=== PATIENT | male | born 1985 | race Caucasian/White ===

== ENCOUNTER 2021-06-21 09:54 | Outpatient (REF) | payer OTHER, SELFPAY ==
[2021-06-21 13:57] LABS: MANUAL DIFF FLAG NO
[2021-06-21 14:01] LABS: Basophils Percent Auto 0.5 % (0-2); Eosinophils Absolute Auto 0.3 X10*3/uL (0.0-0.4); Eosinophils Percent Auto 4.2 % (0-4); Hemoglobin 15.4 g/dl (14.0-18.0); Imm Gran Abs Auto 0.03 X10*3/uL (0.00-0.03); Imm Gran Pct Auto 0.4 % (0.0-0.4); Lymphocytes Absolute Auto 2.4 X10*3/uL (1.2-4.9); Lymphocytes Percent Auto 31.9 % (20-40); Mean Corpuscular HGB Conc 33.5 g/dl (31.0-36.0); Mean Corpuscular Volume 86.6 fL (80.0-98.0); Mean Platelet Volume 10.2 fL (9.4-12.4); Monocytes Absolute Auto 0.4 X10*3/uL (0.1-1.2); Monocytes Percent Auto 5.4 % (2-11); Neutrophils Absolute Auto 4.3 x10*3/uL (2.0-8.3); Neutrophils Percent Auto 57.6 % (45-73); Platelet Count 244 X10*3/uL (160-400); Red Blood Count 5.31 X10*6/uL (4.60-5.80); Red Cell Distribution Width 12.7 % (11.0-16.0); White Blood Count 7.4 X10*3/uL (4.8-10.8)
[2021-06-21 14:30] LABS: Alanine Aminotransferase 75 U/L (0-40); Albumin Level 4.4 g/dL (3.5-5.0); Alkaline Phosphatase 78 U/L (39-117); Anion Gap 14 (12-20); Aspartate Amino Transferase 41 U/L (5-37); Bilirubin Total 0.4 mg/dL (0.0-1.0); Blood Urea Nitrogen 13 mg/dL (9-16); Calcium 9.6 mg/dL (8.4-10.2); Carbon Dioxide 27 mmol/L (22-29); Chloride 103 mmol/L (96-108); Cholesterol 157 mg/dL; Estimated Glomerular Filt Rate > 60; Glucose Fasting 103 mg/dL (60-99); HDL Cholesterol 39 mg/dL; LDL Cholesterol Calculated 82 mg/dl; Potassium 4.2 mmol/L (3.3-5.1); Sodium 140 mmol/L (135-145); Total Protein 7.4 g/dL (6.5-8.0); Triglycerides 181 mg/dL
[2021-06-21 14:41] LABS: Prostate Specific Antigen 0.06 ng/mL (<0.05-4.0)
[2021-06-26 16:06] LABS: Testosterone, Total 23 ng/dL (250-1100)
== END 2021-06-21 09:55 | disposition home or self-care (01) ==
LOC: HO.10HDL 09:54
PROVIDERS: Visit Provider Internal Medicine Medical Oncology
DX: Z12.5 Encounter for screening for malignant neoplasm of prostate (principal); I10 Essential (primary) hypertension; N52.9 Male erectile dysfunction, unspecified; E66.01 Morbid (severe) obesity due to excess calories; R68.82 Decreased libido
CPT/HCPCS: 36415; 80053; 80061; 84153; 84403; 85025

== ENCOUNTER 2021-06-28 08:32 | Outpatient (REF) | payer OTHER, SELFPAY | END 2021-06-28 08:33 | disposition home or self-care (01) | LOC: HO.HOSX 08:32 | PROVIDERS: Visit Provider Orthopaedic Surgery | DX: Z13.89 Encounter for screening for other disorder (principal) ==

== ENCOUNTER 2021-07-19 09:08 | Outpatient (REF) | payer OTHER, SELFPAY | END 2021-07-19 09:09 | disposition home or self-care (01) | LOC: HO.HOSX 09:08 | PROVIDERS: Visit Provider Orthopaedic Surgery | DX: Z13.89 Encounter for screening for other disorder (principal) ==

== ENCOUNTER 2021-08-09 12:22 | Outpatient (REF) | payer OTHER, SELFPAY ==
--- NOTE | ~2021-08-09 | XR_ITS ---
EXAMINATION: XR knee standing BI, XR knee RT 2V, XR knee LT 2V CLINICAL INFORMATION: Reason for Exam M25.569 - Pain in unspecified knee COMPARISON: None available at the time of this dictation. TECHNIQUE: frontal, lateral, tunnel and patella sunrise views FINDINGS: BONES: No fracture or dislocation is present. JOINTS: Narrowing of joint spaces and developed osteophytes from the edges of articular surfaces suggest degenerative osteoarthritis this has involved primarily the lateral compartment left knee and mildly involving medial compartments on both sides.. SOFT TISSUE: Normal XR/XR knee standing BI IMPRESSION: Mild to moderate degenerative osteoarthritis involving primarily lateral compartment left knee.
--- NOTE | ~2021-08-09 | XR_ITS ---
EXAMINATION: XR knee standing BI, XR knee RT 2V, XR knee LT 2V CLINICAL INFORMATION: Reason for Exam M25.569 - Pain in unspecified knee COMPARISON: None available at the time of this dictation. TECHNIQUE: frontal, lateral, tunnel and patella sunrise views FINDINGS: BONES: No fracture or dislocation is present. JOINTS: Narrowing of joint spaces and developed osteophytes from the edges of articular surfaces suggest degenerative osteoarthritis this has involved primarily the lateral compartment left knee and mildly involving medial compartments on both sides.. SOFT TISSUE: Normal XR/XR knee RT 2V IMPRESSION: Mild to moderate degenerative osteoarthritis involving primarily lateral compartment left knee.
--- NOTE | ~2021-08-09 | XR_ITS ---
EXAMINATION: XR knee standing BI, XR knee RT 2V, XR knee LT 2V CLINICAL INFORMATION: Reason for Exam M25.569 - Pain in unspecified knee COMPARISON: None available at the time of this dictation. TECHNIQUE: frontal, lateral, tunnel and patella sunrise views FINDINGS: BONES: No fracture or dislocation is present. JOINTS: Narrowing of joint spaces and developed osteophytes from the edges of articular surfaces suggest degenerative osteoarthritis this has involved primarily the lateral compartment left knee and mildly involving medial compartments on both sides.. SOFT TISSUE: Normal XR/XR knee LT 2V IMPRESSION: Mild to moderate degenerative osteoarthritis involving primarily lateral compartment left knee.
== END 2021-08-09 12:23 | disposition home or self-care (01) ==
LOC: HO.HOSX 12:22
PROVIDERS: Visit Provider Orthopaedic Surgery
DX: M25.362 Other instability, left knee (principal); M17.12 Unilateral primary osteoarthritis, left knee
CPT/HCPCS: 73560; 73565

== ENCOUNTER → 2021-09-14 13:47 | Outpatient (BNVA) | payer OTHER, SELFPAY | PROVIDERS: PCP Internal Medicine Medical Oncology; Visit Provider Internal Medicine Endocrinology, Diabetes & Metabolism | DX: E29.1 Testicular hypofunction (principal) | CPT/HCPCS: 99202 ==

== ENCOUNTER 2021-12-11 08:00 | Outpatient (REF) | payer OTHER, SELFPAY ==
[2021-12-12 08:52] LABS: Follicle Stimulating Hormone <0.7 mIU/mL (1.6-8.0); Lutenizing Hormone <0.2 mIU/mL (1.5-9.3)
[2021-12-15 21:36] LABS: Testosterone, Total 19 ng/dL (250-1100)
== END 2021-12-11 08:01 | disposition home or self-care (01) ==
LOC: HO.LAB 08:00
PROVIDERS: PCP Internal Medicine Medical Oncology; Visit Provider Internal Medicine Endocrinology, Diabetes & Metabolism
DX: E29.1 Testicular hypofunction (principal)
CPT/HCPCS: 36415; 83001; 83002; 84403

== ENCOUNTER 2021-12-21 08:12 | Outpatient (REF) | payer OTHER, SELFPAY ==
[2021-12-21 10:10] LABS: Ferritin 296 ng/mL (20-250)
[2021-12-23 00:36] LABS: Prolactin 6.3 ng/mL (2.0-18.0)
== END 2021-12-21 08:13 | disposition home or self-care (01) ==
LOC: HO.LAB 08:12
PROVIDERS: PCP Internal Medicine Medical Oncology; Visit Provider Internal Medicine Endocrinology, Diabetes & Metabolism
DX: E29.1 Testicular hypofunction (principal)
CPT/HCPCS: 36415; 82728; 84146

== ENCOUNTER → 2022-01-07 09:07 | Outpatient (BNVA) | payer OTHER, SELFPAY | PROVIDERS: PCP Internal Medicine Medical Oncology; Visit Provider Internal Medicine Endocrinology, Diabetes & Metabolism | DX: E29.1 Testicular hypofunction (principal) | CPT/HCPCS: 99212 ==

== ENCOUNTER 2022-01-13 08:09 | Outpatient (REF) | payer OTHER, SELFPAY ==
[2022-01-13 10:41] LABS: Anion Gap 11 (12-20); Blood Urea Nitrogen 18 mg/dL (9-16); Calcium 9.7 mg/dL (8.4-10.2); Carbon Dioxide 29 mmol/L (22-29); Chloride 103 mmol/L (96-108); Estimated Glomerular Filt Rate > 60; Glucose Random 90 mg/dL (60-115); Potassium 4.2 mmol/L (3.3-5.1); Sodium 139 mmol/L (135-145)
[2022-01-13 11:04] LABS: Ferritin 296 ng/mL (20-250); Free T4 (Free Thyroxine) 0.97 ng/dL (0.71-1.85); Thyroid Stimulating Hormone 1.55 uIU/mL (0.32-4.0)
[2022-01-13 11:43] LABS: Cortisol Random 17.7 ug/dL
[2022-01-18 17:01] LABS: IGF-1 (Somatomedin C) 107 ng/mL (53-331); IGF-1 Z Score (Male) -0.6 SD (-2.0 - +2.0)
== END 2022-01-13 08:10 | disposition home or self-care (01) ==
LOC: HO.10HDL 08:09
PROVIDERS: Visit Provider Internal Medicine Endocrinology, Diabetes & Metabolism
DX: E29.1 Testicular hypofunction (principal)
CPT/HCPCS: 36415; 80048; 82533; 82728; 84305; 84439; 84443

== ENCOUNTER → 2022-02-23 10:44 | Outpatient (BNVA) | payer OTHER, SELFPAY | PROVIDERS: PCP Internal Medicine Medical Oncology; Visit Provider Internal Medicine Endocrinology, Diabetes & Metabolism | DX: E29.1 Testicular hypofunction (principal) | CPT/HCPCS: 99212 ==

== ENCOUNTER → 2022-05-10 14:36 | Outpatient (BNVA) | payer OTHER, SELFPAY | PROVIDERS: PCP Internal Medicine Medical Oncology; Visit Provider Internal Medicine Endocrinology, Diabetes & Metabolism | DX: E29.1 Testicular hypofunction (principal) | CPT/HCPCS: 99212 ==

== ENCOUNTER 2022-10-31 12:11 | Outpatient (REF) | payer OTHER, SELFPAY ==
[2022-10-31 12:46] LABS: Hemoglobin 16.3 g/dl (14.0-18.0)
[2022-11-05 17:54] LABS: Testosterone, Total 39 ng/dL (250-1100)
== END 2022-10-31 12:12 | disposition home or self-care (01) ==
LOC: HO.LAB 12:11
PROVIDERS: PCP Internal Medicine Medical Oncology; Visit Provider Internal Medicine Endocrinology, Diabetes & Metabolism
DX: E29.1 Testicular hypofunction (principal)
CPT/HCPCS: 36415; 84402; 84403; 85014; 85018

== ENCOUNTER → 2022-11-03 15:53 | Outpatient (BNVA) | payer OTHER, SELFPAY | PROVIDERS: PCP Internal Medicine Medical Oncology; Visit Provider Internal Medicine Endocrinology, Diabetes & Metabolism | DX: E29.1 Testicular hypofunction (principal) | CPT/HCPCS: 99212 ==

== ENCOUNTER 2022-12-27 11:50 | Emergency (ER) | payer OTHER, SELFPAY ==
--- NOTE | ~2022-12-27 | XR_ITS ---
EXAMINATION: XR CHEST CLINICAL INFORMATION: Pain Patient states cold symptoms and rash on chest COMPARISON: None available. TECHNIQUE: 2 views of the chest were obtained. FINDINGS: There is central and scattered peripheral peribronchial thickening. There is no focal consolidation. No pleural effusion. No significant abnormality is noted involving the heart, mediastinum, bony thorax or soft tissues. XR/XR chest 2V IMPRESSION: 1. No pneumonia. 2. Central and scattered peripheral peribronchial thickening which can be seen with bronchitis.
[2022-12-27 11:59] VITALS: BP 216/144; PULSE 88; RESP 20; TEMP 36.3; O2SAT 93; BMI 38.9
--- NOTE | 2022-12-27 12:01 | ED_ITS ---
HPI - General Adult General Chief complaint: Upper Respiratory Symptoms Stated complaint: sent from urgent care Time Seen by Provider: 12/27/22 14:57 Source: patient Mode of arrival: ambulatory Limitations: no limitations History of Present Illness HPI narrative: 37-year-old male who presents emergency department for evaluation sore throat, headache, fever, chills and rash. Patient states that he has been sick since 12/23/2022 (4 days prior to evaluation). He states that he woke up with a severe sore throat, headache and nasal congestion. States that initially had a cough which then resolved. He states that initially felt short of breath and dyspnea on exertion but this also resolved. He states that he has a consistent sore throat, he feels tired and fatigued. He has myalgias and arthralgias. He had 1 episode of nausea and vomiting. He had no diarrhea. Patient went to an urgent care clinic and was referred to the emergency department for evaluation of his symptoms. Patient states he goes in the [place] every day he has had at least a tick bites over the past 2 weeks. He states that he has been bit by female deer ticks any does not identify them. Related Data Home Medications Medication Instructions Recorded Confirmed sumatriptan succinate 100 mg tablet 100 mg PO DAILY PRN 09/14/21 09/14/21 adalimumab 80 mg/0.8 mL mg subcut 01/07/22 subcutaneous pen kit (Humira(CF) Pen Crohn's-[facility] Colitis-Hid Sup Strt) Previous Rx's Medication Instructions Recorded ofloxacin 0.3 % eye drops 2 drp ophthalmic (eye) QID 5 days 08/31/22 #5 mL syringe with needle, safety 3 mL #20 ea 11/08/22 22 gauge x 1 1/2 (BD Eclipse Luer-Hyacinth) testosterone cypionate 200 mg/mL 100 mg (0.5 mL) IM QWEEK 4 weeks 11/22/22 intramuscular oil #2 mL Allergies Allergy/AdvReac Type Severity Reaction Status Date / Time bee pollen [BEE STINGS] Allergy Severe THROAT Verified 12/27/22 12:02 SWELLING codeine [CODEINE] Allergy Mild STOMACH Verified 12/27/22 12:02 UPSET, nausea and vomiting Review of Systems Review of Systems: Yes all other systems are reviewed and are negative [facility] Past Medical History [facility] Narrative: Past medical history: Hypertension and multiple episodes of acute kidney injury. 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 He does smoke 1 pack of cigarettes per day. He denies alcohol use. He does smoke marijuana and occasionally uses cocaine. Medical History (Updated 12/27/22 @ 15:51 by Benitez Roe MD) Hypogonadism, testicular Surgical History H/O discectomy H/O myringotomy History of meniscectomy of left knee History of surgery S/P tendon repair Family History Family History Father No problems noted. Mother Hypertension Maternal Grandfather Coronary artery disease Maternal Grandmother Hypertension Diabetes Social History Social History Alcohol intake: current Alcohol intake frequency: does not drink Patient Tobacco Use Status: Current everyday Tobacco user Tobacco use type: Cigarette Cigarette Packs Per Day: 1.5 Physical Exam ED Vital Signs: Vital Signs - 24 hr 12/27/22 11:59 12/27/22 14:53 Temperature 97.4 F Pulse Rate 88 91 Respiratory Rate 20 18 Blood Pressure 216/144 H 232/135 H Pulse Oximetry 93 95 Oxygen Delivery Method Room Air Room Air BMI result Body Mass Index 38.9 Course Course Course Narrative: RME- 37-year-old male presents for evaluation of congestion, rash to his chest. Symptoms started Monday. The patient went to Urgent Care was found to be significantly hypertensive as high as 186/120. He was sent here for further evaluation. The patient remains hypertension to 216/144. The patient does have erythematous maculopapular rash to his chest. He reports being outside frequently. I added labs, tick-borne illness studies. The patient reports that he has been on exogenous testosterone for the last 6 weeks Medical Decision Making Medical Decision Making MDM Narrative: 37-year-old male who presents emergency department for evaluation of URI type symptoms with fever, chills, sore throat, nasal congestion cough which resolved and rash on his chest. Patient's blood pressure was elevated to this is an accurate blood pressure 216/144 however patient has a very large arm is unclear. Presses vital signs were normal. The rest of his vital signs were normal. Patient has erythema to his chest but also has a vesicular rash in multiple stages consistent with varicella zoster virus. Patient was evaluated by provider triage and laboratory evaluation and chest x-ray was ordered. 0336: Patient's laboratory evaluation revealed no significant acute abnormalities Chest x-ray was unremarkable Patient's rash suggests that he has a viral syndrome most likely acute varicella zoster virus. Tick-borne illness is also possibility. I did discuss the pending test with the patient and the need to follow-up with his PCP to make sure that he does not need to be treated for tick-borne illness. He was given printed and verbal instructions and discharged home. Differential Diagnosis Differential Diagnoses: The differential diagnosis associated with the presentation includes Differential diagnosis includes was not limited to pneumonia, allergic reaction, tick-borne illness, viral illness, URI, bronchitis, varicella virus Lab Data MDM Lab Attestation statement: I reviewed the patient's lab results. My independent interpretation patient's laboratory evaluation is as follows: WBC normal. H&H elevated 17.8 and 53.7-could be secondary hemoconcentration caused by volume depletion. ALT elevated 41. Rapid strep test negative. 12/27/22 12:18 12/27/22 12:18 Labs: Lab Results 12/27/22 12/27/22 12/27/22 Range/Units 12:17 12:18 12:18 WBC 10.6 (4.8-10.8) X10*3/uL RBC 6.22 H (4.60-5.80) X10*6/uL Hgb 17.8 (14.0-18.0) g/dl Hct 53.7 H (42.0-52.0) % MCV 86.3 (80.0-98.0) fL MCH 28.6 (27.0-33.0) pg MCHC 33.1 (31.0-36.0) g/dl RDW 14.0 (11.0-16.0) % Plt Count 198 (160-400) X10*3/uL MPV 9.4 (9.4-12.4) fL Immature Gran % (Auto) 0.6 H (0.0-0.4) % Neut % (Auto) 66.8 (45-73) % Lymph % (Auto) 23.4 (20-40) % [place] % (Auto) 4.6 (2-11) % Eos % (Auto) 4.0 (0-4) % Baso % (Auto) 0.6 (0-2) % Lymph # (Auto) 2.5 (1.2-4.9) X10*3/uL [place] # (Auto) 0.5 (0.1-1.2) X10*3/uL Eos # (Auto) 0.4 (0.0-0.4) X10*3/uL Baso # (Auto) 0.1 (0.0-0.2) X10*3/uL Abs Immat Gran (auto) 0.06 H (0.00-0.03) X10*3/uL Absolute Neuts (auto) 7.1 (2.0-8.3) x10*3/uL Absolute Nucleated RBC 0.000 (0.0-0.012) X10*3/uL Nucleated RBC % (auto) 0.0 (0.0-0.2) /100WBC Sodium 137 (135-145) mmol/L Potassium 3.7 (3.3-5.1) mmol/L Chloride 103 (96-108) mmol/L Carbon Dioxide 25 (22-29) mmol/L Anion Gap 13 (12-20) BUN 12 (9-16) mg/dL Creatinine 0.87 (0.5-1.4) mg/dL Estim Creat Clear Calc 177.5 Estimated GFR > 60 Random Glucose 131 H (60-115) mg/dL Calcium 9.3 (8.4-10.2) mg/dL Total Bilirubin 0.7 (0.0-1.0) mg/dL AST 30 (5-37) U/L ALT 41 H (0-40) U/L Alkaline Phosphatase 69 (39-117) U/L Total Protein 7.4 (6.5-8.0) g/dL Albumin 4.1 (3.5-5.0) g/dL Lipase 10 (8-78) U/L Monoscreen (Negative) S. pyogenes GrpA STACEY Negative (Negative) 12/27/22 Range/Units 12:18 WBC (4.8-10.8) X10*3/uL RBC (4.60-5.80) X10*6/uL Hgb (14.0-18.0) g/dl Hct (42.0-52.0) % MCV (80.0-98.0) fL MCH (27.0-33.0) pg MCHC (31.0-36.0) g/dl RDW (11.0-16.0) % Plt Count (160-400) X10*3/uL MPV (9.4-12.4) fL Immature Gran % (Auto) (0.0-0.4) % Neut % (Auto) (45-73) % Lymph % (Auto) (20-40) % Newton % (Auto) (2-11) % Eos % (Auto) (0-4) % Baso % (Auto) (0-2) % Lymph # (Auto) (1.2-4.9) X10*3/uL [place] # (Auto) (0.1-1.2) X10*3/uL Eos # (Auto) (0.0-0.4) X10*3/uL Baso # (Auto) (0.0-0.2) X10*3/uL Abs Immat Gran (auto) (0.00-0.03) X10*3/uL Absolute Neuts (auto) (2.0-8.3) x10*3/uL Absolute Nucleated RBC (0.0-0.012) X10*3/uL Nucleated RBC % (auto) (0.0-0.2) /100WBC Sodium (135-145) mmol/L Potassium (3.3-5.1) mmol/L Chloride (96-108) mmol/L Carbon Dioxide (22-29) mmol/L Anion Gap (12-20) BUN (9-16) mg/dL Creatinine (0.5-1.4) mg/dL Estim Creat Clear Calc Estimated GFR Random Glucose (60-115) mg/dL Calcium (8.4-10.2) mg/dL Total Bilirubin (0.0-1.0) mg/dL AST (5-37) U/L ALT (0-40) U/L Alkaline Phosphatase (39-117) U/L Total Protein (6.5-8.0) g/dL Albumin (3.5-5.0) g/dL Lipase (8-78) U/L Monoscreen Negative (Negative) S. pyogenes GrpA STACEY (Negative) Independent Interpretation I performed an independent interpretation of an: Plain X-Ray Interpretation: My independent interpretation of the patient?s chest X-ray is no acute disease Radiology Impression Discussion of test interpretation with radiology: I have reviewed the radiologist's reading. Radiologist Impression: XR chest 2V IMPRESSION: 1. No pneumonia. 2. Central and scattered peripheral peribronchial thickening which can be seen with bronchitis. Dictated By:Caitlin Trivedi MD Discharge Plan Discharge Clinical Impression: Chickenpox, Viral syndrome, Tick bite Patient Disposition: Home, Self-Care Instructions: Chickenpox (ED) Additional Instructions: Your symptoms are consistent with a viral infection Your rash is caused by a virus and base on the parents I believe that you have varicella zoster virus (chickenpox) This rash will eventually go away, the pimples will hot by themselves, crust over and then get better. Given the fact that she had multiple tick bites, we did do a tick-borne illness panel which tests for multiple different infections that you can get from tick bites. These tests will take a week or more to come back so you should follow-up with your doctor to review these results. You also had a respiratory viral panel and I will contact you if these results come back today before 22:00 otherwise you should discuss these tests with your doctor. Your chest x-ray was unremarkable. Your blood counts, blood chemistries, kidney tests and liver tests were all normal. Your rapid strep test was negative. Increase your fluid intake to prevent dehydration Take Tylenol (acetaminophen) 500 mg pills, 2 pills every 6 hours as needed for pain. Follow-up with your doctor in 2 days. Please return to the emergency department if your symptoms get worse or if you develop any symptoms that are concerning to you. Your blood pressures were high here in the emergency department however this could be due to the fact that are blood pressure cuff may be small for your arm. Make sure you take your blood pressure medications as prescribed by your doctor in follow-up for further management of your high blood pressure. Prescriptions: No Action (DME) BD Eclipse Luer-Hyacinth 3 mL 22 gauge x 1 1/2 syringe See Rx Instructions .Route Qty: 20 4RF Rx Instructions: As directed injects once a week testosterone cypionate 200 mg/mL oil 100 mg IM QWEEK 28 Days Qty: 2 5RF ofloxacin 0.3 % drops 2 drp ophthalmic (eye) QID 5 Days Qty: 5 0RF sumatriptan succinate 100 mg tablet 100 mg PO DAILY PRN Humira(CF) Pen [id number] 80 mg/0.8 mL pen injector kit subcut
[2022-12-27 12:23] LABS: MANUAL DIFF FLAG NO
[2022-12-27 12:26] LABS: Basophils Absolute Auto 0.1 X10*3/uL (0.0-0.2); Basophils Percent Auto 0.6 % (0-2); Eosinophils Absolute Auto 0.4 X10*3/uL (0.0-0.4); Hematocrit 53.7 % (42.0-52.0); Hemoglobin 17.8 g/dl (14.0-18.0); Imm Gran Abs Auto 0.06 X10*3/uL (0.00-0.03); Imm Gran Pct Auto 0.6 % (0.0-0.4); Lymphocytes Absolute Auto 2.5 X10*3/uL (1.2-4.9); Lymphocytes Percent Auto 23.4 % (20-40); Mean Corpuscular HGB Conc 33.1 g/dl (31.0-36.0); Mean Corpuscular Hemoglobin 28.6 pg (27.0-33.0); Mean Corpuscular Volume 86.3 fL (80.0-98.0); Mean Platelet Volume 9.4 fL (9.4-12.4); Monocytes Absolute Auto 0.5 X10*3/uL (0.1-1.2); Monocytes Percent Auto 4.6 % (2-11); Neutrophils Absolute Auto 7.1 x10*3/uL (2.0-8.3); Neutrophils Percent Auto 66.8 % (45-73); Platelet Count 198 X10*3/uL (160-400); Red Blood Count 6.22 X10*6/uL (4.60-5.80); White Blood Count 10.6 X10*3/uL (4.8-10.8)
[2022-12-27 12:43] LABS: IDNOW Serial# 08D9AD1C; Strep A Nucleic Acid Negative (Negative)
[2022-12-27 12:49] LABS: Alanine Aminotransferase 41 U/L (0-40); Albumin Level 4.1 g/dL (3.5-5.0); Alkaline Phosphatase 69 U/L (39-117); Anion Gap 13 (12-20); Aspartate Amino Transferase 30 U/L (5-37); Bilirubin Total 0.7 mg/dL (0.0-1.0); Blood Urea Nitrogen 12 mg/dL (9-16); Calcium 9.3 mg/dL (8.4-10.2); Carbon Dioxide 25 mmol/L (22-29); Chloride 103 mmol/L (96-108); Creatinine Clr Calc Pharmacy 177.5; Estimated Glomerular Filt Rate > 60; Glucose Random 131 mg/dL (60-115); Lipase 10 U/L (8-78); Potassium 3.7 mmol/L (3.3-5.1); Sodium 137 mmol/L (135-145); Total Protein 7.4 g/dL (6.5-8.0)
[2022-12-27 12:51] LABS: Monotest Negative (Negative)
[2022-12-27 14:53] VITALS: BP 232/135; PULSE 91; RESP 18; O2SAT 95
[2022-12-27 15:32] VITALS: BP 203/124
[2022-12-29 21:13] LABS: Lyme Abs Screen <0.90 index
[2023-01-02 18:23] LABS: Rocky Mtn. Spot. Fever IgG Ab Not Detected (Not Detected); Rocky Mtn.Spot. Fever IgM Ab Not Detected (Not Detected)
[2023-01-04 11:35] LABS: Babesia IgG <1:64 titer (<1:64); Babesia IgM <1:20 titer (<1:20)
[2023-01-04 12:48] LABS: A. Phagocytophilum Ab IgG <1:64 (<1:64); A. Phagocytophilum Ab IgM <1:20 (<1:20); E. Chaffeensis Ab IgG <1:64 (<1:64); E. Chaffeensis Ab IgM <1:20 (<1:20)
== END 2022-12-27 16:26 | disposition home or self-care (01) ==
LOC: HO.ED 16:17
PROVIDERS: Physician Assistant; Emergency Provider Emergency Medicine Emergency Medical Services
DX: B01.9 Varicella without complication (principal); B34.9 Viral infection, unspecified; R07.89 Other chest pain; Z79.899 Other long term (current) drug therapy
CPT/HCPCS: 36415; 71046; 80053; 83690; 85025; 86308; 86617; 86618; 86666; 86753; 86757; 87651; 99283; 99284

== ENCOUNTER 2023-01-04 15:21 | Outpatient (REF) | payer OTHER, SELFPAY | END 2023-01-04 15:22 | disposition home or self-care (01) | LOC: HO.LNP 15:21 | PROVIDERS: Visit Provider Internal Medicine Medical Oncology | DX: J02.9 Acute pharyngitis, unspecified (principal) | CPT/HCPCS: 87070 ==

== ENCOUNTER 2023-01-21 23:57 | Emergency (ER) | payer OTHER, SELFPAY ==
[2023-01-22 00:01] VITALS: BP 183/107; PULSE 99; RESP 18; TEMP 36.6; O2SAT 96; BMI 45.9
[2023-01-22 00:43] LABS: Appearance Urine Cloudy; Color Urine Dark Yellow; Glucose Urine UA Negative (Negative); Leukocyte Esterase Urine Negative (Negative); Nitrite Urine Negative (Negative); PH 5.5 (5.0-9.0); Specific Gravity - Urine >= 1.030 (1.005-1.025); UMIC TRIGGER UA YES; Urine Blood Small (1+) (Negative); Urine Ketones Trace mg/dL (Negative); Urine Protein 300 (3+) mg/dL (Neg-Trace)
[2023-01-22] MEDS: amLODIPine Besylate 10 MG TABLET 5 MG PO (00:46)
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
[2023-01-22 00:50] LABS: Bacteria Urine None Seen (None Seen); Hyaline Casts Urine >20 /LPF (0-2); WBC Urine 0-5 /HPF (0-5)
[2023-01-22 00:58] LABS: Amphetamine Screen Urine Not Detected (Not Detect); Barbiturates, Urine Not Detected (Not Detect); Benzodiazepines Screen Urine POSITIVE (Not Detect); Cannabinoid Screen Urine POSITIVE (Not Detect); Cocaine Screen Urine POSITIVE (Not Detect); Fentanyl, urine POSITIVE (Not Detect); Opiate Screen Urine POSITIVE (Not Detect); Phencyclidine Screen Urine Not Detected (Not Detect)
== END 2023-01-22 01:09 | disposition home or self-care (01) ==
PROVIDERS: Emergency Provider Emergency Medicine
DX: R45.851 Suicidal ideations (principal); I10 Essential (primary) hypertension; F17.210 Nicotine dependence, cigarettes, uncomplicated; Z71.6 Tobacco abuse counseling; Z79.899 Other long term (current) drug therapy
CPT/HCPCS: 80307; 81001; 99283

== ENCOUNTER 2023-02-18 12:20 | Emergency (ER) | payer OTHER, SELFPAY ==
[2023-02-18 12:28] VITALS: BP 174/106; PULSE 90; RESP 15; TEMP 37.3; O2SAT 97; BMI 41.4
[2023-02-18] MEDS: predniSONE 20 MG TABLET 60 MG PO (12:37)
[2023-02-18 12:49] VITALS: BP 172/138; PULSE 90; O2SAT 98
--- NOTE | 2023-02-18 12:53 | ED_ITS ---
HPI - Allergic Reaction General Chief complaint: Allergic Reaction Stated complaint: BEE STING, 0.3 EPI GIVEN PER EMS Time Seen by Provider: 02/18/23 12:25 Source: patient and EMS Mode of arrival: EMS Limitations: no limitations History of Present Illness HPI narrative: 37 yo male history of anaphylaxis to bee stings presents to the ER for evaluation after he sat on a being got stung About 30 minutes ago. He states he sustained a sting to his left gluteal area. He developed chest tightness, sensation of throat closing and hives on his trunk. He took 50 mg of Benadryl and abdominal was called. He was given 0.3 IM epinephrine in his right deltoid. His symptoms started to subside and he was brought to the ER for further evaluation. Patient states he does not know where his EpiPen and are in there probably . He is feeling better. He is no longer having any throat sensation issues, hives are improved, no chest tightness. No lip swelling. MD complaint: allergic reaction and hives Onset (ago): minute(s) Exposure: insect bite Symptoms: rash, itching and difficulty swallowing Severity: moderate Treatment prior to arrival: benadryl and epinephrine Previous Allergic Reaction History: prior ED visit(s) and anaphylaxis Related Data Home Medications Medication Instructions Recorded Confirmed sumatriptan succinate 100 mg tablet 100 mg PO DAILY PRN 09/14/21 09/14/21 adalimumab 80 mg/0.8 mL mg subcut 01/07/22 subcutaneous pen kit (Humira(CF) Pen Crohn's-Ulc Colitis-Hid Sup Strt) Previous Rx's Medication Instructions Recorded ofloxacin 0.3 % eye drops 2 drp ophthalmic (eye) QID 5 days 08/31/22 #5 mL syringe with needle, safety 3 mL #20 ea 11/08/22 22 gauge x 1 1/2 (BD Eclipse Luer-Hyacinth) amlodipine 5 mg tablet 5 mg PO DAILY #30 tabs 01/22/23 testosterone cypionate 200 mg/mL 100 mg (0.5 mL) IM QWEEK 4 weeks 02/01/23 intramuscular oil #2 mL epinephrine 0.3 mg/0.3 mL 0.3 mg (0.3 mL) IM Q4H PRN 02/18/23 injection, auto-injector (EpiPen anaphylaxis #2 ea 2-Matthew) Allergies Allergy/AdvReac Type Severity Reaction Status Date / Time bee pollen [BEE STINGS] Allergy Severe THROAT Verified 12/27/22 12:02 SWELLING codeine [CODEINE] Allergy Mild STOMACH Verified 12/27/22 12:02 UPSET, nausea and vomiting Review of Systems Review of Systems: Yes all other systems are reviewed and are negative [facility] Past Medical History Medical History Hypogonadism, testicular Surgical History H/O discectomy H/O myringotomy History of meniscectomy of left knee History of surgery S/P tendon repair Family History Family History Father No problems noted. Mother Hypertension Maternal Grandfather Coronary artery disease Maternal Grandmother Hypertension Diabetes Social History Social History Alcohol intake: current Alcohol intake frequency: does not drink Patient Tobacco Use Status: Current everyday Tobacco user Tobacco use type: Cigarette Cigarette Packs Per Day: 1.5 Smoked in Last 30 Days: Yes Substance Use Type: Marijuana Substance Use Frequency: Daily Advance Directives: No Advance Directives Information Provided: Yes Physical Exam ED Vital Signs: Vital Signs - 24 hr 02/18/23 12:28 02/18/23 13:48 Temperature 99.1 F 97.6 F Pulse Rate 90 72 Respiratory Rate 15 13 Blood Pressure 174/106 H 164/106 H Pulse Oximetry 97 98 Oxygen Delivery Method Room Air Room Air BMI result Body Mass Index 41.4 Appearance: Alert. Oriented X3. No acute distress. Head: normocephalic, atraumatic. Eyes: Pupils equal, round and reactive to light. ENT: Pharynx normal. No tonsillar swelling or exudate. No perioral swelling. Normal voice. Handling secretions normally. Neck: Normal inspection. Neck supple. CVS: Normal heart rate and rhythm. Pulses normal. Respiratory: No respiratory distress. Breath sounds normal. Abdomen: Soft and nontender. +BS x4 Skin: Skin warm and dry. Normal skin color. Normal skin turgor. Urticarial rash on the upper back only Extremities: No lower extremity edema. No joint swelling. Neuro/psych: Oriented X 3. No motor deficit. No sensory deficit. CN II-XII intact. Normal speech and cognition. Medications Administered Discontinued Medications Generic Name Dose Route Start Last Admin Trade Name Gee PRN Reason Stop Dose Admin Prednisone 60 mg 02/18/23 12:26 02/18/23 12:37 Prednisone 20 Mg Tablet PO 02/18/23 12:27 60 mg ONCE ONE Administration Medical Decision Making Medical Decision Making MDM Narrative: [age]-year-old male with history of anaphylaxis to bee sting presents to the ER for evaluation after he got stung. He received intramuscular epinephrine and 50 mg of oral Benadryl prior to arrival with improvement in his symptoms. Additionally prednisone was given here. His vital signs are stable and he is feeling symptomatically much better. Patient was observed in the ER for an hour and a half with resolution of his symptoms. Blood pressure improved, patient never tachycardic. He feels well and would like to be discharged. He will be discharged with new prescription for epinephrine. He was counseled. He is stable for discharge home. Differential Diagnosis Differential Diagnoses: The differential diagnosis associated with the presentation includes anaphylaxis, allergic reaction, hives, anxiety Admission/Observation Consideration of admission/observation: Escalation of care including admission/observation considered Concern for anaphylaxis, admission observation were considered. Independent Historian Clinical information obtained from an independent historian. History obtained from or confirmed by: EMS External Record Review External record reviewed: Prior outpatient labs Prescription Management I considered prescription management with: Other ( Epinephrine and prednisone) Critical Care Time Critical Care Time Critical Care Time: No Discharge Plan Discharge Clinical Impression: Allergic reaction Patient Disposition: Home, Self-Care Instructions: General Allergic Reaction (ED) Additional Instructions: continue benadryl 50 mg every 6-8 hours if you have ongoing symptoms. If you develop new or worsening symptoms call 911 or come back to the ER for further evaluation. Prescriptions: New epinephrine [EpiPen 2-Matthew] 0.3 mg/0.3 mL auto-injector 0.3 mg IM Q4H PRN (Reason: anaphylaxis) Qty: 2 0RF No Action (DME) BD Eclipse Luer-Hyacinth 3 mL 22 gauge x 1 1/2 syringe See Rx Instructions .Route Qty: 20 4RF Rx Instructions: As directed injects once a week testosterone cypionate 200 mg/mL oil 100 mg IM QWEEK 28 Days Qty: 2 5RF amlodipine 5 mg tablet 5 mg PO DAILY Qty: 30 2RF ofloxacin 0.3 % drops 2 drp ophthalmic (eye) QID 5 Days Qty: 5 0RF sumatriptan succinate 100 mg tablet 100 mg PO DAILY PRN Humira(CF) Pen Bkyexx-AF-NN 80 mg/0.8 mL pen injector kit subcut Interventions: ED Discharge Assessment Last Done: 02/18/23 13:54 Discharge Date/Time: 02/18/23 13:55
[2023-02-18 13:48] VITALS: BP 164/106; PULSE 72; RESP 13; TEMP 36.4; O2SAT 98
--- NOTE | 2023-02-18 13:55 | PC.NURSE ---
airway intact. talking w/o issue. +o2 sat on RA. rash has improved per pt. denies diff breathing.
== END 2023-02-18 13:55 | disposition home or self-care (01) ==
PROVIDERS: Emergency Provider Emergency Medicine Emergency Medical Services
DX: T63.441A Toxic effect of venom of bees, accidental (unintentional), initial encounter (principal)
CPT/HCPCS: 99283; 99284

== ENCOUNTER 2023-03-21 09:27 | Outpatient (REF) | payer OTHER, SELFPAY ==
[2023-03-27 15:29] LABS: Testosterone, Free 89.3 pg/mL (35.0-155.0); Testosterone, Total 496 ng/dL (250-1100)
== END 2023-03-21 09:28 | disposition home or self-care (01) ==
LOC: HO.LAB 09:27
PROVIDERS: PCP Internal Medicine Medical Oncology; Visit Provider Internal Medicine Endocrinology, Diabetes & Metabolism
DX: E29.1 Testicular hypofunction (principal)
CPT/HCPCS: 36415; 84402; 84403

== ENCOUNTER 2023-04-06 16:05 | Outpatient (AMB) | payer OTHER, SELFPAY ==
[2023-04-06 16:06] VITALS: BP 166/86; PULSE 90; BMI 43.3
--- NOTE | 2023-04-06 16:06 | A.OFFVIS_ITS ---
Intake Vital Signs 04/06/23 16:06 Height 6 ft 4 in Weight 355 lb 9.69 oz BMI 43.3 BP 166/86 H Blood Pressure Location Lt brachial Position Sitting Pulse 90 Pulse Source Pulse Oximeter Intake Visit Reasons: F/Up hypogonadism, voicemail Intake Note: Patient present today for Hypogonadism follow up visit. 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 MRI and prolactin level were normal. He denies any anabolic steroid use. He describes in the past episodes of acute renal failure that resulted in dialysis. Continues to complain of loss of libido lack of energy, errectiel dysfunction. He comes in with his partner today. They stated they are no longer seeking fertility at present. He is currently on AndroGel 4 depressions per day. Better libido but still no increase in energy. Ran out of testosterone and was off 2 wks prior to testosterone testing On testosterone intramuscular 100 mg q.week [facility] Medical History Hypogonadism, testicular Surgical History H/O discectomy H/O myringotomy History of meniscectomy of left knee History of surgery S/P tendon repair Family History Father No problems noted. 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 MRI and prolactin were normal. He is not seeking fertility. He is currently on intramuscular testosterone 100 mg q.week. Peak level is adequate The plan is to continue current therapy. Wii check trough testosterone Orders: Orders Testosterone, Free/Total 03/21/23 E29.1 - Testicular hypofunction Coding Level of Care Code Est Pt Level 3 (82303) Diagnoses Hypogonadism, testicular E29.1
== END 2023-04-06 16:40 ==
PROVIDERS: PCP Internal Medicine Medical Oncology; Visit Provider Internal Medicine Endocrinology, Diabetes & Metabolism
DX: E29.1 Testicular hypofunction (principal)
CPT/HCPCS: 99213

== ENCOUNTER → 2023-04-06 16:05 | Outpatient (BNVA) | payer OTHER, SELFPAY | PROVIDERS: Visit Provider Internal Medicine Endocrinology, Diabetes & Metabolism | DX: E29.1 Testicular hypofunction (principal) | CPT/HCPCS: 99212 ==

== ENCOUNTER 2023-10-02 15:48 | Outpatient (AMB) | payer OTHER, SELFPAY ==
[2023-10-02 15:50] VITALS: BP 210/114; PULSE 122; BMI 43.1
--- NOTE | 2023-10-02 15:50 | A.OFFVIS_ITS ---
Intake Vital Signs 10/02/23 15:50 Height 6 ft 4 in Weight 354 lb 0.998 oz BMI 43.1 BP 210/114 H Blood Pressure Location Lt brachial Position Sitting Pulse 122 H Pulse Source Pulse Oximeter Intake Visit Reasons: f/u hypogonadism-lvm Intake Note: Patient presents today for Hypogonadism follow up. Camp Dishwasher Required: No Accompanied by: Self / Same As Patient Allergies bee pollen [BEE STINGS] Allergy (Severe, Verified 10/02/23 16:00) THROAT SWELLING codeine [CODEINE] Allergy (Mild, Verified 10/02/23 16:00) STOMACH UPSET, nausea and vomiting Medication List - Last Reconciled 10/02/23 by Pranav Hwang MD epinephrine (EpiPen 2-Matthew) 0.3 mg (0.3 mL) IM Q4H PRN syringe with needle, safety (BD Eclipse Luer-Hyacinth) As directed injects once a week testosterone cypionate 100 mg (0.5 mL) IM QWEEK 4 weeks HPI HPI Comments History of Present Illness Details This is a 38-year-old white male 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 MRI and prolactin level were normal. He denies any anabolic steroid use. He describes in the past episodes of acute renal failure that resulted in dialysis. They stated they are no longer seeking fertility at present. He is currently on AndroGel 4 depressions per day. Better libido but still no increase in energy. Ran out of testosterone and was off 2 wks prior to testosterone testing On testosterone intramuscular 100 mg q.week. Blood pressure was found to be markedly elevated today. Denies any headache or change in vision. He does complain of acne on his chest [facility] Medical History Hypogonadism, testicular Surgical History H/O discectomy S/P tendon repair History of meniscectomy of left knee H/O myringotomy History of surgery Family History Father No problems noted. Mother Hypertension Maternal Grandfather Coronary artery disease Maternal Grandmother Hypertension Diabetes Social History Alcohol intake: current Alcohol intake frequency: does not drink Patient Tobacco Use Status: Current everyday Tobacco user Tobacco use type: Cigarette Cigarette Packs Per Day: 1.5 Substance Use Type: Marijuana Physical Exam Vital Signs: Last Vital Signs Pulse 122 H 10/02/23 15:50 BP 210/114 H 10/02/23 15:50 BMI result Body Mass Index 43.1 Const Other: Presence of cystic pustules of acne on chest Assessment & Plan Assessment & Plan (1) Hypogonadism, testicular: Code(s): E29.1 - Testicular hypofunction Plan: This is a 37-year-old white male 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 MRI and prolactin were normal. He is not seeking fertility. He is currently on intramuscular testosterone 100 mg q.week. Peak level is adequate The plan is to continue current therapy. Wii check peak and trough testosterone as well as CBC. I messaged his primary care provider regarding dermatology appointment and follow up of his blood pressure Orders: Orders Testosterone, Free/Total 1 Week E29.1 - Testicular hypofunction Coding Level of Care Code Est Pt Level 3 (79272) Diagnoses Hypogonadism, testicular E29.1
== END 2023-10-02 16:15 | disposition home or self-care (01) ==
PROVIDERS: PCP Internal Medicine Medical Oncology; Visit Provider Internal Medicine Endocrinology, Diabetes & Metabolism
DX: E29.1 Testicular hypofunction (principal)
CPT/HCPCS: 99213

== ENCOUNTER → 2023-10-02 15:48 | Outpatient (BNVA) | payer OTHER, SELFPAY | PROVIDERS: PCP Internal Medicine Medical Oncology; Visit Provider Internal Medicine Endocrinology, Diabetes & Metabolism | DX: E29.1 Testicular hypofunction (principal) | CPT/HCPCS: 99212 ==

== ENCOUNTER 2023-10-10 08:05 | Outpatient (REF) | payer OTHER, SELFPAY ==
[2023-10-10 08:35] LABS: Hematocrit 50.6 % (42.0-52.0); Hemoglobin 17.6 g/dl (14.0-18.0)
[2023-10-14 21:33] LABS: Testosterone, Free 45.7 pg/mL (35.0-155.0); Testosterone, Total 311 ng/dL (250-1100)
== END 2023-10-10 08:06 | disposition home or self-care (01) ==
LOC: HO.LAB 08:05
PROVIDERS: Visit Provider Internal Medicine Endocrinology, Diabetes & Metabolism
DX: E29.1 Testicular hypofunction (principal)
CPT/HCPCS: 36415; 84402; 84403; 85014; 85018

== ENCOUNTER 2024-01-15 09:19 | Outpatient (REF) | payer OTHER, SELFPAY ==
[2024-01-24 15:54] LABS: Testosterone, Total 1128 ng/dL (250-1100)
== END 2024-01-15 09:20 | disposition home or self-care (01) ==
LOC: HO.LAB 09:19
PROVIDERS: PCP Internal Medicine Medical Oncology; Visit Provider Internal Medicine Endocrinology, Diabetes & Metabolism
DX: E29.1 Testicular hypofunction (principal)
CPT/HCPCS: 36415; 84402; 84403

== ENCOUNTER 2024-01-17 15:23 | Outpatient (REF) | payer OTHER, SELFPAY ==
[2024-01-17 15:50] LABS: MANUAL DIFF FLAG NO
[2024-01-17 17:40] LABS: Basophils Absolute Auto 0.1 X10*3/uL (0.0-0.2); Basophils Percent Auto 0.5 % (0-2); Eosinophils Absolute Auto 0.3 X10*3/uL (0.0-0.4); Hematocrit 48.9 % (42.0-52.0); Hemoglobin 17.1 g/dl (14.0-18.0); Imm Gran Abs Auto 0.07 X10*3/uL (0.00-0.03); Imm Gran Pct Auto 0.6 % (0.0-0.4); Lymphocytes Absolute Auto 2.7 X10*3/uL (1.2-4.9); Lymphocytes Percent Auto 21.9 % (20-40); Mean Corpuscular Hemoglobin 29.5 pg (27.0-33.0); Mean Corpuscular Volume 84.5 fL (80.0-98.0); Mean Platelet Volume 9.4 fL (9.4-12.4); Monocytes Absolute Auto 1.1 X10*3/uL (0.1-1.2); Monocytes Percent Auto 8.8 % (2-11); Neutrophils Absolute Auto 8.2 x10*3/uL (2.0-8.3); Neutrophils Percent Auto 66.2 % (45-73); Platelet Count 285 X10*3/uL (160-400); Red Blood Count 5.79 X10*6/uL (4.60-5.80); Red Cell Distribution Width 14.2 % (11.0-16.0); White Blood Count 12.3 X10*3/uL (4.8-10.8)
[2024-01-17 17:49] LABS: Alanine Aminotransferase 39 U/L (0-40); Albumin Level 4.8 g/dL (3.5-5.0); Alkaline Phosphatase 61 U/L (39-117); Anion Gap 16 (12-20); Aspartate Amino Transferase 30 U/L (5-37); Blood Urea Nitrogen 17 mg/dL (9-16); Calcium 9.6 mg/dL (8.4-10.2); Carbon Dioxide 24 mmol/L (22-29); Chloride 104 mmol/L (96-108); Estimated Glomerular Filt Rate 55; Glucose Random 92 mg/dL (60-115); Potassium 3.5 mmol/L (3.3-5.1); Sodium 140 mmol/L (135-145); Total Protein 7.7 g/dL (6.5-8.0)
[2024-01-17 18:04] LABS: Erythrocyte Sedimentation Rate 2 MM/HR (0-15)
== END 2024-01-17 15:24 | disposition home or self-care (01) ==
LOC: HO.LAB 15:23
PROVIDERS: Visit Provider Internal Medicine Medical Oncology
DX: R74.8 Abnormal levels of other serum enzymes (principal); I10 Essential (primary) hypertension; E66.01 Morbid (severe) obesity due to excess calories
CPT/HCPCS: 36415; 80053; 82550; 85025; 85652

== ENCOUNTER 2024-01-25 14:00 | Outpatient (REF) | payer OTHER, SELFPAY ==
[2024-01-25 14:52] LABS: Hematocrit 49.1 % (42.0-52.0)
[2024-01-29 22:24] LABS: Testosterone, Free 278.5 pg/mL (35.0-155.0); Testosterone, Total 1175 ng/dL (250-1100)
== END 2024-01-25 14:01 | disposition home or self-care (01) ==
LOC: HO.LAB 14:00
PROVIDERS: PCP Internal Medicine Medical Oncology; Visit Provider Internal Medicine Endocrinology, Diabetes & Metabolism
DX: E29.1 Testicular hypofunction (principal)
CPT/HCPCS: 36415; 84402; 84403; 85014; 85018

== ENCOUNTER 2024-02-06 09:57 | Outpatient (REF) | payer OTHER, SELFPAY ==
[2024-02-06 10:50] LABS: CDiff Gene PCR NEGATIVE (Negative)
[2024-02-06 13:22] LABS: Adenovirus F 40/41 Not Detected (Not Detect.); Astrovirus Not Detected (Not Detect.); Campylobacter Not Detected (Not Detect.); Cryptosporidium Not Detected (Not Detect.); Cyclospora cayetanensis Not Detected (Not Detect.); E. coli EAEC Not Detected (Not Detect.); E. coli EPEC Not Detected (Not Detect.); E. coli ETEC Not Detected (Not Detect.); E. coli STEC Not Detected (Not Detect.); Entamoeba histolytica Not Detected (Not Detect.); Giardia lamblia Not Detected (Not Detect.); Norovirus GI/GII Not Detected (Not Detect.); Plesiomonas shigelloides Not Detected (Not Detect.); Rotavirus A Not Detected (Not Detect.); Salmonella Not Detected (Not Detect.); Sapovirus Not Detected (Not Detect.); Shigella sp./EIEC Not Detected (Not Detect.); Vibrio Not Detected (Not Detect.); Vibrio Cholerae Not Detected (Not Detect.); Yersinia enterocolitica Not Detected (Not Detect.)
== END 2024-02-06 09:58 | disposition home or self-care (01) ==
LOC: HO.LNP 09:57
PROVIDERS: Visit Provider Internal Medicine Medical Oncology
DX: R19.7 Diarrhea, unspecified (principal)
CPT/HCPCS: 87493; 87507

== ENCOUNTER 2024-03-27 15:12 | Outpatient (AMB) | payer OTHER, SELFPAY ==
--- NOTE | 2024-03-27 15:32 | MHC.OFFVIS ---
Vital Signs 03/27/24 15:34 Height 6 ft 4 in Weight 317 lb 3.923 oz BMI 38.6 BP 172/92 H Blood Pressure Location Rt brachial Position Sitting Pulse 103 H Pulse Source Pulse Oximeter Intake Visit Reasons: f/u hypogonadism-lvm Intake Note: Patient presents today for Hypogonadism follow up. 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 MRI and prolactin level were normal. He denies any anabolic steroid use. He describes in the past episodes of acute renal failure that resulted in dialysis. They stated they are no longer seeking fertility at present. He is currently on AndroGel 4 depressions per day. Better libido but still no increase in energy. Ran out of testosterone and was off 2 wks prior to testosterone testing On testosterone intramuscular 75 mg q.week. . Denies any headache or change in vision. He does complain of acne on his chest. Both peak and trough testosterone were high [facility] Medical History Hypogonadism, testicular Surgical History H/O discectomy S/P tendon repair History of meniscectomy of left knee H/O myringotomy History of surgery Family History Father No problems noted. 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 MRI and prolactin were normal. He is not seeking fertility. He is currently on intramuscular testosterone 75 mg q.week. both peak and trough levels are high suggesting supraphysiologic replacement The plan is to talk to the patient about potentially holding the testosterone to see if his gonadal axis recovered and recheck testosterone in 6 weeks' time. If his testosterone levels are low at that point, we will reinitiate 75 mg Q weekly and recheckpeak and trough level. I did tell patient that if he experiences symptoms of hypogonadism prior to 6 weeks, he can go for the testosterone level earlier Orders: Orders Testosterone, Free/Total 5 Weeks E29.1 - Testicular hypofunction Coding Level of Care Code Est Pt Level 3 (15936) Diagnoses Hypogonadism, testicular E29.1
[2024-03-27 15:34] VITALS: BP 172/92; PULSE 103; BMI 38.6
== END 2024-03-27 15:49 | disposition home or self-care (01) ==
PROVIDERS: PCP Internal Medicine Medical Oncology; Visit Provider Internal Medicine Endocrinology, Diabetes & Metabolism
DX: E29.1 Testicular hypofunction (principal)
CPT/HCPCS: 99213

== ENCOUNTER → 2024-03-27 15:12 | Outpatient (BNVA) | payer OTHER, SELFPAY | PROVIDERS: PCP Internal Medicine Medical Oncology; Visit Provider Internal Medicine Endocrinology, Diabetes & Metabolism | DX: E29.1 Testicular hypofunction (principal) | CPT/HCPCS: 99212 ==

== ENCOUNTER 2024-04-05 12:09 | Outpatient (REF) | payer OTHER, SELFPAY ==
[2024-04-10 21:38] LABS: Testosterone, Free 73.9 pg/mL (35.0-155.0); Testosterone, Total 445 ng/dL (250-1100)
== END 2024-04-05 12:10 | disposition home or self-care (01) ==
LOC: HO.LAB 12:09
PROVIDERS: PCP Internal Medicine Medical Oncology; Visit Provider Internal Medicine Endocrinology, Diabetes & Metabolism
DX: E29.1 Testicular hypofunction (principal)
CPT/HCPCS: 36415; 84402; 84403

== ENCOUNTER 2024-06-19 14:13 | Outpatient (REF) | payer OTHER, SELFPAY ==
[2024-06-19 14:36] LABS: MANUAL DIFF FLAG NO
[2024-06-19 15:08] LABS: Basophils Absolute Auto 0.1 X10*3/uL (0.0-0.2); Basophils Percent Auto 0.6 % (0-2); Eosinophils Absolute Auto 0.3 X10*3/uL (0.0-0.4); Eosinophils Percent Auto 2.8 % (0-4); Hematocrit 47.7 % (42.0-52.0); Hemoglobin 16.7 g/dl (14.0-18.0); Imm Gran Abs Auto 0.03 X10*3/uL (0.00-0.03); Imm Gran Pct Auto 0.3 % (0.0-0.4); Lymphocytes Absolute Auto 1.8 X10*3/uL (1.2-4.9); Lymphocytes Percent Auto 18.9 % (20-40); Mean Corpuscular Hemoglobin 30.4 pg (27.0-33.0); Mean Corpuscular Volume 86.9 fL (80.0-98.0); Mean Platelet Volume 9.5 fL (9.4-12.4); Monocytes Absolute Auto 0.8 X10*3/uL (0.1-1.2); Monocytes Percent Auto 8.4 % (2-11); Neutrophils Absolute Auto 6.4 x10*3/uL (2.0-8.3); Platelet Count 262 X10*3/uL (160-400); Red Blood Count 5.49 X10*6/uL (4.60-5.80); Red Cell Distribution Width 12.5 % (11.0-16.0); White Blood Count 9.3 X10*3/uL (4.8-10.8)
[2024-06-19 15:26] LABS: Albumin Level 4.5 g/dL (3.5-5.0); Anion Gap 12 (12-20); Aspartate Amino Transferase 26 U/L (5-37); Bilirubin Direct 0.1 mg/dL (0.0-0.5); Bilirubin Total 0.5 mg/dL (0.0-1.0); Blood Urea Nitrogen 18 mg/dL (9-16); C Reactive Protein 0.53 mg/dL (< or = 0.50); Calcium 9.6 mg/dL (8.4-10.2); Carbon Dioxide 23 mmol/L (22-29); Chloride 108 mmol/L (96-108); Estimated Glomerular Filt Rate > 60; Glucose Random 83 mg/dL (60-115); Potassium 3.6 mmol/L (3.3-5.1); Sodium 139 mmol/L (135-145); Total Protein 7.6 g/dL (6.5-8.0)
[2024-06-19 15:42] LABS: Alanine Aminotransferase 26 U/L (0-40); Alkaline Phosphatase 63 U/L (39-117)
[2024-06-19 16:15] LABS: Erythrocyte Sedimentation Rate 3 MM/HR (0-15)
--- OUTSIDE RECORDS SUMMARY | 2024-06-20 02:44 | XMS_ITS ---
Author Organization [facility] Address [address] [place] [address] Care Team Providers Care Souvenir Assembler Name Role Phone Pranav Bailey MD Primary Care Provider Unavailab Pranav Galindo Unavailable [phone] ALLERGIES Allergen (clinical drug ingredient) Drug/Non Drug Allergy documented on EMR Reaction Allergy Type Onset Date Status codeine Codeine upsets stomach Drug Allergy Ac tive bee pollen Bee Pollen Unknown Drug Allergy Activ e 12 Hour Nasal [place] Unknown Drug Allergy Active REASON FOR VISIT Patient presents today for diarrhea SOCIAL HISTORY Tobacco Use: Social History Observation Description Date Details (start date - stop date) Current Smoker NA - NA Sex Assigned At : Social History Observation Description Sex Assigned At Unknown Tobacco Use/Smoking Question Answer Notes Patient is a current smoker How often do you smoke cigarettes? every day How many cigarettes a day do you smoke? 21-30 Alcohol Screen Question Answer Notes Did you have a drink contain ing alcohol in the past year? Yes How often did you have a dri nk containing alcohol in the past year? Never (0 point) How many drinks did you have on a typical day when you were drinking in the past year? 1 or 2 drinks (0 point) Points 0 Interpretation Negative PROBLEMS Problem Type ICD Code Onset Dates Problem Status W/U Status Risk SNOMED Code Notes Problem Chronic diarrhea (K52.9) Active confirmed Chronic diarrhea (184590019) Problem Abnormal weight loss (R63.4) Active confirmed Abnormal weight loss (263186723) VITAL SIGNS BMI 36.88 kg/m2 06/19/2024 Blood pressure systolic 00 mm Hg 06/19/20 24 Blood pressure diastolic 00 mm Hg 024 Height 6 ft 4 in in 06/19/2024 Weight 303 lbs 06/19/2024 Encounters Encounter Location Date Provider Diagnosis [facility] [address] [place] [address] 06/19/2024 Pranav Galo Chronic diarrhea K52.9 and Abnormal weight loss R63.4 ASSESSMENTS Encounter Date Diagnosis Assessment Notes Treatment Notes Treatment Clinical Notes 06/19/2024 Chronic diarrhea (ICD-10 - K52.9) 06/19/2024 Abnormal weight loss (ICD-10 - R63.4) PLAN OF TREATMENT Pending Test Test Name Order Date CHEM 7 PROFILE 06/19/2024 LIVER PROFILE 06/19/2024 CRP 06/19/2024 CBC w DIFF 06/19/2024 SED RATE (ESR) 06/19/2024 CELIAC PANEL #10 06/19/2024 C DIFFICILE RFLX PCR 06/19/2024 Giardia Ag Stool EIA 06/19/2024 Calprotectin, Fecal 06/19/2024 GI PANEL 06/19/2024 Future Test Test Name Order Date Colonoscopy 06/19/2024 COLONOSCOPY 06/19/2024 Next Appt Details Provider Name:Pranav Galo , 06/27/2024 07:30:00 AM, [address] [place] [address] , [place], [place], [phone],
--- OUTSIDE RECORDS SUMMARY | 2024-06-20 02:44 | XMS_ITS | Patient Health Record ---
Author Organization [facility] Address [address] [place] [address] Care Team Providers Care Outreach Team Member Name Role Phone Leo PANCHAL, Pranav Primary Care Provider Unavailab Pranav Galindo Unavailable [phone] Brian Dodd Jr Unavailable [phone] ALLERGIES Allergen (clinical drug ingredient) Drug/Non Drug Allergy documented on EMR Reaction Allergy Type Onset Date Status codeine Codeine upsets stomach Drug Allergy Ac tive bee pollen Bee Pollen Unknown Drug Allergy Activ e 12 Hour Nasal [place] Unknown Drug Allergy Active RESULTS Component Value Reference Range Notes Complete Blood Count Auto Di ff Reviewed date:06/19/2024 06:50:13 PM Interpretation: Performing Lab:[facility], [address] [place] [phone] Notes/Report: White Blood Count 9.3 4.8-10.8 X10*3/uL Red Blood Count 5.49 4.60-5.80 X10*6/uL Hemoglobin 16.7 14.0-18.0 g/dl Hematocrit 47.7 42.0-52.0 % Mean Corpuscular Volume 86.9 80.0-98.0 fL Mean Corpuscular Hemoglobin 30.4 27.0-33.0 pg Mean Corpuscular HGB Conc 35.0 31.0-36.0 g/dl Red Cell Distribution Width 12.5 11.0-16.0 % Platelet Count 262 160-400 X10*3/uL Mean Platelet Volume 9.5 9.4-12.4 fL Neutrophils Percent Auto 69.0 45-73 % Imm Gran Pct Auto 0.3 0.0-0.4 % Lymphocytes Percent Auto 18.9 20-40 % Monocytes Percent Auto 8.4 2-11 % Eosinophils Percent Auto 2.8 0-4 % Basophils Percent Auto 0.6 0-2 % NRBC Pct Auto 0.0 0.0-0.2 /100WBC Neutrophils Absolute Auto 6.4 2.0-8.3 x10*3/u L Imm Gran Abs Auto 0.03 0.00-0.03 X10*3/uL Lymphocytes Absolute Auto 1.8 1.2-4.9 X10*3/u L Monocytes Absolute Auto 0.8 0.1-1.2 X10*3/uL Eosinophils Absolute Auto 0.3 0.0-0.4 X10*3/u L Basophils Absolute Auto 0.1 0.0-0.2 X10*3/uL NRBC Abs Auto 0.000 0.0-0.012 X10*3/uL Erythrocyte Sedimentation Ra te Reviewed date:06/19/2024 06:51:12 PM Interpretation: Performing Lab:[address] [address] Notes/Report: Erythrocyte Sedimentation Rate 3 0-15 MM/HR Patients with polycythemia and many hemoglobin abnormalities may have depressed sed rates whereas patients with anemia may have elevated sed rates. Liver Panel Reviewed date:06/19/2024 06:50:28 PM Interpretation: Performing Lab:[address] [address] Notes/Report: Bilirubin Total 0.5 0.0-1.0 mg/dL Bilirubin Direct 0.1 0.0-0.5 mg/dL Aspartate Amino Transferase 26 5-37 U/L Alanine Aminotransferase 26 0-40 U/L Total Protein 7.6 6.5-8.0 g/dL Albumin Level 4.5 3.5-5.0 g/dL Alkaline Phosphatase 63 39-117 U/L Basic Metabolic Panel Reviewed date:06/19/2024 06:51:00 PM Interpretation: Performing Lab:[address] [phone] Notes/Report: Sodium 139 135-145 mmol/L Potassium 3.6 3.3-5.1 mmol/L Chloride 108 96-108 mmol/L Carbon Dioxide 23 22-29 mmol/L Anion Gap 12 12-20 Blood Urea Nitrogen 18 9-16 mg/dL Creatinine 0.96 0.5-1.4 mg/dL Estimated Glomerular Filt Rate > 60 Chronic Kidney Disease: Estimated GFR < 60 mL/min/1.73m2 Severe Kidney Disease: Estimated GFR < 15 mL/min/1.73m2 Glucose Random 83 60-115 mg/dL Calcium 9.6 8.4-10.2 mg/dL C Reactive Protein Reviewed date:06/19/2024 06:51:06 PM Interpretation: Performing Lab:[facility], [address] [place] [phone] Notes/Report: C Reactive Protein 0.53 < or = 0.50 mg/dL REASON FOR REFERRAL No Information SOCIAL HISTORY Tobacco Use: Social History Observation Description Date Details (start date - stop date) Current Smoker NA - NA Sex Assigned At : Social History Observation Description Sex Assigned At Unknown Tobacco Use/Smoking Question Answer Notes Patient is a current smoker How often do you smoke cigarettes? every day How many cigarettes a day do you smoke? Alcohol Screen Question Answer Notes Did you [...] Chronic diarrhea (K52.9) Active confirmed Chronic diarrhea (013796037) Problem Abnormal weight loss (R63.4) Active confirmed Abnormal weight loss (953524779) VITAL SIGNS Blood pressure diastolic 00 mm Hg 06/19/2024 Height 6 ft 4 in in 06/19/2024 Blood pressure systolic 00 mm Hg 06/19/2024 Weight 303 lbs 06/19/2024 BMI 36.88 kg/m2 06/19/2024 Encounters Encounter Location Date Provider Diagnosis [facility] [address] [place] [address] 06/19/2024 Pranav Galo Chronic diarrhea K52.9 and Abnormal weight loss R63.4 [facility] [address] [place] [address] 06/05/2024 Brian Dodd Jr [facility] [address] [place] [address] 06/05/2024 Brian Dodd Jr ASSESSMENTS Encounter Date Diagnosis Assessment Notes Treatment Notes Treatment Clinical Notes 06/19/2024 Abnormal weight loss (ICD-10 - R63.4) 06/19/2024 Chronic diarrhea (ICD-10 - K52.9) PLAN OF TREATMENT Pending Test Test Name [...] Provider Name:Pranav Galo , 06/27/2024 07:30:00 AM, [address] , [place], [place], [phone], Insurance Providers Payer Name Payer Address Payer Phone Subscriber Number Group Number Insured Name Patient Relationship to Insured Coverage Start Date Coverage End Date [facility] [address] [address] [place], [place] [id number] GEORGETTE MOORE Self - patient is the insured MEDICAL (GENERAL) HISTORY Medical History History ICD Code HTN, but currently not on any medication Renal insufficiency Denies SC,DM,CVA,Lung disease Surgical History Surgery Date(Month/Year) right side of face-trauma left hand right elbow pins bilateral knees broken back /back surgeries x3 left ankle
--- OUTSIDE RECORDS SUMMARY | 2024-06-20 02:44 | XMS_ITS ---
Author Organization [facility] Address [address] [place] [address] Care Team Providers Care Storage Worker Name Role Phone Pranav Baiely MD Primary Care Provider Unavailab Pranav Galindo Unavailable [phone] Brian Dodd Jr Unavailable [phone] REASON FOR VISIT diarrhea Encounters Encounter Location Date Provider Diagnosis [facility] [address] [place] [address] 06/05/2024 Brian Dodd Jr PLAN OF TREATMENT Next Appt Details Provider Name:Pranav Galo , 06/27/2024 07:30:00 AM, [address] [place] [address] , [place], [place], [phone],
--- OUTSIDE RECORDS SUMMARY | 2024-06-20 02:44 | XMS_ITS ---
Author Organization [facility] Address [address] [place] [address] Care Team Providers Care Warp Yarn Sorter Name Role Phone Pranav Bailey MD Primary Care Provider Unavailab Pranav Galindo Unavailable [phone] Brian Dodd Jr Unavailable REASON FOR VISIT New pt no showed Encounters Encounter Location Date Provider Diagnosis [facility] [address] [place] [address] 06/05/2024 Brian Dodd Jr PLAN OF TREATMENT Next Appt Details Provider Name:Pranav Galo , 06/27/2024 07:30:00 AM, [address] [place] [address] , [place], [place], [phone],
--- OUTSIDE RECORDS SUMMARY | 2024-06-20 02:45 | XMS_ITS ---
Author Organization Pranav Bailey III, MD Address [address] [place] [address] [place] [address] Care Team Providers Care Digital Field Service Technician Name Role Phone Pranav Bailey Primary Care Provider Allergies Allergen (clinical drug [...] Date Provider Diagnosis Pranav Bailey III, MD [address] [place] [address] [place] [address] 06/10/2024 Pranav Bailey Essential hypertensi on I10 [...] MG Oral Next Appt Details Provider Name:Pranav Bailey, 10/21/2024 03:30:00 PM, [address] [place] [address] AHSAN MYRICK, [place], [address], Progress Notes * TANNERGEORGETTE JIMENEZ RDOB:1985 (38 yo M)Acc No.[id number]:06/10/2024 Progress Notes Patient:?GEORGETTE MOORE R Provider:?Pranav Bailey MD :1985???Age:38 Y???Sex:Male Ivan e:06/10/2024 Address:[address] [place], [place] [id number] Subjective: * Chief Complaints: * ???1. Follow up. * HPI: ???COVID-19 Screening:?Questions?Have you had any new onset fever, chills, cough, congestion, sore throat, shortness of breath, muscle aches??No ?Have you been exposed to the virus within the last 10 days??No ?Have you travelled internationally in the last 10 days??No ?Have you been exposed to COVID-19 in the past??No * ROS:?General/Constitutional:?pain?only normal aches and pains.?Chills?denies.?Fatigue?admits.?Fever?denies.?ENT:?Decreased hearing?denies.?Respiratory:?Cough?denies.?Cardiovascular:?Chest pain with exertion?denies.?Dyspnea on exertion?denies.?Shortness of breath?denies.?Gastrointestinal:?Constipation?denies.?Decreased appetite?denies.?Diarrhea?denies.?Heartburn?denies.?Nausea?denies.?Rectal bleeding?denies.?Vomiting?denies.?Hematology:?bruising?denies.?petechiae?denies.?Swollen glands?none have been noted.?Genitourinary:?Frequent urination?denies.?Musculoskeletal:?Muscle aches?denies.?Painful joints?denies.?Sciatica?denies.?Weakness?denies.?Skin:?Itching?denies.?Rash?denies.?Skin lesion(s)?denies.?Neurologic:?Difficulty speaking?denies.?Dizziness?denies.?Headache?denies.?Low back pain?denies.?Psychiatric:?Depressed mood?denies.? 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 Dehydration with mild rhabdomyolysis, [facility], Arredondo's cyst left knee with torn meniscus, bee sting anaphylaxis [facility] emergency room 2014, 12/2014, left third finger tendon laceration, 2008, negative polysomnogram, [facility], chronic elevation of CPK and aldolase with possible myopathy, Chronic back pain treated with narcotic medication, Subcutaneous mass left elbow, Left knee pain, Chronic fatigue. * Surgical History:?repair of floor of right orbit. After traumatic injury 2008, pilonidal cystectomy 2007, bilateral myringotomy 1984, left knee chondroplasty, partial meniscectomy, Dr. Boyd, [facility] 2012, left third finger tendon laceration repair, Dr. Boyd, [facility] 12/2014, Disectomy 01/2019. * Hospitalization/Major Diagno stic Procedure:?back pain 11/2018. * Family History:?Father: dece ased, Unknown.?Mother: alive 53 yrs, Hypertension, chronic pain.?1 brother(s) - healthy. .? He has a brother who is alive and well. A maternal grandfather had coronary artery disease and a maternal grandmother had hypertension and adult-onset diabetes mellitus. * Medications:?Taking Doxycycl ine Hyclate 100 MG Tablet 1 tablet Orally Once a day , Taking Testosterone Cypionate 200 MG/ML Solution Intramuscular , Taking Cephalexin 500 MG Capsule Oral , Taking Metoprolol Succinate ER 50 MG Tablet Extended Release 24 Hour 1 tablet Orally Once a day , Medication List reviewed and reconciled with the patient * Allergies:?Codeine Sulfate, Bee Sting. Objective: * Vitals:? * Examination: ???General Examination: ?GENERAL APPEARANCE:?pleasant, well nourished, well developed, in no acute distress, calm and relaxed.?HEAD:?atraumatic, normocephalic.?EYES:?eomi, perrla, anicteric, conjugate.?EARS:?normal.?NOSE:?septum intact.?ORAL CAVITY:?normal, unremarkable.?NECK/THYROID:?no jugular venous distention, no carotid bruit, thyroid normal.?LYMPH NODES:?no enlarged lymph nodes,spleen normal.?SKIN:?no suspicious lesions, anicteric.?HEART:?no clicks, gallops, murmurs, or rubs, regular rhythm, S1, S2 normal, no s3, or vascular bruits.?LUNGS:?clear to auscultation .?BREASTS:??no masses palpable bilaterally.?ABDOMEN:?bowel sounds normal, no ascites, no organomegaly, no mass.?RECTAL EXAM:?not examined.?MUSCULOSKELETAL:?extremities unremarkable, no clubbing, cyanosis or edema.?PERIPHERAL PULSES:?normal.?NEUROLOGIC:?alert and oriented, cranial nerves 2-12 grossly intact, deep tendon reflexes 2+ symmetrical, motor strength normal upper and lower extremities, sensory exam intact.?PSYCH:?alert, oriented.? Assessment: * Assessment: 1.?Essential hypertension - I10???Notes :His blood pressure has been normal. I recommended aggressive weight loss and sodium restriction. He was given an appointment to come to the office.??? Plan: * Treatment: 2.?Others? Continue Doxycycline Hyclate Tablet, 100 MG, 1 tablet, Orally, Once a day.?? * Images: * The named appointment provid er may or may not be the originator of this progress note, and it is not deemed complete until electronically signed by the appointment provider. Sign off status: Pending * Provider:?Pranav Bailey MD Date:?08/2023 Generated for Hima collazo/Praneeth/Albinoitting on:?06/20/2024 02:44 AM EST History and Physical Notes * HPI [...]
--- OUTSIDE RECORDS SUMMARY | 2024-06-20 02:45 | XMS_ITS ---
Author Organization Pranav Bailey III, MD Address [address] [place] [address] [place] [address] Care Team Providers Care Commercial Property Administrator Name Role Phone Pranav Bailey Primary Care Provider REASON FOR VISIT Follow up Social History Sex Assigned At : Social History Observation Description Sex Assigned At Male Encounters Encounter Location Date Provider Diagnosis Pranav Bailey III, MD [address] [place] [address] [place] [address] 04/02/2024 Pranav Bailey Plan Of Treatment Next Appt Details Provider Name:Pranav Bailey, 10/21/2024 03:30:00 PM, [address] [place] [address] [facility], [address], Progress Notes * GEORGETTE MOORE RDOB:1985 (38 yo M)Acc No.[id number]:04/02/2024 Progress Notes Patient:?GEORGETTE MOORE Provider:?Pranav Bailey MD :1985???Age:38 Y???Sex:Male Ivan e:04/02/2024 Address:[address] [place], [place] [id number] Subjective: * Chief Complaints: * ???1. Follow up. * Medical History:? Objective: * Vitals:? Assessment: Plan: * Treatment: * Images: * The named appointment provid er may or may not be the originator of this progress note, and it is not deemed complete until electronically signed by the appointment provider. Sign off status: Pending * Provider:?Pranav Bailey MD Date:?03/11 Generated for Hima collazo/Praneeth/Rudolph on:?06/20/2024 02:44 AM EST
--- OUTSIDE RECORDS SUMMARY | 2024-06-20 02:45 | XMS_ITS | Data Portability ---
Author Organization [place] - [facility], [address] Address [address] [place] [address] Assessment No assessment recorded. Plan of Treatment Reminders Order Date Submit Date Provider Last Modified By Organization Details Last Modified Time Details Appointments None recorded. Lab rapid strep group A, throat 2022 023 [email or web address], [address] [place] [address], [id number], 10:56:50 Referral None recorded. Procedures None recorded. Surgeries None recorded. Imaging XR, ribs, unilateral, w/ PA chest 2022 023 [facility], [address] [place] [address], [address], 14:40:47 Medication Orders cyclobenzap rine 10 mg tablet 2022 023 [email or web address] [facility], [address] [place], [address], 3 10:19:01 cephalexin 500 mg capsule 2022 023 [place] [address] [facility], [address] [place], [address], 3 12:56:17 Patient TargetsNo targets recorded. Patient Instructions Encounter Date Encounter Id Patient Instructions Last Modified By Organization Details Last Modified Time 10/02/2022 [id number] bruised rib: car e instructions [email or web address] Not available 10/02/2022 14:03:19 12/27/2022 [id number] folliculitis: care instructions Not available 12/27/2022 10:59:07 sore throat: car e instructions Not available 12/27/2022 10:56:50 Reason for Referral None Reported. Results Created Date Observation Date Name Description Value Unit Range Abnormal Flag Note LastModifiedBy Organization Detail LastModifiedTime 12/28/1912/27/2022 rapid strep group A, throa t Unknown Analyte Normal = Negati ve Not Available [facility] [address] [place] [address], [phone], 12/27/2022 10:19:45 12/28/19 23 12/27/2022 rapid strep group A, throa t Unknown Analyte negati ve Not Available [address], [address], 12/27/2022 10:19:45 10/03/19 23 10/02/2022 XR, ribs, unila teral , w/ PA chest No observ ation record ed. [email or web address] [facility] [address] [place] [address], [address], 10/02/2022 14:54:26 Result Notes None recorded. Problems Name Problem SNOMED Code Status Onset Date Resolution Date Notes Provider Name and Address Organization Details Recorded Time Migraine 86961412 Active 2022 MANSOOR JUNG null, [place] - [facility] 3 13:08:28 Hidradenitis suppurativa 84375374 Active 2022 MANSOOR JUNG null, [place] - [facility] 3 13:08:47 Kidney disease 82006600 Active 2022 has had kidney failure a few times in past few years MANSOOR JUNG null, [place] - [facility] 3 13:09:43 Problem Notes None recorded. Procedures Surgical History None recorded. Imaging Results Imaging Date Name Status LastModified by Organiz ation Details LastModified Time 10/02/2022 XR, ribs, unilateral, w/ PA chest completed [email or web address] [facility] [address] [place], [address], 10/02/2022 14:54:26 Procedure Notes None recorded. Medical Equipment None Reported. Allergies Allergen ID Allergen Name Allergen Category Reaction Reaction Severity Criticality Documentation Date Start Date Code Code System Note Provider Name and Address Organization Details Recorded Time 261300 codeine medicatio n nausea Not available Not available 10/02/2022 2670 Rx[facility] NALDO [place] - [facility] 3 13:07:42 Medications Name Sig Start Date Stop Date Status Note LastModified by Organization Details LastModified Time cyclobenzap rine 10 mg tablet 1 po qhs prn pain this medicatio n makes you sleepy 12/27 completed Not Available Not Available Not Available ofloxacin 0.3 % eye drops 10/02 completed Not Available Not Available Not Available sumatriptan 100 mg tablet active Not Available Not Available Not Available prednisone 20 mg tablet 12/27 completed Not Available Not Available Not Available cephalexin 500 mg capsule Take 1 capsule 3 times a day by oral route for 10 days. 2022 active Not Available Not Available Not Avai lable testosteron e cypionate 200 mg/mL intramuscul ar oil active Not Available Not Available Not Available BD Luer-Hyacinth Syringe 3 mL 22 x 1 1/2 12/27 completed Not Available Not Available Not Available testosteron e 20.25 mg/1.25 gram per pump act.(1.62 %) transdermal gel active Not Available Not Available Not Available Humira(CF) Pen 40 mg/0.4 mL subcutaneou s kit 12/27 completed Not Available Not Available Not Available Humira(CF) Pen Crohn's-Ulc Colitis-Hid Sup Strt 80 mg/0.8 mL subcut kt 12/27 completed Not Available Not Available Not Available Vitals Date Recorded Body height Body mass index (BMI) Body weight Body temperature Oxygen saturation Oxygen saturation in Arterial blood by Pulse oximetry Heart rate Respiratory rate Systolic blood pressure Diastolic blood pressure Provider Name and Address Organization Details Last Updated DateTime 3 193.04 cm 42.6 kg/m2 938475. 33 g 98.1 [degF] 96 % 96 % 79 /min 18 /min 147 mm[Hg] 101 mm[Hg] MANSOOR JUNG [place] - [facility] 3 13:13:17 Date Recorded Body height Body mass index (BMI) Body weight Respiratory rate Oxygen saturation Oxygen saturation in Arterial blood by Pulse oximetry Heart rate Body temperature Systolic blood pressure Diastolic blood pressure Systolic blood pressure Diastolic blood pressure Provider Name and Address Organization Details Last Updated DateTime 3 193.04 cm 42.6 kg/m2 927840. 33 g 20 /min 98 % 98 % 78 /min 98.1 [degF] 187 mm[Hg] 122 mm[Hg] 174 mm[Hg] 116 mm[Hg] Madeleine Sanchez [place] - [facility] 3 10:30:03 Date Recorded Systolic blood pressure Diastolic blood pressure Provider Name and Address Organization Details Last Updated DateTime 12/27/2022 180 mm[Hg] 115 mm[Hg] Pradip Michelle MD [address] [place] [address] Claudio GuytowPatrizia [place], [address], [place] - [facility] 12/27/2022 10:55:46 Social History Question Answer Notes LastModified by Organizat ion Details LastModified Time Tobacco Smoking Status Current Every Day Smoker MANSOOR FABIANA kirk, [place] - [facility] 10/02/2022 13:11:14 What Is Your Level Of Alcohol Consumption? None [email or web address] Information not available 10/02/2022 Which Illicit Or Recreational Drugs Have You Used? Marijuana Information not available 10/02/2022 Have You Had Direct Contact, Or Contact During Intimacy, With Monkeypox Rash, Scabs, Or Body Fluids From A Person With Monkeypox? No [email or web address] Information not available 12/27/2022 How Much Tobacco Do You Smoke? 1 PPD Information not available 10/02/2022 Do You Use Any Illicit Or Recreational Drugs? Yes [email or web address] Information not available 10/02/2022 Have You Recently Traveled Abroad? No [email or web address] Information not available 10/02/2022 Do You Or Have You Ever Used Any Other Forms Of Tobacco Or Nicotine? No [email or web address] Information not available 10/02/2022 Sex: Unknown Functional Status None recorded. Mental Status None recorded. Family History Relationship Description Onset Age of this Age Resolved Age Notes LastModified by Organization Details LastModified Time Father No current problems or disability [email or web address] Not available 10/02 13:10:42 Mother No current problems or disability [email or web address] Not available 10/02 13:10:42 Medical History No medical history recorded. Immunizations Vaccine Type Date Status Note Provider Nam e and Address Organization Details Recorded Time Td (adult), 5 Lf tetanus toxoid, preservative free, adsorbed 5 completed Madeleine Daniel null, [place] - [facility] 12/27/2022 10:18:41 Td (adult), 5 Lf tetanus toxoid, preservative free, adsorbed 9 completed Madeleine [place] null, [place] - [facility] 12/27/2022 10:18:41 Past Encounters Encounter ID Performer Location Encounter Start Date Encounter Closed Date Diagnosis/Indication Diagnosis SNOMED-CT Code Diagnosis ICD10 Code [id number] [address] [place] [address] 10/17/2020 11:28:09 10/17/2020 13:38:29 [id number] [address] [place] [address] 11/30/2020 09:25:29 11/30/2020 10:47:09 [id number] [address] [place] [address] 10/06/2018 14:41:16 10/06/2018 15:20:38 [id number] [address] [place] [address] 03/24/2018 19:42:48 03/24/2018 20:23:07 [id number] [address] [place] [address] 03/26/2019 14:36:28 03/26/2019 15:15:50 [id number] Trevor Oakes DO [address] [place] [address] 10/02/2022 12:37:55 10/02/2022 14:11:36 Rib pain 024970227 R07.81 [id number] Pradip Michelle MD [address] [place] [address] 12/27/2022 10:04:26 12/27/2022 11:02:01 Acute pharyngitis 613497553 J02.9 Staphyloco ccal infection of skin 650314676 B95.8 Hypertensive urgency 443 057050 I16.0 Health Concerns Section Related Observation LastModified by Organization Detai ls LastModified Time None Recorded Concern Status LastModified by Organization Details LastModified Time None Recorded Advance Directives Directive None Recorded Payers Encounter Date Sequence Insurance Name Policy Number Policy Ortiz Covered Member ID Ortiz Member ID Guarantor Name 10/17/2020 1 [facility] PL[facility] (MEDICAID HMO) [id number] Raúl Mayen [id number] Raúl Mayen 11/30/[address] [facility] PLAN (MEDICAID HMO) [id number] Raúl Mayen [id number] Raúl Mayen 10/02/[address] [facility] PLAN (MEDICAID HMO) [id number] Raúl Mayen [id number] Raúl Mayen 12/27/[address] [facility] PLAN (MEDICAID HMO) [id number] Raúl Mayen [id number] aRúl Mayen Notes Date Note Type Note Provider Name and Address Organization Details Recorded Time 3 text/html 37 yo male c/o right sided rib and anterior chest wall pains/p fall 3 d agoTripped over his dogs ball at the bottom of the stairs and landed against the side of his bath tub+ pain and swelling and bruisinghe did not take any OTC meds sharp pain when he takes a deep breath Trevor Oakes, DO [address] [place], [address], [place] - [facility] 10/02/2022 14:10:28 3 text/html Sore throatReported bypatient.Source of patient informationInformation obtained from patient Location:throat Severity:mild Quality:hurts to swallow Onset/Timin weeks Associated Symptoms:no cough; no sputum production; no shortness of breath; no wheezing; no sinus pain; no vomiting; no nausea; No hoarseness;nasal congestion Has been told it was allergies and tried Flonase and antihistamine Pradip Michelle MD [address] [place] [address] [place], [address], [place] - [facility] 12/27/2022 12:58:47
--- OUTSIDE RECORDS SUMMARY | 2024-06-20 02:45 | XMS_ITS ---
Author Name [facility] Organization Unknown History of Medication Use Medication Directions Dispensed Refills Start Date End Date Stat EpiPen 2-PakTake 1 Application (injection) 1 time per day PRN for 1 days Use as needed for severe allergic reaction. Dispense 1 two [id number] time per rxrwccvzcwmr3ysodzqbqdf9.3mg/ 0.3 mL 02/09/2024 active predniSONETake 2 tab let (oral) 1 time per day for 5 [id number] time per ykkwkbb6eunkgudjkf00hb 02/09/2024 activ e diphenhydramine HClN o directions recordedNo date recordedtabletNo frequency recordedNo route recordedNo set duration recordedNo set duration amount irthrzabkvxthi09li 02/09/2024 active Problems Problem Status Onset Date Problem Type Date of Resoluti on Source Anaphylactic shock, unspecified, initial encounter active 2024-02-[address] [facility]
--- OUTSIDE RECORDS SUMMARY | 2024-06-20 02:45 | XMS_ITS ---
Author Organization Pranav Bailey III, MD Address [address] [facility] [address] [place] [address] Care Team Providers Care Rinkman Name Role Phone Pranav Bailey Primary Care Provider REASON FOR VISIT No Show Social History Sex Assigned At : Social History Observation Description Sex Assigned At Male Encounters Encounter Location Date Provider Diagnosis Pranav Bailey III, MD [address] [place] [address] [place] [address] 06/10/2024 Pranav Bailey Plan Of Treatment Next Appt Details Provider Name:Pranav Bailey, 10/21/2024 03:30:00 PM, [address] [place] [address] [place], [address], Progress Notes * GEORGETTE MOORE RDOB:1985 (38 yo M)Acc No.[id number]:06/10/2024 Patient:?GEORGETTE MOORE :1985???Age:38 Y???Sex:Male Address:[address] [place] [address], [address] * true * Date:? Generated for Printi ng/Praneeth/eTransmitting on:?06/20/2024 02:44 AM EST
--- OUTSIDE RECORDS SUMMARY | 2024-06-20 02:45 | XMS_ITS | Patient Health Record ---
Author Organization Pranav Bailey III, MD Address [address] [place] [address] [address] [place] [address] Care Team Providers Care Traffic Lieutenant Name Role Phone Pranav Bailey Primary Care Provider [phone] Allergies Allergen (clinical drug ingredient) Drug/Non Drug Allergy documented on EMR Reaction Allergy Type Onset Date Status Bee Sting Unknown Allergy Active codeine Codeine Sulfate Unknown Drug Allergy A ctive Results Component Value Reference Range Notes URINE DIP STICK Reviewed date:10/18/2023 03:44:32 PM Interpretation: Performing Lab: Notes/Report: SG 1.025 1.005 - 1.025 pH 6.0 5.0 - 9.0 MELISSA Negative Negative - NIT Negative Negative - PRO 2000 Negative - Trace GLU Negative Negative - KET 5 Negative - UBG 0.2 0.1 - 1.8 ROSSI 1 0.2 - 1.3 BLD Positive Negative - Testosterone, Free/Total Reviewed date:01/26/2024 10:32:53 AM Interpretation: Performing Lab:[facility], [address] [place] [phone] Notes/Report: Testosterone, Total [phone] ng/dL For additional information, please refer to http://education.[employer].Vixlo/faq/ TotalTestosteroneLCMSMSFA Q165 (This link is being provided for informational/ educational purposes only.) This test was developed and its analytical performance characteristics have been determined by [facility] [place], [place]. It has not been cleared or approved by the U.S. Food and Drug Administration. This assay has been validated pursuant to the CLIA regulations and is used for clinical purposes. For additional information, please refer to http://education.[employer]/faq/TotalTes tosteroneLCMSMS (This link is being provided for informational/ educational purposes only.) This test was developed and its analytical performance characteristics have been determined by [facility]. It has not been cleared or approved by the FDA. This assay has been validated pursuant to the CLIA regulations and is used for clinical purposes. Testosterone, Free TNP TEST(S) NOT PERFORMED: TESTOSTERONE, FREE TEST NOT PERFORMED Quantity not sufficient. THIS TEST WAS PERFORMED AT: [employer] [address] [place] [phone] VIDYA CAMACHO MD,PHD Complete Blood Count Auto Di ff Reviewed date:01/26/2024 10:32:53 AM Interpretation: Performing Lab:[facility], [address] [place] [phone] Notes/Report: White Blood Count 12.3 4.8-10.8 X10*3/uL Red Blood Count 5.79 4.60-5.80 X10*6/uL Hemoglobin 17.1 14.0-18.0 g/dl Hematocrit 48.9 42.0-52.0 % Mean Corpuscular Volume 84.5 80.0-98.0 fL Mean Corpuscular Hemoglobin 29.5 27.0-33.0 pg Mean Corpuscular HGB Conc 35.0 31.0-36.0 g/dl Red Cell Distribution Width 14.2 11.0-16.0 % Platelet Count 285 160-400 X10*3/uL Mean Platelet Volume 9.4 9.4-12.4 fL Neutrophils Percent Auto 66.2 45-73 % Imm Gran Pct Auto 0.6 0.0-0.4 % Lymphocytes Percent Auto 21.9 20-40 % Monocytes Percent Auto 8.8 2-11 % Eosinophils Percent Auto 2.0 0-4 % Basophils Percent Auto 0.5 0-2 % NRBC Pct Auto 0.0 0.0-0.2 /100WBC Neutrophils Absolute Auto 8.2 2.0-8.3 x10*3/u L Imm Gran Abs Auto 0.07 0.00-0.03 X10*3/uL Lymphocytes Absolute Auto 2.7 1.2-4.9 X10*3/u L Monocytes Absolute Auto 1.1 0.1-1.2 X10*3/uL Eosinophils Absolute Auto 0.3 0.0-0.4 X10*3/u L Basophils Absolute Auto 0.1 0.0-0.2 X10*3/uL NRBC Abs Auto 0.000 0.0-0.012 X10*3/uL Erythrocyte Sedimentation Ra te Reviewed date:01/26/2024 10:32:53 AM Interpretation: Performing Lab:[address] [phone] Notes/Report: Erythrocyte Sedimentation Rate 2 0-15 MM/HR Patients with polycythemia and many hemoglobin abnormalities may have depressed sed rates whereas patients with anemia may have elevated sed rates. Comprehensive Met. Panel Reviewed date:01/26/2024 10:32:53 AM Interpretation: Performing Lab:[address] [address] Notes/Report: Sodium 140 135-145 mmol/L Potassium 3.5 3.3-5.1 mmol/L Chloride 104 96-108 mmol/L Carbon Dioxide 24 22-29 mmol/L Anion Gap 16 12-20 Blood Urea Nitrogen 17 9-16 mg/dL Creatinine 1.43 0.5-1.4 mg/dL Estimated Glomerular Filt Rate 55 NOTE: For -English individuals, multiply the result by 1.210. Chronic Kidney Disease: Estimated GFR < 60 mL/min/1.73m2 Severe Kidney Disease: Estimated GFR < 15 mL/min/1.73m2 Glucose Random 92 60-115 mg/dL Calcium 9.6 8.4-10.2 mg/dL Bilirubin Total 1.0 0.0-1.0 mg/dL Aspartate Amino Transferase 30 5-37 U/L Alanine Aminotransferase 39 0-40 U/L Total Protein 7.7 6.5-8.0 g/dL Albumin Level 4.8 3.5-5.0 g/dL Alkaline Phosphatase 61 39-117 U/L Creatine Kinase Total Reviewed date:01/26/2024 10:32:53 AM Interpretation: Performing Lab:[address] [place] [address] Notes/Report: Creatine Kinase Total 410 38-174 U/L Hemoglobin Reviewed date:01/26/2024 10:32:53 AM Interpretation: Performing Lab:[facility], [address] [place] [phone] Notes/Report: Hemoglobin 17.0 14.0-18.0 g/dl Hematocrit Reviewed date:01/26/2024 10:32:53 AM Interpretation: Performing Lab:[facility], [address] [place] [phone] Notes/Report: Hematocrit 49.1 42.0-52.0 % Testosterone, Free/Total Reviewed date:01/30/2024 05:05:25 PM Interpretation: Performing Lab:[facility], [address] [place] [phone] Notes/Report: Testosterone, Total [phone] ng/dL For additional information, please refer to http://education.[employer]/faq/ TotalTestosteroneLCMSMSFA Q165 (This link is being provided for informational/ educational purposes only.) This test was developed and its analytical performance characteristics have been determined by [facility] [place], [place]. It has not been cleared or approved by the U.S. Food and Drug Administration. This assay has been validated pursuant to the CLIA regulations and is used for clinical purposes. Testosterone, Free 278.5 35.0-155.0 pg/mL This test was developed and its analytical performance characteristics have been determined by [facility] [place], [place]. It has not been cleared or approved by the U.S. Food and Drug Administration. This assay has been validated pursuant to the CLIA regulations and is used for clinical purposes. THIS TEST WAS PERFORMED AT: [facility] [address] [place] [address] VIDYA CAMACHO MD,PHD CDiff Gene PCR Reviewed date:02/25/2024 07:05:34 AM Interpretation: Performing Lab:[facility], [address] [place] [phone] Notes/Report: CDiff Gene PCR NEGATIVE Negative If C. difficile strongly suspected despite one negative test, a second test may be sent vs. empiric treatment for C. difficile infection. GI Panel Reviewed date:02/25/2024 07:05:34 AM Interpretation: Performing Lab:[facility], [address] [place] [phone] Notes/Report: Campylobacter Not Detected Not Detect. Plesiomonas shigelloides Not Detected Not Detect. Salmonella Not Detected Not Detect. Vibrio Not Detected Not Detect. Vibrio Cholerae Not Detected Not Detect. Yersinia enterocolitica Not Detected Not Detect. E. coli EAEC Not Detected Not Detect. E. coli EPEC Not Detected Not Detect. E. coli ETEC Not Detected Not Detect. E. coli STEC Not Detected Not Detect. E. coli O157 Not applicable Not Detect. E. coli containing the O157 antigen are a subset of Shiga-like toxin-producing E. coli (STEC). Shigella sp./EIEC Not Detected Not Detect. Cryptosporidium Not Detected Not Detect. Cyclospora cayetanensis Not Detected Not Detect. Entamoeba histolytica Not Detected Not Detect. Giardia lamblia Not Detected Not Detect. Adenovirus F 40/41 Not Detected Not Detect. Astrovirus Not Detected Not Detect. Norovirus GI/GII Not Detected Not Detect. Rotavirus A Not Detected Not Detect. Sapovirus Not Detected Not Detect. All results must be correlated with clinical findings. Negative results do not exclude the possibility of gastrointestinal infection and should not be used as the sole basis for diagnosis, treatment, or other management decisions. Virus, bacteria, and parasite nucleic acid may persist in vivo independently of organism viability. Additionally, some organisms may be carried symptomatically. Detection of organism targets does not imply that the corresponding organisms are infectious or are the causative agents for clinical symptoms. There is a risk of false negative values due to the presence of sequence variants in the gene targets of the assay, amplification inhibitors in specimens, or inadequate numbers of organisms for amplification. The identification of several diarrheagenic E. coli pathotypes has historically relied upon phenotypic characteristics. This panel targets genetic determinants characteristic of most pathogenic strains, but may not detect all strains having phenotypic characteristics of a pathotype. The performance of this test has not been established for monitoring treatment of infection with any of the panel organisms. This assay is performed by Multiplexed PCR, utilizing the [employer] Array. Testosterone, Free/Total Reviewed date:04/22/2024 07:50:14 AM Interpretation: Performing Lab:[facility], [address] [facility], [place] [address] Notes/Report: Testosterone, Total 220 358-2017 ng/dL For additional information, please refer to http://[employer]/faq/ TotalTestosteroneLCMSMSFA Q165 (This link is being provided for informational/ educational purposes only.) This test was developed and its analytical performance characteristics have been determined by [facility] [place], [place]. It has not been cleared or approved by the U.S. Food and Drug Administration. This assay has been validated pursuant to the CLIA regulations and is used for clinical purposes. Testosterone, Free 73.9 35.0-155.0 pg/mL This test was developed and its analytical performance characteristics have been determined by [facility] [place], [place]. It has not been cleared or approved by the U.S. Food and Drug Administration. This assay has been validated pursuant to the CLIA regulations and is used for clinical purposes. THIS TEST WAS PERFORMED AT: [facility] [facility] [address] [address] VIDYA CAMACHO MD,PHD Reason For Referral Reason Consult and Treat [...] Referral Faxed with labs and two progress notesShereen Amber 02/29/2024 11:05:32 AM EDT > Did not receive referral refaxed referral and was able to build and schedule appointment with [facility] Extension Agent. Patient is being seen 06/05/24 @ 11:10am with Dr. Dodd Referral Priority Routine Referral Appointment Date 06/05/2024 Medications Medication SIG (Take, Route, Frequency, Duration) Notes Start Date End Date Status Metoprolol Succinate ER 50 MG 1 tablet Orally Once a day 10/18/2023 A ctive Doxycycline Hyclate 100 MG 1 tablet Orally Once a day 10/18/2023 Active Testosterone Cypionate 200 MG/ML Intramuscular Active Cephalexin 500 MG Oral Ac tive Immunizations Vaccine Route Administration Date Status Comme nts Tetanus and Diphtheria Toxoids Adsorbed IM Intramuscular 04/02/2019 Administered Social History Tobacco Use: Social History Observation [...] User Heavy cigarett e smoker (20-39 cigs/day) Alcohol Screen Question Answer Notes Did you have a drink contain ing alcohol in the past year? Yes How often did you have a dri nk containing alcohol in the past year? Monthly or less (1 point) How many drinks did you have on a typical day when you were drinking in the past year? 1 or 2 drinks (0 point) How often did you have 6 or more drinks on one occasion in the past year? Never (0 point) Points 1 Interpretation Negative Problems Problem Type SNOMED Code ICD Code Onset Dates Problem Status W/U Status Risk Notes Problem 05356414490637 Morbid (severe) obesity due to excess calories (E66.01) Active confirmed We formulated a plan to lose weight at a rate of 1/2 pound per week. He will pursue aggressive sodium and fat reduction and weight reduction. Problem 81609453402892 Insomnia due to medical condition (G47.01) Active confirmed He complains that he has difficulty sleeping because of his pain. I gave him a trial of trazodone. I am trying to avoid using habit-forming controlled substances in this patient. Problem Chronic pain (05280296) Other chronic pain (G89.29) Active confirmed He has a small subcutaneous mass which is mobile. I have asked him to have the orthopedist comment on whether it could be a bone fragment avulsion. Problem 3874567626 Pain in left knee (M25.562) Active confirmed An orthopedic consultation has been requested. Problem [id number] Synovial cyst of popliteal space [Arredondo], left knee (M71.22) Active confirmed This was excised and treated by Dr. Boyd in the past and is no longer a problem. The pain has resolved Problem 503789412 Erectile dysfunction, unspecified erectile dysfunction type (N52.9) Active confirmed A morning testosterone level has been ordered. Problem 57189328 Essential hypertension (I10) Active confirmed His blood pressure has been normal. I recommended aggressive weight loss and sodium restriction. He was given an appointment to come to the office. Problem 50640551 Tobacco dependence (F17.200) Active confirmed I strongly recommend that he consider smoking cessation. This will be pursued along with weight reduction and reduction in his narcotic doses. Problem 78867866 Substance abuse (F19.10) Active confirmed His urine test which was done prior to filling his most recent oxycodone prescription was positive for multiple substances. No further narcotics will be prescribed. Problem 584402253 Environmental allergies (Z91.09) Active confirmed He is experiencing difficulty with the current pollen season. He has had no wheezing but is very congested. He will use Flonase and loratadine with a short course of prednisone. Problem 293165214 Body mass index (BMI) of 40.0-44.9 in adult (Z68.41) Active confirmed I have recommended gradual weight reduction at a rate of 1/2 pound per week to regular exercise in a diet restricted in fat calories in sodium to recheck normal body mass index. I have offered to refer him to a weight loss program at [facility]. His weight is increased by 2 pounds. Problem 1803134 Lumbosacral radiculopathy due to degenerative joint disease of spine (M47.27) Active confirmed He reports the pain is somewhat better. He was able to walk with more ease today. His reflexes are symmetrical. No paravertebral muscle spasm was noted. He will use nonnarcotic medication at this point. I recommended he and rest and massage and ibuprofen. Problem 69758037 Hypogonadism in male (E29.1) Active confirmed His testosterone level has been elevated and his injected daily dose was decreased to 75 mg. 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 He has never been given epinephrine. I will obtain a more detailed history of this from him when he returns next time. Problem 38019806 Penile ulcer (N48.5) Active confirmed These have almost healed. The swab culture of the urethra was negative for chlamydia and gonorrhea. It may be herpetic. He was instructed to return to the office immediately if this process returns or if he has any painful blistering. I spent a long time instructing him on safe sex techniques. I instructed him to use a condom at all times during sexual intercourse and to have his girlfriend C her own physician. Vital Signs Heart Rate 79 /min 10/18/2023 Temperature 99.5 degrees Fahrenheit 10/18/2023 Blood pressure diastolic 80 mm Hg 10/18/2023 Height 74 in 03/01/2024 Blood pressure systolic 137 mm Hg 10/18/2023 Weight 352 lbs 03/01/2024 BMI 45.19 kg/m2 03/01/2024 Encounters Encounter Location Date Provider Diagnosis Pranav Bailey III, MD [address] [place] [address] [place] [phone] 10/18/2023 Pranav Bailey Essential hypertensi on I10 ; Morbid (severe) obesity due to excess calories E66.01 ; Synovial cyst of popliteal space [Arredondo], left knee M71.22 ; Insomnia due to medical condition G47.01 ; Hypogonadism in male E29.1 and Environmental allergies Z91.09 Pranav Bailey III, MD [address] [place] [address] [place] [phone] 01/26/2024 Pranav Bailey Essential hypertensi on I10 ; Morbid (severe) obesity due to excess calories E66.01 ; Synovial cyst of popliteal space [Arredondo], left knee M71.22 ; Tobacco dependence F17.200 ; Lumbosacral radiculopathy due to degenerative joint disease of spine M47.27 ; Hypogonadism in male E29.1 and Acute diarrhea R19.7 Pranav Bailey III, MD [address] [place] [address] [place] [phone] 02/14/2024 Pranav Bailey Essential hypertensi on I10 ; Chronic diarrhea of unknown origin K52.9 ; Tobacco dependence F17.200 ; Morbid (severe) obesity due to excess calories E66.01 and Lumbosacral radiculopathy due to degenerative joint disease of spine M47.27 Pranav Bailey III, MD [address] [place] [address] [address] [place] [address] 03/01/2024 Pranav Bailey Essential hypertensi on I10 ; Morbid (severe) obesity due to excess calories E66.01 ; Synovial cyst of popliteal space [Arredondo], left knee M71.22 ; Insomnia due to medical condition G47.01 ; Anaphylactic reaction to bee sting, assault, sequela T63.443S ; Hypogonadism in male E29.1 ; Environmental allergies Z91.09 and Acute diarrhea R19.7 Pranav Bailey III, MD [address] [place] [address] [place] [phone] 06/21/2023 Pranav Bailey III, MD [address] [place] [address] [place] [phone] 06/21/2023 Pranav Bailey III, MD [address] [place] [address] [place] [phone] 01/15/2024 Pranav Bailey Elevated CPK R74.8 ; Essential hypertension I10 and Morbid (severe) obesity due to excess calories E66.01 Pranav Bailey III, MD [address] [place] [address] [place] [address] 06/10/2024 Pranav Bailey Assessments Encounter Date Diagnosis (ICD Code) Assessment Notes Treatment Notes Treatment Clinical Notes 10/18/2023 Morbid (severe) obesity due to excess calories (ICD-10 - E66.01) We formulated a plan to lose weight at a rate of 1/2 pound per week. He will pursue aggressive sodium and fat reduction and weight reduction. 10/18/2023 Essential hypertension (ICD-10 - I10) His blood pressure is currently normal. I recommended aggressive weight loss and sodium restriction. 01/26/2024 Morbid (severe) obesity due to excess calories (ICD-10 - E66.01) We formulated a plan to lose weight at a rate of 1/2 pound per week. He will pursue aggressive sodium and fat reduction and weight reduction. 01/26/2024 Essential hypertension (ICD-10 - I10) His blood pressure has been normal. I recommended aggressive weight loss and sodium restriction. He was given an appointment to come to the office. 02/14/2024 Essential hypertension (ICD-10 - I10) His blood pressure has been normal. I recommended aggressive weight loss and sodium restriction. He was given an appointment to come to the office. 02/14/2024 Chronic diarrhea of unknown origin (ICD-10 - K52.9) The GI panel is negative. Imodium has been Recommended. A GI consultation has been initiated. 03/01/2024 Morbid (severe) obesity due to excess calories (ICD-10 - E66.01) We formulated a plan to lose weight at a rate of 1/2 pound per week. He will pursue aggressive sodium and fat reduction and weight reduction. 03/01/2024 Essential hypertension (ICD-10 - I10) His blood pressure has been normal. I recommended aggressive weight loss and sodium restriction. He was given an appointment to come to the office. 10/18/2023 Synovial cyst of popliteal space [Arredondo], left knee (ICD-10 - M71.22) This was excised and treated by Dr. Boyd in the past and is no longer a problem. 01/26/2024 Synovial cyst of popliteal space [Arredondo], left knee (ICD-10 - M71.22) This was excised and treated by Dr. Boyd in the past and is no longer a problem. The pain has resolved 02/14/2024 Tobacco dependence (ICD-10 - F17.200) I strongly recommend that he consider smoking cessation. This will be pursued along with weight reduction and reduction in his narcotic doses. 03/01/2024 Synovial cyst of popliteal space [Arredondo], left knee (ICD-10 - M71.22) This was excised and treated by Dr. Boyd in the past and is no longer a problem. The pain has resolved 01/15/2024 Elevated CPK (ICD-10 - R74.8) 10/18/2023 Insomnia due to medical condition (ICD-10 - G47.01) He complains that he has difficulty sleeping because of his pain. I gave him a trial of trazodone. I am trying to avoid using habit-forming controlled substances in this patient. 01/26/2024 Tobacco dependence (ICD-10 - F17.200) I strongly [...] and fat reduction and weight reduction. 03/01/2024 Insomnia due to medical condition (ICD-10 - G47.01) He complains that he has difficulty sleeping because of his pain. I gave him a trial of trazodone. I am trying to avoid using habit-forming controlled substances in this patient. 01/15/2024 Essential hypertension (ICD-10 - I10) 10/18/2023 Hypogonadism in male (ICD-10 - E29.1) His morning testosterone level is 23. This explains his lack of libido and fatigue. Cause is unclear. He was referred to an director retirement. I will try to do as much of an evaluation for hypopituitarism as possible. 01/26/2024 Lumbosacral radiculopathy due to degenerative joint disease of spine (ICD-10 - M47.27) He reports the pain is somewhat better. He was able to walk with more ease today. His reflexes are symmetrical. No paravertebral muscle spasm was noted. He will use nonnarcotic medication at this point. I recommended he and rest and massage and ibuprofen. 02/14/2024 Lumbosacral radiculopathy due to degenerative joint disease of spine (ICD-10 - M47.27) He reports the pain is somewhat better. He was able to walk with more ease today. His reflexes are symmetrical. No paravertebral muscle spasm was noted. He will use nonnarcotic medication at this point. I recommended he and rest and massage and ibuprofen. 03/01/2024 Anaphylactic reaction to bee sting, assault, sequela (ICD-10 - T63.443S) This diagnosis comes from the emergency room record at [facility]. He has never been given epinephrine. I will obtain a more detailed history of this from him when he returns next time. 01/15/2024 Morbid (severe) obesity due to excess calories (ICD-10 - E66.01) 10/18/2023 Environmental allergies (ICD-10 - Z91.09) He is experiencing difficulty with the current pollen season. He has had no wheezing but is very congested. He will use Flonase and loratadine with a short course of prednisone. 01/26/2024 Hypogonadism in male (ICD-10 - E29.1) His testosterone level has been elevated and his injected daily dose was decreased to 75 mg. 03/01/2024 Hypogonadism in male (ICD-10 - E29.1) His testosterone level has been elevated and his injected daily dose was decreased to 75 mg. 03/01/2024 Environmental allergies (ICD-10 - Z91.09) He is experiencing difficulty with the current pollen season. He has had no wheezing but is very congested. He will use Flonase and loratadine with a short course of prednisone. 01/26/2024 Acute diarrhea (ICD-10 - R19.7) 03/01/2024 Acute diarrhea (ICD-10 - R19.7) He has had loose stools every day for 21 days. A GI consultation is pending. I have increased the dose of Imodium. Plan Of Treatment Pending Test Test Name Order Date PROFILE, RANDOM (COMPREHENSIVE METABOLIC ) 01/15/2024 CPK 01/15/2024 SED RATE (ESR) 01/15/2024 CLOSTRIDIUM DIFF TOXIN A&B (C DIFF) 01/07 XR CHEST 2 VIEW PA & LAT 02/13/2023 CBC WITH AUTO DIFF 01/15/2024 Stool Culture 01/26/2024 GI Panel 01/26/2024 Next Appt Details Provider Name:Pranav Bailey, 10/21/2024 03:30:00 PM, [address] [place] [address] , [address], [place], [phone], Insurance Providers Payer Name Payer Address Payer Phone Subscriber Number Group Number Insured Name Patient Relationship to Insured Coverage Start Date Coverage End Date [employer] [address] [address] [place] [address] [id number] GEORGETTE MOORE Self - patient is the insured 0 MEDICAID [address] [place], [place] [id number] GEORGETTE MOORE Self - patient is the insured Medical (General) History Medical History History ICD Code Obesity, unspecified E66.9 Body mass index (BMI) of 40.0-44.9 in ad ult Z68.41 essential hypertension tobacco dependence 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 Dehydration with mild rhabdomyolys is, [facility] Arredondo's cyst left knee with torn meniscu s bee sting anaphylaxis [facility] nter emergency room 12/2014, left third finger tendon lacerat ion 2008, negative polysomnogram, [facility] chronic elevation of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
[2024-06-20 08:54] LABS: Immunoglobulin A 269 mg/dL (47-310)
[2024-06-20 15:49] LABS: Gliadin Deamidated IgA Ab <1.0 U/mL; Gliadin Deamidated IgG Ab <1.0 U/mL
[2024-06-20 16:08] LABS: Transglutaminase Ab IgG <1.0 U/mL; Transglutaminase IgA <1.0 U/mL
[2024-06-22 23:24] LABS: Endomysial IgA Antibody Negative (Negative)
== END 2024-06-19 14:14 | disposition home or self-care (01) ==
LOC: HO.LAB 14:13
PROVIDERS: PCP Internal Medicine Medical Oncology; Visit Provider Internal Medicine
DX: K52.9 Noninfective gastroenteritis and colitis, unspecified (principal); R63.4 Abnormal weight loss
CPT/HCPCS: 36415; 80048; 80076; 82784; 85025; 85652; 86140; 86231; 86258; 86364

== ENCOUNTER 2024-06-21 09:16 | Outpatient (REF) | payer OTHER, SELFPAY ==
--- OUTSIDE RECORDS SUMMARY | 2024-06-21 09:19 | XMS_ITS ---
Author Organization Pranav Bailey III, MD Address [address] [place] [address] [place] [address] Care Team Providers Care Pantry Worker Name Role Phone Pranav Bailey Primary Care Provider REASON FOR VISIT Follow up Social History Sex Assigned At : Social History Observation Description Sex Assigned At Male Encounters Encounter Location Date Provider Diagnosis Pranav Bailey III, MD [address] [place] [address] [place] [address] 04/02/2024 Pranav Bailey Plan Of Treatment Next Appt Details Provider Name:Pranav Bailey, 10/21/2024 03:30:00 PM, [address] [place] [address] [address] [facility] [place], [address], Progress Notes * GEORGETTE MOORE RDOB:1985 (38 yo M)Acc No.[id number]:04/02/2024 Progress Notes Patient:?GEORGETTE MOORE Provider:?Pranav Bailey MD :1985???Age:38 Y???Sex:Male Ivan e:04/02/2024 Address:[address] [place], [place] [phone] Subjective: * Chief Complaints: * ???1. Follow up. * Medical History:? Objective: * Vitals:? Assessment: Plan: * Treatment: * Images: * The named appointment provid er may or may not be the originator of this progress note, and it is not deemed complete until electronically signed by the appointment provider. Sign off status: Pending * Provider:?Pranav Bailey MD Date:?03/11 Generated for Hima collazo/Praneeth/Rudolph on:?06/21/2024 09:19 AM EST
--- OUTSIDE RECORDS SUMMARY | 2024-06-21 09:19 | XMS_ITS ---
Author Organization Pranav Bailey III, MD Address [address] [place] [address] Care Team Providers Care Director Of Product Design Name Role Phone Pranav Bailey Primary Care Provider [phone] REASON FOR VISIT No Show Social History Sex Assigned At : Social History Observation Description Sex Assigned At Male Encounters Encounter Location Date Provider Diagnosis Pranav Bailey III, MD [address] [place] [address] [place] [address] 06/10/2024 Pranav Bailey Plan Of Treatment Next Appt Details Provider Name:Pranav Bailey, 10/21/2024 03:30:00 PM, [address] [place] [address] [place], [address], Progress Notes * GEORGETTE MOORE RDOB:1985 (38 yo M)Acc No.[id number]:06/10/2024 Patient:?GEORGETTE MOORE :1985???Age:38 Y???Sex:Male Address:[address] [place] [address], [address] * true * Date:? Generated for Printi ng/Merrittg/eTransmitting on:?06/21/2024 09:19 AM EST
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
--- OUTSIDE RECORDS SUMMARY | 2024-06-21 09:20 | XMS_ITS | Data Portability ---
Author Organization [place] - [facility], [address] Address [address] [place] [address] Assessment No assessment recorded. Plan of Treatment Reminders Order Date Submit Date Provider Last Modified By Organization Details Last Modified Time Details Appointments None recorded. Lab rapid strep group A, throat 2022 023 [email or web address], [address] [place] [address], [address], 10:56:50 Referral None recorded. Procedures None recorded. Surgeries None recorded. Imaging XR, ribs, unilateral, w/ PA chest 2022 023 [facility], [address] [place] [address], [address], 14:40:47 Medication Orders cyclobenzap rine 10 mg tablet 2022 023 [email or web address] [facility], [address] [place], [address], 3 10:19:01 cephalexin 500 mg capsule 2022 023 [email or web address] [facility], [address] [place], [address], 3 12:56:17 Patient TargetsNo targets recorded. Patient Instructions Encounter Date Encounter Id Patient Instructions Last Modified By Organization Details Last Modified Time 10/02/2022 [id number] bruised rib: car e instructions [email or web address] Not available 10/02/2022 14:03:19 12/27/2022 [id number] folliculitis: care instructions Not available 12/27/2022 10:59:07 sore throat: car e instructions Not available 12/27/2022 10:56:50 Reason for Referral None Reported. Results Created Date Observation Date Name Description Value Unit Range Abnormal Flag Note LastModifiedBy Organization Detail LastModifiedTime 12/28/1912/27/2022 rapid strep group A, throa t Unknown Analyte Normal = Negati ve Not Available [facility] [address] [place] [address], [address], 12/27/2022 10:19:45 12/28/19 23 12/27/2022 rapid strep group A, throa t Unknown Analyte negati ve Not Available [facility] [facility], [address], 12/27/2022 10:19:45 10/03/19 23 10/02/2022 XR, ribs, unila teral , w/ PA chest No observ ation record ed. [email or web address] [facility] [address] [place] [address], [address], 10/02/2022 14:54:26 Result Notes None recorded. Problems Name Problem SNOMED Code Status Onset Date Resolution Date Notes Provider Name and Address Organization Details Recorded Time Migraine 21525291 Active 2022 MANSOOR JUNG null, [place] - [facility] 3 13:08:28 Hidradenitis suppurativa 23711907 Active 2022 MANSOOR JUNG null, [place] - [facility] 3 13:08:47 Kidney disease 78679439 Active 2022 has had kidney failure a few times in past few years MANSOOR JUNG null, [place] - [facility] 3 13:09:43 Problem Notes None recorded. Procedures Surgical History None recorded. Imaging Results Imaging Date Name Status LastModified by Organiz ation Details LastModified Time 10/02/2022 XR, ribs, unilateral, w/ PA chest completed [email or web address] [facility] [address] [place], [address], 10/02/2022 14:54:26 Procedure Notes None recorded. Medical Equipment None Reported. Allergies Allergen ID Allergen Name Allergen Category Reaction Reaction Severity Criticality Documentation Date Start Date Code Code System Note Provider Name and Address Organization Details Recorded Time 179955 codeine medicatio n nausea Not available Not [...] Updated DateTime 3 193.04 cm 42.6 kg/m2 586858. 33 g 98.1 [degF] 96 % 96 [...] Updated DateTime 3 193.04 cm 42.6 kg/m2 864807. 33 g 20 /min 98 % 98 % 78 /min 98.1 [degF] 187 mm[Hg] 122 mm[Hg] 174 mm[Hg] 116 mm[Hg] Madeleine Sanchez [place] - [facility] 3 10:30:03 Date Recorded Systolic blood pressure Diastolic blood pressure Provider Name and Address Organization Details Last Updated DateTime 12/27/2022 180 mm[Hg] 115 mm[Hg] Pradip Michelle MD [address] [place] [address] Claudio GuytowPatrizia mont[place]ay[place], [address], [place] - [facility] 12/27/2022 10:55:46 Social History Question Answer Notes LastModified by Organizat ion Details LastModified Time Tobacco Smoking Status Current Every Day Smoker MANSOOR FABIANA kirk, [place] - [facility] 10/02/2022 13:11:14 What Is Your Level Of Alcohol Consumption? None [email or web address] Information not available 10/02/2022 Which Illicit Or Recreational Drugs Have You Used? Marijuana Information not available 10/02/2022 Have You Had Direct Contact, Or Contact During Intimacy, With Monkeypox Rash, Scabs, Or Body Fluids From A Person With Monkeypox? No [email or web address] Information not available 12/27/2022 How Much Tobacco Do You Smoke? 1 PPD [email or web address] Information not available 10/02/2022 Do You Use Any Illicit Or Recreational Drugs? Yes [email or web address] Information not available 10/02/2022 Have You Recently Traveled Abroad? No [email or web address] Information not available 10/02/2022 Do You Or Have You Ever Used Any Other Forms Of Tobacco Or Nicotine? No [email or web address] Information not available 10/02/2022 Sex: Unknown Functional Status None recorded. Mental Status None recorded. Family History Relationship Description Onset Age of this Age Resolved Age Notes LastModified by Organization Details LastModified Time Father No current problems or disability [email or web address] Not available 10/02 13:10:42 Mother No current problems or disability [email or web address] Not available 10/02 13:10:42 Medical History No medical history recorded. Immunizations Vaccine Type Date Status Note Provider Nam e and Address Organization Details Recorded Time Td (adult), 5 Lf tetanus toxoid, preservative free, adsorbed 5 completed Madeleine Daniel null, [place] - [facility] 12/27/2022 10:18:41 Td (adult), 5 Lf tetanus toxoid, preservative free, adsorbed 9 completed Madeleine Comer null, [place] - [facility] 12/27/2022 10:18:41 Past Encounters Encounter ID Performer Location Encounter Start Date Encounter Closed Date Diagnosis/Indication Diagnosis SNOMED-CT Code Diagnosis ICD10 Code [id number] [address] [place] [address] 10/17/2020 11:28:09 10/17/2020 13:38:29 [id number] [address] [place] [address] 11/30/2020 09:25:29 11/30/2020 10:47:09 [id number] [address] [place] [address] 10/06/2018 14:41:16 10/06/2018 15:20:38 [id number] [address] [place] [address] 03/24/2018 19:42:48 03/24/2018 20:23:07 [id number] [address] [place] [address] 03/26/2019 14:36:28 03/26/2019 15:15:50 [id number] Trevor Oakes DO [address] [place] [address] 10/02/2022 12:37:55 10/02/2022 14:11:36 Rib pain 398845525 R07.81 [id number] Pradip Michelle MD [address] [place] [address] 12/27/2022 10:04:26 12/27/2022 11:02:01 Acute pharyngitis 261482429 J02.9 Staphyloco ccal infection of skin 727861537 B95.8 Hypertensive urgency 443 741126 I16.0 Health Concerns Section Related Observation LastModified by Organization Detai ls LastModified Time None Recorded Concern Status LastModified by Organization Details LastModified Time None Recorded Advance Directives Directive None Recorded Payers Encounter Date Sequence Insurance Name Policy Number Policy Ortiz Covered Member ID Ortiz Member ID Guarantor Name 10/17/[address] [facility] PLAN (MEDICAID HMO) [id number] Raúl Mayen [id number] Raúl Mayen 11/30/2020 1 [facility] PLAN (MEDICAID HMO) [id number] Raúl Mayen [id number] Raúl Mayen 10/02/2022 1 [facility] PLAN (MEDICAID HMO) [id number] Raúl Mayen [id number] Raúl Mayen 12/27/2022 1 [facility] PLAN (MEDICAID HMO) [id number] Raúl Mayen [id number] Raúl Mayen Notes Date Note Type Note [...] Oakes, DO [address] [place], [address], [place] - [facility] 10/02/2022 14:10:28 3 text/html Sore throatReported bypatient.Source of patient informationInformation obtained from patient Location:throat Severity:mild Quality:hurts to swallow Onset/Timin weeks Associated Symptoms:no cough; no sputum production; no shortness of breath; no wheezing; no sinus pain; no vomiting; no nausea; No hoarseness;nasal congestion Has been told it was allergies and tried Flonase and antihistamine Pradip Michelle MD [address] [place] [address] [place], [address], [place] - [facility] 12/27/2022 12:58:47
[2024-06-21 11:44] LABS: Adenovirus F 40/41 Not Detected (Not Detect.); Astrovirus Not Detected (Not Detect.); Campylobacter Not Detected (Not Detect.); Cryptosporidium Not Detected (Not Detect.); Cyclospora cayetanensis Not Detected (Not Detect.); E. coli EAEC Not Detected (Not Detect.); E. coli EPEC Not Detected (Not Detect.); E. coli ETEC Not Detected (Not Detect.); E. coli STEC Not Detected (Not Detect.); Entamoeba histolytica Not Detected (Not Detect.); Giardia lamblia Not Detected (Not Detect.); Norovirus GI/GII Not Detected (Not Detect.); Plesiomonas shigelloides Not Detected (Not Detect.); Rotavirus A Not Detected (Not Detect.); Salmonella Not Detected (Not Detect.); Sapovirus Not Detected (Not Detect.); Shigella sp./EIEC Not Detected (Not Detect.); Vibrio Not Detected (Not Detect.); Vibrio Cholerae Not Detected (Not Detect.); Yersinia enterocolitica Not Detected (Not Detect.)
== END 2024-06-21 09:17 | disposition home or self-care (01) ==
LOC: HO.LNP 09:16
PROVIDERS: Visit Provider Internal Medicine
DX: K52.9 Noninfective gastroenteritis and colitis, unspecified (principal); R63.4 Abnormal weight loss
CPT/HCPCS: 87507

== ENCOUNTER 2024-06-27 06:18 | Day surgery (SDC) | payer OTHER, SELFPAY ==
--- OUTSIDE RECORDS SUMMARY | 2024-06-20 06:19 | XMS_ITS | Data Portability ---
Author Organization [facility], PAIN OFFICE Address [address] [facility] [address] [place] [address] Care Team Providers Care Squeegee Operator Name Role Phone CACHORRO FIORE Referring Provider Assessment Encounter Date Assessment Date Assessment LastModified by Organization Details LastModified Time 06/19/2017 06/19/2017 Raúl Mayen is a 31 year old man with low back pain radiating into left lower extremity with numbness . On exam ,he has pain on flexion. CT Scan after myelogram shows disc degeneration at L3-4, L4-5 and L5-S1 levels with a broad based disc bulge with central and bilateral neural foraminal narrowing. He has trialed physical therapy which aggravated his symptoms. Trial of Lumbar epidural steroid injections under fluoroscopic guidance was recommended. The risks and benefits of the procedure were discussed in detail. He wishes to proceed. An appointment has been booked for the same. 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 [email or web address] Not available 06/19/2017 15:21:42 08/08/2017 08/08/2017 Raúl Mayen is a 32 year old man with low back pain radiating into left lower extremity with numbness . On exam ,he has pain on flexion. CT Scan after myelogram shows disc degeneration at L3-4, L4-5 and L5-S1 levels with a broad based disc bulge with central and bilateral neural foraminal narrowing. He has trialed physical therapy which aggravated his symptoms. He is here for a trial of Lumbar epidural steroid injections under fluoroscopic guidance . The risks and benefits of the procedure were discussed in detail. He wishes to proceed. He will follow up in four weeks. [email or web address] Not available 08/11/2017 11:27:16 Plan of Treatment Reminders Order Date Submit Date Provider Last Modified By Organization Details Last Modified Time Details Appointments None record ed. Lab None record ed. Referral None record ed. Procedures None record ed. Surgeries None record ed. Imaging None record ed. Medication Orders None record ed. Patient TargetsNo targets recorded. Patient Instructions Encounter Date Encounter Id Patient Instructions Last Modified By Organization Details Last Modified Time 06/19/2017 [id number] He was advised against bed rest lasting longer than four days and to continue activities as tolerated. Benefits of smoking cessation were discussed with him. [email or web address] Not available 06/19/2017 15:19:58 08/08/2017 [id number] He was advised against bed rest lasting longer than four days and to continue activities as tolerated. Benefits of smoking cessation were discussed with him. [email or web address] Not available 08/11/2017 11:25:19 Reason for Referral None Reported. Problems Name Problem SNOMED Code Status Onset Date Resolution Date Notes Provider Name and Address Organization Details Recorded Time Degeneration of lumbar intervertebral disc 16055093 Active Tommy montemayor MD [address] [facility] , [address], [place], [address], [place] [facility] 7 15:12:07 Lumbar radiculopathy 315769597 Active Tommy montemayor MD [address] [facility] , [address], [place], [address], [place] [facility] 7 15:12:25 Problem Notes None recorded. Procedures Surgical History Date Name Laterality Status Provider Name and Address Organization Details Recorded Time 08/08/19 18 Lumbar Epidural steroid injection under fluoroscopic guidance completed Tommy Motta MD [address] [facility] , [address], [place], [address], [place] [facility] 08/11/2017 11:26:04 Other completed Marcy Clarke [place] [facility] 06/19/2017 13:33:18 Other completed Marcylacy Clarke [place] [facility] 06/19/2017 13:33:51 Arthroscopic Surgery completed Marcy Clarke [place] [facility] 06/22/2017 15:11:03 Other completed Marcy Clarke [place] [facility] 06/19/2017 13:35:04 Other completed Marcy Clarke [place] [facility] 06/19/2017 13:36:19 Other completed Marcy Vince [place] [facility] 06/19/2017 13:37:13 Imaging Results None recorded. Procedure Notes None recorded. Medical Equipment None Reported. Allergies Allergen ID Allergen Name Allergen Category Reaction Reaction Severity Criticality Documentation Date Start Date Code Code System Note Provider Name and Address Organization Details Recorded Time 21124 codeine medicatio n nausea Not available Not available 06/19/2017 2670 RxNorm Marcy Clarke [facility] 7 13:29:25 Medications Name Sig Start Date Stop Date Status Note LastModified by Organization Details LastModified Time oxycodone 10 mg tablet Take 1 tablet 4 times a day by oral route. active Not Available Not Available No t Available Vitals Date Recorded Heart rate Oxygen saturation Oxygen saturation in Arterial blood by Pulse oximetry Body height Body mass index (BMI) Body weight Systolic blood pressure Diastolic blood pressure Provider Name and Address Organization Details Last Updated DateTime 7 75 /min 97 % 97 % 193.04 cm 36.5 kg/m2 576595. 71 g 136 mm[Hg] 95 mm[Hg] Marcy Clarke [facility] 7 13:28:45 Date Recorded Body height Heart rate Oxygen saturation Oxygen saturation in Arterial blood by Pulse oximetry Systolic blood pressure Diastolic blood pressure Provider Name and Address Organization Details Last Updated DateTime 8 193.04 cm 68 /min 98 % 98 % 161 mm[Hg] 92 mm[Hg] Marcy Clarke [facility] 8 13:58:04 Social History Question Answer Notes LastModified by Organizat ion Details LastModified Time Tobacco Smoking Status Current Every Day Smoker Not Available [employer] 04/24/2020 03:16:10 What Is Your Level Of Alcohol Consumption? Occasional [id number] Information not available 04/24/2020 Are You Currently Employed? Yes [id number] Information not available 04/24/2020 Which Illicit Or Recreational Drugs Have You Used? 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 Alone Information not available 06/19/2017 Marital Status Single Informatio n not available 06/19/2017 What Was The Date Of Your Most Recent Tobacco Screening? 08/11/2017 [id number] Information not available 04/24/2020 How Much Tobacco Do You Smoke? 1 PPD [id number] Information not available 04/24/2020 How Many Years Have You Smoked Tobacco? 15 [id number] Information not available 04/24/2020 Sex: Unknown Functional Status None recorded. Mental Status None recorded. Family History Nothing Reported Notes:Mutiple family members = Back problems/ surgeries. Medical History Condition Response Headache Y Migrane Y Arthritis Y Past Encounters Encounter ID Performer Location Encounter Start Date Encounter Closed Date Diagnosis/Indication Diagnosis SNOMED-CT Code Diagnosis ICD10 Code [id number] Tommy Motta MD PAIN OFFICE [address] [place] [address] 06/19/2017 13:04:57 06/19/2017 15:27:26 Lumbar radiculopathy 939061065 M54.16 Degenerati on of lumbar intervertebral disc 18535435 M51.36 [id number] Tommy Motta MD PAIN OFFICE [address] [place] [address] 08/08/2017 13:35:16 08/11/2017 11:30:41 Lumbar radiculopathy 571553694 M54.16 Degenerati on of lumbar intervertebral disc 90514714 M51.36 Health Concerns Section Related Observation LastModified by Organization Detai ls LastModified Time None Recorded Concern Status LastModified by Organization Details LastModified Time None Recorded Advance Directives Directive None Recorded Payers Encounter Date Sequence Insurance Name Policy Number Policy Ortiz Covered Member ID Ortiz Member ID Guarantor Name 06/19/2017 1 [place] [facility] Raúl Mayen [id number] Raúl Mayen 08/08/2017 1 [place] [facility] Raúl Mayen [id number] Raúl Mayen Notes Date Note Type Note Provider Name and Address Organization Details Recorded Time 06/19/2017 text/html Pain Management L-spineReported bypatient.Location :Raúl Mayen is a 31 year old man with complaints of low back pain radiating into both lower extremities, left is greater than right. The pain started one year ago after lifting. 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 Quality:throbbing; numbess;burning;ac mariela;cramping;ting ling; He describes the pain as a cramping and aching pain in his low back which radiates into his left lower extremity with numbness and tingling . He has ain occasionally in his right lower extremity. Severity:current pain level 7/10; worst pain 10/10;worsening;in terference with sleep;interference with work; He awakens 2-3 times at night due to pain. Duration:constant Onset/Timing:gradu al onset Context:lifting Alleviating Factors:nothing helps Aggravating Factors:flexion; carrying; twisting; going from sit to stand; standing; walking Associated Symptoms:no weakness; no bladder compromise; no bowel compromise;numbnes s Radiation:bilatera l LE; Left is greater than right ADL (Activities of Daily Living):walking; sweeping; mopping Prior Imaging:CT Scan after myelogram shows disc degeneration at L3-4, L4-5 and L5-S1 levels with a broad based disc bulge with central and bilateral neural foraminal narrowing. Prior EMG:none Previous Surgerynone Previous Injections:none Previous PT:did not help; aggravated symptoms Previous health care manager:did not helpNotes:He is currently on oxycodone which helps. He has trialed gabapentin and flexeril with no pain benefit. He had an injection of toradol which helped a little. Tommy Motta MD [address] [facility] , [address], [place], [address], [facility] 06/22/2017 15:47:47 08/08/2017 text/html He is here today for a lumbar epidural steroid injection under fluroscopic guidance. Tommy Motta MD [address] [facility] , [address], [place], [address], [facility] 08/14/2017 15:12:21
--- OUTSIDE RECORDS SUMMARY | 2024-06-27 06:20 | XMS_ITS ---
Author Organization Pranav Bailey III, MD Address [address] [place] [address] [place] [address] Care Team Providers Care Stone Setter Apprentice Name Role Phone Pranav Bailey Primary Care Provider REASON FOR VISIT Follow up Social History Sex Assigned At : Social History Observation Description Sex Assigned At Male Encounters Encounter Location Date Provider Diagnosis Pranav Bailey III, MD [address] [place] [address] [place] [address] 04/02/2024 Pranav Bailey Plan Of Treatment Next Appt Details Provider Name:Pranav Bailey, 10/21/2024 03:30:00 PM, [address] [place] [address] [address] [facility] [place], [address], Progress Notes * GEORGETTE MOORE RDOB:1985 (38 yo M)Acc No.[id number]:04/02/2024 Progress Notes Patient:?GEORGETTE MOORE Provider:?Pranav Bailey MD :1985???Age:38 Y???Sex:Male Ivan e:04/02/2024 Address:[address] [place], [place] [id number] Subjective: * Chief Complaints: * ???1. Follow up. * Medical History:? Objective: * Vitals:? Assessment: Plan: * Treatment: * Images: * The named appointment provid er may or may not be the originator of this progress note, and it is not deemed complete until electronically signed by the appointment provider. Sign off status: Pending * Provider:?Pranav Bailey MD Date:?03/11 Generated for Hima collazo/Praneeth/Rudolph on:?06/27/2024 06:20 AM EST
--- OUTSIDE RECORDS SUMMARY | 2024-06-27 06:20 | XMS_ITS ---
Author Organization Pranav Bailey III, MD Address [address] [place] [address] Care Team Providers Care Examination Proctor Name Role Phone Pranav Bailey Primary Care Provider REASON FOR VISIT No Show Social History Sex Assigned At : Social History Observation Description Sex Assigned At Male Encounters Encounter Location Date Provider Diagnosis Pranav Bailey III, MD [address] [place] [address] [place] [address] 06/10/2024 Pranav Bailey Plan Of Treatment Next Appt Details Provider Name:Pranav Bailey, 10/21/2024 03:30:00 PM, [address] [place] [address] [place], [address], Progress Notes * GEORGETTE MOORE RDOB:1985 (38 yo M)Acc No.[id number]:06/10/2024 Patient:?GEORGETTE MOORE :1985???Age:38 Y???Sex:Male Address:[address] [place] [address], [address] * true * Date:? Generated for Printi ng/Merrittg/eTransmitting on:?06/27/2024 06:20 AM EST
--- OUTSIDE RECORDS SUMMARY | 2024-06-27 06:20 | XMS_ITS ---
Author Organization Pranav Bailey III, MD Address [address] [place] [address] [place] [address] Care Team Providers Care Motorcycle Technician Name Role Phone Pranav Bailey Primary Care Provider [phone] Allergies Allergen (clinical drug ingredient) Drug/Non Drug [...] Date Provider Diagnosis Pranav Bailey III, MD [address] [place] [address] [place] [address] 06/10/2024 Pranav Bailey Essential hypertensi on I10 [...] Details Provider Name:Pranav Bailey, 10/21/2024 03:30:00 PM, [address] [place] [address] [address], [place], [address], Progress Notes * TANNERGEORGETTE JIMENEZ RDOB:1985 (38 yo M)Acc No.[id number]:06/10/2024 Progress Notes Patient:?GEORGETTE MOORE R Provider:?Pranav Bailey MD :1985???Age:38 Y???Sex:Male Ivan e:06/10/2024 Address:[address] [place], [place] [id number] Subjective: * Chief Complaints: * ???1. Follow [...] elevated CPK, 2011. Dehydration with mild rhabdomyolysis, [facility], Arredondo's cyst left knee with torn meniscus, bee sting anaphylaxis [facility] emergency room 2014, 12/2014, left third finger tendon laceration, 2008, negative polysomnogram, [facility], chronic elevation of CPK and aldolase with possible myopathy, Chronic back pain treated with narcotic medication, Subcutaneous mass left elbow, Left knee pain, Chronic fatigue. * Surgical History:?repair of floor of right orbit. After traumatic injury 2008, pilonidal cystectomy 2007, bilateral myringotomy 1984, left knee chondroplasty, partial meniscectomy, Dr. Boyd, [facility] 2012, left third finger tendon laceration repair, Dr. Boyd, [facility] 12/2014, Disectomy 01/2019. * Hospitalization/Major Diagno stic [...] Bailey MD Date:?08/2023 Generated for Hima collazo/Praneeth/Albinoitting on:?06/27/2024 06:20 AM EST History and Physical Notes * [...]
--- OUTSIDE RECORDS SUMMARY | 2024-06-27 06:21 | XMS_ITS | Patient Health Record ---
Author Organization Pranav Bailey III, MD Address [address] [place] [address] [address] [place] [address] Care Team Providers Care Travel Sales Consultant Name Role Phone Pranav Bailey Primary Care [...] Free/Total Reviewed date:01/26/2024 10:32:53 AM Interpretation: Performing Lab:[facility], [address] [place] [address] Notes/Report: Testosterone, Total 9360 017-3662 ng/dL For additional information, please refer to http://education.[employer]/faq/ TotalTestosteroneLCMSMSFA Q165 (This link is being provided for informational/ educational purposes only.) This test was developed and its analytical performance characteristics have been determined by [facility] [place], [place]. It has not been cleared or approved by the U.S. Food and Drug Administration. This assay has been validated pursuant to the CLIA regulations and is used for clinical purposes. For additional information, please refer to http://education.[employer]/faq/TotalTes tosteroneLCMSMS (This link is being provided for informational/ educational purposes only.) This test was developed and its analytical performance characteristics have been determined by [facility]. It has not been cleared or approved by the FDA. This assay has been validated pursuant to the CLIA regulations and is used for clinical purposes. Testosterone, Free TNP TEST(S) NOT PERFORMED: TESTOSTERONE, FREE TEST NOT PERFORMED Quantity not sufficient. THIS TEST WAS PERFORMED AT: [email or web address] [address] [place] [address] VIDYA CAMACHO MD,PHD Complete Blood Count Auto Di ff Reviewed date:01/26/2024 10:32:53 AM Interpretation: Performing Lab:[facility], [address] [place] [address] Notes/Report: White Blood Count 12.3 4.8-10.8 X10*3/uL [...] te Reviewed date:01/26/2024 10:32:53 AM Interpretation: Performing Lab:[address] [address] Notes/Report: Erythrocyte Sedimentation Rate 2 0-15 MM/HR Patients with polycythemia and many hemoglobin abnormalities may have depressed sed rates whereas patients with anemia may have elevated sed rates. Comprehensive Met. Panel Reviewed date:01/26/2024 10:32:53 AM Interpretation: Performing Lab:[address] [address] Notes/Report: Sodium 140 135-145 mmol/L Potassium 3.5 3.3-5.1 mmol/L Chloride 104 96-108 mmol/L Carbon Dioxide 24 22-29 mmol/L Anion Gap 16 12-20 Blood Urea Nitrogen 17 9-16 mg/dL Creatinine 1.43 0.5-1.4 mg/dL Estimated Glomerular Filt Rate 55 NOTE: For -Gabonese individuals, multiply the result by 1.210. Chronic [...] Total Reviewed date:01/26/2024 10:32:53 AM Interpretation: Performing Lab:[address] [place] [address] Notes/Report: Creatine Kinase Total 410 38-174 U/L Hemoglobin Reviewed date:01/26/2024 10:32:53 AM Interpretation: Performing Lab:[facility], [address] [place] [address] Notes/Report: Hemoglobin 17.0 14.0-18.0 g/dl Hematocrit Reviewed date:01/26/2024 10:32:53 AM Interpretation: Performing Lab:[facility], [address] [place] [address] Notes/Report: Hematocrit 49.1 42.0-52.0 % Testosterone, Free/Total Reviewed date:01/30/2024 05:05:25 PM Interpretation: Performing Lab:[facility], [address] [place] [address] Notes/Report: Testosterone, Total 0004 253-3330 ng/dL For additional information, please refer to http://education.Gro[employer]/faq/ TotalTestosteroneLCMSMSFA Q165 (This link is being provided for informational/ educational purposes only.) This test was developed and its analytical performance characteristics have been determined by [facility] [place]. It has not been cleared or approved by the U.S. Food and Drug Administration. This assay has been validated pursuant to the CLIA regulations and is used for clinical purposes. Testosterone, Free 278.5 35.0-155.0 pg/mL This test was developed and its analytical performance characteristics have been determined by [facility] [place]. It has not been cleared or approved by the U.S. Food and Drug Administration. This assay has been validated pursuant to the CLIA regulations and is used for clinical purposes. THIS TEST WAS PERFORMED AT: [email or web address] [place] [address] [place] [address] VIDYA CAMACHO MD,PHD CDiff Gene PCR Reviewed date:02/25/2024 07:05:34 AM Interpretation: Performing Lab:[facility], [address] [place] [address] Notes/Report: CDiff Gene PCR NEGATIVE Negative If C. difficile strongly suspected despite one negative test, a second test may be sent vs. empiric treatment for C. difficile infection. GI Panel Reviewed date:02/25/2024 07:05:34 AM Interpretation: Performing Lab:[facility], [address] [place] [address] Notes/Report: Campylobacter Not Detected Not Detect. Plesiomonas [...] is performed by Multiplexed PCR, utilizing the [employer]ix[employer] Array. Testosterone, Free/Total Reviewed date:04/22/2024 07:50:14 AM Interpretation: Performing Lab:[facility], [address] [facility], [place] [address] Notes/Report: Testosterone, Total 558 180-5950 ng/dL For additional information, please refer to http://Leondra music.Gro[employer]/faq/ TotalTestosteroneLCMSMSFA Q165 (This link is being provided for informational/ educational purposes only.) This test was developed and its analytical performance characteristics have been determined by [facility] [place]. It has not been cleared or approved by the U.S. Food and Drug Administration. This assay has been validated pursuant to the CLIA regulations and is used for clinical purposes. Testosterone, Free 73.9 35.0-155.0 pg/mL This test was developed and its analytical performance characteristics have been determined by [facility] [place]. It has not been cleared or approved by the U.S. Food and Drug Administration. This assay has been validated pursuant to the CLIA regulations and is used for clinical purposes. THIS TEST WAS PERFORMED AT: [email or web address] [address] [address] VIDYA CAMACHO MD,PHD Reason For Referral Reason [...] able to build and schedule appointment with Kiln Car Repairer. Patient is being seen 06/05/24 @ 11:10am [...] Problem Status W/U Status Risk Notes Problem 42472410200982 Morbid (severe) obesity due to excess calories (E66.01) Active confirmed We formulated a plan to lose weight at a rate of 1/2 pound per week. He will pursue aggressive sodium and fat reduction and weight reduction. Problem 11306389001634 Insomnia due to medical condition (G47.01) Active confirmed He complains that he has difficulty sleeping because of his pain. I gave him a trial of trazodone. I am trying to avoid using habit-forming controlled substances in this patient. Problem Chronic pain (65037082) Other chronic pain (G89.29) Active confirmed He has a small subcutaneous mass which is mobile. I have asked him to have the orthopedist comment on whether it could be a bone fragment avulsion. Problem 4263099356 Pain in left knee (M25.562) Active confirmed An orthopedic consultation has been requested. Problem 257307104838833 Synovial cyst of popliteal space [Arredondo], left knee (M71.22) Active confirmed This was excised and treated by Dr. Boyd in the past and is no longer a problem. The pain has resolved Problem 749631690 Erectile dysfunction, unspecified erectile dysfunction type (N52.9) Active confirmed A morning testosterone level has been ordered. Problem 37227422 Essential hypertension (I10) Active confirmed His blood pressure has been normal. I recommended aggressive weight loss and sodium restriction. He was given an appointment to come to the office. Problem 70828933 Tobacco dependence (F17.200) Active confirmed I strongly recommend that he consider smoking cessation. This will be pursued along with weight reduction and reduction in his narcotic doses. Problem 23885535 Substance abuse (F19.10) Active confirmed His urine test which was done prior to filling his most recent oxycodone prescription was positive for multiple substances. No further narcotics will be prescribed. Problem 207853503 Environmental allergies (Z91.09) Active confirmed He is experiencing difficulty with the current pollen season. He has had no wheezing but is very congested. He will use Flonase and loratadine with a short course of prednisone. Problem 048828199 Body mass index (BMI) of 40.0-44.9 in adult (Z68.41) Active confirmed I have recommended gradual weight reduction at a rate of 1/2 pound per week to regular exercise in a diet restricted in fat calories in sodium to recheck normal body mass index. I have offered to refer him to a weight loss program at [facility]. His weight is increased by 2 pounds. Problem 0982684 Lumbosacral radiculopathy due to degenerative joint disease of spine (M47.27) Active confirmed He reports the pain is somewhat better. He was able to walk with more ease today. His reflexes are symmetrical. No paravertebral muscle spasm was noted. He will use nonnarcotic medication at this point. I recommended he and rest and massage and ibuprofen. Problem 37155013 Hypogonadism in male (E29.1) Active confirmed His testosterone level has been elevated and his injected daily dose was decreased to 75 mg. 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 He has never been given epinephrine. I will obtain a more detailed history of this from him when he returns next time. Problem 95191249 Penile ulcer (N48.5) Active confirmed These have [...] Date Provider Diagnosis Pranav Bailey III, MD [address] [place] [address] [place] [address] 10/18/2023 Pranav Bailey Essential hypertensi on I10 ; Morbid (severe) obesity due to excess calories E66.01 ; Synovial cyst of popliteal space [Arredondo], left knee M71.22 ; Insomnia due to medical condition G47.01 ; Hypogonadism in male E29.1 and Environmental allergies Z91.09 Pranav Bailey III, MD [address] [place] [address] [place] [address] 01/26/2024 Pranav Bailey Essential hypertensi on I10 ; Morbid (severe) obesity due to excess calories E66.01 ; Synovial cyst of popliteal space [Arredondo], left knee M71.22 ; Tobacco dependence F17.200 ; Lumbosacral radiculopathy due to degenerative joint disease of spine M47.27 ; Hypogonadism in male E29.1 and Acute diarrhea R19.7 Pranav Bailey III, MD [address] [place] [address] [place] [address] 02/14/2024 Pranav Bailey Essential hypertensi on I10 ; Chronic diarrhea of unknown origin K52.9 ; Tobacco dependence F17.200 ; Morbid (severe) obesity due to excess calories E66.01 and Lumbosacral radiculopathy due to degenerative joint disease of spine M47.27 Pranav Bailey III, MD [address] [place] [address] [address] [address] 03/01/2024 Pranav Bailey Essential hypertensi on I10 ; Morbid (severe) obesity due to excess calories E66.01 ; Synovial cyst of popliteal space [Arredondo], left knee M71.22 ; Insomnia due to medical condition G47.01 ; Anaphylactic reaction to bee sting, assault, sequela T63.443S ; Hypogonadism in male E29.1 ; Environmental allergies Z91.09 and Acute diarrhea R19.7 Pranav Bailey III, MD [address] [place] [address] [address] [address] 01/15/2024 Pranav Bailey Elevated CPK R74.8 ; Essential hypertension I10 and Morbid (severe) obesity due to excess calories E66.01 Pranav Bailey III, MD [address] [place] [address] [place] [address] 06/10/2024 Pranav Bailey Assessments Encounter Date Diagnosis [...] is unclear. He was referred to an silk conditioner. I will try to do as much [...] comes from the emergency room record at [facility]. He has never been given epinephrine. [...] Details Provider Name:Pranav Bailey, 10/21/2024 03:30:00 PM, [address] [place] [address] [address], [place], [address], Insurance Providers Payer Name Payer Address Payer Phone Subscriber Number Group Number Insured Name Patient Relationship to Insured Coverage Start Date Coverage End Date [employer] [address] [address] [place] [address] [id number] GEORGETTE MOORE Self - patient is the insured 0 MEDICAID [address] [place], [place] [id number] GEORGETTE MOORE Self - patient is the insured Medical (General) History Medical History History ICD Code Obesity, unspecified E66.9 Body mass index (BMI) of 40.0-44.9 in ad ult Z68.41 essential hypertension tobacco dependence 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 Dehydration with mild rhabdomyolys is, [facility] Arredondo's cyst left knee with torn meniscu s bee sting anaphylaxis [facility] nter emergency room 2015 12/2014, left third finger tendon lacerat ion 2008, negative polysomnogram, [facility] chronic elevation of CPK and aldolase wi th possible myopathy chronic back pain treated with narcotic medication Subcutaneous mass left elbow Left knee pain Chronic fatigue Surgical History Surgery Date(Month/Year) Disectomy 01/2019 left third finger tendon lac eration repair, Dr. Boyd, [facility] 12/2014 left knee chondroplasty, par tial meniscectomy, Dr. Boyd, [facility] 2013 bilateral myringotomy 1985 pilonidal cystectomy 2008 repair of floor of right orbit. After tr aumatic injury 2008 Hospitalization History Reason Date(Month/Year) back pain 11/2018
--- OUTSIDE RECORDS SUMMARY | 2024-06-27 06:21 | XMS_ITS | Data Portability ---
Author Organization [place] - [facility], [address] Address [address] [place] [address] Assessment No assessment recorded. Plan of Treatment Reminders Order Date Submit Date Provider Last Modified By Organization Details Last Modified Time Details Appointments None recorded. Lab rapid strep group A, throat 2022 023 [email or web address] [facility], [address] [place] [address], [id number], 10:56:50 Referral None recorded. Procedures None recorded. Surgeries None recorded. Imaging XR, ribs, unilateral, w/ PA chest 2022 023 [facility], [address] [place] [address], [address], 14:40:47 Medication Orders cyclobenzap rine 10 mg tablet 2022 023 [email or web address] [facility], [address] [place], [address], 3 10:19:01 cephalexin 500 mg capsule 2022 023 [email or web address] [address] [facility], [address] [place], [address], 3 12:56:17 Patient TargetsNo targets recorded. Patient Instructions Encounter Date Encounter Id Patient Instructions Last Modified By Organization Details Last Modified Time 10/02/2022 [id number] bruised rib: car e instructions [email or web address] Not available 10/02/2022 14:03:19 12/27/2022 [id number] folliculitis: care instructions Not available 12/27/2022 10:59:07 sore throat: car e instructions Not available 12/27/2022 10:56:50 Reason for Referral None Reported. Results Created Date Observation Date Name Description Value Unit Range Abnormal Flag Note LastModifiedBy Organization Detail LastModifiedTime 12/28/1912/27/2022 rapid strep group A, throa t Unknown Analyte Normal = Negati ve Not Available [facility] [address] [place] [address], [address], 12/27/2022 10:19:45 12/28/19 23 12/27/2022 rapid strep group A, throa t Unknown Analyte negati ve Not Available [address], [address], 12/27/2022 10:19:45 10/03/19 23 10/02/2022 XR, ribs, unila teral , w/ PA chest No observ ation record ed. [email or web address] [facility] [address] [place] [address], [address], 10/02/2022 14:54:26 Result Notes None recorded. Problems Name Problem SNOMED Code Status Onset Date Resolution Date Notes Provider Name and Address Organization Details Recorded Time Migraine 75279407 Active 2022 MANSOOR JUNG null, [place] - [facility] 3 13:08:28 Hidradenitis suppurativa 78533014 Active 2022 MANSOOR JUNG null, [place] - [facility] 3 13:08:47 Kidney disease 17324801 Active 2022 has had kidney failure a few times in past few years MANSOOR JUNG null, [place] - [facility] 3 13:09:43 Problem Notes None recorded. Procedures Surgical History None recorded. Imaging Results Imaging Date Name Status LastModified by Organiz ation Details LastModified Time 10/02/2022 XR, ribs, unilateral, w/ PA chest completed [email or web address] [facility] [address] [place], [address], 10/02/2022 14:54:26 Procedure Notes None recorded. Medical Equipment None Reported. Allergies Allergen ID Allergen Name Allergen Category Reaction Reaction Severity Criticality Documentation Date Start Date Code Code System Note Provider Name and Address Organization Details Recorded Time 221127 codeine medicatio n nausea Not available Not [...] Updated DateTime 3 193.04 cm 42.6 kg/m2 187408. 33 g 98.1 [degF] 96 % 96 [...] Updated DateTime 3 193.04 cm 42.6 kg/m2 431864. 33 g 20 /min 98 % 98 % 78 /min 98.1 [degF] 187 mm[Hg] 122 mm[Hg] 174 mm[Hg] 116 mm[Hg] Madeleine Sanchez [place] - [facility] 3 10:30:03 Date Recorded Systolic blood pressure Diastolic blood pressure Provider Name and Address Organization Details Last Updated DateTime 12/27/2022 180 mm[Hg] 115 mm[Hg] Pradip Michelle MD [address] [place] [address] Claudio GuytowPatrizia montemayor, [address], [place] - [facility] 12/27/2022 10:55:46 Social History Question Answer Notes LastModified by Organizat ion Details LastModified Time Tobacco Smoking Status Current Every Day Smoker MANSOOR FABIANA kirk, [place] - [facility] 10/02/2022 13:11:14 What Is Your Level Of Alcohol Consumption? None [email or web address] Information not available 10/02/2022 Which Illicit Or Recreational Drugs Have You Used? Marijuana Information not available 10/02/2022 Have You Had Direct Contact, Or Contact During Intimacy, With Monkeypox Rash, Scabs, Or Body Fluids From A Person With Monkeypox? No [email or web address] Information not available 12/27/2022 How Much Tobacco Do You Smoke? 1 PPD [email or web address] Information not available 10/02/2022 Do You Use Any Illicit Or Recreational Drugs? Yes Information not available 10/02/2022 Have You Recently Traveled Abroad? No [email or web address] Information not available 10/02/2022 Do You Or Have You Ever Used Any Other Forms Of Tobacco Or Nicotine? No Information not available 10/02/2022 Sex: Unknown Functional Status None recorded. Mental Status None recorded. Family History Relationship Description Onset Age of this Age Resolved Age Notes LastModified by Organization Details LastModified Time Father No current problems or disability [email or web address] Not available 10/02 13:10:42 Mother No current problems or disability [email or web address] Not available 10/02 13:10:42 Medical History No medical history recorded. Immunizations Vaccine Type Date Status Note Provider Nam e and Address Organization Details Recorded Time Td (adult), 5 Lf tetanus toxoid, preservative free, adsorbed 5 completed Madeleine Daniel null, [place] - [facility] 12/27/2022 10:18:41 Td (adult), 5 Lf tetanus toxoid, preservative free, adsorbed 9 completed Madeleine Houston null, [place] - [facility] 12/27/2022 10:18:41 Past Encounters Encounter ID Performer Location Encounter Start Date Encounter Closed Date Diagnosis/Indication Diagnosis SNOMED-CT Code Diagnosis ICD10 Code [id number] [address] [place] [address] 10/17/2020 11:28:09 10/17/2020 13:38:29 [id number] [address] [place] [address] 11/30/2020 09:25:29 11/30/2020 10:47:09 [id number] [address] [place] [address] 10/06/2018 14:41:16 10/06/2018 15:20:38 [id number] [address] [place] [address] 03/24/2018 19:42:48 03/24/2018 20:23:07 [id number] [address] [place] [address] 03/26/2019 14:36:28 03/26/2019 15:15:50 [id number] Trevor Oakes DO [address] [place] [address] 10/02/2022 12:37:55 10/02/2022 14:11:36 Rib pain 774906631 R07.81 [id number] Pradip Michelle MD [address] [place] [address] 12/27/2022 10:04:26 12/27/2022 11:02:01 Acute pharyngitis 481301300 J02.9 Staphyloco ccal infection of skin 898256092 B95.8 Hypertensive urgency 443 823816 I16.0 Health Concerns Section Related Observation LastModified by Organization Detai ls LastModified Time None Recorded Concern Status LastModified by Organization Details LastModified Time None Recorded Advance Directives Directive None Recorded Payers Encounter Date Sequence Insurance Name Policy Number Policy Ortiz Covered Member ID Ortiz Member ID Guarantor Name 10/17/2020 1 [facility] (MEDICAID HMO) [id number] Raúl Mayen [id number] Raúl Mayen 11/30/2020 1 [facility] PLAN (MEDICAID HMO) [id number] Raúl Mayen [id number] Raúl Mayen 10/02/2022 1 [facility] PLAN (MEDICAID HMO) [id number] Raúl Mayen [id number] Raúl Mayen 12/27/2022 1 [facility] PLAN (MEDICAID HMO) [id number] Raúl Mayen [id number] Raúl Mayen Notes Date Note Type [...] Oakes, DO [address] [place], [address], [place] - [facility] 10/02/2022 14:10:28 3 text/html Sore throatReported bypatient.Source of patient informationInformation obtained from patient Location:throat Severity:mild Quality:hurts to swallow Onset/Timin weeks Associated Symptoms:no cough; no sputum production; no shortness of breath; no wheezing; no sinus pain; no vomiting; no nausea; No hoarseness;nasal congestion Has been told it was allergies and tried Flonase and antihistamine Pradip Michelle MD [address] [place] [address] [place], [address], [place] - [facility] 12/27/2022 12:58:47
--- OUTSIDE RECORDS SUMMARY | 2024-06-27 06:21 | XMS_ITS | Data Portability ---
Author Organization [facility], PAIN OFFICE Address [address] [facility] [address] [place] [address] Care Team Providers Care Reimbursement Representative Name Role Phone CACHORRO FIORE Referring Provider [phone] Assessment Encounter Date Assessment Date Assessment LastModified [...] booked for the same. 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 [...] By Organization Details Last Modified Time 06/19/2017 [id number] He was advised against bed rest lasting longer than four days and to continue activities as tolerated. Benefits of smoking cessation were discussed with him. [email or web address] Not available 06/19/2017 15:19:58 08/08/2017 [id number] He was advised against bed rest lasting longer than four days and to continue activities as tolerated. Benefits of smoking cessation were discussed with him. [email or web address] Not available 08/11/2017 11:25:19 Reason for Referral None Reported. Problems Name Problem SNOMED Code Status Onset Date Resolution Date Notes Provider Name and Address Organization Details Recorded Time Degeneration of lumbar intervertebral disc 03359159 Active Tommy montemayor MD [address] [facility] , [address], [place], [address], [place] [facility] 7 15:12:07 Lumbar radiculopathy 606934529 Active Tommy montemayor MD [address] [facility] , [address], [place], [address], [place] [facility] 7 15:12:25 Problem Notes None recorded. Procedures Surgical History Date Name Laterality Status Provider Name and Address Organization Details Recorded Time 08/08/19 18 Lumbar Epidural steroid injection under fluoroscopic guidance completed Tommy Motta MD [address] [facility] , [address], [place], [address], [place] [facility] 08/11/2017 [...] Name and Address Organization Details Recorded Time 85064 codeine medicatio n nausea Not available Not available 06/19/[address] [facility] 7 13:29:25 Medications Name Sig [...] % 97 % 193.04 cm 36.5 kg/m2 552295. 71 g 136 mm[Hg] 95 mm[Hg] Marcy Clarke [facility] 7 13:28:45 Date Recorded Body height Heart rate Oxygen saturation Oxygen saturation in Arterial blood by Pulse oximetry Systolic blood pressure Diastolic blood pressure Provider Name and Address Organization Details Last Updated DateTime 8 193.04 cm 68 /min 98 % 98 % 161 mm[Hg] 92 mm[Hg] Marcy Clarke [facility] 8 13:58:04 Social History Question Answer Notes LastModified by Organizat ion Details LastModified Time Tobacco Smoking Status Current Every Day Smoker Not Available [facility] 04/24/2020 03:16:10 What Is Your Level Of Alcohol Consumption? Occasional [id number] Information not available 04/24/2020 Are You Currently Employed? Yes [id number] Information not available 04/24/2020 Which Illicit Or Recreational Drugs Have You Used? 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 Alone Information not available 06/19/2017 Marital Status Single Informatio n not available 06/19/2017 What Was The Date Of Your Most Recent Tobacco Screening? 08/11/2017 [id number] Information not available 04/24/2020 How Much Tobacco Do You Smoke? 1 PPD [id number] Information not available 04/24/2020 How Many Years Have You Smoked Tobacco? 15 [id number] Information not available 04/24/2020 Sex: Unknown Functional Status None recorded. Mental Status None recorded. Family History Nothing Reported Notes:Mutiple family members = Back problems/ surgeries. Medical History Condition Response Headache Y Migrane Y Arthritis Y Past Encounters Encounter ID Performer Location Encounter Start Date Encounter Closed Date Diagnosis/Indication Diagnosis SNOMED-CT Code Diagnosis ICD10 Code [id number] Tommy Motta MD PAIN OFFICE [address] [place] [address] 06/19/2017 13:04:57 06/19/2017 15:27:26 Lumbar radiculopathy 192652082 M54.16 Degenerati on of lumbar intervertebral disc 26498154 M51.36 [id number] Tommy Motta MD PAIN OFFICE [address] [place] [address] 08/08/2017 13:35:16 08/11/2017 11:30:41 Lumbar radiculopathy 591136743 M54.16 Degenerati on of lumbar intervertebral disc 18188588 M51.36 Health Concerns Section Related Observation LastModified by Organization Detai ls LastModified Time None Recorded Concern Status LastModified by Organization Details LastModified Time None Recorded Advance Directives Directive None Recorded Payers Encounter Date Sequence Insurance Name Policy Number Policy Ortiz Covered Member ID Ortiz Member ID Guarantor Name 06/19/2017 1 [place] [facility] Raúl Mayen [id number] Raúl Mayen 08/08/2017 1 [place] [facility] Ralú Mayen [id number] Raúl Mayen Notes Date Note Type Note [...] Previous PT:did not help; aggravated symptoms Previous daycare director:did not helpNotes:He is currently on oxycodone which helps. He has trialed gabapentin and flexeril with no pain benefit. He had an injection of toradol which helped a little. Tommy Motta MD [address] [facility] , [address], [place], [address], [facility] 06/22/2017 15:47:47 08/08/2017 text/html He is here today for a lumbar epidural steroid injection under fluroscopic guidance. Tommy Motta MD [address] [facility] , [address], [place], [address], [facility] 08/14/2017 15:12:21
[2024-06-27 06:43] VITALS: BMI 37.1
[2024-06-27 06:45] VITALS: BP 203/131; PULSE 76; RESP 18; TEMP 36.8; O2SAT 97
[2024-06-27] MEDS: Lactated Ringers 1,000 ML 100 ML IVCONT (06:48)
[2024-06-27 06:50] VITALS: BP 198/131
[2024-06-27 06:52] VITALS: BP 200/130
--- NOTE | 2024-06-27 07:21 | PC.NURSE ---
Dr. Bro updated regarding patient mechanical and manual BP results. patient is asymptomatic. Does not take any cardiac meds at home. Dr. Bro aware and to assess patient.
--- NOTE | 2024-06-27 07:25 | P.CONAN_ITS ---
Documented by User: Ronel Skinner NP 06/26/24 09:03 HPI - Anesthesia Eval Consult details Narrative: 38yo M for Colonoscopy PMFSH Active Problems Active Problems: All Active Problems Hypogonadism, testicular (Acute) Osteoarthritis of left knee (Acute) Instability of left knee joint (Acute) Past Medical History Medical History (Updated 06/27/24 @ 07:29 by Deysi Shane RN) Hypertension Hypogonadism, testicular Family History Family History Father No problems noted. Mother Hypertension Maternal Grandfather Coronary artery disease Maternal Grandmother Hypertension Diabetes Surgical History Surgical History H/O discectomy S/P tendon repair History of meniscectomy of left knee H/O myringotomy History of surgery Social History Social History Are you a primary career services manager to a significant other at home: No Do you presently have visiting nurse or other home services: No Alcohol intake: current Alcohol intake frequency: does not drink Patient Tobacco Use Status: Current everyday Tobacco user Tobacco use type: Cigarette Cigarette Packs Per Day: 1.5 Smoked in Last 30 Days: Yes Patient Interested in Nicotine Replacement: No Substance Use Type: Marijuana Substance Use Frequency: Daily Have you been hit, kicked, punched, or otherwise hurt by someone within the past year? If so, by whom?: No Are you DNR?: No Advance Directives: No Advance Directives Information Provided: Yes Recently lost weight without trying: No Nutrition Risks: No Nutritional Risk Meds Allergies Allergy/AdvReac Type Severity Reaction Status Date / Time bee pollen [BEE STINGS] Allergy Severe THROAT Verified 06/27/24 07:24 SWELLING codeine [CODEINE] Allergy Mild STOMACH Verified 06/27/24 07:24 UPSET, nausea and vomiting Assessment and Plan Assessment Anesthesia Assessment: Chart Reviewed Documented by User: Michelle Bro 06/27/24 07:47 HPI - Anesthesia Eval Consult details Narrative: 38yo M for Colonoscopy. SBP between 180s-200s. Patient is asymptomatic and climbs ladders all day for work without any issue; was not aware that PCP ordered metoprolol in October 2023. Advised to follow-up with PCP after procedure. Daily marijuana. [facility] Past Medical History Medical History (Updated 06/27/24 @ 07:29 by Deysi Shane RN) Hypertension Hypogonadism, testicular Family History Family History Father No problems noted. Mother Hypertension Maternal Grandfather Coronary artery disease Maternal Grandmother Hypertension Diabetes Family history of problems with anesthesia: No Surgical History Surgical History H/O discectomy S/P tendon repair History of meniscectomy of left knee H/O myringotomy History of surgery History of Problems with Anesthesia: No Social History Social History Are you a primary career services manager to a significant other at home: No Do you presently have visiting nurse or other home services: No Alcohol intake: current Alcohol intake frequency: does not drink Patient Tobacco Use Status: Current everyday Tobacco user Tobacco use type: Cigarette Cigarette Packs Per Day: 1.5 Smoked in Last 30 Days: Yes Patient Interested in Nicotine Replacement: No Substance Use Type: Marijuana Substance Use Frequency: Daily Have you been hit, kicked, punched, or otherwise hurt by someone within the past year? If so, by whom?: No Are you DNR?: No Advance Directives: No Advance Directives Information Provided: Yes Recently lost weight without trying: No Nutrition Risks: No Nutritional Risk Meds Allergies Allergy/AdvReac Type Severity Reaction Status Date / Time bee pollen [BEE STINGS] Allergy Severe THROAT Verified 06/27/24 07:24 SWELLING codeine [CODEINE] Allergy Mild STOMACH Verified 06/27/24 07:24 UPSET, nausea and vomiting Exam Exam Date and Time: 06/27/24 0725 Height,Weight and Vital Signs: Height 6 ft 4 in Weight 138.346 kg Vital Signs Temperature 98.2 F 06/27/24 06:45 Pulse Rate 76 06/27/24 06:45 Respiratory Rate 18 06/27/24 06:45 Blood Pressure 203/131 H 06/27/24 06:45 Pulse Oximetry 97 06/27/24 06:45 Oxygen Delivery Method Room Air 06/27/24 06:45 Temperature 98.2 F 06/27/24 06:45 Pulse Rate 76 06/27/24 06:45 Respiratory Rate 18 06/27/24 06:45 Blood Pressure 200/130 H 06/27/24 06:52 Pulse Oximetry 97 06/27/24 06:45 Oxygen Delivery Method Room Air 06/27/24 06:45 Airway Mallampati Class: III TM Dist: >3cm Neck ROM: Full Loose/Missing/Broken Teeth: No (patient denies any loose or broken teeth) Heart: S1S2 Lungs: CTAB Assessment and Plan Assessment Anesthesia Assessment: Anesthesia Plan Discussed and Chart Reviewed Final Anesthetic Review Family History of Problems with Anesthesia: No History of Problems with Anesthesia: No NPO: Yes ASA Class: II Final Preanesthetic Review: No Changes in Pt Med Stat, Meds/Allgs Chart Reviewed, Consent Obtained/Reviewed and Anes Risks/Benef Reviewed Patient Risk: Low Procedure Risk: Low Anesthetic Plan Anesthetic Plan: MAC: and Agree w/ Assess. and Plan Disposition: Standard PACU
--- NOTE | 2024-06-27 07:34 | PC.NURSE ---
Dr. Bro assessed patient and reviewed chart. State OK to proceed. Patient has hx of hypertension noted in PCP notes and states was not aware that he was to be taking BP meds as ordered in October by Dr. Bailey. Dr. Bro educated patient regarding hypertension. Also aware that patient reports to have some congestion with clear sputum. No cough noted while in sss.
[2024-06-27 08:35] VITALS: BP 150/90; PULSE 61; RESP 16; TEMP 36.8; O2SAT 98
--- NOTE | 2024-06-27 08:44 | P.BOP_ITS ---
Brief Operative Note Date of Service: 06/27/24 Pre-op diagnosis: Diarrhea, weight loss Post-op diagnosis: other (R/O microscopic colitis, Internal hemorrhoids) Procedure: Colonoscopy to the cecum and TI with biopsies Surgeon: Pranav Galo MD Anesthesia: MAC Was an Patient Accounts Specialist used for this Procedure?: No Estimated blood loss (mL): 2.0 Pathology: other (A. Terminal ileum B. Ascending colon C. Descending colon) Condition: stable Disposition: PACU
[2024-06-27 08:49] VITALS: BP 159/110; PULSE 64; RESP 16; TEMP 36.7; O2SAT 98
--- NOTE | 2024-06-27 09:00 | OP_ITS ---
DATE OF SERVICE: 06/27/2024 SURGEON: Pranav Galo MD INDICATIONS: The patient presents for evaluation of persistent diarrhea and significant weight loss. Full consent was obtained from him for this, including risks of bleeding and perforation. PREOPERATIVE DIAGNOSIS: POSTOPERATIVE DIAGNOSIS: PROCEDURE PERFORMED: Colonoscopy to cecum and terminal ileum with biopsies. ESTIMATED BLOOD LOSS: COMPLICATIONS: ANESTHESIA: Medication used, monitored anesthesia care. ASSISTANTS: SPECIMENS: PREOPERATIVE DIAGNOSES: Diarrhea and weight loss. POSTOPERATIVE DIAGNOSES: Diarrhea and weight loss, rule out microscopic colitis, internal hemorrhoids. DESCRIPTION OF PROCEDURE: The patient was placed in the left lateral decubitus position. The digital rectal exam revealed no abnormalities. The Olympus video pediatric colonoscope was entered into the rectum and advanced easily to the cecum. Once in the cecum, I did identify normal-appearing cecal pouch with appendiceal orifice and a normal-appearing ileocecal valve after a lot of irrigation and suctioning. The terminal ileum was cannulated for least 10 cm and appeared normal as well. Biopsies were obtained from the ileum. The scope was withdrawn back in the colon. The entire cecum and ileocecal valve appeared normal. The scope was then slowly withdrawn assessing all mucosal surfaces carefully. Preparation throughout the colon was somewhat limited by some overlying thick stool, which was copiously irrigated and suctioned away, but did not allow complete visualization of the colonic mucosa. However, the majority of the colon was visualized and appeared normal. I did not visualize any definitive evidence of colitis, polyps, nor angiodysplasia. The colonic mucosa did appear somewhat edematous in portions. Small polyps may have been missed due to the limited prep. I obtained multiple biopsies in the ascending and descending colon. In the rectum, the scope was retroflexed visualizing internal hemorrhoids, but no other pathology. The rectal mucosa was well visualized both in the forward viewing and retroflexed positions and appeared normal. The scope was withdrawn from the patient. He tolerated the procedure well and was returned to recovery area in stable condition. IMPRESSION: 1. Rule out microscopic colitis. 2. Internal hemorrhoids. PLAN: The results of biopsies will be checked. I would recommend a repeat colonoscopy for screening in 10 years. In regard to the significant diarrhea and weight loss, today's findings would not account for that, but we shall await the biopsies to see if this perhaps shows some evidence of underlying microscopic colitis. If those biopsies are negative, we would then need to pursue other workup including a probable CT scan of the abdomen and pancreas, as well as checking other stool specimens to rule out any type of exocrine pancreatic insufficiency. Stool specimens have been negative for infection. Celiac laboratories are pending, but I doubt that is the case given that despite at least several months of diarrhea and weight loss, there has been no sign of anemia. He will be seen in the office in followup as well. MD JOSE Higginbotham/OLIVIA / [id number] MTDD
== END 2024-06-27 09:35 | disposition home or self-care (01) ==
PROVIDERS: PCP Internal Medicine Medical Oncology; Visit Provider Internal Medicine
PROC: 0DJD8ZZ Inspection of Lower Intestinal Tract, Via Natural or Artificial Opening Endoscopic (ICD-10-PCS; CPT 45378; principal; 2024-06-27 07:30)
DX: K59.1 Functional diarrhea (principal); R63.4 Abnormal weight loss; Z68.36 Body mass index [BMI] 36.0-36.9, adult; N28.9 Disorder of kidney and ureter, unspecified; K64.8 Other hemorrhoids; I10 Essential (primary) hypertension; E29.1 Testicular hypofunction; F17.210 Nicotine dependence, cigarettes, uncomplicated; Z88.5 Allergy status to narcotic agent
CPT/HCPCS: 45380; 88305; J2003; J2250; J2704

== ENCOUNTER → 2025-01-19 07:42 | Outpatient (BNV) | payer OTHER, MEDICAID, SELFPAY | PROVIDERS: Emergency Provider Emergency Medicine; PCP Internal Medicine Medical Oncology; Visit Provider Radiology Diagnostic Radiology | DX: R10.9 Unspecified abdominal pain (principal); I71.00 Dissection of unspecified site of aorta; R06.02 Shortness of breath | CPT/HCPCS: 71046; 71275; 74174 ==

== ENCOUNTER 2025-01-19 08:00 | Inpatient (IN) | payer MEDICAID, OTHER, SELFPAY ==
[2025-01-19] VITALS (16 sets, daily range): BP systolic 150–218; BP diastolic 82–143; PULSE 55–80; RESP 11–20; TEMP 36.1–36.8; O2SAT 94–99; BMI 36.5
--- NOTE | 2025-01-19 | ECG_ITS ---
Test Reason : HTN Blood Pressure : */* mmHG Vent. Rate : 73 BPM Atrial Rate : 73 BPM P-R Int : 156 ms QRS Dur : 106 ms QT Int : 402 ms P-R-T Axes : 41 -35 61 degrees QTcB Int : 442 ms Sinus rhythm with Premature atrial complexes Left axis deviation Moderate voltage criteria for LVH, may be normal variant ( R in aVL , Esteban product ) Septal infarct , age undetermined Abnormal ECG When compared with ECG of 20-Jan-2016 17:06, Premature atrial complexes are now Present QRS axis Shifted left Septal infarct is now Present Nonspecific T wave abnormality now evident in Lateral leads Referred By: Generic ED Physician Electronically Signed By: Chris Isaac
--- NOTE | ~2025-01-19 | CT_ITS ---
CLINICAL HISTORY: aortic dissection protocol CT angiography chest, abdomen and pelvis with contrast. 3-D postprocessing. Comparison: None provided Findings: Great vessels, thoracoabdominal aorta, mesenteric/renal arteries (main and accessory), and iliofemoral arteries are patent without aneurysm, dissection, hemodynamically significant stenoses, or occlusion. The visualized thyroid and mediastinum are unremarkable. The heart size is normal. No heart strain by CT. Central pulmonary arteries are patent. The lungs are clear. Old rib fractures are noted. Very faint stranding about the pancreas suggested. The liver, gallbladder, spleen, adrenal glands, kidneys, ureters and bladder are normal. No bowel obstruction, pneumoperitoneum, or pneumatosis. Normal appendix. Pelvic contents are unremarkable. No acute fractures. IMPRESSION: 1. No systemic arterial aneurysm or dissection. 2. There is the suggestion of very mild stranding about the pancreas. Laboratory correlation for pancreatitis. This document has been electronically signed by: Maynor Whelan MD on 01/19/2025 10:59:15
--- NOTE | ~2025-01-19 | US_ITS ---
EXAMINATION: US ABDOMEN LIMITED HISTORY: LLQ pain, pancreatitis,?cholecystitis TECHNIQUE: Real-time grayscale ultrasound imaging of the gallbladder and pancreas was performed and images were reviewed. COMPARISON: Correlation is made with a CT of the abdomen with contrast dated 01/19/2025. FINDINGS: Gallbladder and biliary tree: The gallbladder is unremarkable, without evidence of calculi, wall thickening, or pericholecystic fluid. There is no sonographic Ornelas sign. The common bile duct is normal in caliber measuring 3 mm. Pancreas: There is limited visualization of the pancreas. The pancreatic duct appears mildly dilated measuring up to 5 mm in diameter. There is no free fluid in the right upper quadrant. US/US abdomen limited IMPRESSION: No evidence of cholelithiasis or acute cholecystitis. Limited visualization of the pancreas. Electronically signed by: Pranav Perry MD 01/20/2025 11:29 AM EDT
--- NOTE | ~2025-01-19 | XR_ITS ---
CLINICAL HISTORY: SOB 2 view chest x-ray Comparison: CR/SR - XR CHEST 2V - 12/27/22 12:34 EDT Findings: No consolidation or effusion. Heart size is normal. No acute fracture. IMPRESSION: 1. No acute findings. This document has been electronically signed by: Nory Lynne MD on 01/19/2025 09:42:47
[2025-01-19 08:23] LABS: Hematocrit 43.1 % (42.0-52.0); Hemoglobin 16.0 g/dl (14.0-18.0); Imm Gran Abs Auto 0.04 X10*3/uL (0.00-0.03); Imm Gran Pct Auto 0.3 % (0.0-0.4); Lymphocytes Absolute Auto 2.2 X10*3/uL (1.2-4.9); MANUAL DIFF FLAG NO; Mean Corpuscular HGB Conc 37.1 g/dl (31.0-36.0); Mean Corpuscular Hemoglobin 30.9 pg (27.0-33.0); Mean Corpuscular Volume 83.2 fL (80.0-98.0); NRBC Abs Auto 0.000 X10*3/uL (0.0-0.012); NRBC Pct Auto 0.0 /100WBC (0.0-0.2); Platelet Count 239 X10*3/uL (160-400); Red Blood Count 5.18 X10*6/uL (4.60-5.80); White Blood Count 12.1 X10*3/uL (4.8-10.8)
[2025-01-19 08:57] LABS: Alanine Aminotransferase 28 U/L (0-40); Albumin Level 4.6 g/dL (3.5-5.0); Alkaline Phosphatase 62 U/L (39-117); Anion Gap 15 (12-20); Aspartate Amino Transferase 26 U/L (5-37); Blood Urea Nitrogen 16 mg/dL (9-16); Calcium 9.8 mg/dL (8.4-10.2); Carbon Dioxide 23 mmol/L (22-29); Chloride 106 mmol/L (96-108); Creatinine Clr Calc Pharmacy 136.9; Estimated Glomerular Filt Rate > 60; Magnesium 1.9 mg/dL (1.6-2.6); Potassium 3.8 mmol/L (3.3-5.1); Sodium 140 mmol/L (135-145); Total Protein 7.4 g/dL (6.5-8.0)
--- NOTE | 2025-01-19 09:01 | ED_ITS ---
HPI - Abdominal Pain General Chief Complaint: Abdominal Pain Stated Complaint: abd pain Time Seen by Provider: 01/19/25 08:40 Source: patient Mode of arrival: ambulatory Limitations: no limitations History of Present Illness ED Provider: HPI narrative: 39-year-old male with history of polysubstance use disorder, weekly cocaine use, reports seeing his physicians to me within a month, 2 nurses reported has not seen physicians in years, states not on any medications, smokes 1 pack of cigarettes daily, to 3 beers a week, smokes marijuana, presenting with chest tightness abdominal discomfort, noted to be significantly hypotensive. Denies specifically midsternal chest pain but he states he has pressure in his chest along his ribs and in the mid abdomen. Also reported nausea and vomiting and sounds like he may have had diarrhea as well but diarrhea maybe a chronic issue. No IV drug use reported. Related Data Previous Rx's ?Medication ?Instructions ?Recorded epinephrine 0.3 mg/0.3 mL 0.3 mg (0.3 mL) IM Q4H PRN 0 02/18/23 injection, auto-injector (EpiPen anaphylaxis #2 ea 2-Matthew) syringe with needle 3 mL 21 gauge #20 ea 12/06/23 x 1 1/2 (BD Luer-Hyacinth Syringe) testosterone cypionate 200 mg/mL 75 mg (0.375 mL) IM Q WEEK #100 mL 01/24/24 intramuscular oil Allergies Allergy/AdvReac Type Severity Reaction Status Date / Time bee pollen (BEE STINGS) Allergy Severe THROAT Verified 01/19/25 08:07 SWELLING codeine (CODEINE) Allergy Mild STOMACH Verified 01/19/25 08:07 UPSET, nausea and vomiting Review of Systems Constitutional: Reports as per [facility] Past Medical History Medical History Hypertension Hypogonadism, testicular Surgical History H/O discectomy S/P tendon repair History of meniscectomy of left knee H/O myringotomy History of surgery Family History Family History Father No problems noted. Mother Hypertension Maternal Grandfather Coronary artery disease Maternal Grandmother Hypertension Diabetes Social History Social History Are you a primary child care cook to a significant other at home: No Do you presently have visiting nurse or other home services: No Alcohol intake: current Alcohol intake frequency: does not drink Patient Tobacco Use Status: Current everyday Tobacco user Tobacco use type: Cigarette Cigarette Packs Per Day: 1.5 Smoked in Last 30 Days: Yes Use of substances other than those prescribed or required for medical reasons: Yes Substance Use Type: Crack/Cocaine Substance Use Frequency: Occasionally Last Used Substance: Days (ago) Advance Directives: No Advance Directives Information Provided: Yes Do you have a plan to hurt others: No Plan Physical Exam ED Vital Signs: Vital Signs - 24 hr 01/19/25 08:05 01/19/25 08:10 01/19/25 09:22 Temperature 97.0 F Pulse Rate 80 Respiratory Rate 20 Blood Pressure 181/124 H 197/143 H 218/125 H Pulse Oximetry 99 94 Oxygen Delivery Method Room Air Room Air 01/19/25 09:34 01/19/25 10:25 01/19/25 10:31 Temperature Pulse Rate Respiratory Rate 18 18 Blood Pressure 212/125 H Pulse Oximetry Oxygen Delivery Method 01/19/25 10:49 01/19/25 10:53 01/19/25 11:26 Temperature 97.7 F Pulse Rate 65 66 67 Respiratory Rate 11 L 15 18 Blood Pressure 178/116 H 178/116 H 150/98 H Pulse Oximetry 98 98 97 Oxygen Delivery Method Room Air Room Air Room Air BMI result Body Mass Index 36.5 Const Other: * Gen: ?Looks older than stated age * HEENT: Dry oral mucosa, no scleral icterus * Neck: Supple, no LAD * CV: RRR, no obvious murmurs appreciated radial ulnar pulses +2 bilaterally * Resp: ?No wheezing rales rhonchi no stridor moving air well * Abd: ?Bowel sounds are present, no tenderness no rebound no rigidity, no pulsatile masses * MSK: FROM, strength 5/5 all extremities * Skin: Warm, dry, intact, * Neuro: ?Alert and oriented x3, moving upper and lower extremities symmetrically, no obvious facial asymmetry noted Medical Decision Making Medical Decision Making MDM Narrative: 39-year-old with multiple cardiac risk factors presenting with chest and abdominal discomfort, bedside ultrasound without any pericardial effusion or aortic root dilation, no RV strain, I also scanned down into his abdomen it was not able to fully visualize his aorta down to the bifurcation but there were no obvious aortic flaps, I we will work him up for aortic dissection with advanced imaging, and we will provide benzos and clonidine for now to get his blood pressure under control, he is not presenting with severe chest pain radiating to the back which would significantly raise my concern for aortic dissection and then I would use IV medications such as nicardipine and esmolol but at this case I am going to do a mixture of benzos on oral p.o. meds, symptomatic control and thus far he is ECG without any changes to suspect underlying ACS, he does have LVH and I did note that he has left ventricle is fairly enlarged, regardless I suspect that if he has not been admitted I will discharge him home with medications for high blood pressure control, and I have the dedicate time speaking to him about smoking cessation and alcohol use cessation and cocaine cessation Patient is feeling better, blood pressure is coming down, his imaging and lipase is consistent with a pancreatitis Differential Diagnosis Differential Diagnoses: The differential diagnosis associated with the presentation includes Aortic dissection, PE, ACS, hypotensive emergency, dehydration, Prinzmetal's angina Admission/Observation Consideration of admission/observation: Escalation of care including admission/observation considered Lab Data MDM Lab Attestation statement: I reviewed the patient's lab results. 01/19/25 08:18 01/19/25 08:18 Labs: Lab Results 01/19/25 01/19/25 Range/Units 08:18 08:43 WBC 12.1 H (4.8-10.8) X10*3/uL RBC 5.18 (4.60-5.80) X10*6/uL Hgb 16.0 (14.0-18.0) g/dl Hct 43.1 (42.0-52.0) % MCV 83.2 (80.0-98.0) fL MCH 30.9 (27.0-33.0) pg MCHC 37.1 H (31.0-36.0) g/dl RDW 12.6 (11.0-16.0) % Plt Count 239 (160-400) X10*3/uL MPV 8.9 L (9.4-12.4) fL Immature Gran % (Auto) 0.3 (0.0-0.4) % Neut % (Auto) 71.0 (45-73) % Lymph % (Auto) 18.4 L (20-40) % [place] % (Auto) 8.0 (2-11) % Eos % (Auto) 1.8 (0-4) % Baso % (Auto) 0.5 (0-2) % Lymph # (Auto) 2.2 (1.2-4.9) X10*3/uL [place] # (Auto) 1.0 (0.1-1.2) X10*3/uL Eos # (Auto) 0.2 (0.0-0.4) X10*3/uL Baso # (Auto) 0.1 (0.0-0.2) X10*3/uL Abs Immat Gran (auto) 0.04 H (0.00-0.03) X10*3/uL Absolute Neuts (auto) 8.6 H (2.0-8.3) x10*3/uL Absolute Nucleated RBC 0.000 (0.0-0.012) X10*3/uL Nucleated RBC % (auto) 0.0 (0.0-0.2) /100WBC Sodium 140 (135-145) mmol/L Potassium 3.8 (3.3-5.1) mmol/L Chloride 106 (96-108) mmol/L Carbon Dioxide 23 (22-29) mmol/L Anion Gap 15 (12-20) BUN 16 (9-16) mg/dL Creatinine 1.07 (0.5-1.4) mg/dL Estim Creat Clear Calc 136.9 Estimated GFR > 60 Random Glucose 107 (60-115) mg/dL Calcium 9.8 (8.4-10.2) mg/dL Magnesium 1.9 (1.6-2.6) mg/dL Total Bilirubin 0.7 (0.0-1.0) mg/dL Direct Bilirubin 0.3 (0.0-0.5) mg/dL AST 26 (5-37) U/L ALT 28 (0-40) U/L Alkaline Phosphatase 62 (39-117) U/L Troponin I High Sens 14.2 (<3.5-35.0) ng/L B-Natriuretic Peptide 40 (<100) pg/mL Total Protein 7.4 (6.5-8.0) g/dL Albumin 4.6 (3.5-5.0) g/dL Lipase 1044 H (8-78) U/L Independent Interpretation I performed an independent interpretation of an: EKG (73 beats per minute, no ST-T changes to suspect underlying ACS, he does have an evidence of LVH) Radiology Impression Discussion of test interpretation with radiology: I have reviewed the radiologist's reading. Medications Administered Discontinued Medications Generic Name Dose Route Start Last Admin Trade Name Gee PRN Reason Stop Dose Admin Clonidine HCl 0.2 mg 01/19/25 09:08 01/19/25 09:22 Clonidine Hcl 0.2 Mg Tablet PO 01/19/25 09:09 0.2 mg ONCE ONE Administration Protocol Diazepam 7.5 mg 01/19/25 09:02 01/19/25 09:21 Diazepam 10 Mg/2 Ml Cartridge IVPUSH 01/19/25 09:03 7.5 mg STAT STA Administration Hydralazine HCl 10 mg 01/19/25 10:12 01/19/25 10:25 Hydralazine Hcl 20 Mg/Ml Vial IVPUSH 01/19/25 10:13 10 mg ONCE ONE Administration Protocol Hydromorphone HCl 0.5 mg 01/19/25 10:26 01/19/25 10:31 Hydromorphone Hcl 0.5 Mg/0.5 Ml Syringe IVPUSH 01/19/25 10:27 0.5 mg ONCE ONE Administration Protocol Sodium Chloride 1,000 mls @ 999 mls/hr 01/19/25 09:15 01/19/25 10:42 Ns IV 01/19/25 10:15 Infused .Q1H1M ERIC Infusion Iohexol 100 ml 01/19/25 09:21 01/19/25 09:21 Iohexol 350 Mg/Ml 100 Ml Infus..Btl IV 01/19/25 09:22 100 ml ONCE ONE Administration Ondansetron HCl 4 mg 01/19/25 09:02 01/19/25 09:21 Ondansetron Hcl 4 Mg/2 Ml Vial IVPUSH 01/19/25 09:03 4 mg ONCE ONE Administration Critical Care Time Critical Care Time Critical Care Time: Yes Total Critical Care Time: 75 Attestation: Time is exclusive of separately billable procedures. Time includes: direct patient care, patient reassessment, coordination of patient care, interpretation of data (laboratory data, pulse oximetry, arterial blood gases and chest xrays), review of patient's medical records, medical consultation and documentation of patient care. Procedures excluded from critical care time: central intravenous line placement and electrocardiography. Discharge Plan Discharge Patient Disposition: Admitted As Inpatient Print Language: Monegasque
[2025-01-19 09:04] LABS: Lipase 1044 U/L (8-78)
[2025-01-19 09:09] LABS: B Type Natriuretic Peptide 40 pg/mL (<100)
[2025-01-19 09:11] LABS: Troponin-I High Sensitivity 14.2 ng/L (<3.5-35.0)
[2025-01-19] MEDS: iohexoL 350 MG/ML 100 ML INFUS..BTL IV (09:21)
[2025-01-19] MEDS: diazePAM 10 MG/2 ML CARTRIDGE 7.5 MG IVPUSH (09:21)
--- NOTE | 2025-01-19 09:40 | PC.NURSE ---
Pt comes to ED today with c/o abd pain/pressure with an incident of diarrhea in the middle of last night. Pt denies any trauma or injury but reports pain feels like his ribs are broke and feels short of breath. He states he drinks occasionally, smokes cigarettes daily, and uses occasional cocaine, last use 01/15/25. A&Ox3 Pt is hypertensive--ED provider aware. Breaths and speech are even and unlabored. Pt able to ambulate safely and independently. Awaiting results of CXR and CT imagining. Pt medicated per SEP and is currently resting comfortably with NAD noted.
[2025-01-19 12:22] LABS: Triglycerides 85 mg/dL (<150)
--- NOTE | 2025-01-19 12:34 | PHA.MEDREC ---
Addendum entered by Ariane Andres RPh 01/19/25 12:52: REVIEWED BY [facility]...WAS ABLE TO RUN PDMP AND SEE LAST FILL FOR TESTOSTERONE WAS 04/11/24. Original Note: Pharmacy Consult ? Medication Reconciliation Pharmacy has completed the medication reconciliation. Spoke with patient to confirm. He reports using testosterone injection every Monday, taken last Monday. He seemed unsure on the dose, says he picks it up at [facility] in [place]. Called pharmacy, they reports last fill 04/11/2024 for 75 mg IM weekly. Other pharmacy listed on patients profile is [facility], can have morning med rec tech/[facility] follow up with them tomorrow.
[2025-01-19 12:39] LABS: Appearance Urine Clear; Glucose Urine UA 100 mg/dL (Negative); PH 8.5 (5.0-9.0); Specific Gravity - Urine >= 1.030 (1.005-1.025)
--- NOTE | 2025-01-19 12:51 | PM.IMHP ---
History of Present Illness Date of Service: 01/19/25 Attending physician on admission: Olesya Blanton Chief Complaint: Abdominal pain Raúl Mayen is a 39 years old man with past medical history significant for functional diarrhea, hypertension (not taking meds for this) and morbid obesity presents to the emergency department complaining of left upper quadrant pain. He describes the pain as pressure and radiates to the right lower quadrant. It has not intensity of 10/10 and has been constant over the last several day. Last Monday he had an event of watery nonbloody diarrhea. Associated symptoms he also reported nausea and vomiting. He also mentioned that over the last couple of days he has been congested and has been coughing. Patient mentioned that he had problems with kidneys in the past. He denied history of hypertension, diabetes or hyperlipidemia. He has not been evaluated for obstructive sleep apnea. The patient received testosterone injections every week (last dose Monday). He smokes marijuana and tobacco. Drinks alcohol in occasions and uses cocaine. No history of abdominal surgery. In the ED, he was found to have elevated blood pressure (max 201/125). There is no tachacardia or fever. Oxygen saturation is normal on room air. Blood workup was remarkable for leukocytosis 12.1. Hemoglobin is 16 and platelets 239. There are no electrolyte imbalances. Renal function and LFTs are normal. Lipase 1044. Troponin and BNP are unremarkable. Urinalysis showed elevated specific gravity and trace troponin. Urine drug screen is positive for marijuana. ED tx: NS 1 L bolus, Valium 7.5 mg IV, Zofran 4 mg IV, clonidine 0.2 mg PO, hydralazine 10 mg IV and Dilaudid 0.5 mg IV Review of Systems Review of Systems: All 12 systems were reviewed and normal except as noted in HPI. [facility] Medical History Hypertension Hypogonadism, testicular Family History Father No problems noted. Mother Hypertension Maternal Grandfather Coronary artery disease Maternal Grandmother Hypertension Diabetes Surgical History H/O discectomy S/P tendon repair History of meniscectomy of left knee H/O myringotomy History of surgery Social History Are you a primary home health care case manager to a significant other at home: No Do you presently have visiting nurse or other home services: No Alcohol intake: current Alcohol intake frequency: does not drink Patient Tobacco Use Status: Current everyday Tobacco user Tobacco use type: Cigarette Cigarette Packs Per Day: 1.5 Smoked in Last 30 Days: Yes Use of substances other than those prescribed or required for medical reasons: Yes Substance Use Type: Crack/Cocaine Substance Use Frequency: Occasionally Last Used Substance: Days (ago) Advance Directives: No Advance Directives Information Provided: Yes Do you have a plan to hurt others: No Plan Meds Allergies Allergy/AdvReac Type Severity Reaction Status Date / Time bee pollen (BEE STINGS) Allergy Severe THROAT Verified 01/19/25 08:07 SWELLING codeine (CODEINE) Allergy Mild STOMACH Verified 01/19/25 08:07 UPSET, nausea and vomiting Active Medications: Current Medications Amlodipine Besylate (Amlodipine Besylate 2.5 Mg Tablet) 7.5 mg PO DAILY [facility]; Protocol Calcium Carbonate (Calcium Carbonate 750 Mg Tab.Chew) 750 mg PO Q4H PRN PRN Reason: Heartburn Enoxaparin Sodium (Enoxaparin Sodium 40 Mg/0.4 Ml Syringe) 40 mg SUBCUT Q24H [facility] Hydromorphone HCl (Hydromorphone Hcl 1 Mg/Ml Syringe) 1 mg IVPUSH Q4H PRN; Protocol PRN Reason: Pain, Severe (Pain Scale 7-10) Lactated Ringer's (Lr) 1,000 mls @ 100 mls/hr IVCONT .Q10H [facility] Labetalol HCl (Labetalol Hcl 100 Mg/20 Ml Vial) 10 mg IVPUSH Q6H PRN PRN Reason: SBP > 170 Sodium Chloride (0.9 % Sodium Chloride Flush 3 Ml Syringe) 3 ml IVFLUSH QSHIFT [facility] Home Medications ?Medication ?Instructions ?Recorded ?Confirmed ?Last Taken ?Type testosterone cypionate 200 mg/mL 75 mg IM MO 01/19/25 01/19/25 01/13/25 History intramuscular oil Physical Exam Vital Signs and Narrative: Vital Signs: Last Vital Signs Temp 98.2 F 01/19/25 12:10 Pulse 63 01/19/25 12:10 Resp 13 01/19/25 12:10 BP 155/91 H 01/19/25 12:10 Pulse Ox 98 01/19/25 12:10 O2 Del Method Room Air 01/19/25 12:10 BMI result Body Mass Index 36.5 Constitutional - Awake and Alert, No apparent distress. Pleasant. Cooperative. Obese. HEENT - PER, EOMI Heart- S1S2, RRR, No edema Lungs - Normal lung expansion, Normal respiratory effort, No respiratory distress, CTA bilaterally Abdomen - Nondistended, LLQ pain tenderness to palpation with guarding, no rebound. Increased bowel sounds. Extremities - no calf tenderness bilaterally, no swelling Musculoskeletal - Normal inspection, normal ROM Skin - Warm/Dry Neurological - Alert & oriented x3. Moving all extremities spontaneously. Normal speech. Psychological - Appropriate affect Results Labs 01/19/25 08:18 01/19/25 08:18 Labs: Laboratory Results - last 24 hr 01/19/25 01/19/25 01/19/25 08:18 08:43 12:19 MCV 83.2 MCH 30.9 MCHC 37.1 H RDW 12.6 Plt Count 239 MPV 8.9 L Immature Gran % (Auto) 0.3 Neut % (Auto) 71.0 Lymph % (Auto) 18.4 L [place] % (Auto) 8.0 Eos % (Auto) 1.8 Baso % (Auto) 0.5 Lymph # (Auto) 2.2 [place] # (Auto) 1.0 Eos # (Auto) 0.2 Baso # (Auto) 0.1 Abs Immat Gran (auto) 0.04 H Absolute Neuts (auto) 8.6 H Absolute Nucleated RBC 0.000 Nucleated RBC % (auto) 0.0 Anion Gap 15 Estim Creat Clear Calc 136.9 Estimated GFR > 60 Random Glucose 107 Calcium 9.8 Magnesium 1.9 Total Bilirubin 0.7 Direct Bilirubin 0.3 AST 26 ALT 28 Alkaline Phosphatase 62 B-Natriuretic Peptide 40 Total Protein 7.4 Albumin 4.6 Triglycerides 85 Lipase 1044 H Urine Color Yellow Urine Appearance Clear Urine pH 8.5 Ur Specific Harmony >= 1.030 H Urine Protein Trace Urine Glucose (UA) 100 H Urine Ketones Negative Urine Blood Negative Urine Nitrite Negative Ur Leukocyte Esterase Negative Ethyl Alcohol < 10 Assessment and Plan (1) Acute pancreatitis: Qualifiers: Pancreatitis type: unspecified pancreatitis type Acute pancreatitis complication: no infection or necrosis Qualified Code(s): K85.90 - Acute pancreatitis without necrosis or infection, unspecified Status: Acute (2) Hypertensive urgency: Status: Acute Plan Raúl Mayen is a 39 y/o man with a PMHx of functional diarrhea admitted with: Acute pancreatitis, cause unclear; pt denied alcohol abuse. Normal triglycerides. Admit to hospitalist service. NPO except for meds. IV fluids. Pain control with Dilaudid as needed. Abdominal ultrasound to assess for cholelithiasis/cholecystitis. Uncontrolled essential hypertension, improving. Not taking meds for this. Start treatment with with amlodipine 7 4 mg p.o. now then daily. Labetalol 10 mg IV as needed for elevated blood pressure. Hold testosterone. Morbid obesity. BMI 36.5 kg/m2. Weight loss. Tobacco dependence. Tobacco cessation education. Educated about the benefits of quitting smoking: cancer, emphysema. Code Status: Full code DVT prophylaxis: Lovenox Patient will need hospitalization for at least 2 midnights for acute pancreatitis treatment with IV fluids, NPO so with IV pain meds. He will also need close monitoring of blood pressure and treatment with IV anti-HTN. Quality Stroke Does the patient have a stroke diagnosis?: No VTE Prior VTE?: No VTE Risk Level:: Medical - moderate - high VTE Device Contraindication: Treatment Not Indicated VTE Drug Contraindication: N/A - Med Ordered
[2025-01-19 13:04] LABS: Cannabinoid Screen Urine POSITIVE (Not Detect)
[2025-01-19] MEDS: Lactated Ringers 1,000 ML 100 ML IVCONT ×2 (13:23→23:37)
[2025-01-19] MEDS: Nicotine 14 MG PATCH.TD24 TRANSDERMA (16:07)
--- NOTE | 2025-01-19 18:33 | PC.NURSE ---
Pt arrived to unit 1651. BP by dynamap 179/95. Pt c/o pain 02/16 to abdomen. Not due for dilaudid. Provider notified and med adjusted. Iv dilaudid given to pt per SEP. BP rechecked manually 166/91. Will monitor BP for any additional BP med to be administered. Pt states pain beginning to improve
[2025-01-19] MEDS: 0.9 % Sodium Chloride Flush 3 ML SYRINGE IVFLUSH (22:07)
[2025-01-20] VITALS (7 sets, daily range): BP systolic 130–170; BP diastolic 75–102; PULSE 53–92; RESP 18–20; TEMP 36.6–36.8; O2SAT 94–99
[2025-01-20 06:29] LABS: MANUAL DIFF FLAG NO
[2025-01-20 06:46] LABS: Hematocrit 42.1 % (42.0-52.0); Hemoglobin 14.4 g/dl (14.0-18.0); Imm Gran Abs Auto 0.04 X10*3/uL (0.00-0.03); Imm Gran Pct Auto 0.4 % (0.0-0.4); Lymphocytes Absolute Auto 2.2 X10*3/uL (1.2-4.9); Mean Corpuscular HGB Conc 34.2 g/dl (31.0-36.0); Mean Corpuscular Hemoglobin 30.0 pg (27.0-33.0); Mean Corpuscular Volume 87.7 fL (80.0-98.0); NRBC Abs Auto 0.000 X10*3/uL (0.0-0.012); NRBC Pct Auto 0.0 /100WBC (0.0-0.2); Platelet Count 214 X10*3/uL (160-400); Red Blood Count 4.80 X10*6/uL (4.60-5.80); White Blood Count 9.0 X10*3/uL (4.8-10.8)
[2025-01-20 06:52] LABS: Alanine Aminotransferase 21 U/L (0-40); Albumin Level 4.0 g/dL (3.5-5.0); Alkaline Phosphatase 52 U/L (39-117); Anion Gap 11 (12-20); Aspartate Amino Transferase 22 U/L (5-37); Blood Urea Nitrogen 14 mg/dL (9-16); Calcium 9.1 mg/dL (8.4-10.2); Carbon Dioxide 28 mmol/L (22-29); Chloride 105 mmol/L (96-108); Creatinine Clr Calc Pharmacy 133.2; Estimated Glomerular Filt Rate > 60; Magnesium 1.9 mg/dL (1.6-2.6); Potassium 3.7 mmol/L (3.3-5.1); Sodium 140 mmol/L (135-145); Total Protein 6.7 g/dL (6.5-8.0)
[2025-01-20 07:03] LABS: Lipase 469 U/L (8-78)
[2025-01-20] MEDS: Nicotine 14 MG PATCH.TD24 TRANSDERMA ×2 (08:06→21:16)
[2025-01-20] MEDS: Lactated Ringers 1,000 ML 100 ML IVCONT ×2 (09:19→19:24)
--- NOTE | 2025-01-20 14:15 | HO.PM.IMPN ---
Subjective Subjective Date of Service: 01/20/25 Interval History: acute pancreatitis Review of Systems abd pain tolerable with pain meds no nausea/vomiting no fevers Review of Systems: Yes all other systems are reviewed and are negative Physical Exam Vital Signs: Vital Signs: Last Vital Signs Temp 98.0 F 01/20/25 12:00 Pulse 78 01/20/25 12:00 Resp 18 01/20/25 12:00 BP 148/98 H 01/20/25 12:00 Pulse Ox 94 01/20/25 12:00 O2 Del Method Room Air 01/20/25 12:00 BMI result Body Mass Index 36.5 Appearance: Alert.? Oriented X3.? cvs: rrr, [id number] . res: clear to auscultation ,no rhonchii or wheezing abd: no rebound or guarding , left flank pain radiates to back, bs present. ext pulses present , no cyanosis . neuro: axo3 , nonfocal. Objective Data Active Medications Amlodipine Besylate (Amlodipine Besylate 2.5 Mg Tablet) 7.5 mg PO DAILY [facility]; Protocol Last Admin: 01/20/25 08:05 Dose: 7.5 mg Documented By: ADRIANNE Calcium Carbonate (Calcium Carbonate 750 Mg Tab.Chew) 750 mg PO Q4H PRN PRN Reason: Heartburn Enoxaparin Sodium (Enoxaparin Sodium 40 Mg/0.4 Ml Syringe) 40 mg SUBCUT Q24H [facility] Last Admin: 01/20/25 08:04 Dose: 40 mg Documented By: ADRIANNE Hydromorphone HCl (Hydromorphone Hcl 1 Mg/Ml Syringe) 1 mg IVPUSH Q3H PRN; Protocol PRN Reason: Pain, Severe (Pain Scale 7-10) Last Admin: 01/20/25 12:31 Dose: 1 mg Documented By: NICKIE Lactated Ringer's (Lr) 1,000 mls @ 100 mls/hr IVCONT .Q10H [facility] Last Admin: 01/20/25 09:19 Dose: 100 mls/hr Documented By: ADRIANNE Labetalol HCl (Labetalol Hcl 100 Mg/20 Ml Vial) 10 mg IVPUSH Q6H PRN PRN Reason: SBP > 170 Nicotine (Nicotine 14 Mg Patch.Td24) 14 mg TRANSDERMA DAILY [facility] Last Admin: 01/20/25 08:06 Dose: 14 mg Documented By: ADRIANNE Prochlorperazine Edisylate (Prochlorperazine Edisylate 10 Mg/2 Ml Vial) 10 mg IVPUSH Q4H PRN PRN Reason: Nausea and Vomiting Sodium Chloride (0.9 % Sodium Chloride Flush 3 Ml Syringe) 3 ml IVFLUSH QSHIFT [facility] Last Admin: 01/20/25 08:00 Dose: Not Given Documented By: ADRIANNE Non-Admin Reason: IV Running Labs 01/20/25 06:12 01/20/25 06:12 Labs: Laboratory Results - last 24 hr 01/20/25 06:12 MCV 87.7 MCH 30.0 MCHC 34.2 RDW 12.6 Plt Count 214 MPV 9.5 Immature Gran % (Auto) 0.4 Neut % (Auto) 62.9 Lymph % (Auto) 24.6 [place] % (Auto) 8.8 Eos % (Auto) 2.7 Baso % (Auto) 0.6 Lymph # (Auto) 2.2 [place] # (Auto) 0.8 Eos # (Auto) 0.2 Baso # (Auto) 0.1 Abs Immat Gran (auto) 0.04 H Absolute Neuts (auto) 5.7 Absolute Nucleated RBC 0.000 Nucleated RBC % (auto) 0.0 Anion Gap 11 L Estim Creat Clear Calc 133.2 Estimated GFR > 60 Random Glucose 86 Calcium 9.1 D Magnesium 1.9 Total Bilirubin 0.6 AST 22 ALT 21 Alkaline Phosphatase 52 C-Reactive Protein 2.54 H Total Protein 6.7 Albumin 4.0 Lipase 469 H Assessment and Plan (1) Acute pancreatitis: Status: Acute Plan 39 y/o man with a PMHx of functional diarrhea admitted with: Acute pancreatitis, cause unclear. says few beer/weekly, Normal triglycerides. abd similar lipase improving iGg serologies and abd us ordered plan:NPO except for meds. IV fluids. Pain control with Dilaudid as needed. Gi eval Uncontrolled essential hypertension, improving. Not taking meds for this. started on amlodipine ,moniter bp,pain might also be contributing to above. Morbid obesity. BMI 36.5 kg/m2. Weight loss. Tobacco dependence. Tobacco cessation education. Educated about the benefits of quitting smoking: cancer, emphysema. DVT prophylaxis: Lovenox ongoing need for acute pancreatitis treatment with IV fluids, NPO so with IV pain meds. GI eval. Quality Stroke Does the patient have a stroke diagnosis?: No VTE Prior VTE?: No VTE Risk Level:: Medical - moderate - high VTE Device Contraindication: Treatment Not Indicated VTE Drug Contraindication: N/A - Med Ordered
--- NOTE | 2025-01-20 15:26 | MHC.CM.PN ---
Patient lives by himself He is independent with all functional mobility. [employer] consult sent. Patient listed as self pay. PCP Pranav Bialey. A copy of his HCP has been requested. He states that it is his Mother. DP home self care. Patient will arrange for transportation home at discharge.
--- NOTE | 2025-01-20 21:41 | PC.NURSE ---
This RN and another RN Nidia smelled an strong fruity smell outside the pt's room around 20:45. Upon entering the pt's room and turning on the light vape smoke appeared in the air. This RN asked the pt if he was vaping and said no . Pt stated I don't know, it smells like someone is burning essence . This RN called the security to inform them about the situation and came to pt's bedside. The security officers came out of the pt's room with his vape. Pt's vape being held in the security office until pt is discharged from hospital. This RN inform the security officers to allow no visitors for the pt at this time. This RN notified hospitalist MD Ga about the situation. One time order of Nicotine patch was place and administered to pt's left upper arm, see MAR. Nicotine gum was ordered as well for pt's Nicotine craving, see MAR. Will continue to monitor pt's behavior.
[2025-01-21] VITALS (8 sets, daily range): BP systolic 142–180; BP diastolic 68–120; PULSE 62–74; RESP 18–20; TEMP 36.3–36.9; O2SAT 95–99
--- NOTE | 2025-01-21 00:31 | CONS_ITS ---
DATE OF SERVICE: 01/20/2025 REFERRING PHYSICIAN: Dr. Rodriguez REASON FOR CONSULTATION: Pancreatitis. HISTORY OF PRESENT ILLNESS: The patient is a pleasant 39-year-old man, who was admitted to the hospital after presenting to the emergency room yesterday with chest tightness. He underwent evaluation in the emergency department and was found to have an elevated lipase of 1044 with normal liver function tests. CT imaging of the abdomen and pelvis was obtained which is interpreted as showing very faint stranding about the pancreas. The patient denies any prior history of pancreatitis. He denies drinking alcohol to excess. There is a history of substance use and he formally drank heavily in the past. Ultrasound imaging obtained this morning showed no gallstones. There is a history of cocaine and marijuana usage. PAST MEDICAL HISTORY: 1. Hypertension. 2. Hypogonadism. CURRENT MEDICATIONS: His current medication list is reviewed in the chart. ALLERGIES: BEE POLLEN AND CODEINE. PAST SURGICAL HISTORY: Includes disk surgery, tendon repair, meniscus on the left, myringotomy. REVIEW OF SYSTEMS: SKIN: No pruritus. HEENT: Negative. CARDIOPULMONARY: No shortness of breath or chest pain. GASTROINTESTINAL: As above. GENITOURINARY: Negative. NEUROPSYCHIATRIC: Negative. PHYSICAL EXAMINATION: GENERAL: Shows a pleasant male, lying comfortably in bed, complaining of being hungry. VITAL SIGNS: Stable. SKIN: Anicteric. HEENT: Shows no scleral icterus. NECK: Without lymphadenopathy or thyromegaly. LUNGS: Clear. HEART: Shows a regular rate and rhythm. S1, S2. No murmur. ABDOMEN: Soft without focal masses or tenderness. Bowel sounds are present. No organomegaly is noted. EXTREMITIES: Without edema. LABORATORY DATA: Reviewed. IMPRESSION: He appears to have had mild pancreatitis, possibly on the basis of drug use, although this is not definitely clear. He has no history of familial pancreatitis and does not drink alcohol to excess by report. Liver function tests are normal and his normal ultrasound argues against a biliary source. Triglycerides were not elevated and calcium was normal on admission. At this point, he appears to be improved and given that he is hungry and his lipase has improved, I would recommend starting a diet. I did tell him what to watch out for if he should recurrent symptoms of pancreatitis. He can follow up with Dr. Galo as an outpatient. MD DAQUAN Jacobs/OLIVIA / [phone] ALYSIA
[2025-01-21] MEDS: Lactated Ringers 1,000 ML 100 ML IVCONT ×2 (04:40→15:35)
[2025-01-21] MEDS: 0.9 % Sodium Chloride Flush 3 ML SYRINGE IVFLUSH ×2 (07:49→15:37)
[2025-01-21] MEDS: Nicotine 14 MG PATCH.TD24 TRANSDERMA ×2 (07:54→22:09)
--- NOTE | 2025-01-21 15:36 | HO.PM.IMPN ---
Subjective Subjective Date of Service: 01/21/25 Interval History: Acute pancreatitis Review of Systems abd pain somewhat simialr Review of Systems: Yes all other systems are reviewed and are negative Physical Exam Vital Signs: Vital Signs: Last Vital Signs Temp 98.5 F 01/21/25 11:28 Pulse 74 01/21/25 11:28 Resp 18 01/21/25 11:28 BP 162/116 H 01/21/25 12:50 Pulse Ox 95 01/21/25 11:28 O2 Del Method Room Air 01/21/25 11:28 BMI result Body Mass Index 36.5 Appearance: Alert.? Oriented X3.? cvs: rrr, [id number] . res: clear to auscultation ,no rhonchii or wheezing abd: no rebound or guarding , left flank pain radiates to back slightly improving, bs present. ext pulses present , no cyanosis . neuro: axo3 , nonfocal Objective Data Active Medications Amlodipine Besylate (Amlodipine Besylate 10 Mg Tablet) 10 mg PO DAILY [facility]; Protocol Last Admin: 01/21/25 07:48 Dose: 10 mg Documented By: DENILSON Calcium Carbonate (Calcium Carbonate 750 Mg Tab.Chew) 750 mg PO Q4H PRN PRN Reason: Heartburn Enoxaparin Sodium (Enoxaparin Sodium 40 Mg/0.4 Ml Syringe) 40 mg SUBCUT Q24H [facility] Last Admin: 01/21/25 07:49 Dose: 40 mg Documented By: DENILSON Hydromorphone HCl (Hydromorphone Hcl 1 Mg/Ml Syringe) 1 mg IVPUSH Q3H PRN; Protocol PRN Reason: Pain, Severe (Pain Scale 7-10) Last Admin: 01/21/25 12:46 Dose: 1 mg Documented By: DENILSON Lactated Ringer's (Lr) 1,000 mls @ 100 mls/hr IVCONT .Q10H [facility] Last Infusion: 01/21/25 15:29 Dose: Infused Documented By: DENILSON Labetalol HCl (Labetalol Hcl 100 Mg/20 Ml Vial) 10 mg IVPUSH Q6H PRN PRN Reason: SBP > 170 Last Admin: 01/21/25 11:48 Dose: 10 mg Documented By: DENILSON Labetalol HCl (Labetalol Hcl 100 Mg Tablet) 100 mg PO BID [facility]; Protocol Last Admin: 01/21/25 11:53 Dose: 100 mg Documented By: DENILSON Nicotine (Nicotine 14 Mg Patch.Td24) 14 mg TRANSDERMA DAILY [facility] Last Admin: 01/21/25 07:54 Dose: 14 mg Documented By: DENILSON Nicotine Polacrilex (Nicotine Polacrilex 2 Mg Gum) 2 mg BUCCAL Q2H PRN PRN Reason: Nicotine Cravings Last Admin: 01/20/25 21:19 Dose: 2 mg Documented By: JANET Prochlorperazine Edisylate (Prochlorperazine Edisylate 10 Mg/2 Ml Vial) 10 mg IVPUSH Q4H PRN PRN Reason: Nausea and Vomiting Sodium Chloride (0.9 % Sodium Chloride Flush 3 Ml Syringe) 3 ml IVFLUSH QSHIFT [facility] Last Admin: 01/21/25 07:49 Dose: 3 ml Documented By: DENILSON Labs 01/20/25 06:12 01/20/25 06:12 Assessment and Plan (1) Acute pancreatitis: Status: Acute Plan 39 y/o man with a PMHx of functional diarrhea admitted with: Acute pancreatitis, cause unclear. says few beer/weekly, Normal triglycerides. abd similar lipase improving iGg serologies pending abd us:No evidence of cholelithiasis or acute cholecystitis. Limited visualization of the pancreas. plan:start diet trail. still not have pain control -so add po dilaudid in addition to IV dilaudid as needed. Gi eval -start diet , need to follow up with [facility] when better for further managemnt. Uncontrolled essential hypertension, improving. Not taking meds for this. started on amlodipine ,added labetalol ,moniter bp,pain might also be contributing to above. Morbid obesity. BMI 36.5 kg/m2. Weight loss. Tobacco dependence. Tobacco cessation education. Educated about the benefits of quitting smoking: cancer, emphysema. DVT prophylaxis: Lovenox ongoing need for acute pancreatitis treatment with IV fluids, NPO so with IV pain meds. GI eval. Quality Stroke Does the patient have a stroke diagnosis?: No VTE Prior VTE?: No VTE Risk Level:: Medical - moderate - high VTE Device Contraindication: Treatment Not Indicated VTE Drug Contraindication: N/A - Med Ordered
[2025-01-22] VITALS (10 sets, daily range): BP systolic 138–197; BP diastolic 72–120; PULSE 55–83; RESP 16–18; TEMP 36.3–36.8; O2SAT 94–98
[2025-01-22] MEDS: Lactated Ringers 1,000 ML 100 ML IVCONT (00:56)
[2025-01-22] MEDS: Nicotine 14 MG PATCH.TD24 TRANSDERMA ×2 (07:31→23:12)
--- NOTE | 2025-01-22 11:11 | MHC.CM.PN ---
Patient is discharged to home today self care. He has arraigned for transportation home.
--- NOTE | 2025-01-22 11:46 | P.PNIM_ITS ---
Subjective Subjective Date of Service: 01/22/25 Interval History: tolerating solid diet, no N/V, moderate abd pain BP very high 172/120 confirmed manually but no chest pain Review of Systems Review of Systems: Yes all other systems are reviewed and are negative Physical Exam 2 Vital Signs: Vital Signs: Last Vital Signs Temp 97.9 F 01/22/25 07:20 Pulse 66 01/22/25 07:20 Resp 16 01/22/25 07:20 BP 172/120 H 01/22/25 11:24 Pulse Ox 98 01/22/25 07:20 O2 Del Method Room Air 01/22/25 07:20 BMI result Body Mass Index 36.5 Gen: in no acute distress HEENT: sclera anicteric, moist mucus membranes Neck: supple Lungs: clear to auscultation bilaterally Heart: regular rate and rhythm, no murmurs Abd: soft, mild epigastric tenderness, non-distended Ext: no edema Skin: warm/well-perfused Neuro: alert and oriented x3, no focal findings Psych: appropriate affect Objective Data Active Medications Amlodipine Besylate (Amlodipine Besylate 10 Mg Tablet) 10 mg PO DAILY ERIC; Protocol Last Admin: 01/22/25 07:32 Dose: 10 mg Documented By: DENILSON Calcium Carbonate (Calcium Carbonate 750 Mg Tab.Chew) 750 mg PO Q4H PRN PRN Reason: Heartburn Enoxaparin Sodium (Enoxaparin Sodium 40 Mg/0.4 Ml Syringe) 40 mg SUBCUT Q24H ERIC Last Admin: 01/22/25 07:35 Dose: 40 mg Documented By: DENILSON Hydromorphone HCl (Hydromorphone Hcl 1 Mg/Ml Syringe) 1 mg IVPUSH Q3H PRN; Protocol PRN Reason: Pain, Severe (Pain Scale 7-10) Last Admin: 01/21/25 15:37 Dose: 1 mg Documented By: DENILSON Hydromorphone HCl (Hydromorphone Hcl 2 Mg Tablet) 1 mg PO Q4H PRN PRN Reason: Pain, Moderate(Pain Scale 4-6) Last Admin: 01/22/25 08:18 Dose: 1 mg Documented By: DENILSON Lactated Ringer's (Lr) 1,000 mls @ 100 mls/hr IVCONT .Q10H ERIC Last Admin: 01/22/25 00:56 Dose: 100 mls/hr Documented By: JANET Labetalol HCl (Labetalol Hcl 100 Mg/20 Ml Vial) 10 mg IVPUSH Q6H PRN PRN Reason: SBP > 170 Last Admin: 01/21/25 11:48 Dose: 10 mg Documented By: DENILSON Labetalol HCl (Labetalol Hcl 100 Mg Tablet) 100 mg PO BID [facility]; Protocol Last Admin: 01/22/25 07:32 Dose: 100 mg Documented By: DENILSON Nicotine (Nicotine 14 Mg Patch.Td24) 14 mg TRANSDERMA DAILY [facility] Last Admin: 01/22/25 07:31 Dose: 14 mg Documented By: DENILSON Nicotine Polacrilex (Nicotine Polacrilex 2 Mg Gum) 2 mg BUCCAL Q2H PRN PRN Reason: Nicotine Cravings Last Admin: 01/20/25 21:19 Dose: 2 mg Documented By: JANET Prochlorperazine Edisylate (Prochlorperazine Edisylate 10 Mg/2 Ml Vial) 10 mg IVPUSH Q4H PRN PRN Reason: Nausea and Vomiting Sodium Chloride (0.9 % Sodium Chloride Flush 3 Ml Syringe) 3 ml IVFLUSH QSHIFT [facility] Last Admin: 01/22/25 08:58 Dose: Not Given Documented By: DENILSON Non-Admin Reason: IV Running Labs 01/20/25 06:12 01/20/25 06:12 Assessment and Plan (1) Acute pancreatitis: Status: Acute Plan d4 for 39yo M with functional diarrhea presenting with abd pain, admitted for acute pancreatitis acute pancreatitis - minimal beer intake, normal triglycerides, no gallstones; IgG subclasses + HIV pending; GI consulted and will follow-up as outpt with [facility] - prn PO hydromorphone uncontrolled HTN - on max dose amlodipine; change labetalol to carvedilol and add losartan tobacco abuse - NRT VTE ppx - enoxaparin dispo - eventual home In my clinical judgment, the patient requires continued inpatient hospitalization for the following reasons: uncontrolled HTN Total time managing care of this patient today: 35 minutes. Quality Stroke Does the patient have a stroke diagnosis?: No VTE Prior VTE?: No VTE Risk Level:: Medical - moderate - high VTE Device Contraindication: Treatment Not Indicated VTE Drug Contraindication: N/A - Med Ordered
[2025-01-22] MEDS: 0.9 % Sodium Chloride Flush 3 ML SYRINGE IVFLUSH ×2 (17:07→21:21)
[2025-01-23 03:13] VITALS: BP 134/74; PULSE 62; RESP 16; TEMP 36.7; O2SAT 95
[2025-01-23 06:37] LABS: Alanine Aminotransferase 32 U/L (0-40); Albumin Level 4.4 g/dL (3.5-5.0); Alkaline Phosphatase 56 U/L (39-117); Anion Gap 10 (12-20); Aspartate Amino Transferase 27 U/L (5-37); Blood Urea Nitrogen 20 mg/dL (9-16); Calcium 9.1 mg/dL (8.4-10.2); Carbon Dioxide 26 mmol/L (22-29); Chloride 108 mmol/L (96-108); Creatinine Clr Calc Pharmacy 143.6; Estimated Glomerular Filt Rate > 60; Potassium 3.5 mmol/L (3.3-5.1); Sodium 140 mmol/L (135-145); Total Protein 7.0 g/dL (6.5-8.0)
[2025-01-23 06:51] LABS: Lipase 357 U/L (8-78)
[2025-01-23 06:52] LABS: HIV Num 1 0.05 S/CO (0.00-0.99)
[2025-01-23 07:54] VITALS: BP 167/98; PULSE 61; RESP 18; TEMP 36.3; O2SAT 95
--- NOTE | 2025-01-23 09:27 | PC.NURSE ---
Pt may come off of Tele as per MD Sanchez
[2025-01-23] MEDS: 0.9 % Sodium Chloride Flush 3 ML SYRINGE IVFLUSH (09:32)
[2025-01-23] MEDS: Nicotine 14 MG PATCH.TD24 TRANSDERMA (09:33)
--- NOTE | 2025-01-23 10:33 | MHC.CM.PN ---
Per MD rounds patient medically cleared for dc home self care. Patient to arrange private transport.
--- NOTE | 2025-01-23 12:10 | P.DS_ITS ---
DS: Providers Provider Date of Service: 01/23/25 Date of admission: 01/19/25 12:11 Date of discharge: 01/23/25 Primary care physician: Pranav Bailey MD Consults: 01/20/25 10:32 Consult to Gastroenterology Routine Consulting Provider: [facility] Reason for consultation: pancreatitis unclear etiology Has provider been notified: No DS: Diagnosis Discharge Diagnosis (1) Acute pancreatitis: Status: Acute (2) Essential hypertension: Status: Acute (3) Hypertensive urgency: Status: Acute (4) Tobacco abuse: Status: Acute DS: Summary Hospital Course Hospital Course: From the history and physical by the admitting hospitalist, Olesya Burden, 01/19/25: Raúl Mayen is a 39 years old man with past medical history significant for functional diarrhea, hypertension (not taking meds for this) and morbid obesity presents to the emergency department complaining of left upper quadrant pain. He describes the pain as pressure and radiates to the right lower quadrant. It has not intensity of 10/10 and has been constant over the last several day. Last Monday he had an event of watery nonbloody diarrhea. Associated symptoms he also reported nausea and vomiting. He also mentioned that over the last couple of days he has been congested and has been coughing. Patient mentioned that he had problems with kidneys in the past. He denied history of hypertension, diabetes or hyperlipidemia. He has not been evaluated for obstructive sleep apnea. The patient received testosterone injections every week (last dose Monday). He smokes marijuana and tobacco. Drinks alcohol in occasions and uses cocaine. No history of abdominal surgery. In the ED, he was found to have elevated blood pressure (max 201/125). There is no tachacardia or fever. Oxygen saturation is normal on room air. Blood workup was remarkable for leukocytosis 12.1. Hemoglobin is 16 and platelets 239. There are no electrolyte imbalances. Renal function and LFTs are normal. Lipase 1044. Troponin and BNP are unremarkable. Urinalysis showed elevated specific gravity and trace troponin. Urine drug screen is positive for marijuana. ED tx: NS 1 L bolus, Valium 7.5 mg IV, Zofran 4 mg IV, clonidine 0.2 mg PO, hydralazine 10 mg IV and Dilaudid 0.5 mg IV 39yo M with functional diarrhea presenting with abd pain, admitted for acute pancreatitis and also had uncontrolled hypertension. For pancreatitis, he was treated with bowel rest, IV hydration, and IV hydromorphone. Cause was unclear; he has minimum beer intake, no gallstones, and normal triglycerides. HIV negative. IgG subclasses pending. GI consulted and he will follow up with Dr Pranav Galo as an outpatient. He was instructed to avoid alcohol entirely. For hypertension, he was started on amlodipine plus carvedilol and losartan; BMP should be repeated in 1 week. NRT was prescribed. Time Attestation Discharge Coordination Time (in mins): 35 Quality: Safe Use of Opioids Does Pt have an Active Cancer Diagnosis on the Problem List?: No Quality: Stroke Does the patient have a stroke diagnosis?: No Physical Exam Vital Signs: Vital Signs: Last Vital Signs Temp 97.4 F 01/23/25 07:54 Pulse 61 01/23/25 07:54 Resp 18 01/23/25 07:54 BP 167/98 H 01/23/25 07:54 Pulse Ox 95 01/23/25 07:54 O2 Del Method Room Air 01/23/25 07:54 BMI result Body Mass Index 36.5 Gen: in no acute distress HEENT: sclera anicteric, moist mucus membranes Neck: supple Lungs: clear to auscultation bilaterally Heart: regular rate and rhythm, no murmurs Abd: soft, non-tender, non-distended Ext: no edema Skin: warm/well-perfused Neuro: alert and oriented x3, no focal findings Psych: appropriate affect DS: Data Data Completed and Pending Completed studies during hospitalization [Text1]: Laboratory Results WBC 9.0 X10*3/uL (4.8-10.8) 01/20/25 06:12 RBC 4.80 X10*6/uL (4.60-5.80) 01/20/25 06:12 Hgb 14.4 g/dl (14.0-18.0) 01/20/25 06:12 Hct 42.1 % (42.0-52.0) 01/20/25 06:12 MCV 87.7 fL (80.0-98.0) 01/20/25 06:12 MCH 30.0 pg (27.0-33.0) 01/20/25 06:12 MCHC 34.2 g/dl (31.0-36.0) 01/20/25 06:12 RDW 12.6 % (11.0-16.0) 01/20/25 06:12 Plt Count 214 X10*3/uL (160-400) 01/20/25 06:12 MPV 9.5 fL (9.4-12.4) 01/20/25 06:12 Immature Gran % (Auto) 0.4 % (0.0-0.4) 01/20/25 06:12 Neut % (Auto) 62.9 % (45-73) 01/20/25 06:12 Lymph % (Auto) 24.6 % (20-40) 01/20/25 06:12 [place] % (Auto) 8.8 % (2-11) 01/20/25 06:12 Eos % (Auto) 2.7 % (0-4) 01/20/25 06:12 Baso % (Auto) 0.6 % (0-2) 01/20/25 06:12 Lymph # (Auto) 2.2 X10*3/uL (1.2-4.9) 01/20/25 06:12 [place] # (Auto) 0.8 X10*3/uL (0.1-1.2) 01/20/25 06:12 Eos # (Auto) 0.2 X10*3/uL (0.0-0.4) 01/20/25 06:12 Baso # (Auto) 0.1 X10*3/uL (0.0-0.2) 01/20/25 06:12 Abs Immat Gran (auto) 0.04 X10*3/uL (0.00-0.03) H 01/20/25 06:12 Absolute Neuts (auto) 5.7 x10*3/uL (2.0-8.3) 01/20/25 06:12 Absolute Nucleated RBC 0.000 X10*3/uL (0.0-0.012) 01/20/25 06:12 Nucleated RBC % (auto) 0.0 /100WBC (0.0-0.2) 01/20/25 06:12 Hold Purple Top SEE NOTE 01/23/25 05:44 Sodium 140 mmol/L (135-145) 01/23/25 05:44 Potassium 3.5 mmol/L (3.3-5.1) 01/23/25 05:44 Chloride 108 mmol/L (96-108) 01/23/25 05:44 Carbon Dioxide 26 mmol/L (22-29) 01/23/25 05:44 Anion Gap 10 (12-20) L 01/23/25 05:44 BUN 20 mg/dL (9-16) H 01/23/25 05:44 Creatinine 1.02 mg/dL (0.5-1.4) 01/23/25 05:44 Estim Creat Clear Calc 143.6 01/23/25 05:44 Estimated GFR > 60 01/23/25 05:44 Random Glucose 86 mg/dL (60-115) 01/23/25 05:44 Calcium 9.1 mg/dL (8.4-10.2) 01/23/25 05:44 Magnesium 1.9 mg/dL (1.6-2.6) 01/20/25 06:12 Total Bilirubin 0.5 mg/dL (0.0-1.0) 01/23/25 05:44 Direct Bilirubin 0.2 mg/dL (0.0-0.5) 01/23/25 05:44 AST 27 U/L (5-37) 01/23/25 05:44 ALT 32 U/L (0-40) 01/23/25 05:44 Alkaline Phosphatase 56 U/L (39-117) 01/23/25 05:44 Troponin I High Sens 14.2 ng/L (<3.5-35.0) 01/19/25 08:43 C-Reactive Protein 2.54 mg/dL (< or = 0.50) H 01/20/25 06:12 B-Natriuretic Peptide 40 pg/mL (<100) 01/19/25 08:43 Total Protein 7.0 g/dL (6.5-8.0) 01/23/25 05:44 Albumin 4.4 g/dL (3.5-5.0) 01/23/25 05:44 Triglycerides 85 mg/dL (<150) 01/19/25 08:18 Lipase 357 U/L (8-78) H 01/23/25 05:44 Urine Color Yellow 01/19/25 12:19 Urine Appearance Clear 01/19/25 12:19 Urine pH 8.5 (5.0-9.0) 01/19/25 12:19 Ur Specific [place] >= 1.030 (1.005-1.025) H 01/19/25 12:19 Urine Protein Trace mg/dL (Neg-Trace) 01/19/25 12:19 Urine Glucose (UA) 100 mg/dL (Negative) H 01/19/25 12:19 Urine Ketones Negative mg/dL (Negative) 01/19/25 12:19 Urine Blood Negative (Negative) 01/19/25 12:19 Urine Nitrite Negative (Negative) 01/19/25 12:19 Ur Leukocyte Esterase Negative (Negative) 01/19/25 12:19 Urine Opiates Screen Not Detected (Not Detect) 01/19/25 12:49 Ur Buprenorphine Scrn Not Detected ng/mL (Not Detect) 01/19/25 12:49 Ur Oxycodone Screen Not Detected ng/mL (Not Detect) 01/19/25 12:49 Urine Methadone Screen Not Detected ng/mL (Not Detect) 01/19/25 12:49 Urine Fentanyl Screen Not Detected (Not Detect) 01/19/25 12:49 Ur Barbiturates Screen Not Detected (Not Detect) 01/19/25 12:49 Ur Phencyclidine Scrn Not Detected (Not Detect) 01/19/25 12:49 Ur Amphetamines Screen Not Detected (Not Detect) 01/19/25 12:49 U Benzodiazepines Scrn Not Detected (Not Detect) 01/19/25 12:49 Urine Cocaine Screen Not Detected (Not Detect) 01/19/25 12:49 U Marijuana (THC) Screen POSITIVE (Not Detect) H 01/19/25 12:49 Ethyl Alcohol < 10 mg/dL 01/19/25 08:18 HIV 1&2 Ab/P24 Ag 4thGn Nonreactive (Nonreactive) 01/23/25 05:44 Impressions Abdomen Ultrasound 01/20/25 10:51 IMPRESSION: No evidence of cholelithiasis or acute cholecystitis. Limited visualization of the pancreas. Electronically signed by: Pranav Perry MD 01/20/2025 11:29 AM EDT Discharge Plan Discharge Anticipated Discharge Date/Time: 01/23/25 12:06 Patient Disposition: Home, Self-Care Discharge Diagnosis: pancreatitis hypertension Referrals: Pranav Bailey MD [Primary Care Provider, Internal Medicine] - 1 Week Discharge Medications: New losartan 50 mg Tablet 50 mg PO DAILY Qty: 30 0RF Protocol: Hold for SBP< HOLD for SBP < : 90 nicotine 14 mg/24 hr Patch 24 Hour 14 mg transdermal DAILY Qty: 30 0RF nicotine (polacrilex) 2 mg Gum 2 mg buccal Q2H PRN (Reason: Nicotine Cravings) Qty: 100 0RF carvedilol 3.125 mg Tablet 3.125 mg PO BID Qty: 60 0RF Protocol: Hold for SBP/HR < HOLD for SBP < : 90 HOLD for HR < : 60 amlodipine 10 mg Tablet 10 mg PO DAILY Qty: 30 0RF Protocol: Hold for SBP< HOLD for SBP < : 90 hydromorphone 2 mg Tablet 1 mg PO Q6H PRN (Reason: pain, severe) Qty: 6 0RF Rx Instructions: Partial Fill upon patient request. Continued (DME) syringe with needle [BD Luer-Hyacinth Syringe] 3 mL 21 gauge x 1 1/2 syringe See Rx Instructions .ROUTE .COMPLEX Qty: 20 0RF Dose Instruction: USE DIRECTED ONCE A WEEK Rx Instructions: USE DIRECTED ONCE A WEEK testosterone cypionate 200 mg/mL oil 75 mg IM MO Rx Instructions: Per [facility]: Last fill 04/11/24 Discharge Orders: Discharge Order (Routine); Ordered 01/23/25 Ordered By: Neymar Sanchez Diet: Low salt diet Activity on Discharge: As tolerated Stand Alone Forms: Patient Portal Discharge page Print Language: Gambian Other Ambulatory Orders: Basic Metabolic Panel (Routine) Timeframe: 1 Week Facility: [facility] - Location: Laboratory Ordered By: Neymar Sanchez Care Plan Goals: GI and heart health Health Concerns: pancreatitis hypertension Plan of Treatment: avoid alcohol completely; follow up with Dr Galo from [facility] in 2 weeks start losartan 50 mg daily PLUS amlodipine 10 mg daily PLUS carvedilol 3.125 mg twice daily recheck BMP [lab, non-fasting] in 1 week low-sodium, Mediterranean diet quit smoking Please follow up with your primary care doctor within 1 week. Return to the hospital if you experience recurrent or worsening symptoms. Assessment: See Discharge Summary.
[2025-01-23 15:08] LABS: Immunoglobulin G Subclass 1 404 mg/dL (382-929); Immunoglobulin G Subclass 2 450 mg/dL (241-700); Immunoglobulin G Subclass 3 53 mg/dL (22-178); Immunoglobulin G Subclass 4 12.7 mg/dL (4-86); Immunoglobulin G Total 885 mg/dL (600-1640)
== END 2025-01-23 12:50 | disposition home or self-care (01) | DRG 282 ==
LOC: HO.ED 11:42 → HO.EDOVER 12:39 → HO.S3 16:35
PROVIDERS: Internal Medicine; Physician Assistant Medical; Admitting Provider Internal Medicine; Emergency Provider Emergency Medicine; PCP Internal Medicine Medical Oncology; Visit Provider Family Medicine
DX: K85.90 Acute pancreatitis without necrosis or infection, unspecified (principal); E66.01 Morbid (severe) obesity due to excess calories; F17.210 Nicotine dependence, cigarettes, uncomplicated; I16.0 Hypertensive urgency; Z71.6 Tobacco abuse counseling; Z68.36 Body mass index [BMI] 36.0-36.9, adult; Z71.3 Dietary counseling and surveillance; I10 Essential (primary) hypertension; K59.1 Functional diarrhea; Z79.899 Other long term (current) drug therapy
CPT/HCPCS: 36415; 71046; 71275; 74174; 76705; 80048; 80053; 80076; 80307; 81003; 82784; 83690; 83735; 83880; 84478; 84484; 85025; 86140; 87389; 93005; 99285; J0360; J0737; J1171; J1650; J1920; J2405; J3360; J7120; Q9967

== ENCOUNTER → 2025-01-19 08:27 | Outpatient (BNV) | payer OTHER, MEDICAID, SELFPAY | PROVIDERS: Admitting Provider Internal Medicine; Emergency Provider Emergency Medicine; PCP Internal Medicine Medical Oncology; Visit Provider Internal Medicine Cardiovascular Disease | DX: I49.1 Atrial premature depolarization (principal); I51.7 Cardiomegaly | CPT/HCPCS: 93010 ==

== ENCOUNTER 2025-01-19 12:11 | Outpatient (BNV) | payer MEDICAID, SELFPAY | END 2025-01-20 07:00 | PROVIDERS: Admitting Provider Internal Medicine; Emergency Provider Emergency Medicine; PCP Internal Medicine Medical Oncology; Visit Provider Radiology Diagnostic Radiology | DX: R10.32 Left lower quadrant pain (principal); K85.90 Acute pancreatitis without necrosis or infection, unspecified; K81.9 Cholecystitis, unspecified | CPT/HCPCS: 76705 ==

== ENCOUNTER → 2025-01-19 12:11 | Outpatient (BNV) | payer OTHER, MEDICAID, SELFPAY | PROVIDERS: Admitting Provider Internal Medicine; Emergency Provider Emergency Medicine; PCP Internal Medicine Medical Oncology; Visit Provider Internal Medicine | DX: K85.90 Acute pancreatitis without necrosis or infection, unspecified (principal); I16.0 Hypertensive urgency | CPT/HCPCS: 99223; 99231 ==

== ENCOUNTER 2025-01-31 07:14 | Outpatient (REF) | payer OTHER, SELFPAY ==
--- OUTSIDE RECORDS SUMMARY | 2024-06-10 12:00 | XMS_ITS ---
Author Organization Pranav Bailey III, MD Address [address] [place] [address] [place] [address] Care Team Providers Care Mems Engineer Name Role Phone Pranav Bailey Primary Care Provider [phone] REASON FOR VISIT No Show Social History Sex Assigned At : Social History Observation Description Sex Assigned At Male Encounters Encounter Location Date Provider Diagnosis Pranav Bailey III, MD [address] [place] [address] [place] [address] 06/10/2024 Pranav Bailey Plan Of Treatment Next Appt Details Provider Name:Pranav Bailey, 02/12/2025 02:00:00 PM, [address] [place] [address] [place], [address], Provider Name:Pranav Bailey, 06/03/2025 02:00:00 PM, [address] [place] [address] [place], [address], Progress Notes * GEORGETTE MOORE RDOB:1985 (38 yo M)Acc No.[id number]:06/10/2024 Patient: Rolanda GEORGETTE KING :1985 A ge:38 Y S ex:Male Address:[address] [place] [address], [address] * true * Date: Generated for Printi ng/Faxing/eTransmitting on: 01/31/2025 07:16 AM EDT
--- OUTSIDE RECORDS SUMMARY | 2024-08-29 07:00 | XMS_ITS ---
Author Organization [facility] Address [address] [place] [address] Care Team Providers Care Specification Manager Name Role Phone Pranav Bailey MD Primary Care Provider Unavailab Pranav Galindo Unavailable [phone] REASON FOR VISIT Patient presents today for diarrhea, wt loss Encounters Encounter Location Date Provider Diagnosis [facility] [address] [facility] [address] [place] [address] 08/29/2024 Pranav Galo Plan Of Treatment Next Appt Details Provider Name:Pranav Galo , 05/13/2025 02:40:00 PM, [address], [address], [place], [address], Progress Notes * GEORGETTE MOOREDOB:1985 ( 39 yo M)Acc No.[id number]:08/29/2024 Progress Notes Patient: GEORGETTE SNEED Provider: Jaqueline Galo MD :1985 A ge:39 Y S ex:Male Date:08/29/2024 Address:[address] [id number] Pcp:Pranav Bailey MD Subjective: * Chief Complaints: [...] 0 08/29/2024 Generated for Hima collazo/Praneeth/Rudolph on: 0 01/31/2025 07:16 AM EDT
--- OUTSIDE RECORDS SUMMARY | 2025-01-31 07:17 | XMS_ITS | Data Portability ---
Author Organization [place] - [facility], [address] Address [address] [place] [address] Assessment No assessment recorded. Plan of Treatment Reminders Order Date Submit Date Provider Last Modified By Organization Details Last Modified Time Details Appointments None recorded. Lab rapid strep group A, throat 2022 023 VR[facility], [address] [place] [address], [phone], 3 10:56:50 Referral None recorded. Procedures None recorded. Surgeries None recorded. Imaging XR, ribs, unilateral, w/ PA chest 2022 023 [facility], [address] [place], [address], 14:40:47 Medication Orders cephalexin 500 mg capsule [address] [facility] [address], [address] [place], [address], 3 12:56:17 cyclobenzap rine 10 mg tablet 2022 023 [email or web address] [facility], [address] [place], [address], 3 10:19:01 Patient TargetsNo targets recorded. Patient Instructions Encounter Date Encounter Id Patient Instructions Last Modified By Organization Details Last Modified Time 10/02/2022 [id number] bruised rib: car e instructions [email or web address] Not available 10/02/2022 14:03:19 12/27/2022 [id number] folliculitis: care instructions Not available 12/27/2022 10:59:07 sore throat: car e instructions Not available 12/27/2022 10:56:50 Reason for Referral None Reported. Results Created Date Observation Date Name Description Value Unit Range Abnormal Flag Note LastModifiedBy Organization Detail LastModifiedTime 12/28/1912/27/2022 rapid strep group A, throa t Unknown Analyte Normal = Negati ve Not Available [address] [place], [address], 12/27/2022 10:19:45 12/28/1912/27/2022 rapid strep group A, throa t Unknown Analyte negati ve Not Available [address] [place] [address], [address], 12/27/2022 10:19:45 10/03/19 23 10/02/2022 XR, ribs, unila teral , w/ PA chest No observ ation record ed. [email or web address] [facility] [address] [place] [address], [place], [address], 10/02/2022 14:54:26 Result Notes None recorded. Problems Name Problem SNOMED Code Status Onset Date Resolution Date Notes Provider Name and Address Organization Details Recorded Time Migraine 28330523 Active 2022 MANSOOR kirk, [place] - [facility] 3 13:08:28 Hidradenitis suppurativa 36329387 Active 2022 MANSOOR kirk, [place] - [facility] 3 13:08:47 Kidney disease 00832585 Active 2022 has had kidney failure a few times in past few years MANSOOR kirk, [place] - [facility] 3 13:09:43 Problem Notes None recorded. Medical Equipment None Reported. Allergies Allergen ID Allergen Name Allergen Category Reaction Reaction Severity Criticality Documentation Date Start Date Code Code System Note Provider Name and Address Organization Details Recorded Time 114505 codeine medicatio n nausea Not available Not [...] Pulse oximetry Heart rate Respiratory rate Systolic And Diastolic Provider Name and Address Organization Details Last Updated DateTime 3 193.04 cm 42.6 kg/m2 127733. 33 g 98.1 [degF] 96 % 96 % 79 /min 18 /min 147/101 mm[Hg] MANSOOR JUNG [place] - [facility] 3 13:13:17 Date Recorded Systolic And Diastolic Provider Name and Address Organization Details Last Updated DateTime 12/27/2022 180/115 mm[Hg] Pradip Michelle MD [address] [place], [address], [place] - [facility] 12/27/2022 10:55:46 Date Recorded Body height Body mass index (BMI) Body weight Pain severity Mcfarlane-Arredondo FACES pain rating scale Respiratory rate Oxygen saturation Oxygen saturation in Arterial blood by Pulse oximetry Heart rate Body temperature Systolic And Diastolic Systolic And Diastolic Provider Name and Address Organization Details Last Updated DateTime 3 193.04 cm 42.6 kg/m2 784433. 33 g 4 20 /min 98 % 98 % 78 /min 98.1 [degF] 187/122 mm[Hg] 174/116 mm[Hg] Madeleine Sanchez [place] - [facility] 3 10:30:03 Social History Question Answer Notes LastModified by Yatedo Details LastModified Time Tobacco Smoking Status Current Every Day Smoker MANSOOR kirk, [place] - [facility] 10/02/2022 13:11:14 Which Illicit Or Recreational Drugs Have You Used? Marijuana [email or web address] Information not available 10/02/2022 Have You Had Direct Contact, Or Contact During Intimacy, With Monkeypox Rash, Scabs, Or Body Fluids From A Person With Monkeypox? No [email or web address] Information not available 12/27/2022 How Much Tobacco Do You Smoke? 1 PPD [email or web address] Information not available 10/02/2022 Have You Recently Traveled Abroad? No [email or web address] Information not available 10/02/2022 Sex: Unknown Functional Status Question Answer Note LastModified by Yatedo Details LastModified Time Do you use any illicit or recreational drugs? Yes [email or web address] Information not available 10/02/2022 Do you or have you ever used any other forms of tobacco or nicotine? No [email or web address] Information not available 10/02/2022 What is your level of alcohol consumption? None [email or web address] Information not available 10/02/2022 Mental Status None recorded. Family History Relationship Description Onset Age of this Age Resolved Age Notes LastModified by Organization Details LastModified Time Father No current problems or disability [email or web address] Not available 10/02 13:10:42 Mother No current problems or disability [email or web address] Not available 10/02 13:10:42 Medical History No medical history recorded. Immunizations Vaccine Type Date Status Note Provider Nam e and Address Organization Details Recorded Time Td (adult), 5 Lf tetanus toxoid, preservative free, adsorbed 5 completed Madeleine Daniel null, [place] - [facility] 12/27/2022 10:18:41 Td (adult), 5 Lf tetanus toxoid, preservative free, adsorbed 9 completed Madeleine Ramsay null, [place] - [facility] 12/27/2022 10:18:41 Past Encounters Encounter ID Performer Location Encounter Start Date Encounter Closed Date Diagnosis/Indication Diagnosis SNOMED-CT Code Diagnosis ICD10 Code Diagnosis Note [id number] [address] [place] [address] 10/17/2020 11:28:09 10/17/2020 13:38:29 [id number] [address] [place] [address] 11/30/2020 09:25:29 11/30/2020 10:47:09 [id number] [address] [place] [address] 10/06/2018 14:41:16 10/06/2018 15:20:38 [id number] [address] [place] [address] 03/24/2018 19:42:48 03/24/2018 20:23:07 [id number] [address] [place] [address] 03/26/2019 14:36:28 03/26/2019 15:15:50 [id number] Trevor Oakes DO [address] [place] [address] 10/02/2022 12:37:55 10/02/2022 14:11:36 Rib pain 441427770 R07.81 recommend strappingr estice/hea t prntopical analgesiam uscle relaxerRev iewed with patient potential adverse side effects of the medication . He should avoid NSIDS because of his history of kidney diseasePat ient advised to follow up as needed for worsening symptoms or no improvemen Ariane juarez concerning red flags with patient and reasons to follow up in the Emergency Department urgently. [id number] Pradip Michelle MD [address] [place] [address] 12/27/2022 10:04:26 12/27/2022 11:02:01 Acute pharyngitis 806010761 J02.9 Staphyloco ccal infection of skin 220715938 B95.8 This appears to be a bacterial skin infection, most commonly caused by Staphyloco ccus.Start and complete antiboitic s Hypertensive urgency 443 [id number] I16.0 Patient advised to go to ER.He signed AMA form and prefers to contact his PCP Health Concerns Section Related Observation LastModified by Organization Detai ls LastModified Time None Recorded Concern Status LastModified by Organization Details LastModified Time None Recorded Advance Directives Directive None Recorded Payers Insurance Date Sequence Insurance Name Policy Number Policy Ortiz Covered Member ID Ortiz Member ID Guarantor Name 12/27/[address] [facility] (MEDICAID HMO) [id number] Raúl Mayen [id number] Raúl Mayen Notes Date Note Type Note Provider Name and Address Organization Details Recorded Time 3 text/html ROS as noted in the HPI 37 yo male c/o right sided rib and anterior chest wall pains/p fall 3 d agoTripped over his dogs ball at the bottom of the stairs and landed against the side of his bath tub+ pain and swelling and bruisinghe did not take any OTC meds sharp pain when he takes a deep breath Trevor Oakes, [address] [place], [address], [place] - [facility] 10/02/2022 14:10:28 3 text/html Sore throatReported by PatientSore ThroatFor associated symptoms, patient reportsnasal congestionbut reportsno cough,no sputum production,no shortness of breath,no wheezing,no sinus pain,no vomiting,no nausea, andno hoarseness. For source of patient information, patient reportsinformation obtained from patient. For location, patient reportsthroat. For severity, patient reportsmild. For quality, patient reportshurts to swallow. For onset/timing, patient reports3 weeks. Has been told it was allergies and tried Flonase and antihistamine Pradip Michelle MD [address] [place] [address] [address] [place], [address], [place] - [facility] 12/27/2022 12:58:47
--- OUTSIDE RECORDS SUMMARY | 2025-01-31 07:17 | XMS_ITS | Clinical Summary ---
Author Organization [facility] Address [address] [address] Phone Care Team Providers Care Executive Steward Name Role Phone Pranav Bailey MD Primary Care Provider [phone] Allergies Active Allergy Reactions Criticality Noted Date Comments Beesix Unknown 05/14/2015 Codeine Nausea Only 05/14/2015 Other reaction(s): stomach upset Medications gabapentin (NEURONTIN) 300 MG capsule Take 1 capsule by mouth 3 (three) times a day. Active predniSONE (DELTASONE) 50 MG tablet Take 1 tablet (50 mg total) by mouth daily with breakfast. 5 tablet 11/25/2018 Active cyclobenzaprine (FLEXERIL) 10 MG tablet Take 1 tablet (10 mg total) by mouth 3 (three) times a day as needed. 15 tablet 11/25/2018 Active Social History Tobacco Use Types Packs/Day Years Used Date Smoking Tobacco: Every Day Smokeless Tobacco: Never Alcohol Use Standard Drinks/Week Comments Yes 0 (1 standard drink = 0.6 oz pur e alcohol) sometimes Education Answer Date Recorded Are you interested in more education? Not on alfredo e 11/04/2022 Are you concerned about learning? Not on file 11/04/2022 No 11/04/2022 No 11/04/2022 Digital Access Answer Date Recorded No 12/02/2022 No 12/02/2022 Reliable internet access at home? Not on file 12/02/2022 Device with a working camera? Not on file Sex and Gender Information Value Date Recorded Sex Assigned at Male 11/25/2018 2:53 PM EDT Legal Sex Male 9:17 PM EDT Gender Identity Male 11/25/2018 2:53 PM EDT Sexual Orientation Straight 11/25/2018 2: 53 PM EDT Last Filed Vital Signs Vital Sign Reading Time Taken Comments Blood Pressure 144/90 11/25/2018 2:50 PM EDT Pulse 76 11/25/2018 2:50 PM EDT Temperature 36 C (96.8 F) 11/25/2018 2:50 PM EDT Respiratory Rate 18 11/25/2018 2:50 PM EDT Oxygen Saturation 99% 11/25/2018 2:50 PM EDT Inhaled Oxygen Concentration - - Weight 158.8 kg (350 lb) 11/25/2018 2:50 PM EDT Height 193 cm (6' 4 ) 11/25/2018 2:50 PM EDT Body Mass Index 42.6 11/25/2018 2:50 PM EDT Plan of Treatment Health Maintenance Due Date Last Done Comments LIPID PANEL 1983 DEPRESSION SCREENING 1995 SMOKING Hx and SMOKELESS TOBACCO SCREENING 1996 HEPATITIS C SCREENING 2001 HIV ONE-TIME SCREENING (18-6 5 YEARS) 2001 PNEUMOCOCCAL VACCINES (0-49 years) (1 of 2 - PCV) 2002 COVID-19 VACCINE ( - 2023-2 5 season) 2024 Adult Td,Tdap Booster 04/02/2029 04/02/2019 , 12/05/2014 HEPATITIS A VACCINES Aged Out No long er eligible based on patient's age to complete this topic HIB VACCINES Aged Out No longer eligi ble based on patient's age to complete this topic MENINGOCOCCAL VACCINES (ACWY) Aged Out No longer eligible based on patient's age to complete this topic MENINGOCOCCAL VACCINES (B) Aged Out N o longer eligible based on patient's age to complete this topic Medical Devices Not on file Insurance [facility] [facility] Ac[facility] SPRINGFIELDLineRate SystemsK[facility] PetSitnStayKINGS [facility] PetSitnStayK[facility] FasterPants [facility] Care Teams Executive Steward Relationship Specialty Start Date End Date Pranav Bailey MD [address] [place] [id number] PCP - General Medical Oncology 03/15/22 Additional Source Comments The information contained in this document represents components of the legal health record. It is not the complete legal health record.[facility]
[2025-01-31 07:26] LABS: MANUAL DIFF FLAG NO
[2025-01-31 07:55] LABS: Hematocrit 45.8 % (42.0-52.0); Hemoglobin 16.2 g/dl (14.0-18.0); Imm Gran Abs Auto 0.03 X10*3/uL (0.00-0.03); Imm Gran Pct Auto 0.3 % (0.0-0.4); Lymphocytes Absolute Auto 2.4 X10*3/uL (1.2-4.9); Mean Corpuscular HGB Conc 35.4 g/dl (31.0-36.0); Mean Corpuscular Hemoglobin 30.3 pg (27.0-33.0); Mean Corpuscular Volume 85.8 fL (80.0-98.0); NRBC Abs Auto 0.000 X10*3/uL (0.0-0.012); NRBC Pct Auto 0.0 /100WBC (0.0-0.2); Platelet Count 295 X10*3/uL (160-400); Red Blood Count 5.34 X10*6/uL (4.60-5.80); White Blood Count 9.0 X10*3/uL (4.8-10.8)
[2025-01-31 08:22] LABS: Alanine Aminotransferase 38 U/L (0-40); Albumin Level 5.0 g/dL (3.5-5.0); Alkaline Phosphatase 71 U/L (39-117); Amylase 136 U/L (28-100); Anion Gap 15 (12-20); Aspartate Amino Transferase 27 U/L (5-37); Blood Urea Nitrogen 25 mg/dL (9-16); Calcium 9.4 mg/dL (8.4-10.2); Carbon Dioxide 21 mmol/L (22-29); Chloride 108 mmol/L (96-108); Cholesterol 129 mg/dL (<200); Estimated Glomerular Filt Rate > 60; HDL Cholesterol 35 mg/dL (>40); Potassium 3.7 mmol/L (3.3-5.1); Sodium 140 mmol/L (135-145); Total Protein 7.9 g/dL (6.5-8.0); Triglycerides 152 mg/dL (<150)
[2025-01-31 08:32] LABS: Lipase 493 U/L (8-78)
[2025-01-31 08:44] LABS: Prostate Specific Antigen 0.26 ng/mL (<0.05-4.0)
== END 2025-01-31 07:15 | disposition home or self-care (01) ==
LOC: HO.LAB 07:14
PROVIDERS: PCP Internal Medicine Medical Oncology; Visit Provider Internal Medicine Medical Oncology
DX: I10 Essential (primary) hypertension (principal); E66.01 Morbid (severe) obesity due to excess calories; R74.8 Abnormal levels of other serum enzymes; N52.9 Male erectile dysfunction, unspecified
CPT/HCPCS: 36415; 80053; 80061; 82150; 83690; 84153; 84403; 85025

== ENCOUNTER 2025-05-05 05:34 | Emergency (ER) | payer OTHER, SELFPAY ==
--- OUTSIDE RECORDS SUMMARY | 2024-02-09 11:30 | XMS_ITS ---
Author Organization Pranav Bailey III, MD Address [address] [place] [address] [place] [address] Care Team Providers Care Spring Coverer Name Role Phone Dr. Pranav Bailey III Primary Care Provider Allergies Allergen (clinical drug ingredient) Drug/Non Drug [...] Date Provider Diagnosis Pranav Bailey III, MD [address] [place] [address] [place] [address] 02/09/2024 Pranav Bailey Essential hypertensi on I10 [...] Provider Name:Pranav Boydrne , 06/03/2025 02:00:00 PM, [address] [place] [address], [place] [address], [place], [address], Progress Notes * GEORGETTE MOORE RDOB:1985 (39 yo M)Acc No.[id number]:02/09/2024 Progress Notes Patient: GEORGETTE SNEED Provider: Jaqueline Bialey MD :1985 A ge:38 Y S ex:Male Date:02/09/2024 Address:[address] [place] [address] Subjective: * Chief Complaints: * 1 . [...] elevated CPK, 2011. Dehydration with mild rhabdomyolysis, [facility], Arredondo's cyst left knee with torn meniscus, bee sting anaphylaxis [facility] emergency room 2014, 12/2014, left third finger tendon laceration, 2008, negative polysomnogram, [facility], chronic elevation of CPK and aldolase with possible myopathy, Chronic back pain treated with narcotic medication, Subcutaneous mass left elbow, Left knee pain, Chronic fatigue. * Surgical History: r epair of floor of right orbit. After traumatic injury 2008, pilonidal cystectomy 2007, bilateral myringotomy 1984, left knee chondroplasty, partial meniscectomy, Dr. Boyd, [facility] 2012, left third finger tendon laceration repair, Dr. Boyd, [facility] 12/2014, Disectomy 01/2019. 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 He is single with no children. * [...] 0 02/09/2024 Generated for Rizwani ng/Praneeth/eTransmitting on: 05:50 AM EDT History and Physical Notes * HPI (History [...]
--- OUTSIDE RECORDS SUMMARY | 2024-02-14 07:30 | XMS_ITS ---
Author Organization Pranav Bailey III, MD Address [address] [place] [address] [place] [address] Care Team Providers Care Veneer Stock Grader Name Role Phone Dr. Pranav Bailey III [...] able to build and schedule appointment with Day Care Provider. Patient is being seen 06/05/24 @ 11:10am [...] Date Provider Diagnosis Pranav Bailey III, MD [address] [place] [address] [place] [address] 02/14/2024 Pranav Bailey Essential hypertensi on I10 [...] Provider Name:Pranav Bailey , 06/03/2025 02:00:00 PM, [address] [place] [address], [address], Progress Notes * GEORGETTE MOORE RDOB:1985 (38 yo M)Acc No.[id number]:02/14/2024 Patient: GEORGETTE SNEED Provider: Jaqueline Bailey MD :1985 A ge:38 Y S ex:Male Date:02/14/2024 Address:[address] [place] [address] Subjective: * Chief Complaints: * C hronic [...] of provider rendering services: { ...} [address] [facility] [address] L ocation of patient: shirley thorpe listed [...] 1985left knee chondroplasty, partial meniscectomy, Dr. Boyd, [facility] 2012left third finger tendon laceration repair, Dr. 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 [...] Date - 01/17/2024) (Collection Date - 01/17/2024)?ValueReference Range?Bkmzzs276085-501 - mmol/L ?Bilirubin Total1.00.0-1.0 - mg/dL?Aspartate Amino Qkytppmlcyo326- 37 - U/L?Alanine Zzvjswekcrvihmjq083-58 - U/L?Total Protein7.76.5- 8.0 - g/dL?Albumin Level4.83.5-5.0 - g/dL?Alkaline Ouacracpxzs18 39-117 - U/L?Potassium3.53.3-5.1 - mmol/L?Pmisuojc39310-443 - mmol/L?Carbon Zpxeume0725-48 - mmol/L?Anion Tsc5097-05 - ?Blood Urea Gigvpsmy51I4-59 - mg/dL?Creatinine1.43H0.5-1.4 - mg/dL ?Estimated Glomerular Filt Rate55-?Glucose Tggwgr9905-456 - mg/dL ?Calcium9.68.4-10.2 - mg/dL ???Lab:Creatine Kinase Total (Order Date - 01/17/2024) (Collection Date - 01/17/2024)?ValueReference Range?Creatine Kinase Zaizp079G07-106 - U/L Assessment: * Assessment: 1. E [...] 02/14/2024 Generated for Hima collazo/Praneeth/Sanjanaransmitting on: 1 05:49 AM EDT History and Physical Notes * HPI (History of Present Illness) Category Sub-Category Detail Notes Telehealth Location of [facility] rendering services:: {...} [address] [place] [address] [place] [address] Location of patient:: address listed in demographics [...]
--- OUTSIDE RECORDS SUMMARY | 2024-03-01 12:00 | XMS_ITS ---
Author Organization Pranav Bailey III, MD Address [address] [place] [address] [address] [place] [address] Care Team Providers Care Family Resource Management Professor Name Role Phone Dr. Pranav Bailey III [...] Date Provider Diagnosis Pranav Bailey III, MD [address] [place] [address] [place] [address] 03/01/2024 Pranav Bailey Essential hypertensi on I10 [...] comes from the emergency room record at [facility]. He has never been given epinephrine. [...] Provider Name:Pranav Bailey , 06/03/2025 02:00:00 PM, [address] [place] [address], [place] [address], [place], [address], Progress Notes * GEORGETTE MOORE RDOB:1985 (38 yo M)Acc No.[id number]:03/01/2024 Patient: Rolanda GEORGETTE KING Provider: Jaqueline Bailey MD :1985 A ge:38 Y S ex:Male Date:03/01/2024 Address:[address] [place] [phone] Subjective: * Chief Complaints: * H ypertensionAllergiesHypogonadismMorbid [...] ocation of provider rendering services: { ...} [address] [place] [address] [address] [facility] [address] L ocation of patient: shirley thorpe listed [...] 1985left knee chondroplasty, partial meniscectomy, Dr. Boyd, [facility] 2012left third finger tendon laceration repair, Dr. 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 He is single with no children. [...] 01/17/2024) (Collection Date - 01/17/2024)?ValueReference Range?Creatine Kinase Ynvro618R81-270 - U/L ???Lab:Comprehensive Met. Panel (Order Date - 01/17/2024) (Collection Date - 01/17/2024)?ValueReference Range?Axksei458992-978 - mmol/L ?Bilirubin Total1.00.0-1.0 - mg/dL?Aspartate Amino Epyojosjqlq427- 37 - U/L?Alanine Xhqlmpvhhyqpoomh168-04 - U/L?Total Protein7.76.5- 8.0 - g/dL?Albumin Level4.83.5-5.0 - g/dL?Alkaline Rfukqriylhp66 39-117 - U/L?Potassium3.53.3-5.1 - mmol/L?Ehuhgivo81598-045 - mmol/L?Carbon Zqicctj7660-66 - mmol/L?Anion Ktt5337-69 - ?Blood Urea Btspbwgo13Y7-35 - mg/dL?Creatinine1.43H0.5-1.4 - mg/dL ?Estimated Glomerular Filt Rate55-?Glucose Icojmw2305-831 - mg/dL ?Calcium9.68.4-10.2 - mg/dL ???Lab:Erythrocyte Sedimentation [...] -?E. coli STECNot DetectedNot Detect. -?E. coli K918Tfu applicableNot Detect. -?Shigella sp./EIECNot DetectedNot Detect. -?CryptosporidiumNot [...] comes from the emergency room record at [facility]. He has never been given epinephrine. [...] 0 03/01/2024 Generated for Hima collazo/Praneeth/Rachelsmitting on: 1 05:49 AM EDT History and Physical Notes * HPI (History of Present Illness) Category Sub-Category Detail Notes Telehealth Location of [facility] rendering services:: {...} [address] [facility] [address] [place], [place] [id number] Location of patient:: address listed in demographics [...]
--- OUTSIDE RECORDS SUMMARY | 2024-04-02 13:15 | XMS_ITS ---
Author Organization Pranav Bailey III, MD Address [address] [place] [address] [place] [address] Care Team Providers Care Principal Product Manager Name Role Phone Dr. Pranav Bailey III Primary Care Provider REASON FOR VISIT Follow up Social History Sex Assigned At : Social History Observation Description Sex Assigned At Male Encounters Encounter Location Date Provider Diagnosis Pranav Bailey III, MD [address] [place] [address] [place] [address] 04/02/2024 Pranav Bailey Plan Of Treatment Next Appt Details Provider Name:Pranav Bailey , 06/03/2025 02:00:00 PM, [address] [place] [address] [facility], [address], Progress Notes * GEORGETTE MOORE RDOB:1985 (39 yo M)Acc No.[id number]:04/02/2024 Progress Notes Patient: Rolanda FERNANDO GEORGETTE Parsons Provider: Jaqueline Bailey MD :1985 A ge:38 Y S ex:Male Date:04/02/2024 Address:[address] [place], [place] [id number] Subjective: * Chief Complaints: * 1 . [...] 0 04/02/2024 Generated for Hima collazo/Praneeth/Rudolph on: 1 05:50 AM EDT
--- OUTSIDE RECORDS SUMMARY | 2024-06-05 07:00 | XMS_ITS ---
Author Organization [facility] Address [address] [place] [address] Care Team Providers Care Retail Event Assistant Name Role Phone Leo PANCHAL, Pranav Primary Care Provider Unavailab Pranav Galindo Unavailable [phone] Yousif Delaney, Brian Unavailable REASON FOR VISIT diarrhea Encounters Encounter Location Date Provider Diagnosis [facility] [address] [facility] [address] [place] [address] 06/05/2024 Brian Dodd Jr Plan Of Treatment Next Appt Details Provider Name:Pranav Ashtyn Galo , 05/13/2025 02:40:00 PM, [address], [address], [place], [address], Progress Notes * GEORGETTE MOOREDOB:1985 ( 39 yo M)Acc No.[id number]:06/05/2024 Progress Notes Patient: GEORGETTE SNEED Provider: Anna Marie Dodd MD :1985 A ge:38 Y S ex:Male Date:06/05/2024 [address] [place] Pcp:Pranav Bailey MD Subjective: * Chief Complaints: * 1 . Diarrhea. * Medical History: Objective: * Vitals: Assessment: Plan: * Treatment: * * The named appointment provid er may or may not be the originator of this progress note, and it is not deemed complete until electronically signed by the appointment provider. Sign off status: Pending * Provider: Anna Marie Dodd MD Date: 08/05/2023 Generated for Hima collazo/Praneeth/Albinoitting on: 05:49 AM EDT
--- OUTSIDE RECORDS SUMMARY | 2024-06-10 06:45 | XMS_ITS ---
Author Organization Pranav Bailey III, MD Address [address] [place] [address] [place] [address] Care Team Providers Care Remote Sensing Specialist Name Role Phone Dr. Pranav Bailey III [...] Date Provider Diagnosis Pranav Bailey III, MD [address] [place] [address] [place] [address] 06/10/2024 Pranav Bailey Essential hypertensi on I10 [...] Name:Pranav Gonzalez Leo , 06/03/2025 02:00:00 PM, [address] [place] [address] DR [facility] Lucy, [place], [address], Progress Notes * GEORGETTE MOORE RDOB:1985 (39 yo M)Acc No.[id number]:06/10/2024 Progress Notes Patient: GEORGETTE SNEED Provider: Jaqueline Bailey MD :1985 A ge:38 Y S ex:Male Date:06/10/2024 Address:[address] [place], [place] [phone] Subjective: * Chief Complaints: * 1 . [...] elevated CPK, 2011. Dehydration with mild rhabdomyolysis, [facility], Arredondo's cyst left knee with torn meniscus, bee sting anaphylaxis [facility] emergency room 2014, 12/2014, left third finger tendon laceration, 2008, negative polysomnogram, [facility], chronic elevation of CPK and aldolase with possible myopathy, Chronic back pain treated with narcotic medication, Subcutaneous mass left elbow, Left knee pain, Chronic fatigue. * Surgical History: r epair of floor of right orbit. After traumatic injury 2008, pilonidal cystectomy 2007, bilateral myringotomy 1984, left knee chondroplasty, partial meniscectomy, Dr. Boyd, [facility] 2012, left third finger tendon laceration repair, Dr. Boyd, [facility] 12/2014, Disectomy 01/2019. * Hospitalization/Major Diagno [...] Date: 08/11/2023 Generated for Hima collazo/Praneeth/Albinoitting on: 05:48 AM EDT History and Physical Notes * [...]
--- OUTSIDE RECORDS SUMMARY | 2024-06-10 12:00 | XMS_ITS ---
Author Organization Pranav Bailey III, MD Address [address] [place] [address] [place] [address] Care Team Providers Care Water Rights Specialist Name Role Phone Dr. Pranav Bailey III Primary Care Provider REASON FOR VISIT No Show Social History Sex Assigned At : Social History Observation Description Sex Assigned At Male Encounters Encounter Location Date Provider Diagnosis Pranav Bailey III, MD [address] [place] [address] [place] [address] 06/10/2024 Pranav Bailey Plan Of Treatment Next Appt Details Provider Name:Pranav Bailey , 06/03/2025 02:00:00 PM, [address] [place] [address] [facility] [place], [address], Progress Notes * GEORGETTE MOORE RDOB:1985 (38 yo M)Acc No.[id number]:06/10/2024 Patient: GEORGETTE SNEED :1985 A ge:38 Y S ex:Male Address:[address] [place] [address], [address] * true * Date: Generated for Rizwani vale/Faemilieg/eTransmitting on: 05:48 AM EDT
--- OUTSIDE RECORDS SUMMARY | 2024-06-27 03:30 | XMS_ITS ---
Author Organization [facility] Address [address] [facility] [address] [place] [address] Care Team Providers Care Entry Level Marketing Assistant Name Role Phone Pranav Bailey MD Primary Care Provider Unavailab Pranav Galindo Unavailable [phone] REASON FOR VISIT chronic diarrhea,abnormal wt loss Encounters Encounter Location Date Provider Diagnosis [facility] Outpatient [address] [place], [place] [id number] 06/27/2024 Pranav Galo Chronic diarrhea K 52.9 and Weight loss R63.4 Assessments Encounter Date Diagnosis (ICD Code) Assessment Notes Treatment Notes Treatment Clinical Notes Section Notes 06/27/2024 Chronic diarrhea (ICD-10 - K52.9) 06/27/2024 Weight loss (ICD-10 - R63.4) Plan Of Treatment Next Appt Details Provider Name:Pranav Galo , 05/13/2025 02:40:00 PM, [address] [facility], Suite [facility], [place], [address], Progress Notes * GEORGETTE MOOREDOB:1985 ( 39 yo M)Acc No.[id number]:06/27/2024 COLON WITH MAC Patient: GEORGETTE SNEED Provider: Jaqueline Galo MD :1985 A ge:38 Y S ex:Male Date:06/27/2024 Address: [address] [id number] Pcp:Pranav Bailey MD Subjective: * Chief Complaints: * 1 . Chronic diarrhea,abnormal wt loss. * Medical History: Objective: * Vitals: Assessment: * Assessment: 1. C hronic diarrhea - K52.9 (Primary) 2 . W eight loss - R63.4 ? Plan: * Treatment: * Procedure Codes: 4 5380 COLONOSCOPY AND BIOPSY * * The named appointment provid er may or may not be the originator of this progress note, and it is not deemed complete until electronically signed by the appointment provider. Sign off status: Pending * Provider: Jaqueline Galo MD Date: 1 08/28/2023 Generated for Hima collazo/Praneeth/Albinoitting on: 1 05:50 AM EDT
--- OUTSIDE RECORDS SUMMARY | 2024-08-29 07:00 | XMS_ITS ---
Author Organization [facility] Address [address] [place] [address] Care Team Providers Care Dispatcher Chief Oil Name Role Phone Pranav Bailey MD Primary Care Provider Unavailab Pranav Galindo Unavailable [phone] REASON FOR VISIT Patient presents today for diarrhea, wt loss Encounters Encounter Location Date Provider Diagnosis [facility] [address] [facility] [address] [place] [address] 08/29/2024 Pranav Galo Plan Of Treatment Next Appt Details Provider Name:Pranav Galo , 05/13/2025 02:40:00 PM, [address], [address], [place], [address], Progress Notes * GEORGETTE MOOREDOB:1985 ( 39 yo M)Acc No.[id number]:08/29/2024 Progress Notes Patient: GEORGETTE SNEED Provider: Jaqueline Galo MD :1985 A ge:39 Y S ex:Male Date:08/29/2024 Address: [address] [id number] Pcp:Pranav Bailey MD Subjective: * Chief Complaints: * 1 . Patient presents today for diarrhea, wt loss. * Medical History: Objective: * Vitals: Assessment: Plan: * Treatment: * * The named appointment provid er may or may not be the originator of this progress note, and it is not deemed complete until electronically signed by the appointment provider. Sign off status: Pending * Provider: Jaqueline Galo MD Date: 0 08/29/2024 Generated for Hima collazo/Praneeth/Rudolph on: 1 05:49 AM EDT
--- OUTSIDE RECORDS SUMMARY | 2024-10-21 11:30 | XMS_ITS ---
Author Organization Pranav Bailey III, MD Address [address] [place] [address] [place] [address] Care Team Providers Care Buyer Broker Name Role Phone Dr. Pranav Bailey III [...] Date Provider Diagnosis Pranav Bailey III, MD [address] [place] [address] [place] [address] 10/21/2024 Pranav Bailey Essential hypertensi on I10 [...] Provider Name:Pranav Cabrerane , 06/03/2025 02:00:00 PM, [address] [place] [address], [place] [address], [place], [address], Progress Notes * GEORGETTE MOORE RDOB:1985 (39 yo M)Acc No.[id number]:10/21/2024 Progress Notes Patient: GEORGETTE SNEED Provider: Jaqueline Bailey MD :1985 A ge:39 Y S ex:Male Date:10/21/2024 Address:[address] [place] [address] Subjective: * Chief Complaints: * 1 . [...] elevated CPK, 2011. Dehydration with mild rhabdomyolysis, [facility], Arredondo's cyst left knee with torn meniscus, bee sting anaphylaxis [facility] emergency room 2014, 12/2014, left third finger tendon laceration, 2008, negative polysomnogram, [facility], chronic elevation of CPK and aldolase with possible myopathy, Chronic back pain treated with narcotic medication, Subcutaneous mass left elbow, Left knee pain, Chronic fatigue. * Surgical History: r epair of floor of right orbit. After traumatic injury 2008, pilonidal cystectomy 2007, bilateral myringotomy 1984, left knee chondroplasty, partial meniscectomy, Dr. Boyd, [facility] 2012, left third finger tendon laceration repair, Dr. Boyd, [facility] 12/2014, Disectomy 01/2019. 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 He is single with no children. [...] MD Date: 0 10/21/2024 Generated for Rizwani ng/Praneeth/eTransmitting on: 1 05:50 AM EDT History and Physical Notes [...]
--- OUTSIDE RECORDS SUMMARY | 2025-01-28 09:30 | XMS_ITS ---
Author Organization Pranav Bailey III, MD Address [address] [place] [address] [address] [place] [address] Care Team Providers Care Credit Product Analyst Name Role Phone Dr. Pranav Bailey III Primary Care Provider Allergies Allergen (clinical drug ingredient) Drug/Non Drug Allergy documented on EMR Reaction Allergy Type Onset Date Status Bee Sting Unknown Allergy Active codeine Codeine Sulfate Unknown Drug Allergy A ctive Results Component Value Reference Range Notes Lipid Panel Reviewed date:02/07/2025 02:17:10 PM Interpretation: Performing Lab:[facility], [address] [place] [phone] Notes/Report: Triglycerides 152 <150 mg/dL Desirable Triglyceride: [...] Amylase Reviewed date:02/07/2025 02:17:10 PM Interpretation: Performing Lab:[facility], [address] [place] [phone] Notes/Report: Amylase 136 28-100 U/L Lipase Reviewed date:02/07/2025 02:17:10 PM Interpretation: Performing Lab:[facility], [address] [place] [phone] Notes/Report: Lipase 493 8-78 U/L Testosterone, Total Reviewed date:02/07/2025 02:17:10 PM Interpretation: Performing Lab:[facility], [address] [place] [phone] Notes/Report: Testosterone, Total 331 909-5151 ng/dL For additional information, please refer to http://education.Everspring.com/faq/ TjafuQebshfwmlyhkOZNLKTUAQ251 (This link is being provided for informational/ educational purposes only.) This test was developed and its analytical performance characteristics have been determined by [employer] [place], [place]. It has not been cleared or approved by the U.S. Food and Drug Administration. This assay has been validated pursuant to the CLIA regulations and is used for clinical purposes. THIS TEST WAS PERFORMED AT: [facility]/[address] [address] VIDYA CAMACHO MD,PHD REASON FOR VISIT [facility] ER 01/19/25- 01/23/25, Dx: Acute Pancreatitis, Hospital [...] Problem Status W/U Status Risk Notes Problem [id number] Idiopathic acute pancreatitis without infection or necrosis [...] Date Provider Diagnosis Pranav Bailey III, MD [address] [place] [address] [place] [address] 01/28/2025 Pranav Bailey Essential hypertensi on I10 [...] Provider Name:Pranav Bailey , 06/03/2025 02:00:00 PM, [address] [place] [address] AHSAN MYRICK, [place], [address], Progress Notes * GEORGETTE MOORE RDOB:1985 (39 yo M)Acc No.[id number]:01/28/2025 Patient: GEORGETTE SNEED Provider: Jaqueline Bailey MD :1985 A ge:39 Y S ex:Male Date:01/28/2025 Address:[address] [place] [address] Subjective: * Chief Complaints: * H ER 01/19/25- 01/23/25, Dx: Acute PancreatitisHospital follow-upIdiopathic acute pancreatitisElevated creatine kinaseHypertensionTobacco dependenceLumbar radiculopathyHypogonadism * HPI: C OVID-19 Screening: He was admitted to [facility] January 19, 2025 through the emergency [...] 1985left knee chondroplasty, partial meniscectomy, Dr. Boyd, [facility] 2012left third finger tendon laceration repair, Dr. 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 He is single with no children. [...] - 01/20/2025 11:04 AM)?ValueReference Range?Immunoglobulin G Subclass 9229899-107 - mg/dL?Immunoglobulin G Subclass 5188831-547 - mg/dL?Immunoglobulin G Subclass 17057-666 - mg/dL?Immunoglobulin G Subclass 412.74-86 - mg/dL?Immunoglobulin G Hyxxv543846-4231 - mg/dL * Lab:Lipase * Collection Date 01/23/2025 01/20/2025 Collection Time 05:44 AM 06:12 AM Order Date 01/23/2025 01/20/2025 Lipase 357 H (Ref Range: 8-78 U/L) 469 H (Ref Range: 8-78 U/L) ???Lab:UA CC w/rflx Micro + Cult (Order Date - 01/19/2025) (Collection Date & Time - 01/19/2025 12:19 PM)?ValueReference Range?Color UrineYellow -?Appearance UrineClear-?PH8.55.0-9.0 -?Glucose Urine UA100 ANegative - mg/dL?Urine BloodNegativeNegative -?Specific [place] - Urine>= 1.030H1.005-1.025 -?Urine ProteinTraceNeg-Trace - mg/dL [...] 1.0 - mg/dL?Bilirubin Direct0.20.0-0.5 - mg/dL?Aspartate Amino Njntyzxuqba851-99 - U/L?Alanine Tzriozsxuvwjkjpi282-68 - U/L?Total Protein7.06.5-8.0 - g/dL?Albumin Level4.43.5-5.0 - g/dL?Alkaline Ntcqeweuvgw2707-801 - U/L ???Lab:HIV Ab/Ag (Order Date - [...] 01/28/2025 Generated for Rizwani vale/Praneeth/eTransmitting on: 1 05:50 AM EDT History and [...]
--- OUTSIDE RECORDS SUMMARY | 2025-02-12 10:00 | XMS_ITS ---
Author Organization Pranav Bailey III, MD Address [address] [place] [address] [address] [place] [address] Care Team Providers Care Pill Coater Name Role Phone Dr. Pranav Bailey III Primary Care Provider [phone] Allergies Allergen (clinical drug ingredient) Drug/Non Drug [...] Problem Status W/U Status Risk Notes Problem [id number] Moderate obesity (E66.9) Active confirmed His body [...] Date Provider Diagnosis Pranav Bailey III, MD [address] [place] [address] [address], [place] [phone] 02/12/2025 Pranav Bialey Essential hypertensi on I10 ; Idiopathic acute [...] Provider Name:Pranav Bailey , 06/03/2025 02:00:00 PM, [address] [place] [address], [id number], Progress Notes * GEORGETTE MOORE RDOB:1985 (39 yo M)Acc No.[id number]:02/12/2025 Progress Notes Patient: Rolanda RODRIGUEZTONY GEORGETTE Parosns Provider: Jaqueline Bailey MD :1985 A ge:39 Y S ex:Male Date:02/12/2025 Address:[address] [place] [id number] Subjective: * Chief Complaints: * I diopathic [...] 1985left knee chondroplasty, partial meniscectomy, Dr. Boyd, [facility] 2013left third finger tendon laceration repair, Dr. 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 He is single with no children. [...] your next appointment,PLEASE FAX COMPLETED RESULTS TO [phone] ???Lab:C Reactive Protein (Order Date - 01/20/2025) [...] Urine UA100 ANegative - mg/dL?Urine BloodNegativeNegative -?Specific [place] - Urine>= 1.030H1.005-1.025 -?Urine ProteinTraceNeg-Trace - mg/dL ?Urine KetonesNegativeNegative - mg/dL?Nitrite UrineNegative Negative -?Leukocyte Esterase UrineNegativeNegative - ???Lab:Immunoglobulin G Subclasses (Order Date - 01/20/2025) (Collection Date & Time - 01/20/2025 11:04 AM)?ValueReference Range?Immunoglobulin G Subclass [id number] - mg/dL?Immunoglobulin G Subclass [id number] - mg/dL?Immunoglobulin G Subclass 39596-108 - mg/dL?Immunoglobulin G Subclass 412.74-86 - mg/dL?Immunoglobulin G Vyocr981566-1123 - mg/dL * Lab:Comprehensive Met. Panel * [...] Date & Time - 01/31/2025 07:25 AM)?ValueReference Range?Ogbaxvo656Y13-939 - U/L ?Clinical Info: Please fast for 12-14 hours prior tohaving this labwork done. You may have black coffee or tea with no milk or sugar. May have water,Ple ase have this testing 1 week prior to your next appointment,PLEASE FAX COMPLETED RESULTS TO [phone] ???Lab:Liver Panel (Order Date - 01/23/2025) (Collection Date & Time - 01/23/2025 05:44 AM)?ValueReference Range?Bilirubin Total0.50.0- 1.0 - mg/dL?Bilirubin Direct0.20.0-0.5 - mg/dL?Aspartate Amino Ipxvgrsoaar583-28 - U/L?Alanine Qzzogkzyyvmwuyvf084-81 - U/L?Total Protein7.06.5-8.0 - g/dL?Albumin Level4.43.5-5.0 - g/dL?Alkaline Obifdtowtxn4284-376 - U/L ???Lab:Basic Metabolic Panel (Order Date - 01/23/2025) (Collection Date & Time - 01/23/2025 05:44 AM)?ValueReference Range?Knapuz758589-414 - mmol/L?Blood Urea Vxjknlgb14G5-29 - mg/dL?Creatinine1.020.5-1.4 - mg/dL?Glucose Teukwx0101-854 - mg/dL?Calcium9.18.4-10.2 - mg/dL ?Potassium3.53.3-5.1 - mmol/L?Vzhbjvmp11450-451 - mmol/L ?Carbon Xtswiuj2460-68 - mmol/L?Anion Apq66K20-17 - ?Estimated Glomerular Filt Rate> 60-?Creatinine Clr [...] your next appointment,PLEASE FAX COMPLETED RESULTS TO [phone] * Lab:Lipid Panel * Collection Date 01/31/2025 [...] your next appointment,PLEASE FAX COMPLETED RESULTS TO [phone] ???Imaging:US abdomen limited (Order Date - 01/20/2025) [...] Bailey MD Date: 0 02/12/2025 Generated for Hmia collazo/Praneeth/eTduongsmitting on: 05:50 AM EDT History and Physical [...]
--- OUTSIDE RECORDS SUMMARY | 2025-03-05 10:30 | XMS_ITS ---
Author Organization Pranav Bailey III, MD Address [address] [place] [address] [place] [address] Care Team Providers Care Material Reclaimer Name Role Phone Dr. Pranav Bailey III Primary Care Provider [phone] Allergies Allergen (clinical drug ingredient) Drug/Non Drug [...] Date Provider Diagnosis Pranav Bailey III, MD [address] [place] [address] [place] [address] 03/05/2025 Pranav Bailey Essential hypertensi on I10 [...] Name:Pranav Gonzalez Bailey , 06/03/2025 02:00:00 PM, [address] [place] [address], [place] [address], [place], [address], Progress Notes * GEORGETTE MOORE RDOB:1985 (39 yo M)Acc No.[id number]:03/05/2025 Progress Notes Patient: GEORGETTE SNEED Provider: Jaqueline Bailey MD :1985 A ge:39 Y S ex:Male Date:03/05/2025 Address:[address] [place] [address] Subjective: * Chief Complaints: * 1 . [...] CPK, 2011. 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 * Surgical History: r epair of floor of right orbit. After traumatic injury 2008, pilonidal cystectomy 2007, bilateral myringotomy 1984, left knee chondroplasty, partial meniscectomy, Dr. Boyd, [facility] 2012, left third finger tendon laceration repair, Dr. Boyd, [facility] 12/2014, Disectomy 01/2019. 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 He is single with no children. [...] 0 03/05/2025 Generated for Hima collazo/Praneeth/Rudolph on: 1 05:49 AM EDT History and [...]
[2025-05-05 05:39] VITALS: BP 172/115; PULSE 72; RESP 16; TEMP 36.4; O2SAT 97; BMI 36.4
--- OUTSIDE RECORDS SUMMARY | 2025-05-05 05:49 | XMS_ITS | Data Portability ---
Author Organization [place] - [facility], [address] Address [address] [place] [address] Assessment No assessment recorded. Plan of Treatment Reminders Order Date Submit Date Provider Last Modified By Organization Details Last Modified Time Details Appointments None recorded. Lab rapid strep group A, throat 2022 023 [employer] [facility], [address] [place] [address], [address], 3 10:56:50 Referral None recorded. Procedures None recorded. Surgeries None recorded. Imaging XR, ribs, unilateral, w/ PA chest 2022 023 [facility], [address] [place], [address], 14:40:47 Medication Orders cephalexin 500 mg capsule [address] [facility] [address], [address] [place], [address], 3 12:56:17 cyclobenzap rine 10 mg tablet 2022 023 [email or web address] [facility] [address], [address] [place], [address], 3 10:19:01 Patient TargetsNo targets recorded. Patient Instructions Encounter Date Encounter Id Patient Instructions Last Modified By Organization Details Last Modified Time 10/02/2022 [id number] bruised rib: car e instructions [email or web address] Not available 10/02/2022 14:03:19 12/27/2022 [id number] folliculitis: care instructions Not available 12/27/2022 10:59:07 sore throat: car e instructions Not available 12/27/2022 10:56:50 Reason for Referral None Reported. Results Created Date Observation Date Name Description Value Unit Range Abnormal Flag Note LastModifiedBy Organization Detail LastModifiedTime 12/28/1912/27/2022 rapid strep group A, throa t Unknown Analyte Normal = Negati ve Not Available [address] [place], [address], 12/27/2022 10:19:45 12/28/1912/27/2022 rapid strep group A, throa t Unknown Analyte negati ve Not Available [address] [place] [address], [address], 12/27/2022 10:19:45 10/03/19 23 10/02/2022 XR, ribs, unila teral , w/ PA chest No observ ation record ed. [email or web address] [facility] [address] [place] [address], , [address], 10/02/2022 14:54:26 Result Notes None recorded. Problems Name Problem SNOMED Code Status Onset Date Resolution Date Notes Provider Name and Address Organization Details Recorded Time Migraine 26881767 Active 2022 MANSOOR kirk, [place] - [facility] 3 13:08:28 Hidradenitis suppurativa 06821025 Active 2022 MANSOOR kirk, [place] - [facility] 3 13:08:47 Kidney disease 64181192 Active 2022 has had kidney failure a few times in past few years MANSOOR kirk, [place] - [facility] 3 13:09:43 Problem Notes None recorded. Medical Equipment None Reported. Allergies Allergen ID Allergen Name Allergen Category Reaction Reaction Severity Criticality Documentation Date Start Date Code Code System Note Provider Name and Address Organization Details Recorded Time 264005 codeine medicatio n nausea Not available Not [...] Updated DateTime 3 193.04 cm 42.6 kg/m2 984245. 33 g 98.1 [degF] 96 % 96 % 79 /min 18 /min 147/101 mm[Hg] MANSOOR JUNG [place] - [facility] 3 13:13:17 Date Recorded Systolic And Diastolic Provider Name and Address Organization Details Last Updated DateTime 12/27/2022 180/115 mm[Hg] Pradip Michelle MD [address] [place], [address], [place] - [facility] 12/27/2022 10:55:46 Date Recorded Body height Body mass index (BMI) Body weight Pain severity Mcfarlane-Arredondo FACES pain rating scale Respiratory rate Oxygen saturation Oxygen saturation in Arterial blood by Pulse oximetry Heart rate Body temperature Systolic And Diastolic Systolic And Diastolic Provider Name and Address Organization Details Last Updated DateTime 3 193.04 cm 42.6 kg/m2 373531. 33 g 4 20 /min 98 % 98 % 78 /min 98.1 [degF] 187/122 mm[Hg] 174/116 mm[Hg] Madeleine Sanchez [place] - [facility] 3 10:30:03 Social History Question Answer Notes LastModified by [place] [employer] Details LastModified Time Tobacco Smoking Status Current Every Day Smoker MANSOOR kirk, [place] - [facility] 10/02/2022 13:11:14 Which Illicit Or Recreational Drugs Have You Used? Marijuana [email or web address] Information not available 10/02/2022 Have You Had Direct Contact, Or Contact During Intimacy, With Monkeypox Rash, Scabs, Or Body Fluids From A Person With Monkeypox? No [email or web address] Information not available 12/27/2022 How Much Tobacco Do You Smoke? 1 PPD [email or web address] Information not available 10/02/2022 Have You Recently Traveled Abroad? No [email or web address] Information not available 10/02/2022 Sex: Unknown Functional Status Question Answer Note LastModified by [place] [employer] Details LastModified Time Do you use any illicit or recreational drugs? Yes Information not available 10/02/2022 Do you or have you ever used any other forms of tobacco or nicotine? No Information not available 10/02/2022 What is your level of alcohol consumption? None [email or web address] Information not available 10/02/2022 Mental Status None recorded. Family History Relationship Description Onset Age of this Age Resolved Age Notes LastModified by Organization Details LastModified Time Father No current problems or disability [email or web address] Not available 10/02 13:10:42 Mother No current problems or disability [email or web address] Not available 10/02 13:10:42 Medical History No medical history recorded. Immunizations Vaccine Type Date Status Note Provider Nam e and Address Organization Details Recorded Time Td (adult), 5 Lf tetanus toxoid, preservative free, adsorbed 5 completed Madeleine Hermiston null, [place] - [facility] 12/27/2022 10:18:41 Td (adult), 5 Lf tetanus toxoid, preservative free, adsorbed 9 completed Madeleine Hermiston null, [place] - [facility] 12/27/2022 10:18:41 Past Encounters Encounter ID Performer Location Encounter Start Date Encounter Closed Date Diagnosis/Indication Diagnosis SNOMED-CT Code Diagnosis ICD10 Code Diagnosis IMO Codes Diagnosis Note [id number] [address] [place] [address] 10/17/2020 11:28:09 10/17/2020 13:38:29 [id number] [address] [place] [address] 11/30/2020 09:25:29 11/30/2020 10:47:09 [id number] [address] [place] [address] 10/06/2018 14:41:16 10/06/2018 15:20:38 [id number] [address] [place] [address] 03/24/2018 19:42:48 03/24/2018 20:23:07 [id number] [address] [place] [address] 03/26/2019 14:36:28 03/26/2019 15:15:50 [id number] Trevor Oakes DO [address] [place] [address] 10/02/2022 12:37:55 10/02/2022 14:11:36 Rib pain 091895327 R07.81 recommend strappingr estice/hea t prntopical analgesiam uscle relaxerRev iewed with patient potential adverse side effects of the medication . He should avoid NSIDS because of his history of kidney diseasePat ient advised to follow up as needed for worsening symptoms or no improvemen tVarsha juarez concerning red flags with patient and reasons to follow up in the Emergency Department urgently. [id number] Pradip Michelle MD [address] [address] [place] [address] 12/27/2022 10:04:26 12/27/2022 11:02:01 Acute pharyngitis 411125560 J02.9 Staphyloco ccal infection of skin 378354504 B95.8 This appears to be a bacterial skin infection, most commonly caused by Staphyloco ccus.Start and complete antiboitic s Hypertensive urgency [phone] [id number] I16.0 Patient advised to go to ER.He [...] Ortiz Member ID Guarantor Name 12/27/2022 1 [facility] - HEALTH NET PLAN (MEDICAID HMO) [id number] Raúl Mayen [id number] 0 Raúl Mayen Notes Date Note Type [...] takes a deep breath Trevor Oakes, [address] [place], [address], [place] - [facility] 10/02/2022 14:10:28 [...] tried Flonase and antihistamine Pradip Michelle MD [address] [place] [address] [place], [address], [place] - [facility] 12/27/2022 12:58:47
--- OUTSIDE RECORDS SUMMARY | 2025-05-05 05:49 | XMS_ITS ---
Author Name [facility] Organization Unknown History of Medication Use Medication Directions Dispensed Refills Start Date End Date Stat us predniSONETake 2 tab let (oral) 1 time per day for 5 [id number] time per [id number] 02/07/2024 activ e EpiPen 2-PakTake 1 Application (injection) 1 time per day PRN for 1 days Use as needed for severe allergic reaction. Dispense 1 two [id number] time per veyfxmmwuucn1riiaqtsfgu7.3mg/ 0.3 mL 02/07/2024 active diphenhydramine HClN o directions recordedNo date recordedtabletNo frequency recordedNo route recordedNo set duration recordedNo set duration amount mqxyfftjlhsubw65bl active Problems Problem Status Onset Date Problem Type Date of Resoluti on Source Anaphylactic shock, unspecified, initial encounter active 2024-02-07 ProblemAct [facility] Care Team Organization Name Specialty Phone Email Start Date End Da te [facility] Not Disclosed Primary Care 02/07/2024 [facility] 024
--- OUTSIDE RECORDS SUMMARY | 2025-05-05 05:49 | XMS_ITS | Data Portability ---
Author Organization [facility] Address [address] [facility],[address] [place] [address] Care Team Providers Care Bonsai Tender Name Role Phone CACHORRO FIORE Referring Provider [phone] Assessment Encounter Date Assessment Date Assessment LastModified by Organization Details LastModified Time 06/19/2017 06/19/2017 Lois Rosa is a 31 year old man with [...] booked for the same. He needs a parts delivery driver on the day of the procedure. [email or web address] Not available 06/19/2017 15:21:42 08/08/2017 08/08/2017 Lois Rosa is a 32 year old man with [...] By Organization Details Last Modified Time 06/19/2017 [id number] He was advised against bed rest lasting longer than four days and to continue activities as tolerated. Benefits of smoking cessation were discussed with him. [email or web address] Not available 06/19/2017 15:19:58 08/08/2017 [id number] He was advised against bed rest lasting longer than four days and to continue activities as tolerated. Benefits of smoking cessation were discussed with him. [email or web address] Not available 08/11/2017 11:25:19 Reason for Referral None Reported. Problems Name Problem SNOMED Code Status Onset Date Resolution Date Notes Provider Name and Address Organization Details Recorded Time Degeneration of lumbar intervertebral disc 63451162 Active Tommy montemayor MD [address] [facility] , [address], [place], [address], [place] - [facility] 7 15:12:07 Lumbar radiculopathy 194308014 Active Tommy montemayor MD [address] [facility] , [address], [place], [address], [place] [facility] 7 15:12:25 Problem Notes None recorded. Procedures Surgical History Date Name Laterality Status Provider Name and Address Organization Details Recorded Time 08/08/19 18 Lumbar Epidural steroid injection under fluoroscopic guidance completed Tommy Motta MD [address] [facility] , [address], [place], [address], [place] - [facility] 08/11/2017 11:26:04 Other completed Marcy Clarke [place] - [facility] 06/19/2017 13:33:18 Other completed Marcy Clarke [place] - [facility] 06/19/2017 13:33:51 Arthroscopic Surgery completed Marcy Clarke [place] - [facility] 06/22/2017 15:11:03 Other completed Marcy Clarke [place] - [facility] 06/19/2017 13:35:04 Other completed Marcy Clarke [place] - [facility] 06/19/2017 13:36:19 Other completed Marcy Clarke [place] - [facility] 06/19/2017 13:37:13 Imaging Results None recorded. Procedure Notes None recorded. Medical Equipment None Reported. Allergies Allergen ID Allergen Name Allergen Category Reaction Reaction Severity Criticality Documentation Date Start Date Code Code System Note Provider Name and Address Organization Details Recorded Time 40532 codeine medicatio n nausea Not available Not available 06/19/2017 2670 RxNorm Marcy Clarke [facility] [place] - [facility] 7 13:29:25 Medications Name Sig Start Date Stop Date Status Note LastModified by Organization Details LastModified Time oxycodone 10 mg tablet Take 1 tablet 4 times a day by oral route. active Not Available Not Available No t Available Vitals Date Recorded Body height Heart rate Oxygen saturation Oxygen saturation in Arterial blood by Pulse oximetry Systolic And Diastolic Provider Name and Address Organization Details Last Updated DateTime 8 193.04 cm 68 /min 98 % 98 % 161/92 mm[Hg] Marcy Clarke [place] - [facility] 8 13:58:04 Date Recorded Heart rate Oxygen saturation Oxygen saturation in Arterial blood by Pulse oximetry Body height Body mass index (BMI) Body weight Systolic And Diastolic Provider Name and Address Organization Details Last Updated DateTime 7 75 /min 97 % 97 % 193.04 cm 36.5 kg/m2 669538. 71 g 136/95 mm[Hg] Marcy Clarke [place] - [facility] 7 13:28:45 Social History Question Answer Notes LastModified by Organizat ion Details LastModified Time Tobacco Smoking Status Current Every Day Smoker Not Available [facility] 04/24/2020 03:16:10 Which Illicit Or Recreational Drugs Have You Used? Ocassional [id number] Information not available 04/24/2020 Education 12 Information no t available 06/19/2017 Live Alone Or With Others? Alone Information not available 06/19/2017 Marital Status Single Informatio n not available 06/19/2017 What Was The Date Of Your Most Recent Tobacco Screening? 08/11/2017 [id number] Information not available 04/24/2020 How Much Tobacco Do You Smoke? 1 PPD [id number] Information not available 04/24/2020 How Many Years Have You Smoked Tobacco? 15 [id number] Information not available 04/24/2020 Sex: Unknown Functional Status Question Answer Note LastModified by Organizat ion Details LastModified Time What is your level of alcohol consumption? Occasional [id number] Information not available 04/24/2020 Are you currently employed? 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 Family History Nothing Reported Notes:Mutiple family members = Back problems/ surgeries. Medical History Condition Response Arthritis Y Headache Y Migrane Y Past Encounters Encounter ID Performer Location Encounter Start Date Encounter Closed Date Diagnosis/Indication Diagnosis SNOMED-CT Code Diagnosis ICD10 Code Diagnosis IMO Codes Diagnosis Note [id number] Tommy Motta MD PAIN OFFICE [address] [place] [address] 06/19/2017 13:04:57 06/19/2017 15:27:26 Lumbar radiculopathy 415983348 M54.16 Degenerati on of lumbar intervertebral disc 50142309 M51.36 [id number] Tommy Motta MD PAIN OFFICE [address] [place] [address] 08/08/2017 13:35:16 08/11/2017 11:30:41 Lumbar radiculopathy 777449071 M54.16 Degenerati on of lumbar intervertebral disc 61558782 M51.36 Health Concerns Section Related Observation LastModified by Organization Detai ls LastModified Time None Recorded Concern Status LastModified by Organization Details LastModified Time None Recorded Advance Directives Directive None Recorded Payers Insurance Date Sequence Insurance Name Policy Number Policy Ortiz Covered Member ID Ortiz Member ID Guarantor Name 08/11/2017 1 [place] [facility] Lois Rosa [id number] Lois Rosa Notes Date Note Type Note Provider Name and Address Organization Details Recorded Time 06/19/2017 text/html Pain Management L-spineReported by PatientHPIFor quality, patient reportsthrobbing,numbes s,burning,aching,crampi ng, andtingling(he describes the pain as a cramping and aching pain in his low back which radiates into his left lower extremity with numbness and tingling . he has ain occasionally in his right lower extremity.). For severity, patient reportsworsening,interf erence with sleep, andinterference with workbut reportscurrent pain level 7/10andworst pain 10/10(he awakens 2-3 times at night due to pain.). For associated symptoms, patient reportsnumbnessbut reportsno weakness,no bladder compromise, andno bowel compromise. For duration, patient reportsconstant. For onset/timing, patient reportsgradual onset. For context, patient reportslifting. For alleviating factors, patient reportsnothing helps. For aggravating factors, patient reportsflexion,carrying ,twisting,going from sit to stand,standing, andwalking. For radiation, patient reportsbilateral le(left is greater than right). For adl (activities of daily living), patient reportswalking,sweeping , andmopping. For prior emg, patient reportsnone. For previous surgery, patient reportsnone. For previous injections, patient reportsnone. For previous pt, patient reportsdid not helpandaggravated symptoms. For previous career development specialist, patient reportsdid not help. For location, (lois rosa is a 31 year old man with complaints of low back pain radiating into both lower extremities, left is greater than right. the pain started one year ago after lifting. 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 For prior imaging, (ct scan after myelogram shows disc degeneration at l3-4, l4-5 and l5-s1 levels with a broad based disc bulge with central and bilateral neural foraminal narrowing.).He is currently on oxycodone which helps. He has trialed gabapentin and flexeril with no pain benefit. He had an injection of toradol which helped a little. Tommy Motta MD [address] [facility] , [address], [place], [address], [place] - [facility] 06/22/2017 15:47:47 08/08/2017 text/html He is here today for a lumbar epidural steroid injection under fluroscopic guidance. Tommy Motta MD [address] [place] [address] , [address], [place], [address], [facility] 08/14/2017 15:12:21
--- OUTSIDE RECORDS SUMMARY | 2025-05-05 05:50 | XMS_ITS | Patient Health Record ---
Author Organization [facility] Address [address] [place] [address] Care Team Providers Care Roving Inspector Name Role Phone Leo PANCHAL, Pranav Primary Care Provider Unavailab Pranav Galindo Unavailable [phone] Brian Dodd Jr Unavailable Allergies Allergen (clinical drug ingredient) Drug/Non Drug Allergy documented on EMR Reaction Allergy Type Onset Date Status codeine Codeine upsets stomach Drug Allergy Ac tive bee pollen Bee Pollen Unknown Drug Allergy Activ e 12 Hour Nasal Declo Unknown Drug Allergy Active Results Component Value Reference Range Notes GI PANEL Reviewed date:06/22/2024 09:30:50 AM Interpretation: Performing Lab:[facility], [address] [place] [phone] Notes/Report: Campylobacter Not Detected Not Detect. Plesiomonas [...] viability. Additionally, some organisms may be carried asymptomatically. Detection of organism targets does not imply [...] is performed by Multiplexed PCR, utilizing the PlanHQ Array. Complete Blood Count Auto Di ff Reviewed date:06/19/2024 06:50:13 PM Interpretation: Performing Lab:[facility], [address] [place] [phone] Notes/Report: White Blood Count 9.3 4.8-10.8 X10*3/uL [...] te Reviewed date:06/19/2024 06:51:12 PM Interpretation: Performing Lab:[address] [phone] Notes/Report: Erythrocyte Sedimentation Rate 3 0-15 MM/HR Patients with polycythemia and many hemoglobin abnormalities may have depressed sed rates whereas patients with anemia may have elevated sed rates. Liver Panel Reviewed date:06/19/2024 06:50:28 PM Interpretation: Performing Lab:[facility], [address] [place] [phone] Notes/Report: Bilirubin Total 0.5 0.0-1.0 mg/dL Bilirubin Direct 0.1 0.0-0.5 mg/dL Aspartate Amino Transferase 26 5-37 U/L Alanine Aminotransferase 26 0-40 U/L Total Protein 7.6 6.5-8.0 g/dL Albumin Level 4.5 3.5-5.0 g/dL Alkaline Phosphatase 63 39-117 U/L Basic Metabolic Panel Reviewed date:06/19/2024 06:51:00 PM Interpretation: Performing Lab:[address] [phone] Notes/Report: Sodium 139 135-145 mmol/L Potassium 3.6 [...] Protein Reviewed date:06/19/2024 06:51:06 PM Interpretation: Performing Lab:[facility], [address] [place] [phone] Notes/Report: C Reactive Protein 0.53 < or = 0.50 mg/dL Immunoglobulin A Reviewed date:06/24/2024 10:29:27 PM Interpretation: Performing Lab:[facility], [address] [place] [phone] Notes/Report: Immunoglobulin A 269 47-310 mg/dL THIS TEST WAS PERFORMED AT: [facility] [address] [place] [phone] CHRISTINA LI MD Transglutaminase Ab IgG Reviewed date:06/24/2024 10:29:47 PM Interpretation: Performing Lab:[facility], [address] [place] [phone] Notes/Report: Transglutaminase Ab IgG <1.0 Value Interpretation ----- <15.0 Antibody not detected > or = 15.0 Antibody detected THIS TEST WAS PERFORMED AT: [facility] [address] [place] [phone] CHRISTINA LI MD Transglutaminase IgA Reviewed date:06/24/2024 10:29:57 PM Interpretation: Performing Lab:[facility], [address] [place] [phone] Notes/Report: Transglutaminase IgA <1.0 Value Interpretation ----- <15.0 Antibody not detected > or = 15.0 Antibody detected THIS TEST WAS PERFORMED AT: [facility] [address] [place] [phone] CHRISTINA LI MD Gliadin Ab Panel Reviewed date:06/24/2024 10:30:49 PM Interpretation: Performing Lab:[facility], [address] [place] [phone] Notes/Report: Gliadin Deamidated IgA Ab <1.0 Value Interpretation ----- <15.0 Antibody not detected > or = 15.0 Antibody detected Gliadin Deamidated IgG Ab <1.0 Value Interpretation ----- <15.0 Antibody not detected > or = 15.0 Antibody detected THIS TEST WAS PERFORMED AT: [facility] [address] [phone] CHRISTINA LI MD Endomysial IgA rflx Titer Reviewed date:06/24/2024 10:33:15 PM Interpretation: Performing Lab:[facility], [address] [place] [phone] Notes/Report: Endomysial IgA Antibody Negative Negative THIS TEST WAS PERFORMED AT: [facility]/[address] [address] VIDYA CAMACHO MD,PHD Endomysial Titer TNP Pathology Reviewed date:07/06/2024 09:12:50 PM Interpretation: Performing Lab:[facility], [address] [place] [phone] Notes/Report: Reason For Referral No Information Medications Medication SIG (Take, Route, Frequency, Duration) Notes Start Date End Date Status Diphenoxylate-Atropin e 2.5-0.025 MG 1 or 2 tablets Orally Every 6 hours as needed for diarrhea; Duration: 30 days Please tell him to stop his Imodium(Loperami de) when he starts this new prescription. Thanks 06/27/2024 Active Social History Tobacco Use: Social History Observation Description Date Details (start date - stop date) Current Smoker NA - NA Tobacco Use/Smoking Question Answer Notes Patient is [...] drinks (0 point) Points 0 Interpretation Negative Section Notes: Smoker 1 ppd; no sig alcohol Problems Problem Type SNOMED Code ICD Code Onset Dates Problem Status W/U Status Risk Notes Problem Abnormal weight loss (889538231) Abnormal weight loss (R63.4) Active confirmed Problem Chronic diarrhea (212339831) Chronic diarrhea (K52.9) Active confirmed Vital Signs Blood pressure diastolic 00 mm Hg 06/19/2024 Height 6 ft 4 in in 06/19/2024 Blood pressure systolic 00 mm Hg 06/19/2024 Weight 303 lbs 06/19/2024 BMI 36.88 kg/m2 06/19/2024 Encounters Encounter Location Date Provider Diagnosis [facility] Out[facility] [address] [place] [id number] 06/27/2024 Pranav Galo Chronic diarrhea K52.9 and Weight loss R63.4 [facility] [address] [place] [phone] 06/19/2024 Pranav Galo Chronic diarrhea K52.9 and Abnormal weight loss R63.4 [facility] [address] [place] [phone] 06/05/2024 Brian Dodd Jr [facility] [address] [place] [phone] 06/27/2024 Pranav Galo Chronic diarrhea K52.9 and Abnormal weight loss R63.4 [facility] [address] [place] [phone] 08/27/2024 Pranav Galo [facility] [address] [place] [phone] 01/27/2025 Pranav Galo Assessments Encounter Date Diagnosis (ICD Code) Assessment Notes Treatment Notes Treatment Clinical Notes Section Notes 06/27/2024 Weight loss (ICD-10 - R63.4) 06/27/2024 Chronic diarrhea (ICD-10 - K52.9) 06/19/2024 Abnormal weight loss (ICD-10 - R63.4) Overall, Raúl appears well from a clinical standpoint. However, given his persistent diarrhea and significant weight loss, I did recommend a colonoscopy in the near future to assess for any possibility of inflammatory bowel disease, microscopic colitis, or neoplasm. Full consent was obtained from him for this, including risks of bleeding and perforation. In the meantime, I shall check the below laboratories and stool specimens. If by chance the celiac disease laboratories are positive we would then plan to schedule an upper endoscopy on the same day so as to obtain duodenal biopsies. Full consent was obtained from him for the GI procedures, including risks of bleeding and perforation. The procedures will be done with monitored anesthesia care. Raúl was comfortable with this plan. Thank you again for allowing me to participate in Raúl's care. I shall continue to keep you advised of his progress. 06/19/2024 Chronic diarrhea (ICD-10 - K52.9) Overall, Raúl appears well from a clinical standpoint. However, given his persistent diarrhea and significant weight loss, I did recommend a colonoscopy in the near future to assess for any possibility of inflammatory bowel disease, microscopic colitis, or neoplasm. Full consent was obtained from him for this, including risks of bleeding and perforation. In the meantime, I shall check the below laboratories and stool specimens. If by chance the celiac disease laboratories are positive we would then plan to schedule an upper endoscopy on the same day so as to obtain duodenal biopsies. Full consent was obtained from him for the GI procedures, including risks of bleeding and perforation. The procedures will be done with monitored anesthesia care. Raúl was comfortable with this plan. Thank you again for allowing me to participate in Raúl's care. I shall continue to keep you advised of his progress. 06/27/2024 Abnormal weight loss (ICD-10 - R63.4) 06/27/2024 Chronic diarrhea (ICD-10 - K52.9) Plan Of Treatment Pending Test Test Name Order Date CHEM 7 PROFILE 06/19/2024 LIVER PROFILE 06/19/2024 TSH (THYROID STIMULATING HORMONE) 2023 CRP 06/19/2024 CBC w DIFF 06/19/2024 SED RATE (ESR) 06/19/2024 CELIAC PANEL #10 06/19/2024 TRYPSIN,STOOL 06/27/2024 CT ABD & PELVIS WITH CONTRAST 06/27/2024 C DIFFICILE RFLX PCR 06/19/2024 C DIFFICILE RFLX PCR 06/27/2024 T4 Thyroxine 06/27/2024 Giardia Ag Stool EIA 06/27/2024 Giardia Ag Stool EIA 06/19/2024 Pancreatic Elastase-1 06/27/2024 Fecal Fat Qualitative 06/27/2024 Chymotrypsin, Stool 06/27/2024 Cryptosporidium Ag DFA 06/27/2024 Calprotectin, Fecal 06/19/2024 Calprotectin, Fecal 06/27/2024 Ova and Parasite 06/27/2024 Future Test Test Name Order Date Colonoscopy 06/19/2024 COLONOSCOPY 06/19/2024 Next Appt Details Provider Name:Pranav Galo , 05/13/2025 02:40:00 PM, [address] [facility], [address], [place], [address], Insurance Providers Payer Name Payer Address Payer Phone Subscriber Number Group Number Insured Name Patient Relationship to Insured Coverage Start Date Coverage End Date [facility] [address] [address] [place], [place] [id number] RAÚL MOORE Self - patient is the insured MEDICAID OF [facility] [address] [place] [address] [id number] RAÚL MOORE Self - patient is the insured Medical (General) History Medical History History ICD Code HTN, but currently not on any medication Renal insufficiency Denies IA,DM,CVA,Lung disease Surgical History Surgery Date(Month/Year) Right side of face-trauma Left hand Right elbow Bilateral knees Back surgeries x 3 Left ankle
--- OUTSIDE RECORDS SUMMARY | 2025-05-05 05:50 | XMS_ITS | Patient Health Record ---
Author Organization Pranav Bailey III, MD Address [address] [place] [address] [address] [place] [id number] Care Team Providers Care Highballer Name Role Phone Dr. Pranav Bailey III Primary Care Provider Allergies Allergen (clinical drug ingredient) Drug/Non Drug Allergy documented on EMR Reaction Allergy Type Onset Date Status Bee Sting Unknown Allergy Active codeine Codeine Sulfate Unknown Drug Allergy A ctive Results Component Value Reference Range Notes Lipid Panel Reviewed date:02/07/2025 02:17:10 PM Interpretation: Performing Lab:[facility], [address] [place] [phone] Notes/Report: Triglycerides 152 <150 mg/dL Desirable Triglyceride: [...] Amylase Reviewed date:02/07/2025 02:17:10 PM Interpretation: Performing Lab:[facility], [address] [place] [phone] Notes/Report: Amylase 136 28-100 U/L Lipase Reviewed date:02/07/2025 02:17:10 PM Interpretation: Performing Lab:[facility], [address] [place] [phone] Notes/Report: Lipase 493 8-78 U/L Testosterone, Total Reviewed date:02/07/2025 02:17:10 PM Interpretation: Performing Lab:[facility], [address] [place] [phone] Notes/Report: Testosterone, Total 160 400-9100 ng/dL For additional information, please refer to [email or web address].Xianguo/ faq/ TotalTestosteroneLC [email or web address] (This link is being provided for informational/ educational purposes only.) This test was developed and its analytical performance characteristics have been determined by [employer] [place], [place]. It has not been cleared or approved by the U.S. Food and Drug Administration. This assay has been validated pursuant to the CLIA regulations and is used for clinical purposes. THIS TEST WAS PERFORMED AT: [employer]/[address] [phone] VIDYA CAMACHO MD,PHD Pathology Reviewed date:06/30/2024 08:35:39 PM Interpretation: Performing Lab:[facility], [address] [place] [phone] Notes/Report: ---- Name: Raúl Moore Age/Sex: 38/M : 1985 Unit#: [id number] Attend Dr: Pranav Galo MD Re06/27/24 [place] [facility] [place] HO.SSS Disch: ---- SPEC : [id number] RECD : 06/27/24 STATUS: ANJALI RUGGIERO NUM: [id number] MAN: 06/27/[address] [facility] DR: Pranav Galo MD ENTERED: 06/27/24 SP TYPE: Surgical OTHR DR: Pranav Bailey MD ORDERED: HE Stain/9, Gross Micro L4/3 Diagnosis A. Terminal ileum, biopsy: Terminal ileal mucosa within normal limits. B. Colon, ascending, biopsy: Colonic mucosa within normal limits; negative for microscopic colitis. C. Colon, descending , biopsy: Colonic mucosa within normal limits; negative for microscopic colitis. Clinical History Pre-Op Dx: Diarrhea, weight loss Post-Op Dx: Hemorrhoids Microscopic Description A-C. Microscopic sections reviewed. Material Received A. Terminal ileum bx's B. Ascending colon b x's, r/o microscopic colitis C. Descending colon, r/o microscopic colitis Gross Description Received in three parts. Part A: Received in formalin labeled ?terminal ileum biopsies? are 3 cerna-pink irregular tissue fragments eac h measuring 0.3 cm, submitted in toto in a cassette labeled A. Part B: Received in formalin labeled ?ascending colon biopsies, rule out microscopic colitis? are several minute to 0.25 cm cerna-pink irregular tissue fragments, submitted in toto in a cassette labeled B. Part C: Received in formalin labeled ?descending colon, rule out microscopic colitis? are 3 cerna and cerna-pink irregular tissue fragments ranging from 0.25-0.35 cm, submitted in toto in a cassette labeled C. CEDS CONTINUED ON NEXT PAGE ---- Name: Raúl Moore Age/Sex: 38/M : 1985 Unit#: [id number] Attend Dr: Pranav Galo MD Re06/27/24 Status : [facility] Location: [facility] Disch: ---- SPEC : [id number] RECD : 06/27/24 STATUS: [facility] NUM: [id number] MAN: 06/27/[address] [facility] [address]: Pranav Galo MD ENTERED: 06/27/24 SP TYPE: Surgical OTHR DR: Pranav Bailey MD ORDERED: LÁZARO Stain/9, Gross Micro L4/3 Copies To: Pranav Bailey MD [address] [place] [address] Drive, [address] [place] [id number] Pranav Galo MD [facility] [address] [facility] [address] [place] [id number] ---- Signed (signature on file) Kale Zamora MD 06/28/24 1432 ---- END OF REPORT Drug Screen Urine Reviewed date:01/21/2025 08:14:24 PM Interpretation: Performing Lab:[facility], [address] [place] [phone] Notes/Report: Opiate Screen Urine Not Detected Not Detect Opiate cut-off is 300 ng/mL. Positive results are unconfirmed and should not be used for non-medical purposes. Barbiturates, Urine Not Detected Not Detect Barbiturate cut-off is 200 ng/mL. Positive results are unconfirmed and should not be used for non-medical purposes. Phencyclidine Screen Urine Not Detected Not Detect Phencyclidine cut-off is 25 ng/mL. Positive results are unconfirmed and should not be used for non-medical purposes. Amphetamine Screen Urine Not Detected Not Detect Amphetamine cut-off is 1000 ng/mL. Positive results are unconfirmed and should not be used for non-medical purposes. Benzodiazepines Screen Urine Not Detected Not Detect Benzodiazepine cut-off is 200 ng/mL. Positive results are unconfirmed and should not be used for non-medical purposes. Cocaine Screen Urine Not Detected Not Detect Cocaine cut-off is 300 ng/mL. Positive results are unconfirmed and should not be used for non-medical purposes. Cannabinoid Screen Urine POSITIVE Not Detect Cannabinoid cut-off is 50 ng/mL. Positive results are unconfirmed and should not be used for non-medical purposes. Methadone Screen, Urine Not Detected Not Detect ng/mL Methadone cut-off is 300 ng/mL. Positive results are unconfirmed and should not be used for non-medical purposes. Fentanyl, urine Not Detected Not Detect Fentanyl cut-off is 1 ng/mL. Positive results are unconfirmed and should not be used for non-medical purposes. Oxycodone Screen Urine Not Detected Not Detect ng/mL Oxycodone cut-off is 100 ng/mL. Positive results are unconfirmed and should not be used for non-medical purposes. Buprenorphine Scr Not Detected Not Detect ng/mL Buprenorphine cut-off is 5 ng/mL. Positive results are unconfirmed and should not be used for non-medical purposes. UA CC w/rflx Micro + Cult Reviewed date:01/21/2025 08:14:24 PM Interpretation: Performing Lab:[facility], [address] [place] [phone] Notes/Report: [id number] Urine, Clean Catch Color Urine Yellow Appearance Urine Clear PH 8.5 5.0-9.0 Glucose Urine UA 100 Negative mg/dL Urine Blood Negative Negative Specific [place] - Urine >= 1.030 1.005-1.025 Urine Protein Trace Neg-Trace mg/dL Urine Ketones Negative Negative mg/dL Nitrite Urine Negative Negative Leukocyte Esterase Urine Negative Negative CT angio chest Reviewed date:01/21/2025 08:14:24 PM Interpretation: Performing Lab: Notes/Report: [address] [address] [address] Scan Report Signed Patient: Raúl Moore MR#: [id number] : 1985 Acct:[id number] Age/Sex: 39 / M ADM Date: 01/19/25 Loc: .ED Attending Dr: Ordering Physician: Terry Levin DO Date of Service: 01/19/25 Procedure(s): CT angio chest aorta Accession Number(s): [id number] cc: Pranav Bailey MD; Terry Levin DO Report Number: [id number]: Total DLP = 0.00 mGy-cm CLINICAL HISTORY: aortic dissection protocol CT angiography chest, abdomen and pelvis with contrast. 3-D postprocessing. Comparison: None provided Findings: Great vessels, thoracoabdominal aorta, mesenteric/renal arteries (main and accessory), and iliofemoral arteries are patent without aneurysm, dissection, hemodynamically significant stenoses, or occlusion. The visualized thyroid and mediastinum are unremarkable. The heart size is normal. No heart strain by CT. Central pulmonary arteries are patent. The lungs are clear. Old rib fractures are noted. Very faint stranding about the pancreas suggested. The liver, gallbladder, spleen, adrenal glands, kidneys, ureters and bladder are normal. No bowel obstruction, pneumoperitoneum, or pneumatosis. Normal appendix. Pelvic contents are unremarkable. No acute fractures. IMPRESSION: 1. No systemic arterial aneurysm or dissection. 2. There is the suggestion of very mild stranding about the pancreas. Laboratory correlation for pancreatitis. This document has been electronically signed by: Maynor Whelan MD on 01/19/2025 10:59:15 Dictated By: Maynor Whelan MD Signed By: <Electronically signed by Maynor Whelan MD in OV> 01/19/25 1059 DD/ 1059 TD/TT: 01/19/25 1059 Political Research Scientist: [place] [address] CT Scan Report Signed Patient: Raúl Moore MR#: [id number] : 1985 Acct:[id number] Age/Sex: 39 / M ADM Date: 01/19/25 Loc: HO.ED Attending Dr: Ordering Physician: Terry Levin DO Date of Service: 01/19/25 Procedure(s): CT ang io chest aorta Accession Number(s): [id number] cc: Pranav Bailey MD; Terry Levin DO Report Number: [id number]: Total DLP = 0.00 mGy-cm CLINICAL HISTORY: ao rtic dissection protocol CT angiography chest , abdomen and pelvis with contrast. 3-D postprocessing. Comparison: None provided Findings: Great vessels, thoracoabdominal aorta, mesenteric/renal arteries (main and accessory), and iliofemoral arteries are patent without aneurysm, dissection, hemodynamically significant stenoses, or occlusion. The visualized thyro id and mediastinum are unremarkable. The heart size is normal. No heart strain by CT. Central pulmonary arteries are patent. The lungs are clear. Old rib fractures ar e noted. Very faint stranding about the pancreas suggested. The liver, gallbladd er, spleen, adrenal glands, kidneys, ureters and bladder are normal. No bowel obstruction , pneumoperitoneum, or pneumatosis. Normal appendix. Pelvic contents are unremarkable. No acute fractures. IMPRESSION: 1. No systemic arter ial aneurysm or dissection. 2. There is the suggestion of very mild stranding about the pancreas. Laboratory correlati on for pancreatitis. This document has be en electronically signed by: Maynor Whelan MD on 01/19/2025 10:59:15 Dictated By: Maynor Whelan MD Signed By: <Electronically signed by Maynor Whelan MD in OV> 01/19/25 105 DD/ 58 TD/TT: 01/19/251058 Political Research Scientist: CT angio abdomen pelvis Reviewed date:01/21/2025 08:14:24 PM Interpretation: Performing Lab: Notes/Report: [address] [address] [address] Scan Report Signed Patient: Raúl Moore MR#: [id number] : 1985 Acct:[id number] Age/Sex: 39 / M ADM Date: 01/19/25 Loc: .ED Attending Dr: Ordering Physician: Terry Levin DO Date of Service: 01/19/25 Procedure(s): CT angio abdomen pelvis Accession Number(s): [id number] cc: Pranav Bailey MD; Terry Levin DO Report Number: [id number]: Total DLP = 1091.00 mGy-cm CLINICAL HISTORY: dissection protocol CT angiography chest, abdomen and pelvis with contrast. 3-D postprocessing. Comparison: None provided Findings: Great vessels, thoracoabdominal aorta, mesenteric/renal arteries (main and accessory), and iliofemoral arteries are patent without aneurysm, dissection, hemodynamically significant stenoses, or occlusion. The visualized thyroid and mediastinum are unremarkable. The heart size is normal. No heart strain by CT. Central pulmonary arteries are patent. The lungs are clear. Old rib fractures are noted. Very faint stranding about the pancreas suggested. The liver, gallbladder, spleen, adrenal glands, kidneys, ureters and bladder are normal. No bowel obstruction, pneumoperitoneum, or pneumatosis. Normal appendix. Pelvic contents are unremarkable. No acute fractures. IMPRESSION: 1. No systemic arterial aneurysm or dissection. 2. There is the suggestion of very mild stranding about the pancreas. Laboratory correlation for pancreatitis. This document has been electronically signed by: Maynor Whelan MD on 01/19/2025 10:51:42 Dictated By: Maynor Whelan MD Signed By: <Electronically signed by Maynor Whelan MD in OV> 01/19/25 105 DD/ 105 TD/TT: 01/19/25 105 Political Research Scientist: [address] [address] [address] Scan Report Signed Patient: Raúl Moore MR#: [id number] : 1985 Acct:[id number] Age/Sex: 39 / M ADM Date: 01/19/25 Loc: HO.ED Attending Dr: Ordering Physician: Terry Levin DO Date of Service: 01/19/25 Procedure(s): CT ang io abdomen pelvis Accession Number(s): [id number] cc: Pranav Bailey MD; Terry Levin DO Report Number: [id number]: Total DLP = 1091.00 mGy-cm CLINICAL HISTORY: dissection protocol CT angiography chest , abdomen and pelvis with contrast. 3-D postprocessing. Comparison: None provided Findings: Great vessels, thoracoabdominal aorta, mesenteric/renal arteries (main and accessory), and iliofemoral arteries are patent without aneurysm, dissection, hemodynamically significant stenoses, or occlusion. The visualized thyro id and mediastinum are unremarkable. The heart size is normal. No heart strain by CT. Central pulmonary arteries are patent. The lungs are clear. Old rib fractures ar e noted. Very faint stranding about the pancreas suggested. The liver, gallbladd er, spleen, adrenal glands, kidneys, ureters and bladder are normal. No bowel obstruction , pneumoperitoneum, or pneumatosis. Normal appendix. Pelvic contents are unremarkable. No acute fractures. IMPRESSION: 1. No systemic arter ial aneurysm or dissection. 2. There is the suggestion of very mild stranding about the pancreas. Laboratory correlati on for pancreatitis. This document has be en electronically signed by: Maynor Whelan MD on 01/19/2025 10:51:42 Dictated By: Maynor Whelan MD Signed By: <Electronically signed by Maynor Whelan MD in OV> 01/19/252 DD/ 50 TD/TT: 01/19/251050 Political Research Scientist: XR chest 2V Reviewed date:01/21/2025 08:14:24 PM Interpretation: Performing Lab: Notes/Report: [address] [address] XRay Report Signed Patient: Raúl Moore MR#: [id number] : 1985 Acct:[id number] Age/Sex: 39 / M ADM Date: 01/19/25 Loc: .ED Attending Dr: Ordering Physician: Terry Levin DO Date of Service: 01/19/25 Procedure(s): XR chest 2V Accession Number(s): [id number] cc: Pranav Bailey MD; Terry Levin DO CLINICAL HISTORY: SOB 2 view chest x-ray Comparison: CR/SR - XR CHEST 2V - 12/27/22 12:34 EDT Findings: No consolidation or effusion. Heart size is normal. No acute fracture. IMPRESSION: 1. No acute findings. This document has been electronically signed by: Nory Lynne MD on 01/19/2025 09:42:47 Dictated By: Nory Lynne MD Signed By: <Electronically signed by Nory Lynne MD in OV> 01/19/2544 DD/ 1 TD/TT: 01/19/25941 Political Research Scientist: [address] [address] XRay Report Signed Patient: Raúl Moore MR#: [id number] : 1985 Acct:[id number] Age/Sex: 39 / M ADM Date: 01/19/25 Loc: .ED Attending Dr: Ordering Physician: Terry Levin DO Date of Service: 01/19/25 Procedure(s): XR marlen st 2V Accession Number(s): [id number] cc: Pranav Bailey MD; Terry Levin DO CLINICAL HISTORY: SOB 2 view chest x-ray Comparison: CR/SR - XR CHEST 2V - 12/27/22 12:34 EDT Findings: No consolidation or effusion. Heart size is normal. No acute fracture. IMPRESSION: 1. No acute findings. This document has be en electronically signed by: Nory Lynne MD on 01/19/2025 09:42:47 Dictated By: Nory Lynne MD Signed By: <Electronically signed by Nory Lynne MD in OV> 01/19/2544 DD/ 1 TD/TT: 01/19/25941 Political Research Scientist: Complete Blood Count Auto Di ff Reviewed date:01/21/2025 08:14:24 PM Interpretation: Performing Lab:[facility], [address] [place] [phone] Notes/Report: White Blood Count 9.0 4.8-10.8 X10*3/uL Red Blood Count 4.80 4.60-5.80 X10*6/uL Hemoglobin 14.4 14.0-18.0 g/dl Hematocrit 42.1 42.0-52.0 % Mean Corpuscular Volume 87.7 80.0-98.0 fL Mean Corpuscular Hemoglobin 30.0 27.0-33.0 pg Mean Corpuscular HGB Conc 34.2 31.0-36.0 g/dl Red Cell Distribution Width 12.6 11.0-16.0 % Platelet Count 214 160-400 X10*3/uL Mean Platelet Volume 9.5 9.4-12.4 fL Neutrophils Percent Auto 62.9 45-73 % Imm Gran Pct Auto 0.4 0.0-0.4 % Lymphocytes Percent Auto 24.6 20-40 % Monocytes Percent Auto 8.8 2-11 % Eosinophils Percent Auto 2.7 0-4 % Basophils Percent Auto 0.6 0-2 % NRBC Pct Auto 0.0 0.0-0.2 /100WBC Neutrophils Absolute Auto 5.7 2.0-8.3 x10*3/uL Imm Gran Abs Auto 0.04 0.00-0.03 X10*3/uL Lymphocytes Absolute Auto 2.2 1.2-4.9 X10*3/uL Monocytes Absolute Auto 0.8 0.1-1.2 X10*3/uL Eosinophils Absolute Auto 0.2 0.0-0.4 X10*3/uL Basophils Absolute Auto 0.1 0.0-0.2 X10*3/uL NRBC Abs Auto 0.000 0.0-0.012 X10*3/uL Comprehensive Met. Panel Reviewed date:01/21/2025 08:14:24 PM Interpretation: Performing Lab:[facility], [address] [place] [phone] Notes/Report: Sodium 140 135-145 mmol/L Potassium 3.7 3.3-5.1 mmol/L Chloride 105 96-108 mmol/L Carbon Dioxide 28 22-29 mmol/L Anion Gap 11 12-20 Blood Urea Nitrogen 14 9-16 mg/dL Creatinine 1.10 0.5-1.4 mg/dL Creatinine Clr Calc Pharmacy 133.2 eGFR (calculated from the MDRD study equation) and eCrCl (calculated from the Cockcroft-Gault equation) are based on different parameters and may not yield comparable results. If eCrCl result is absurd, please check patient's height/weight. Estimated Glomerular Filt Rate > 60 Chronic Kidney Disease: Estimated GFR < 60 mL/min/1.73m2 Severe Kidney Disease: Estimated GFR < 15 mL/min/1.73m2 Glucose Random 86 60-115 mg/dL Calcium 9.1 8.4-10.2 mg/dL Bilirubin Total 0.6 0.0-1.0 mg/dL Aspartate Amino Transferase 22 5-37 U/L Alanine Aminotransferase 21 0-40 U/L Total Protein 6.7 6.5-8.0 g/dL Albumin Level 4.0 3.5-5.0 g/dL Alkaline Phosphatase 52 39-117 U/L Magnesium Reviewed date:01/21/2025 08:14:24 PM Interpretation: Performing Lab:[facility], [address] [place] [phone] Notes/Report: Magnesium 1.9 1.6-2.6 mg/dL C Reactive Protein Reviewed date:01/21/2025 08:14:24 PM Interpretation: Performing Lab:[facility], [address] [place] [phone] Notes/Report: C Reactive Protein 2.54 < or = 0.50 mg/dL Lipase Reviewed date:01/21/2025 08:14:24 PM Interpretation: Performing Lab:[facility], [address] [place] [phone] Notes/Report: Lipase 469 8-78 U/L Immunoglobulin G Subclasses Reviewed date:01/24/2025 11:58:56 AM Interpretation: Performing Lab:[facility], [address] [place] [phone] Notes/Report: Immunoglobulin G Subclass 1 404 382-929 mg/dL Immunoglobulin G Subclass 2 450 241-700 mg/dL Immunoglobulin G Subclass 3 53 22-178 mg/dL Immunoglobulin G Subclass 4 12.7 4-86 mg/dL Immunoglobulin G Total 262 621-2968 mg/dL THIS TEST WAS PERFORMED AT: [employer] [address] [place] [phone] CHRISTINA LI MD US abdomen limited Reviewed date:01/21/2025 08:14:24 PM Interpretation: Performing Lab: Notes/Report: [address] [address] Ultrasound Report Signed Patient: Raúl Moore MR#: [id number] : 1985 Acct:[id number] Age/Sex: 39 / M ADM Date: 01/19/25 Loc: .S3 376-[address]: Peter Rodriguez MD Ordering Physician: Olesya Chavis MD Date of Service: 01/20/25 Procedure(s): US abdomen limited Accession Number(s): [id number] cc: Pranav Bailey MD; Olesya Chavis MD EXAMINATION: US ABDOMEN LIMITED HISTORY: LLQ pain, pancreatitis,?cholecystitis TECHNIQUE: Real-time grayscale ultrasound imaging of the gallbladder and pancreas was performed and images were reviewed. COMPARISON: Correlation is made with a CT of the abdomen with contrast dated 01/19/2025. FINDINGS: Gallbladder and biliary tree: The gallbladder is unremarkable, without evidence of calculi, wall thickening, or pericholecystic fluid. There is no sonographic Ornelas sign. The common bile duct is normal in caliber measuring 3 mm. Pancreas: There is limited visualization of the pancreas. The pancreatic duct appears mildly dilated measuring up to 5 mm in diameter. There is no free fluid in the right upper quadrant. US/US abdomen limited IMPRESSION: No evidence of cholelithiasis or acute cholecystitis. Limited visualization of the pancreas. Electronically signed by: Pranav Perry MD 01/20/2025 11:29 AM EDT Dictated By: Pranav Perry MD Signed By: <Electronically signed by Pranav Perry MD in OV> 01/20/25 112 DD/ 105 TD/TT: 01/20/251054 Political Research Scientist: [address] [address] Ultrasound Report Signed Patient: Raúl Moore MR#: [id number] : 1985 Acct:[id number] Age/Sex: 39 / M ADM Date: 01/19/25 Loc: .S3 376-[address]: Ninfa Rodriguez MD Ordering Physician: Olesya Chavis MD Date of Service: 01/20/25 Procedure(s): US abd omen limited Accession Number(s): [id number] cc: Pranav Bailey MD; Olesya Chavis MD EXAMINATION: US ABDO MEN LIMITED HISTORY: LLQ pain, pancreatitis,?cholecysti tis TECHNIQUE: Real-time grayscale ultrasound imaging of the gallbladder and pancreas was performed and images were reviewed. COMPARISON: Correlat ion is made with a CT of the abdomen with contrast dated 01/19/2025. FINDINGS: Gallbladder and bili jaret tree: The gallbladder is unremarkable, without evidence of calculi, wall thickening, or pericholecystic fluid. There is no sonographic Mu rphy sign. The common bile duct is normal in caliber measuring 3 mm. Pancreas: There is limited visualization of the pancreas. The pancreatic duct appe ars mildly dilated measuring up to 5 mm in diameter. There is no free flu id in the right upper quadrant. U S/US abdomen limited IMPRESSION: No evidence of cholelithiasis or acute cholecystitis. Limited visualization of the pancreas. Electronically dennis d by: Pranav Perry MD 01/20/2025 11:29 AM EDT Dictated By: Pranav Perry MD Signed By: <Electronically signed by Pranav Perry MD in OV> 01/20/25 112 DD/ 105 TD/TT: 01/20/25 105 Political Research Scientist: Osmin Damian Hematolo gy Reviewed date:01/24/2025 11:58:56 AM Interpretation: Performing Lab:[facility], [address] [place] [phone] Notes/Report: Hold Lav - Possible Hematology SEE NOTE Specimen will be held untested for 8 hours. Call Hematology if testing is desired. Liver Panel Reviewed date:01/24/2025 11:58:56 AM Interpretation: Performing Lab:[facility], [address] [place] [phone] Notes/Report: Bilirubin Total 0.5 0.0-1.0 mg/dL Bilirubin Direct 0.2 0.0-0.5 mg/dL Aspartate Amino Transferase 27 5-37 U/L Alanine Aminotransferase 32 0-40 U/L Total Protein 7.0 6.5-8.0 g/dL Albumin Level 4.4 3.5-5.0 g/dL Alkaline Phosphatase 56 39-117 U/L Basic Metabolic Panel Reviewed date:01/24/2025 11:58:56 AM Interpretation: Performing Lab:[facility], [address] [place] [phone] Notes/Report: Sodium 140 135-145 mmol/L Potassium 3.5 3.3-5.1 mmol/L Chloride 108 96-108 mmol/L Carbon Dioxide 26 22-29 mmol/L Anion Gap 10 12-20 Blood Urea Nitrogen 20 9-16 mg/dL Creatinine 1.02 0.5-1.4 mg/dL Creatinine Clr Calc Pharmacy 143.6 eGFR (calculated from the MDRD study equation) and eCrCl (calculated from the Cockcroft-Gault equation) are based on different parameters and may not yield comparable results. If eCrCl result is absurd, please check patient's height/weight. Estimated Glomerular Filt Rate > 60 Chronic Kidney Disease: Estimated GFR < 60 mL/min/1.73m2 Severe Kidney Disease: Estimated GFR < 15 mL/min/1.73m2 Glucose Random 86 60-115 mg/dL Calcium 9.1 8.4-10.2 mg/dL Lipase Reviewed date:01/24/2025 11:58:56 AM Interpretation: Performing Lab:[facility], [address] [place] [phone] Notes/Report: Lipase 357 8-78 U/L HIV Ab/Ag Reviewed date:01/24/2025 11:58:56 AM Interpretation: Performing Lab:[facility], [address] [place] [phone] Notes/Report: HIV AB/AG Nonreactive Nonreactive HIV-1 p24 Ag and/or HIV-1/HIV-2 Ab not detected. A test result that is nonreactive does not exclude the possibility of exposure to or infection with HIV-1 and/or HIV-2. Nonreactive results in this assay for individuals with prior exposure to HIV-1 and/or HIV-2 may be due to antigen and antibody levels that are below the limit of detection of this assay. The [facility] HIV Ag/Ab Combo assay result and supplemental assay results should be interpreted in conjunction with the patient's clinical presentation, history and other laboratory results. If the results are inconsistent with clinical evidence, additional testing is suggested to confirm the result. Complete Blood Count Auto Di ff Reviewed date:02/07/2025 02:17:10 PM Interpretation: Performing Lab:[facility], [address] [place] [id number] Notes/Report: White Blood Count 9.0 4.8-10.8 X10*3/uL Red Blood Count 5.34 4.60-5.80 X10*6/uL Hemoglobin 16.2 14.0-18.0 g/dl Hematocrit 45.8 42.0-52.0 % Mean Corpuscular Volume 85.8 80.0-98.0 fL Mean Corpuscular Hemoglobin 30.3 27.0-33.0 pg Mean Corpuscular HGB Conc 35.4 31.0-36.0 g/dl Red Cell Distribution Width 12.1 11.0-16.0 % Platelet Count 295 160-400 X10*3/uL Mean Platelet Volume 9.6 9.4-12.4 fL Neutrophils Percent Auto 62.5 45-73 %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
--- OUTSIDE RECORDS SUMMARY | 2025-05-05 05:51 | XMS_ITS | Clinical Summary ---
Author Organization [facility] Address [address] [address] Phone Care Team Providers Care Supervisor Telephone Information Name Role Phone Pranav Bailey MD Primary Care Provider [phone] Allergies Active Allergy Reactions Criticality Noted Date [...] years) (1 of 2 - PCV) 2002 INFLUENZA VACCINE (#1) 2025 COVID-19 VACCINE (1 - 2024-2 6 season) 2025 Adult Td,Tdap Booster 04/02/2029 04/02/2019 , 12/05/2014 [...] Medical Devices Not on file Insurance [facility] [employer] O [facility] U[facility] NetworksSAMARIT[facility] MED[facility] CENTERO UGO NetworksHEALTH O [place] CITYAutoGnomicsSAMARITAN MEDICAL CENTERO UGO NetworksHARR[facility] MCO [place]dependent IP O [place] O Care Teams Supervisor Telephone Information Relationship Specialty Start Date End Date Pranav Bailey MD [address] [place] [address] [place] [address] PCP - General Medical Oncology 03/15/22 Additional Source Comments The information contained in this document represents components of the legal health record. It is not the complete legal health record.[facility]
[2025-05-05 06:01] VITALS: BP 172/115; PULSE 72; RESP 16; TEMP 36.4; O2SAT 97
--- NOTE | 2025-05-05 06:19 | ED_ITS ---
HPI - URI/Sore Throat General Chief Complaint: Upper Respiratory Symptoms Stated Complaint: left side of throat pain, swelling Time Seen by Provider: 05/05/25 05:56 Source: patient and old records reviewed Mode of arrival: ambulatory Limitations: no limitations History of Present Illness ED Provider: CHESTER VARGAS Narrative: 39 yo male with PMH of HTN not on meds and denies this to me, pancreatitis. He presents with a day of L sided throat pain, no fevers, soft painful ball that moves on L side of throat. He denies sick contacts, kids, no rash. He can speak and can swallow his saliva though it hurts. He has been hunting all weekend. No cough/runny nose. He has only tried an OTC throat spray which did not help. He has not had strep. I asked him about his high blood pressure and he states I am not here for that . I did try to press further and assess his needs but he does not want this addressed today. MD elicited complaint: sore throat Onset (ago): day(s) (1) Consistency: constant Severity: moderate Able to tolerate fluids by mouth: No Exacerbating factors: swallowing Relieving factors: nothing Associated symptoms: voice changes and sore throat Treatments prior to arrival: none Related Data Home Medications ?Medication ?Instructions ?Recorded ?Confirmed testosterone cypionate 200 mg/mL 75 mg IM MO 01/19/25 01/19/25 intramuscular oil Previous Rx's ?Medication ?Instructions ?Recorded syringe with needle 3 mL 21 gauge #20 ea 12/06/23 x 1 1/2 (BD Luer-Hyacinth Syringe) amlodipine 10 mg tablet 10 mg PO DAILY #30 tabs 01/07 01/31 carvedilol 3.125 mg tablet 3.125 mg PO BID #60 tabs losartan 50 mg tablet 50 mg PO DAILY #30 tabs 01/07 01/31 nicotine (polacrilex) 2 mg gum 2 mg buccal Q2H PRN Anderson otine 01/23/25 Cravings #100 ea nicotine 14 mg/24 hr daily 14 mg transdermal DAILY #30 ea 01/23/25 transdermal patch oxycodone 5 mg tablet See Rx Instructions .Route 0 01/24/25 .COMPLEX PRN severe pain #18 tabs amoxicillin 500 mg tablet 500 mg PO BID 9 days #18 tab s 05/05/25 Allergies Allergy/AdvReac Type Severity Reaction Status Date / Time bee pollen (BEE STINGS) Allergy Severe THROAT Verified 05/05/25 05:40 SWELLING codeine (CODEINE) Allergy Mild STOMACH Verified 05/05/25 05:40 UPSET, nausea and vomiting Review of Systems Review of Systems: Yes all other systems are reviewed and are negative [facility] Past Medical History Attestation statement: The following information was validated with the patient. Source: old records reviewed Medical History Hypertension Hypogonadism, testicular Surgical History H/O discectomy S/P tendon repair History of meniscectomy of left knee H/O myringotomy History of surgery Family History Family History Father No problems noted. Mother Hypertension Maternal Grandfather Coronary artery disease Maternal Grandmother Hypertension Diabetes Social History Social History Household Members: None Housing: House Are you a primary clinical care coordinator to a significant other at home: No Do you presently have visiting nurse or other home services: No Alcohol intake: current Alcohol intake frequency: holidays/special occasions only Patient Tobacco Use Status: Current everyday Tobacco user Tobacco use type: Cigarette Cigarette Packs Per Day: 1.5 Smoked in Last 30 Days: Yes Use of substances other than those prescribed or required for medical reasons: Yes Substance Use Type: Crack/Cocaine and Marijuana Advance Directives: No Advance Directives Information Provided: No Do you have a plan to hurt others: No Plan service: No Physical Exam Vital Signs: Vital Signs: Last Vital Signs Temp 97.5 F 05/05/25 06:01 Pulse 72 05/05/25 06:01 Resp 16 05/05/25 06:01 BP 172/115 H 05/05/25 06:01 Pulse Ox 97 05/05/25 06:01 O2 Del Method Room Air 05/05/25 06:01 BMI result Body Mass Index 36.4 Appearance: Alert. Oriented X3. No acute distress. Eyes: Pupils equal, round and reactive to light. ENT: Pharynx mild swelling, uvula is midline, small exudates on both R and L, there is no drooling, his voice is normal, his neck has soft mobile shotty anterior cervical chain nodes. No issues rotating the neck, he has normal sublingual space. TMs normal bilaterally Neck: Normal inspection. Neck supple. shotty nodes but no fullness to submandibular area, no ropy cord CVS: Normal heart rate and rhythm. Pulses normal. Respiratory: No respiratory distress. Breath sounds normal. Abdomen: Soft and nontender. Skin: Skin warm and dry. Normal skin color. Extremities: No lower extremity edema. Neuro: Oriented X 3. No motor deficit. No sensory deficit. Course Course Course Narrative: repeat assessment, no worsening exam, stable for DC Medications Administered Discontinued Medications Generic Name Dose Route Start Last Admin Trade Name Freq PRN Reason Stop Dose Admin Amoxicillin 1,000 mg 05/05/25 06:16 05/05/25 06:25 Amoxicillin 500 Mg Capsule PO 05/05/25 06:17 1,000 mg ONCE ONE Administration Dexamethasone Sodium Phosphate 8 mg 05/05/25 06:16 05/05/25 06:26 Dexamethasone Sod Phosphate 4 Mg/Ml Vial PO 05/05/25 06:17 8 mg ONCE ONE Administration Ibuprofen 600 mg 05/05/25 06:16 05/05/25 06:26 Ibuprofen Oral Susp 200 Mg/10 Ml Oral.Susp PO 05/05/25 06:17 600 mg ONCE ONE Administration Medical Decision Making Medical Decision Making [facility] Narrative: 39 yo male with PMH of HTN not on meds and denies this to me, pancreatitis now here with c/o L sided sore throat at this time will need viral panel, strep swab - I am going to start on motrin and dexamethasone as well as amoxicillin. He declined HTN management. 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 Lab Attestation statement: I reviewed the patient's lab results. Labs: Lab Results 05/05/25 Range/Units 05:47 COVID-19 ([facility]) Negative (Negative) COVID-19 Clin Com See Note Influenza Type A ([facility]) Negative (Negative) Influenza Type B ([facility]) Negative (Negative) Influenza A & B Note See Note S. pyogenes GrpA [facility] Negative (Negative) External Record Review External record reviewed: Outpatient record Prescription Management I considered prescription management with: Pain Medication and Antibiotic Discharge Plan Discharge Clinical Impression: Uvulitis Pharyngitis Qualifiers: Pharyngitis/tonsillitis etiology: unspecified etiology Qualified Code(s): J02.9 - Acute pharyngitis, unspecified Patient Disposition: Home, Self-Care Instructions: Pharyngitis (ED), Chronic Hypertension (ED), Uvulitis (ED) Additional Instructions: next dose of amoxicillin is tomorrow continue motrin or tylenol at this time please monitor your symptoms. return for worsening pain, unable to swallow saliva at all, increased swelling in the neck, or any other concerns On amoxicillin, softer bowel movements are to be expected. Call your provider if you move your bowels more than 4 times a day, your bowel movements are almost all liquid, or you get a rash.? negative for strep, covid, flu Prescriptions: New amoxicillin 500 mg tablet 500 mg PO BID 9 Days Qty: 18 0RF No Action (DME) syringe with needle [BD Luer-Hyacinth Syringe] 3 mL 21 gauge x 1 1/2 syringe See Rx Instructions .ROUTE .COMPLEX Qty: 20 0RF Dose Instruction: USE DIRECTED ONCE A WEEK Rx Instructions: USE DIRECTED ONCE A WEEK testosterone cypionate 200 mg/mL oil 75 mg IM MO Rx Instructions: Per [facility]: Last fill 04/11/24 losartan 50 mg Tablet 50 mg PO DAILY Qty: 30 0RF Protocol: Hold for SBP< HOLD for SBP < : 90 nicotine 14 mg/24 hr Patch 24 Hour 14 mg transdermal DAILY Qty: 30 0RF nicotine (polacrilex) 2 mg Gum 2 mg buccal Q2H PRN (Reason: Nicotine Cravings) Qty: 100 0RF carvedilol 3.125 mg Tablet 3.125 mg PO BID Qty: 60 0RF Protocol: Hold for SBP/HR < HOLD for SBP < : 90 HOLD for HR < : 60 amlodipine 10 mg Tablet 10 mg PO DAILY Qty: 30 0RF Protocol: Hold for SBP< HOLD for SBP < : 90 oxycodone 5 mg tablet See Rx Instructions .ROUTE .COMPLEX PRN (Reason: severe pain) Qty: 18 0RF Rx Instructions: 1-2 tab PO q8h prn severe pain Print Language: Croatian
[2025-05-05] MEDS: Ibuprofen Oral Susp 200 MG/10 ML ORAL.SUSP 600 MG PO (06:26)
[2025-05-05 06:27] LABS: IDNOW Serial# 08D9AD1C; IDNOW Serial# 58CA691E; Influenza B2 Negative (Negative); Strep A Nucleic Acid Negative (Negative)
[2025-05-05 06:28] LABS: COVID-19 Test Negative (Negative); IDNOW Serial# 55D5AD1C
[2025-05-05 07:33] VITALS: BP 172/115; PULSE 72; RESP 16; TEMP 36.4; O2SAT 97
== END 2025-05-05 07:34 | disposition home or self-care (01) ==
PROVIDERS: Emergency Provider Emergency Medicine; PCP Internal Medicine Medical Oncology
DX: K12.2 Cellulitis and abscess of mouth (principal); J02.9 Acute pharyngitis, unspecified; I10 Essential (primary) hypertension; Z03.818 Encounter for observation for suspected exposure to other biological agents ruled out; F17.200 Nicotine dependence, unspecified, uncomplicated; Z71.6 Tobacco abuse counseling
CPT/HCPCS: 87502; 87635; 87651; 99283; 99284; J1100

== ENCOUNTER 2025-06-01 22:37 | Inpatient (IN) | payer OTHER, SELFPAY ==
--- OUTSIDE RECORDS SUMMARY | 2024-02-09 10:30 | XMS_ITS ---
Author Organization Pranav Bailey III, MD Address [address] [place] [address] [place] [address] Care Team Providers Care Transit Planning Manager Name Role Phone Dr. Pranav Bailey III Primary Care Provider [phone] Allergies Allergen (clinical drug ingredient) Drug/Non Drug Allergy documented on EMR Reaction Allergy Type Onset Date Status Bee Sting Unknown Allergy Active codeine Codeine Sulfate Unknown Drug Allergy A ctive REASON FOR VISIT Follow up Medications Medication SIG (Take, Route, Frequency, Duration) Notes Start Date End Date Status Testosterone Cypionate 200 MG/ML Intramuscular Active Doxycycline Hyclate 100 MG 1 tablet Orally Once a day 10/18/2023 Active Metoprolol Succinate ER 50 MG 1 tablet Orally Once a day 10/18/2023 A ctive Cephalexin 500 MG Oral Ac tive Social History Tobacco Use: Social History Observation Description Date Details (start date - stop date) Current Smoker NA - NA Sex Assigned At : Social History Observation Description Sex Assigned At Male Tobacco Use/Smoking Question Answer Notes Patient is a current smoker How often do you smoke cigarettes? every day How many cigarettes a day do you smoke? 21-30 How soon after you wake up d o you smoke your first cigarette? 31-60 minutes Are you interested in quitting? Not ready to jack t Additional Findings: Tobacco User Heavy cigarett e smoker (20-39 cigs/day) Encounters Encounter Location Date Provider Diagnosis Pranav Bailey III, MD [address] [place] [address] [place] [id number] 02/09/2024 Pranav Bailey Essential hypertensi on I10 Assessments Encounter Date Diagnosis (ICD Code) Assessment Notes Treat ment Notes Treatment Clinical Notes 02/09/2024 Essential hypertension (ICD-10 - I10) His blood pressure has been normal. I recommended aggressive weight loss and sodium restriction. He was given an appointment to come to the office. Plan Of Treatment Medication Medication Name Sig Start Date Stop Date Notes Testosterone Cypionate 200 MG/ML Intramuscular Doxycycline Hyclate 100 MG 1 tablet Orally Once a day 10/08 Metoprolol Succinate ER 50 MG 1 tablet Orally Once a day 0 10/18/2023 Cephalexin 500 MG Oral Next Appt Details Provider Name:Pranav Boydrne , 06/03/2025 02:00:00 PM, [address] [place] [address], [place] [id number], [place], [address], Progress Notes * GEORGETTE MOORE RDOB:1985 (39 yo M)Acc No.[id number]:02/09/2024 Progress Notes Patient: GEORGETTE SNEED Provider: Jaqueline Bailey MD :1985 A ge:38 Y S ex:Male Date:02/09/2024 Address:[address] [place] [address] Subjective: * Chief Complaints: * 1 . Follow up. * HPI: C OVID-19 Screening: Questions H ave you had any new onset fever, chills, cough, congestion, sore throat, shortness of breath, muscle aches? N o H ave you been exposed to the virus within the last 10 days? N o H ave you travelled internationally in the last 10 days? N o H ave you been exposed to COVID-19 in the past? N o * ROS: G eneral/Constitutional: pain o nly normal aches and pains. C hills d enies.?Fatigue a dmits. F ever d enies. E NT: Decreased hearing d enies. R espiratory: Cough d enies. C ardiovascular: Chest pain with exertion d enies. D yspnea on exertion?denies. S hortness of breath d enies. G astrointestinal: Constipation d enies. D ecreased appetite d enies.?Diarrhea d enies. H eartburn d enies. N ausea d enies. R ectal bleeding?denies. V omiting d enies. H ematology: bruising d enies. p etechiae d enies. S wollen glands n one have been noted. G enitourinary: Frequent urination d enies. M usculoskeletal: Muscle aches d enies. P ainful joints d enies. S ciatica d enies. W eakness d enies. S kin: Itching d enies. R mj d enies. S kin lesion(s)?denies. N eurologic: Difficulty speaking d enies. D izziness d enies.?Headache d enies. L ow back pain d enies. P sychiatric: Depressed mood d enies. 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 * Surgical History: r epair of floor of right orbit. After traumatic injury 2008, pilonidal cystectomy 2007, bilateral myringotomy 1984, left knee chondroplasty, partial meniscectomy, Dr. Boyd, [facility] 2012, left third finger tendon laceration repair, Dr. Boyd, [facility] 12/2014, Disectomy 01/2019. * Hospitalization/Major Diagno stic Procedure: b ack pain 11/2018. * Family History: F ather: , Unknown. M other: alive 53 yrs, Hypertension, chronic pain. 1 brother(s) - healthy. . He has a brother who is alive and well. A maternal grandfather had coronary artery disease and a maternal grandmother had hypertension and adult-onset diabetes mellitus. * Social History: T obacco Use: T obacco Use/Smoking P atisa is a c urrent smoker H ow often do you smoke cigarettes? e very day H ow many cigarettes a day do you smoke? 2 1-30 H ow soon after you wake up do you smoke your first cigarette? 3 1-60 minutes A re you interested in quitting? N ot ready to quit A dditional Findings: Tobacco User H eavy cigarette smoker (20-39 cigs/day) H e smokes 1 package of cigarettes per day. 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 He is single with no children. * Medications: T aking Doxycycline Hyclate 100 MG Tablet 1 tablet Orally Once a day , Taking Testosterone Cypionate 200 MG/ML Solution Intramuscular , Taking Cephalexin 500 MG Capsule Oral , Taking Metoprolol Succinate ER 50 MG Tablet Extended Release 24 Hour 1 tablet Orally Once a day , Medication List reviewed and reconciled with the patient * Allergies: C odeine Sulfate, Bee Sting. Objective: * Vitals: * Examination: G eneral Examination: GENERAL APPEARANCE: p leasant, well nourished, well developed, in no acute distress, calm and relaxed. HEAD: a traumatic, normocephalic. EYES: e amie, perrla, anicteric, conjugate. EARS: n ormal. NOSE: s eptum intact. ORAL CAVITY: n ormal, unremarkable. NECK/THYROID: n o jugular venous distention, no carotid bruit, thyroid normal. LYMPH NODES: n o enlarged lymph nodes,spleen normal. SKIN: n o suspicious lesions, anicteric. HEART: n o clicks, gallops, murmurs, or rubs, regular rhythm, S1, S2 normal, no s3, or vascular bruits. LUNGS: c lear to auscultation . BREASTS: no masses palpable bilaterally. ABDOMEN: b owel sounds normal, no ascites, no organomegaly, no mass. RECTAL EXAM: n ot examined. MUSCULOSKELETAL: e xtremities unremarkable, no clubbing, cyanosis or edema. PERIPHERAL PULSES: n ormal. NEUROLOGIC: a lert and oriented, cranial nerves 2-12 grossly intact, deep tendon reflexes 2+ symmetrical, motor strength normal upper and lower extremities, sensory exam intact. PSYCH: a lert, oriented. Assessment: * Assessment: 1. E ssential hypertension - I10 N otes :His blood pressure has been normal. I recommended aggressive weight loss and sodium restriction. He was given an appointment to come to the office. Plan: * Treatment: 2. O thers Continue Doxycycline Hyclate Tablet, 100 MG, 1 tablet, Orally, Once a day. * Images: * The named appointment provid er may or may not be the originator of this progress note, and it is not deemed complete until electronically signed by the appointment provider. Sign off status: Pending * Provider: Jaqueline Bailey MD Date: 0 02/09/2024 Generated for Rizwani ng/Praneeth/eTransmitting on: 08/01/2024 11:10 PM EST History and Physical Notes * HPI (History of Present Illness) Category Sub-Category Detail Notes COVID-19 Screening Questions Have you had any new onset fever, chills, cough, congestion, sore throat, shortness of breath, muscle aches?: No Have you been exposed to the virus withi n the last 10 days?: No Have you travelled internationally in e last 10 days?: No Have you been exposed to COVID-19 in the past?: No Examination Category Sub-Category Detail Notes General Examination GENERAL APPEARANCE: pleasant , well nourished, well developed, in no acute distress, calm and relaxed HEAD: atraumatic, normocep halic EYES: eomi, perrla, anicte philomena, conjugate EARS: normal NOSE: septum intact NECK/THYROID: no jugular venous di stention, no carotid bruit, thyroid normal HEART: no clicks, gallops, murmurs, or rubs, regular rhythm, S1, S2 normal, no s3, or vascular bruits LUNGS: clear to auscultatio n ABDOMEN: bowel sounds normal, no ascites, no organomegaly, no mass NEUROLOGIC: alert and oriented, cranial nerves 2-12 grossly intact, deep tendon reflexes 2+ symmetrical, motor strength normal upper and lower extremities, sensory exam intact SKIN: no suspicious lesion s, anicteric PERIPHERAL PULSES: normal BREASTS: no masses palpable b ilaterally MUSCULOSKELETAL: extremities unremark able, no clubbing, cyanosis or edema LYMPH NODES: no enlarged lymph no joy,spleen normal RECTAL EXAM: not examined PSYCH: alert, oriented ORAL CAVITY: normal, unremarkable
--- OUTSIDE RECORDS SUMMARY | 2024-02-14 06:30 | XMS_ITS ---
Author Organization Pranav Bailey III, MD Address [address] [place] [address] Care Team Providers Care Cook Box Filler Name Role Phone Dr. Pranav Bailey III Primary Care Provider Allergies Allergen (clinical drug ingredient) Drug/Non Drug Allergy documented on EMR Reaction Allergy Type Onset Date Status Bee Sting Unknown Allergy Active codeine Codeine Sulfate Unknown Drug Allergy A ctive Reason For Referral Reason Consult and Treat Pe rsistent Diarrhea for 2 months Diagnosis 1 Diarrhea (R19.7) Referral Organization Pranav Bailey III, MD Referring Provider First Name Pranav Referring Provider Last Name Leo Referring Provider Speciality Internal M edicine Referred Provider Pranav Galo Referred Provider Specialty Gastroentero logy General Notes Roxana Regan 2023 11:48:19 AM EDT > Referral Faxed with labs and two progress notes, Roxana Regan 02/29/2024 11:05:32 AM EDT > Did not receive referral refaxed referral and was able to build and schedule appointment with Creel Cleaner. Patient is being seen 06/05/24 @ 11:10am with Dr. Dodd Referral Priority Routine Referral Appointment Date 06/05/2024 REASON FOR VISIT Chronic diarrhea, Elevated CPK, Hypertension, Morbid obesity, Tobacco dependence, Lumbar radiculopathy, Hypogonadism Medications Medication SIG (Take, Route, Frequency, Duration) [...] User Heavy cigarett e smoker (20-39 cigs/day) Vital Signs Height 74 in 02/14/2024 Weight 352 lbs 02/14/2024 BMI 45.19 kg/m2 02/14/2024 Encounters Encounter Location Date Provider Diagnosis Pranav Bailey III, MD [address] [place] [address] [place] [address] 02/14/2024 Pranav Bailey Essential hypertensi on I10 ; Chronic diarrhea of unknown origin K52.9 ; Tobacco dependence F17.200 ; Morbid (severe) obesity due to excess calories E66.01 and Lumbosacral radiculopathy due to degenerative joint disease of spine M47.27 Assessments Encounter Date Diagnosis (ICD Code) Assessment Notes Treat ment Notes Treatment Clinical Notes 02/14/2024 Essential hypertension (ICD-10 - I10) His blood pressure has been normal. I recommended aggressive weight loss and sodium restriction. He was given an appointment to come to the office. 02/14/2024 Chronic diarrhea of unknown origin (ICD-10 - K52.9) The GI panel is negative. Imodium has been Recommended. A GI consultation has been initiated. 02/14/2024 Tobacco dependence (ICD-10 - F17.200) I strongly recommend that he consider smoking cessation. This will be pursued along with weight reduction and reduction in his narcotic doses. 02/14/2024 Morbid (severe) obesity due to excess calories (ICD-10 - E66.01) We formulated a plan to lose weight at a rate of 1/2 pound per week. He will pursue aggressive sodium and fat reduction and weight reduction. 02/14/2024 Lumbosacral radiculopathy due to degenerative joint disease of spine (ICD-10 - M47.27) He reports the pain is somewhat better. He was able to walk with more ease today. His reflexes are symmetrical. No paravertebral muscle spasm was noted. He will use nonnarcotic medication at this point. I recommended he and rest and massage and ibuprofen. Plan Of Treatment Medication Medication Name Sig Start Date Stop Date Notes Testosterone Cypionate 200 MG/ML Intramuscular Doxycycline Hyclate 100 MG 1 tablet Orally Once a day 10/08 Metoprolol Succinate ER 50 MG 1 tablet Orally Once a day 0 10/18/2023 Cephalexin 500 MG Oral Referrals Referral Date Details 02/14/2024 02/14/2024, Consult and Treat Persistent Diarrhea for 2 months, Pranav Galo Next Appt Details Follow Up: 2 Weeks, Reason: Telehealth Provider Name:Pranav Bailey , 06/03/2025 02:00:00 PM, [address] [place] [address], [address], Progress Notes * GEORGETTE MOORE RDOB:1985 (38 yo M)Acc No.[id number]:02/14/2024 Patient: GEORGETTE SNEED Provider: Jaqueline Bailey MD :1985 A ge:38 Y S ex:Male Date:02/14/2024 Address:[address] [place] [address] Subjective: * Chief Complaints: * C hronic diarrheaElevated CPKHypertensionMorbid obesityTobacco dependenceLumbar radiculopathyHypogonadism * HPI: * : This telehealth visit took place over 15 minutes with the patient at home and me in my office. He gave consent for billing. He is being evaluated for chronic diarrhea which he says has been present for 6 months. He says he has about 4 loose stools a day. He has seen no blood. He has no abdominal pain or fever. Refraining from dairy products has not affected this. A GI panel has been done and was negative. I have requested a GI consultation. I recommended he try Imodium 2 mg every 3 or 4 hours while awake. Telehealth L ocation of provider rendering services: { ...} [address] [facility] [address] L ocation of patient: shirley thorpe listed in demographics for today's visit P atient identification confirmed using: RADHA Gracia ame T elehealth method: T elephone only. Patient not visible to care provider. C onsent: P atient verbally consented to treatment, Patient verbally consented to billing insurance company, Patient informed of any privacy concerns related to method of visit T otal time spent with patient (mins) 1 5 * ROS: G eneral/Constitutional: pain o nly normal aches and pains. C hills d enies.?Fatigue a dmits. F ever d enies. E NT: Decreased hearing d enies. R espiratory: Cough n on-productive. C ardiovascular: Chest pain with exertion d enies. D yspnea on exertion?denies. S hortness of breath d enies. G astrointestinal: Constipation d enies. D ecreased appetite d enies.?Diarrhea t hat is infrequent. H eartburn d enies. N ausea d enies. R ectal bleeding d enies. V omiting d enies. H ematology: bruising [...] pain d enies. P sychiatric: Depressed mood w hich is mild. * Medical History: * Surgical History: r epair of floor of right orbit. After traumatic injury 2009pilonidal cystectomy 2008bilateral myringotomy 1985left knee chondroplasty, partial meniscectomy, Dr. Boyd, [facility] 2012left third finger tendon laceration repair, Dr. Boyd, [facility] 12/2014Disectomy 01/2019 * Hospitalization/Major Diagno stic Procedure: b ack pain 11/2018 * Family History: F ather: , Unknown. M other: alive 53 yrs, Hypertension, chronic pain. 1 brother(s) - healthy. . He has a brother who is alive and well. A maternal grandfather had coronary artery disease and a maternal grandmother had hypertension and adult-onset diabetes mellitus. 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 * Medications: T akingDoxycycline Hyclate 100 MG Tablet 1 tablet Orally Once a dayTestosterone Cypionate 200 MG/ML Solution Intramuscular Cephalexin 500 MG Capsule Oral Metoprolol Succinate ER 50 MG Tablet Extended Release 24 Hour 1 tablet Orally Once a dayMedication List reviewed and reconciled with the patientTaking Doxycycline Hyclate 100 MG Tablet 1 tablet Orally Once a dayTaking Testosterone Cypionate 200 MG/ML Solution Intramuscular Taking Cephalexin 500 MG Capsule Oral Taking Metoprolol Succinate ER 50 MG Tablet Extended Release 24 Hour 1 tablet Orally Once a dayMedication List reviewed and reconciled with the patient * Allergies: C roberto Lopez[Allergies Verified] Objective: * Vitals: H t: 74, Wt: 352, BMI:45.19, Ht-cm: 187.96, Wt-k.66. * P ast Orders: Lab:Hemoglobin * Order Date 01/25/2024 10/31/2022 Hemoglobin 17.0 (Ref Range: 14.0-18.0 g/dl) 16.3 (Ref Range: 14.0-18.0 g/dl) * Lab:Hematocrit * Order Date 01/25/2024 10/31/2022 Hematocrit 49.1 (Ref Range: 42.0-52.0 %) 49.0 (Ref Range: 42.0-52.0 %) * Lab:Complete Blood Count Aut o Diff * Order Date 01/17/2024 06/21/2021 White Blood Count 12.3 H (Ref Range: 4.8-10.8 X10*3/uL) 7.4 (Ref Range: 4.8-10.8 X10*3/uL) Red Blood Count 5.79 (Ref Range: 4.60-5.80 X10*6/uL) 5.31 (Ref Range: 4.60-5.80 X10*6/uL) Hemoglobin 17.1 (Ref Range: 14.0-18.0 g/dl) 15.4 (Ref Range: 14.0-18.0 g/dl) Hematocrit 48.9 (Ref Range: 42.0-52.0 %) 46.0 (Ref Range: 42.0-52.0 %) Mean Corpuscular Volume 84.5 (Ref Range: 80.0-98.0 fL) 86.6 (Ref Range: 80.0-98.0 fL) Mean Corpuscular Hemoglobin 29.5 (Ref Range: 27.0-33.0 pg) 29.0 (Ref Range: 27.0-33.0 pg) Mean Corpuscular HGB Conc 35.0 (Ref Range: 31.0-36.0 g/dl) 33.5 (Ref Range: 31.0-36.0 g/dl) Red Cell Distribution Width 14.2 (Ref Range: 11.0-16.0 %) 12.7 (Ref Range: 11.0-16.0 %) Platelet Count 285 (Ref Range: 160-400 X10*3/uL) 244 (Ref Range: 160-400 X10*3/uL) Mean Platelet Volume 9.4 (Ref Range: 9.4-12.4 fL) 10.2 (Ref Range: 9.4-12.4 fL) Neutrophils Percent Auto 66.2 (Ref Range: 45-73 %) 57.6 (Ref Range: 45-73 %) Imm Gran Pct Auto 0.6 H (Ref Range: 0.0-0.4 %) 0.4 (Ref Range: 0.0-0.4 %) Lymphocytes Percent Auto 21.9 (Ref Range: 20-40 %) 31.9 (Ref Range: 20-40 %) Monocytes Percent Auto 8.8 (Ref Range: 2-11 %) 5.4 (Ref Range: 2-11 %) Eosinophils Percent Auto 2.0 (Ref Range: 0-4 %) 4.2 H (Ref Range: 0-4 %) Basophils Percent Auto 0.5 (Ref Range: 0-2 %) 0.5 (Ref Range: 0-2 %) NRBC Pct Auto 0.0 (Ref Range: 0.0-0.2 /100WBC) 0.0 (Ref Range: 0.0-0.2 /100WBC) Neutrophils Absolute Auto 8.2 (Ref Range: 2.0-8.3 x10*3/uL) 4.3 (Ref Range: 2.0-8.3 x10*3/uL) Imm Gran Abs Auto 0.07 H (Ref Range: 0.00-0.03 X10*3/uL) 0.03 (Ref Range: 0.00-0.03 X10*3/uL) Lymphocytes Absolute Auto 2.7 (Ref Range: 1.2-4.9 X10*3/uL) 2.4 (Ref Range: 1.2-4.9 X10*3/uL) Monocytes Absolute Auto 1.1 (Ref Range: 0.1-1.2 X10*3/uL) 0.4 (Ref Range: 0.1-1.2 X10*3/uL) Eosinophils Absolute Auto 0.3 (Ref Range: 0.0-0.4 X10*3/uL) 0.3 (Ref Range: 0.0-0.4 X10*3/uL) Basophils Absolute Auto 0.1 (Ref Range: 0.0-0.2 X10*3/uL) 0.0 (Ref Range: 0.0-0.2 X10*3/uL) NRBC Abs Auto 0.000 (Ref Range: 0.0-0.012 X10*3/uL) 0.000 (Ref Range: 0.0-0.012 X10*3/uL) * Lab:Testosterone, Free/Total * Order Date 01/25/2024 01/15/2024 03/21/2023 Testosterone, Total 1175 A (Ref Range: 250-1100 ng/dL) 1128 A (Ref Range: 250-1100 ng/dL) 496 (Ref Range: 250-1100 ng/dL) Testosterone, Free 278.5 A (Ref Range: 35.0-155.0 pg/mL) TNP (Ref Range: pg/mL) 89.3 (Ref Range: 35.0-155.0 pg/mL) ???Lab:Erythrocyte Sedimentation Rate (Order Date - 01/17/2024) (Collection Date - 01/17/2024)?ValueReference Range?Erythrocyte Sedimentation Rate2 0-15 - MM/HR ???Lab:Comprehensive Met. Panel (Order Date - 01/17/2024) (Collection Date - 01/17/2024)?ValueReference Range?Pxghcn268927-361 - mmol/L ?Bilirubin Total1.00.0-1.0 - mg/dL?Aspartate Amino Sgkzatojlby103- 37 - U/L?Alanine Ryttxlqbpugjilnm964-26 - U/L?Total Protein7.76.5- 8.0 - g/dL?Albumin Level4.83.5-5.0 - g/dL?Alkaline Bdpmflxtmgt19 39-117 - U/L?Potassium3.53.3-5.1 - mmol/L?Idqdgfbq77972-910 - mmol/L?Carbon Enzoeyr2248-32 - mmol/L?Anion Jos0429-10 - ?Blood Urea Dmzwwozr05H2-26 - mg/dL?Creatinine1.43H0.5-1.4 - mg/dL ?Estimated Glomerular Filt Rate55-?Glucose Xvmzef2908-969 - mg/dL ?Calcium9.68.4-10.2 - mg/dL ???Lab:Creatine Kinase Total (Order Date - 01/17/2024) (Collection Date - 01/17/2024)?ValueReference Range?Creatine Kinase Aokka689Z44-260 - U/L Assessment: * Assessment: 1. E ssential hypertension - I10 (Primary), His blood pressure has been normal. I recommended aggressive weight loss and sodium restriction. He was given an appointment to come to the office. 2. C hronic diarrhea of unknown origin - K52.9, The GI panel is negative. Imodium has been Recommended. A GI consultation has been initiated. 3 . T obacco dependence - F17.200, I strongly recommend that he consider smoking cessation. This will be pursued along with weight reduction and reduction in his narcotic doses. 4 . M orbid (severe) obesity due to excess calories - E66.01, We formulated a plan to lose weight at a rate of 1/2 pound per week. He will pursue aggressive sodium and fat reduction and weight reduction. 5 . L umbosacral radiculopathy due to degenerative joint disease of spine - M47.27, He reports the pain is somewhat better. He was able to walk with more ease today. His reflexes are symmetrical. No paravertebral muscle spasm was noted. He will use nonnarcotic medication at this point. I recommended he and rest and massage and ibuprofen. Plan: * Treatment: 2. O thers Continue Doxycycline Hyclate Tablet, 100 MG, 1 tablet, Orally, Once a day. ? Referral To:Pranav Galo Gastroenterology Reason:Consult and Treat Persistent Diarrhea for 2 months * Procedure Codes: 9 9442 PHONE E/M BY PHYS 11-20 MIN * Preventive Medicine: Counseling: C are goal follow-up plan: Counseling for abnormal BMI given Y es Above Normal BMI Follow-up D ietary management education, guidance, and counseling, Dietary needs education, Exercise promotion: strength training, Exercise promotion: stretching, Feeding regime, Giving encouragement to exercise, Lifestyle education regarding diet, Nutrition / feeding management, Nutrition therapy, Prescribed activity/exercise education, Prescribed diet education, Prescribed dietary intake, Special diet education, Weight monitoring , Intervention, Order not done: Medical or Other reason not done S moking/Tobacco Use Patient counseled on the dangers of tobacco use and urged to quit. 0 02/14/2024 Patient Lifestyle Goals P atient wants to quit Treatment Goals S et a quit date, Cut down by 1 cigarette a week Barriers S tress, Social smoker Self-Management Plan M fransisco a plan to cut down number of cigarettes over time and set a date to work towards quitting * Follow Up: 2 Weeks (Reason: Telehealth) * Images: * Sign off status: Completed true * Provider: Jaqueline Bailey MD Date: 0 02/14/2024 Generated for Hima collazo/Praneeth/Sanjanaransmitting on: 1 08/01/2024 11:09 PM EST History and Physical Notes * HPI (History of Present Illness) Category Sub-Category Detail Notes Telehealth Location of [facility] rendering services:: {...} [address] [place] [address] Location of patient:: address listed in demographics for today's visit Patient identification confirmed using:: Name, Telehealth method:: Telephone only. Monisha ent not visible to care provider. Consent:: Patient verbally c onsented to treatment, Patient verbally consented to billing insurance company, Patient informed of any privacy concerns related to method of visit Total time spent with patient (mins): 15 Consultation Request Notes Referral Date Referring Provider Referred Provider Not fariba 02/14/2024 Pranav Bailey, Pranav Jaquez and Nicole stephenson Persistent Diarrhea for 2 months
--- OUTSIDE RECORDS SUMMARY | 2024-03-01 11:00 | XMS_ITS ---
Author Organization Pranav Bailey III, MD Address [address] [place] [address] [address] [place] [address] Care Team Providers Care Locomotive Engineer Name Role Phone Dr. Pranav Bailey III Primary Care Provider [phone] Allergies Allergen (clinical drug ingredient) Drug/Non Drug Allergy documented on EMR Reaction Allergy Type Onset Date Status Bee Sting Unknown Allergy Active codeine Codeine Sulfate Unknown Drug Allergy A ctive REASON FOR VISIT Hypertension, Allergies, Hypogonadism, Morbid obesity, Tobacco dependence, Lumbar radiculopathy, Insomnia, Left knee pain, 21 days of diarrhea Medications Medication SIG (Take, Route, Frequency, Duration) [...] (20-39 cigs/day) Vital Signs Height 74 in 03/01/2024 Weight 352 lbs 03/01/2024 BMI 45.19 kg/m2 03/01/2024 Encounters Encounter Location Date Provider Diagnosis Pranav Bailey III, MD [address] [place] [address] [place] [address] 03/01/2024 Pranav Bailey Essential hypertensi on I10 ; Morbid (severe) obesity due to excess calories E66.01 ; Synovial cyst of popliteal space [Arredondo], left knee M71.22 ; Insomnia due to medical condition G47.01 ; Anaphylactic reaction to bee sting, assault, sequela T63.443S ; Hypogonadism in male E29.1 ; Environmental allergies Z91.09 and Acute diarrhea R19.7 Assessments Encounter Date Diagnosis (ICD Code) Assessment Notes Treat ment Notes Treatment Clinical Notes 03/01/2024 Essential hypertension (ICD-10 - I10) His blood pressure has been normal. I recommended aggressive weight loss and sodium restriction. He was given an appointment to come to the office. 03/01/2024 Morbid (severe) obesity due to excess calories (ICD-10 - E66.01) We formulated a plan to lose weight at a rate of 1/2 pound per week. He will pursue aggressive sodium and fat reduction and weight reduction. 03/01/2024 Synovial cyst of popliteal space [Arredondo], left knee (ICD-10 - M71.22) This was excised and treated by Dr. Boyd in the past and is no longer a problem. The pain has resolved 03/01/2024 Insomnia due to medical condition (ICD-10 - G47.01) He complains that he has difficulty sleeping because of his pain. I gave him a trial of trazodone. I am trying to avoid using habit-forming controlled substances in this patient. 03/01/2024 Anaphylactic reaction to bee sting, assault, sequela (ICD-10 - T63.443S) This diagnosis comes from the emergency room record at [facility]. He has never been given epinephrine. I will obtain a more detailed history of this from him when he returns next time. 03/01/2024 Hypogonadism in male (ICD-10 - E29.1) His testosterone level has been elevated and his injected daily dose was decreased to 75 mg. 03/01/2024 Environmental allergies (ICD-10 - Z91.09) He is experiencing difficulty with the current pollen season. He has had no wheezing but is very congested. He will use Flonase and loratadine with a short course of prednisone. 03/01/2024 Acute diarrhea (ICD-10 - R19.7) He has had loose stools every day for 21 days. A GI consultation is pending. I have increased the dose of Imodium. Plan Of Treatment Medication Medication Name Sig Start Date Stop Date Notes Testosterone Cypionate 200 MG/ML Intramuscular Doxycycline Hyclate 100 MG 1 tablet Orally Once a day 10/08 Metoprolol Succinate ER 50 MG 1 tablet Orally Once a day 0 10/18/2023 Cephalexin 500 MG Oral Next Appt Details Follow Up: 4 Weeks, Reason: OV Provider Name:Pranav Bailey , 06/03/2025 02:00:00 PM, [address] [place] [address], [place] [address], [place], [address], Progress Notes * GEORGETTE MOORE RDOB:1985 (38 yo M)Acc No.[id number]:03/01/2024 Patient: Rolanda GEORGETTE KING Provider: Jaqueline Bailey MD :1985 A ge:38 Y S ex:Male Date:03/01/2024 Address:[address] [place], [place] [address] Subjective: * Chief Complaints: * H ypertensionAllergiesHypogonadismMorbid obesityTobacco dependenceLumbar radiculopathyInsomniaLeft knee pain21 days of diarrhea * HPI: * : This telehealth visit took place over 15 min. with the patient at home and me in my office. He gave consent for billing. This was a scheduled visit for medical management. He is being evaluated for chronic diarrhea, which has lasted 3 weeks. His GI profile was negative. His diarrhea has decreased from 4 times to 3 times a day. He is taking Imodium. I increased the dose of Imodium and he will call back after the weekend and report. We will consider diphenoxylate. He has a GI appointment. Telehealth L ocation of provider rendering services: { ...} [address] [place] [address] Drive [address] [facility] [address] L ocation of patient: shirley thorpe listed [...] ecreased appetite d enies.?Diarrhea t hat is frequent. H eartburn d enies. N ausea d enies. R ectal bleeding d enies. V omiting d enies. H ematology: bruising d enies. p etechiae d enies. S wollen glands n one have been noted. G enitourinary: Frequent urination a t night. M usculoskeletal: Muscle aches d enies. P ainful joints d enies. S ciatica d enies. W eakness d enies. S kin: Itching d enies. R mj d enies. S kin lesion(s)?denies. N eurologic: Difficulty speaking d enies. D izziness d enies.?Headache d enies. L ow back pain d enies. P sychiatric: Depressed mood d enies. * Medical History: * Surgical History: r epair of floor of right orbit. After traumatic injury 2009pilonidal cystectomy 2008bilateral myringotomy 1985left knee chondroplasty, partial meniscectomy, Dr. Boyd, [facility] 2012left third finger tendon laceration repair, Dr. 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 He is single with no children. * [...] Ht-cm: 187.96, Wt-k.66. * P ast Orders: Lab:Testosterone, Free/Total * Order Date 01/25/2024 01/15/2024 03/21/2023 Testosterone, Total 1175 A (Ref Range: 250-1100 ng/dL) 1128 A (Ref Range: 250-1100 ng/dL) 496 (Ref Range: 250-1100 ng/dL) Testosterone, Free 278.5 A (Ref Range: 35.0-155.0 pg/mL) TNP (Ref Range: pg/mL) 89.3 (Ref Range: 35.0-155.0 pg/mL) ???Lab:Creatine Kinase Total (Order Date - 01/17/2024) (Collection Date - 01/17/2024)?ValueReference Range?Creatine Kinase Nnein357P45-619 - U/L ???Lab:Comprehensive Met. Panel (Order Date - 01/17/2024) (Collection Date - 01/17/2024)?ValueReference Range?Cdxaap409681-709 - mmol/L ?Bilirubin Total1.00.0-1.0 - mg/dL?Aspartate Amino Oyjaafsutbr243- 37 - U/L?Alanine Izbrkncurkqkwvpo957-77 - U/L?Total Protein7.76.5- 8.0 - g/dL?Albumin Level4.83.5-5.0 - g/dL?Alkaline Jdxratkwyxa03 39-117 - U/L?Potassium3.53.3-5.1 - mmol/L?Yizcsvsj65444-012 - mmol/L?Carbon Pojaovd7766-95 - mmol/L?Anion Ecq3238-02 - ?Blood Urea Zejootfq38Y2-71 - mg/dL?Creatinine1.43H0.5-1.4 - mg/dL ?Estimated Glomerular Filt Rate55-?Glucose Dzjtit6283-947 - mg/dL ?Calcium9.68.4-10.2 - mg/dL ???Lab:Erythrocyte Sedimentation Rate (Order Date - 01/17/2024) (Collection Date - 01/17/2024)?ValueReference Range?Erythrocyte Sedimentation Rate2 0-15 - MM/HR * Lab:Complete Blood Count Aut o Diff [...] X10*3/uL) 0.000 (Ref Range: 0.0-0.012 X10*3/uL) * Lab:Hematocrit * Order Date 01/25/2024 10/31/2022 Hematocrit 49.1 (Ref Range: 42.0-52.0 %) 49.0 (Ref Range: 42.0-52.0 %) * Lab:Hemoglobin * Order Date 01/25/2024 10/31/2022 Hemoglobin 17.0 (Ref Range: 14.0-18.0 g/dl) 16.3 (Ref Range: 14.0-18.0 g/dl) ???Lab:GI Panel (Order Date - 02/06/2024) (Collection Date - 02/06/2024)? ValueReference Range?CampylobacterNot DetectedNot Detect. - ?Plesiomonas shigelloidesNot DetectedNot Detect. -?SalmonellaNot DetectedNot Detect. -?VibrioNot DetectedNot Detect. -?Vibrio CholeraeNot DetectedNot Detect. -?Yersinia enterocoliticaNot DetectedNot Detect. -?E. coli EAECNot DetectedNot Detect. -?E. coli EPECNot DetectedNot Detect. -?E. coli ETECNot DetectedNot Detect. -?E. coli STECNot DetectedNot Detect. -?E. coli T632Khg applicableNot Detect. -?Shigella sp./EIECNot DetectedNot Detect. -?CryptosporidiumNot DetectedNot Detect. -?Cyclospora cayetanensisNot DetectedNot Detect. - ?Entamoeba histolyticaNot DetectedNot Detect. -?Giardia lambliaNot DetectedNot Detect. -?Adenovirus F 40/41Not DetectedNot Detect. - ?AstrovirusNot DetectedNot Detect. -?Norovirus GI/GIINot Detected Not Detect. -?Rotavirus ANot DetectedNot Detect. -?SapovirusNot DetectedNot Detect. - ???Lab:CDiff Gene PCR (Order Date - 02/06/2024) (Collection Date - 02/06/2024) ?ValueReference Range?CDiff Gene PCRNEGATIVENegative - Assessment: * Assessment: 1. E ssential hypertension - I10 (Primary), His blood pressure has been normal. I recommended aggressive weight loss and sodium restriction. He was given an appointment to come to the office. 2. M orbid (severe) obesity due to excess calories - E66.01, We formulated a plan to lose weight at a rate of 1/2 pound per week. He will pursue aggressive sodium and fat reduction and weight reduction. 3 . S ynovial cyst of popliteal space [Arredondo], left knee - M71.22, This was excised and treated by Dr. Boyd in the past and is no longer a problem. The pain has resolved 4 . Insomnia due to medical condition - G47.01, He complains that he has difficulty sleeping because of his pain. I gave him a trial of trazodone. I am trying to avoid using habit-forming controlled substances in this patient. 5 . A naphylactic reaction to bee sting, assault, sequela - T63.443S, This diagnosis comes from the emergency room record at [facility]. He has never been given epinephrine. I will obtain a more detailed history of this from him when he returns next time. 6 . H ypogonadism in male - E29.1, His testosterone level has been elevated and his injected daily dose was decreased to 75 mg. 7 . E nvironmental allergies - Z91.09, He is experiencing difficulty with the current pollen season. He has had no wheezing but is very congested. He will use Flonase and loratadine with a short course of prednisone. 8 . A cute diarrhea - R19.7, He has had loose stools every day for 21 days. A GI consultation is pending. I have increased the dose of Imodium. Plan: * Treatment: 2. O thers Continue Doxycycline Hyclate Tablet, 100 MG, 1 tablet, Orally, Once a day. * Procedure Codes: 9 9442 PHONE E/M [...] done: Medical or Other reason not done * Follow Up: 4 Weeks (Reason: OV) * Images: * Sign off status: Completed true * Provider: Jaqueline Bailey MD Date: 0 03/01/2024 Generated for Hima collazo/Praneeth/Rachelsmitting on: 08/01/2024 11:08 PM EST History and Physical Notes * HPI (History of Present Illness) Category Sub-Category Detail Notes Telehealth Location of [facility] rendering services:: {...} [address] [place] [address] [place] [address] Location of patient:: address listed in demographics [...]
--- OUTSIDE RECORDS SUMMARY | 2024-04-02 12:15 | XMS_ITS ---
Author Organization Pranav Bailey III, MD Address [address] [place] [address] [place] [address] Care Team Providers Care Facility Coordinator Name Role Phone Dr. Pranav Bailey III Primary Care Provider [phone] REASON FOR VISIT Follow up Social History Sex Assigned At : Social History Observation Description Sex Assigned At Male Encounters Encounter Location Date Provider Diagnosis Pranav Bailey III, MD [address] [place] [address] [place] [address] 04/02/2024 Pranav Bailey Plan Of Treatment Next Appt Details Provider Name:Pranav Bailey , 06/03/2025 02:00:00 PM, [address] [place] [address] [facility] [place], [address], Progress Notes * GEORGETTE MOORE RDOB:1985 (39 yo M)Acc No.[id number]:04/02/2024 Progress Notes Patient: Rolanda FERNANDO GEORGETTE Parsons Provider: Jaqueline Bailye MD :1985 A ge:38 Y S ex:Male Date:04/02/2024 Address:[address] [place], [place] [address] Subjective: * Chief Complaints: * 1 . Follow up. * Medical History: Objective: * Vitals: Assessment: Plan: * Treatment: * Images: * The named appointment provid er may or may not be the originator of this progress note, and it is not deemed complete until electronically signed by the appointment provider. Sign off status: Pending * Provider: Jaqueline Bailey MD Date: 0 04/02/2024 Generated for Hima collazo/Praneeth/Rudolph on: 08/01/2024 11:10 PM EST
--- OUTSIDE RECORDS SUMMARY | 2024-06-05 06:00 | XMS_ITS ---
Author Organization [facility] Address [address] [place] [address] Care Team Providers Care Baffle Mounter Name Role Phone Leo PANCHAL, Pranav Primary Care Provider Unavailab Pranav Galindo Unavailable [phone] Brian Dodd Jr Unavailable REASON FOR VISIT diarrhea Encounters Encounter Location Date Provider Diagnosis [facility] [address] [place] [address] 06/05/2024 Brian Dodd Jr Plan Of Treatment No Information Progress Notes * GEORGETTE MOOREDOB:1985 ( 39 yo M)Acc No.[id number]:06/05/2024 Progress Notes Patient: GEORGETTE SNEED Provider: Anna Marie Dodd MD :1985 A ge:38 Y S ex:Male Date:06/05/2024 [address] [place] Pcp:Pranav Bailey MD Subjective: * Chief Complaints: * D iarrhea Billing Information: * Procedure Codes: * The named appointment provid er may or may not be the originator of this progress note, and it is not deemed complete until electronically signed by the appointment provider. Sign off status: Pending * Provider: Anna Marie Dodd MD Date: 08/05/2023 Generated for Printi ng/Faxing/eTransmitting on: 08/01/2024 03:54 AM EST
--- OUTSIDE RECORDS SUMMARY | 2024-06-10 05:45 | XMS_ITS ---
Author Organization Pranav Bailey III, MD Address [address] [place] [address] [place] [address] Care Team Providers Care Emergency Telecommunications Dispatcher Name Role Phone Dr. Pranav Bailey III Primary Care Provider Allergies Allergen (clinical drug ingredient) Drug/Non Drug Allergy documented on EMR Reaction Allergy Type Onset Date Status Bee Sting Unknown Allergy Active codeine Codeine Sulfate Unknown Drug Allergy A ctive REASON FOR VISIT Follow up Medications Medication SIG (Take, Route, Frequency, Duration) Notes Start Date End Date Status Metoprolol Succinate ER 50 MG 1 tablet Orally Once a day 10/18/2023 A ctive Doxycycline Hyclate 100 MG 1 tablet Orally Once a day 10/18/2023 Active Testosterone Cypionate 200 MG/ML Intramuscular Active Cephalexin 500 MG Oral Ac tive Social History Sex Assigned At : Social History Observation Description Sex Assigned At Male Encounters Encounter Location Date Provider Diagnosis Pranav Bailey III, MD [address] [place] [address] [place] [address] 06/10/2024 Pranav Bailey Essential hypertensi on I10 Assessments Encounter Date Diagnosis (ICD Code) Assessment Notes Treat ment Notes Treatment Clinical Notes 06/10/2024 Essential hypertension (ICD-10 - I10) His blood pressure has been normal. I recommended aggressive weight loss and sodium restriction. He was given an appointment to come to the office. Plan Of Treatment Medication Medication Name Sig Start Date Stop Date Notes Metoprolol Succinate ER 50 MG 1 tablet Orally Once a day 0 10/18/2023 Doxycycline Hyclate 100 MG 1 tablet Orally Once a day 10/08 Testosterone Cypionate 200 MG/ML Intramuscular Cephalexin 500 MG Oral Next Appt Details Provider Name:Pranav Gonzalez Leo , 06/03/2025 02:00:00 PM, [address] [place] [address] DR [facility] Lucy, [place], [address], Progress Notes * GEORGETTE MOORE RDOB:1985 (39 yo M)Acc No.[id number]:06/10/2024 Progress Notes Patient: GEORGETTE SNEED Provider: Jaqueline Bailey MD :1985 A ge:38 Y S ex:Male Date:06/10/2024 Address:[address] [place], [place] [id number] Subjective: * Chief Complaints: * 1 . [...] elevated CPK, 2011. Dehydration with mild rhabdomyolysis, [facility], Arredondo's cyst left knee with torn meniscus, bee sting anaphylaxis [facility] emergency room 2014, 12/2014, left third finger tendon laceration, 2008, negative polysomnogram, [facility], chronic elevation of CPK and aldolase with possible myopathy, Chronic back pain treated with narcotic medication, Subcutaneous mass left elbow, Left knee pain, Chronic fatigue. * Surgical History: r epair of floor of right orbit. After traumatic injury 2008, pilonidal cystectomy 2007, bilateral myringotomy 1984, left knee chondroplasty, partial meniscectomy, Dr. Boyd, [facility] 2012, left third finger tendon laceration repair, Dr. Boyd, [facility] 12/2014, Disectomy 01/2019. * Hospitalization/Major Diagno stic Procedure: b ack pain 11/2018. * Family History: F ather: , Unknown. M other: alive 53 yrs, Hypertension, chronic pain. 1 brother(s) - healthy. . He has a brother who is alive and well. A maternal grandfather had coronary artery disease and a maternal grandmother had hypertension and adult-onset diabetes mellitus. * Medications: T aking Doxycycline Hyclate 100 [...] Pending * Provider: Jaqueline Bailey MD Date: 08/11/2023 Generated for Hima collazo/Praneeth/Albinoitting on: 08/01/2024 11:08 PM EST History and Physical Notes * HPI (History of Present Illness) Category Sub-Category Detail Notes COVID-19 Screening Questions Have you had any new onset fever, chills, cough, congestion, sore throat, shortness of breath, muscle aches?: No Have you been exposed to the virus withi n the last 10 days?: No Have you travelled internationally in last 10 days?: No Have you been [...]
--- OUTSIDE RECORDS SUMMARY | 2024-06-10 11:00 | XMS_ITS ---
Author Organization Pranav Bailey III, MD Address [address] [place] [address] Care Team Providers Care Veterinary Virus Serum Inspector Name Role Phone Dr. Pranav Bailey III Primary Care Provider REASON FOR VISIT No Show Social History Sex Assigned At : Social History Observation Description Sex Assigned At Male Encounters Encounter Location Date Provider Diagnosis Pranav Bailey III, MD [address] [place] [address] [place] [address] 06/10/2024 Pranav Bailey Plan Of Treatment Next Appt Details Provider Name:Pranav Bailey , 06/03/2025 02:00:00 PM, [address] [place] [address] [place], [address], Progress Notes * GEORGETTE MOORE RDOB:1985 (38 yo M)Acc No.[id number]:06/10/2024 Patient: GEORGETTE SNEED :1985 A ge:38 Y S ex:Male Address:[address] [place] [address], [address] * true * Date: Generated for Rizwani vale/Faemilieg/eTransmitting on: 08/01/2024 11:09 PM EST
--- OUTSIDE RECORDS SUMMARY | 2024-06-27 02:30 | XMS_ITS ---
Author Organization [facility] Address [address] [place] [address] Care Team Providers Care Online Merchandiser Name Role Phone Pranav Bailey MD Primary Care Provider Unavailab Pranav Galindo Unavailable [phone] REASON FOR VISIT chronic diarrhea,abnormal wt loss Encounters Encounter Location Date Provider Diagnosis [facility] [address] [place], [place] [id number] 06/27/2024 Pranav Galo Chronic diarrhea K 52.9 and Weight loss R63.4 Assessments Encounter Date Diagnosis (ICD Code) Assessment Notes Treatment Notes Treatment Clinical Notes Section Notes 06/27/2024 Chronic diarrhea (ICD-10 - K52.9) 06/27/2024 Weight loss (ICD-10 - R63.4) Plan Of Treatment No Information Progress Notes * GEORGETTE MOOREDOB:1985 ( 39 yo M)Acc No.[id number]:06/27/2024 COLON WITH MAC Patient: GEORGETTE SNEED Provider: Jaqueline Galo MD :1985 A ge:38 Y S ex:Male Date:06/27/2024 [place] [id number] Pcp:Pranav Bailey MD Subjective: * Chief Complaints: * C hronic diarrhea,abnormal wt loss Assessment: * Assessment: 1. C hronic diarrhea - K52.9 (Primary) 2 . W eight loss - R63.4 ? Plan: * Procedure Codes: 4 5380 COLONOSCOPY AND BIOPSY Billing Information: * Procedure Codes: 70083 COLONOSCOPY AND BIOPSY. * The named appointment provid er may or may not be the originator of this progress note, and it is not deemed complete until electronically signed by the appointment provider. Sign off status: Pending * Provider: Jaqueline Galo MD Date: 08/28/2023 Generated for Hmia collazo/Praneeth/Rudolph on: 08/01/2024 03:53 AM EST
--- OUTSIDE RECORDS SUMMARY | 2024-08-29 06:00 | XMS_ITS ---
Author Organization [facility] Address [address] [place] [address] Care Team Providers Care Tester Operator Name Role Phone Pranav Bailey MD Primary Care Provider Unavailab Pranav Galindo Unavailable [phone] REASON FOR VISIT Patient presents today for diarrhea, wt loss Encounters Encounter Location Date Provider Diagnosis [facility] [address] [place] [id number] 08/29/2024 Pranav Galo Plan Of Treatment No Information Progress Notes * GEORGETTE MOOREDOB:1985 ( 39 yo M)Acc No.[id number]:08/29/2024 Progress Notes Patient: GEORGETTE SNEED Provider: Jaqueline Galo MD :1985 A ge:39 Y S ex:Male Date:08/29/2024 [id number] Pcp:Pranav Bailey MD Subjective: * Chief Complaints: * P atient presents today for diarrhea, wt loss Billing Information: * Procedure Codes: * The named appointment provid er may or may not be the originator of this progress note, and it is not deemed complete until electronically signed by the appointment provider. Sign off status: Pending * Provider: Jaqueline Galo MD Date: 0 08/29/2024 Generated for Hima collazo/Praneeth/eTransmitting on: 1 08/01/2024 03:53 AM EST
--- OUTSIDE RECORDS SUMMARY | 2024-10-21 10:30 | XMS_ITS ---
Author Organization Pranav Bailey III, MD Address [address] [place] [address] [place] [address] Care Team Providers Care Press Catcher Name Role Phone Dr. Pranav Bailey III Primary Care Provider Allergies Allergen (clinical drug ingredient) Drug/Non Drug Allergy documented on EMR Reaction Allergy Type Onset Date Status Bee Sting Unknown Allergy Active codeine Codeine Sulfate Unknown Drug Allergy A ctive REASON FOR VISIT Annual Exam Medications Medication SIG (Take, Route, Frequency, Duration) [...] Date Provider Diagnosis Pranav Bailey III, MD [address] [place] [address] [place] [address] 10/21/2024 Pranav Bailey Essential hypertensi on I10 Assessments Encounter Date Diagnosis (ICD Code) Assessment Notes Treat ment Notes Treatment Clinical Notes 10/21/2024 Essential hypertension (ICD-10 - I10) His blood [...] MG Oral Next Appt Details Provider Name:Pranav Cabrerane , 06/03/2025 02:00:00 PM, [address] [place] [address], [place] [address], [place], [address], Progress Notes * GEORGETTE MOORE RDOB:1985 (39 yo M)Acc No.[id number]:10/21/2024 Progress Notes Patient: GEORGETTE SNEED Provider: Jaqueline Bailey MD :1985 A ge:39 Y S ex:Male Date:10/21/2024 Address:[address] [place] [address] Subjective: * Chief Complaints: * 1 . Annual Exam. * HPI: C OVID-19 Screening: Questions H ave you had any new onset fever, chills, cough, congestion, sore throat, shortness of breath, muscle aches? N o * ROS: G eneral/Constitutional: pain [...] elevated CPK, 2011. Dehydration with mild rhabdomyolysis, [facility], Arredondo's cyst left knee with torn meniscus, bee sting anaphylaxis [facility] emergency room 2014, 12/2014, left third finger tendon laceration, 2008, negative polysomnogram, [facility], chronic elevation of CPK and aldolase with possible myopathy, Chronic back pain treated with narcotic medication, Subcutaneous mass left elbow, Left knee pain, Chronic fatigue. * Surgical History: r epair of floor of right orbit. After traumatic injury 2008, pilonidal cystectomy 2007, bilateral myringotomy 1984, left knee chondroplasty, partial meniscectomy, Dr. Boyd, [facility] 2012, left third finger tendon laceration repair, Dr. Boyd, [facility] 12/2014, Disectomy 01/2019. 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 He is single with no children. [...] * Provider: Jaqueline Bailey MD Date: 0 10/21/2024 Generated for Rizwani ng/Merrittg/eTransmitting on: 08/01/2024 11:10 PM EST History and Physical Notes * HPI (History of Present Illness) Category Sub-Category Detail Notes COVID-19 Screening Questions Have you had any new onset fever, chills, cough, congestion, sore throat, shortness of breath, muscle aches?: No Examination Category Sub-Category Detail Notes General [...]
--- OUTSIDE RECORDS SUMMARY | 2025-01-28 08:30 | XMS_ITS ---
Author Organization Pranav Bailey III, MD Address [address] [place] [address] [address] [place] [address] Care Team Providers Care Processing Tech Name Role Phone Dr. Pranav Bailey III Primary Care Provider [phone] Allergies Allergen (clinical drug ingredient) Drug/Non Drug Allergy documented on EMR Reaction Allergy Type Onset Date Status Bee Sting Unknown Allergy Active codeine Codeine Sulfate Unknown Drug Allergy A ctive Results Component Value Reference Range Notes Lipid Panel Reviewed date:02/07/2025 02:17:10 PM Interpretation: Performing Lab:[facility], [address] [place] [phone] Notes/Report: Triglycerides 152 <150 mg/dL Desirable Triglyceride: less than 150 mg/dL Borderline High Triglyceride 150-199 mg/dL High Triglyceride: 200-499 mg/dL Very High Triglyceride: greater than or equal to 5OO mg/dL Cholesterol 129 <200 mg/dL Desirable Cholesterol: less than 200 mg/dL Borderline High Cholesterol: 200-239 mg/dL High Cholesterol: greater than 239 mg/dL LDL Cholesterol Calculated 64 <100 mg/dL Desirable LDL: less than 100 mg/dL Near Optimal/Above Optimal LDL: 110-129 mg/dL Borderline High LDL: 130-159 mg/dL High LDL: 160-189 mg/dL Very High LDL: greater than or equal to 190 mg/dL HDL Cholesterol 35 >40 mg/dL Desirable HDL: greater than 40 mg/dL Note: This HDL assay may give artificially low results in patients with liver disease. Amylase Reviewed date:02/07/2025 02:17:10 PM Interpretation: Performing Lab:[facility], [address] [place] [phone] Notes/Report: Amylase 136 28-100 U/L Lipase Reviewed date:02/07/2025 02:17:10 PM Interpretation: Performing Lab:[facility], [address] [place] [phone] Notes/Report: Lipase 493 8-78 U/L Testosterone, Total Reviewed date:02/07/2025 02:17:10 PM Interpretation: Performing Lab:[facility], [address] [place] [phone] Notes/Report: Testosterone, Total 802 919-0878 ng/dL For additional information, please refer to http://education.[employer].com/faq/ [email or web address] (This link is being provided for informational/ educational purposes only.) This test was developed and its analytical performance characteristics have been determined by [employer] [place], [place]. It has not been cleared or approved by the U.S. Food and Drug Administration. This assay has been validated pursuant to the CLIA regulations and is used for clinical purposes. THIS TEST WAS PERFORMED AT: [employer] [address] VIDYA CAMACHO MD,PHD REASON FOR VISIT [facility] 01/19/25- 01/23/25, Dx: Acute Pancreatitis, Hospital follow-up, Idiopathic acute pancreatitis,Elevated creatine kinase, Hypertension, Tobacco dependence, Lumbar radiculopathy, Hypogonadism Medications Medication SIG (Take, Route, Frequency, Duration) Notes Start Date End Date Status Losartan Potassium 50 MG 1 tablet Orally Once a day Active Testosterone Cypionate 200 MG/ML Intramuscular Active amLODIPine Besylate 10 MG 1 tablet Orally Once a day Active Carvedilol 3.125 MG 1 tablet with food O rally Twice a day Active Social History Tobacco Use: Social History Observation [...] User Heavy cigarett e smoker (20-39 cigs/day) Problems Problem Type SNOMED Code ICD Code Onset Dates Problem Status W/U Status Risk Notes Problem [id number] Idiopathic acute pancreatitis without infection or necrosis (K85.00) Active confirmed We are arranging a follow-up with gastroenterolog y. His pain is continuing to diminish. He is able to eat and drink without difficulty. Comprehensive blood work was ordered forJuly 2024. Follow-up visit will be arranged in 14 days. Vital Signs Temperature 99.0 degrees Fahrenheit 01/29/20 25 Blood pressure systolic 141 mm Hg 01/29/20 25 Blood pressure diastolic 80 mm Hg 025 Heart Rate 79 /min 01/28/2025 Height 74 in 01/28/2025 Weight 301 lbs 01/28/2025 BMI 38.64 kg/m2 01/28/2025 Encounters Encounter Location Date Provider Diagnosis Pranav Bailey III, MD [address] [place] [address] [place] [phone] 01/28/2025 Pranav Bailey Essential hypertensi on I10 ; Idiopathic acute pancreatitis without infection or necrosis K85.00 ; Morbid (severe) obesity due to excess calories E66.01 ; Erectile dysfunction, unspecified erectile dysfunction type N52.9 ; Elevated CPK R74.8 ; Tobacco dependence F17.200 ; Lumbosacral radiculopathy due to degenerative joint disease of spine M47.27 ; Insomnia due to medical condition G47.01 and Hypogonadism in male E29.1 Assessments Encounter Date Diagnosis (ICD Code) Assessment Notes Treat ment Notes Treatment Clinical Notes 01/28/2025 Essential hypertension (ICD-10 - I10) His blood pressure has been slightly above normal. I recommended aggressive weight loss and sodium restriction. He was given an appointment to come to the office. 01/28/2025 Idiopathic acute pancreatitis without infection or necrosis (ICD-10 - K85.00) We are arranging a follow-up with gastroenterology. His pain is continuing to diminish. He is able to eat and drink without difficulty. Comprehensive blood work was ordered forJuly 2024. Follow-up visit will be arranged in 14 days. 01/28/2025 Morbid (severe) obesity due to excess calories (ICD-10 - E66.01) He has lost substantial weight since his last visit. Body mass index is now 30 in the obese range. We reviewed his diet and his nutrition. We made a plan to lose weight at a rate of 1 pound per week 01/28/2025 Erectile dysfunction, unspecified erectile dysfunction type (ICD-10 - N52.9) This problem has been treated by the provision of testosterone. 01/28/2025 Elevated CPK (ICD-10 - R74.8) 01/28/2025 Tobacco dependence (ICD-10 - F17.200) I strongly recommend that he consider smoking cessation. This will be pursued along with weight reduction and reduction in his narcotic doses. 01/28/2025 Lumbosacral radiculopathy due to degenerative joint disease of spine (ICD-10 - M47.27) He reports the pain is somewhat better. He was able to walk with more ease today. His reflexes are symmetrical. No paravertebral muscle spasm was noted. He will use nonnarcotic medication at this point. I recommended he and rest and massage and ibuprofen. 01/28/2025 Insomnia due to medical condition (ICD-10 - G47.01) He complains that he has difficulty sleeping because of his pain. I gave him a trial of trazodone. I am trying to avoid using habit-forming controlled substances in this patient. 01/28/2025 Hypogonadism in male (ICD-10 - E29.1) His testosterone level has been elevated and his injected daily dose was decreased to 75 mg. Plan Of Treatment Medication Medication Name Sig Start Date Stop Date Notes Losartan Potassium 50 MG 1 tablet Orally Once a day Testosterone Cypionate 200 MG/ML Intramuscular amLODIPine Besylate 10 MG 1 tablet Orally Once a day Carvedilol 3.125 MG 1 tablet with food O rally Twice a day Next Appt Details Follow Up: 2 Weeks, Reason: OV Provider Name:Pranav Bailey , 06/03/2025 02:00:00 PM, [address] [place] [address] AHSAN MYRICK, CAITLIN MULLER, [phone], Progress Notes * GEORGETTE MOORE RDOB:1985 (39 yo M)Acc No.[id number]:01/28/2025 Patient: GEORGETTE SNEED Provider: Jaqueline Bailey MD :1985 A ge:39 Y S ex:Male Date:01/28/2025 Address:[address] [place] [address] Subjective: * Chief Complaints: * H ER 01/19/25- 01/23/25, Dx: Acute PancreatitisHospital follow-upIdiopathic acute pancreatitisElevated creatine kinaseHypertensionTobacco dependenceLumbar radiculopathyHypogonadism * HPI: C OVID-19 Screening: He was admitted to [facility] January 19, 2025 through the emergency room for acute abdominal and back pain. He was diagnosed with acute pancreatitis with a lipase of her 1100. He had no gallstones but did have some sludge. He has not been drinking alcohol or taking drugs. His toxic drug screen showed only marijuana. He his alcohol level was less than 10. In all the time I have known him I have not known him to drink alcohol to excess. He was discharged on January 23, 2025 has some residual pain but he is managing. e did not ask for pain medicine today. Questions H ave you had any new onset fever, chills, cough, congestion, sore throat, shortness of breath, muscle aches? N o * ROS: G eneral/Constitutional: pain U pper left abdomen. C hills d enies. F atigue a dmits. F ever d enies. E [...] have been noted. G enitourinary: Frequent urination o nce a night. M usculoskeletal: Muscle aches d enies. [...] floor of right orbit. After traumatic injury 2008pilonidal cystectomy 2008bilateral myringotomy 1985left knee chondroplasty, partial meniscectomy, Dr. Boyd, [facility] 2012left third finger tendon laceration repair, Dr. 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 He is single with no children. * Medications: T akingamLODIPine Besylate 10 MG Tablet 1 tablet Orally Once a day Carvedilol 3.125 MG Tablet 1 tablet with food Orally Twice a day Losartan Potassium 50 MG Tablet 1 tablet Orally Once a day Testosterone Cypionate 200 MG/ML Solution Intramuscular Taking amLODIPine Besylate 10 MG Tablet 1 tablet Orally Once a day Taking Carvedilol 3.125 MG Tablet 1 tablet with food Orally Twice a day Taking Losartan Potassium 50 MG Tablet 1 tablet Orally Once a day Taking Testosterone Cypionate 200 MG/ML Solution Intramuscular DiscontinuedCephalexin 500 MG Capsule Oral Metoprolol Succinate ER 50 MG Tablet Extended Release 24 Hour 1 tablet Orally Once a day Doxycycline Hyclate 100 MG Tablet 1 tablet Orally Once a day Medication List reviewed and reconciled with the patientDiscontinued Cephalexin 500 MG Capsule Oral Discontinued Metoprolol Succinate ER 50 MG Tablet Extended Release 24 Hour 1 tablet Orally Once a day Discontinued Doxycycline Hyclate 100 MG Tablet 1 tablet Orally Once a day Medication List reviewed and reconciled with the patient * Allergies: C roberto Lylesdemi Lopez[Allergies Verified] Objective: * Vitals: H t: 74, Wt: 301, BMI:38.64, BP: 141/80, HR: 79, Temp: 99.0, Ht-cm: 187.96, Wt-k.53. * P ast Orders: I maging:CT angio abdomen pelvis (Order Date - 01/19/2025) (Performed Date - 01/19/2025) I maging:CT angio chest (Order Date - 01/19/2025) (Performed Date - 01/19/2025) I maging:XR chest 2V (Order Date - 01/19/2025) (Performed Date - 01/19/2025) I maging:US abdomen limited (Order Date - 01/20/2025) (Performed Date - 01/20/2025) L ab:Basic Metabolic Panel (Order Date - 01/23/2025) (Collection Date & Time - 01/23/2025 05:44 AM) Value Reference Range Sodium 140 135-145 - mmol/L Blood Urea Nitrogen 20 H 9-16 - mg/dL Creatinine 1.02 0.5-1.4 - mg/dL Glucose Random 86 60-115 - mg/dL Calcium 9.1 8.4-10.2 - mg/dL Potassium 3.5 3.3-5.1 - mmol/L Chloride 108 96-108 - mmol/L Carbon Dioxide 26 22-29 - mmol/L Anion Gap 10 L 12-20 - Estimated Glomerular Filt Rate > 60 - Creatinine Clr Calc Pharmacy 143.6 - L ab:C Reactive Protein (Order Date - 01/20/2025) (Collection Date & Time - 01/20/2025 06:12 AM) Value Reference Range C Reactive Protein 2.54 H < or = 0.50 - mg/dL L ab:Magnesium (Order Date - 01/20/2025) (Collection Date & Time - 01/20/2025 06:12 AM) Value Reference Range Magnesium 1.9 1.6-2.6 - mg/dL Lab:Comprehensive Met. Panel * Collection Date 01/20/2025 01/17/2024 Collection Time 06:12 AM 03:48 PM Order Date 01/20/2025 01/17/2024 Sodium 140 (Ref Range: 135-145 mmol/L) 140 (Ref Range: 135-145 mmol/L) Bilirubin Total 0.6 (Ref Range: 0.0-1.0 mg/dL) 1.0 (Ref Range: 0.0-1.0 mg/dL) Aspartate Amino Transferase 22 (Ref Range: 5-37 U/L) 30 (Ref Range: 5-37 U/L) Alanine Aminotransferase 21 (Ref Range: 0-40 U/L) 39 (Ref Range: 0-40 U/L) Total Protein 6.7 (Ref Range: 6.5-8.0 g/dL) 7.7 (Ref Range: 6.5-8.0 g/dL) Albumin Level 4.0 (Ref Range: 3.5-5.0 g/dL) 4.8 (Ref Range: 3.5-5.0 g/dL) Alkaline Phosphatase 52 (Ref Range: 39-117 U/L) 61 (Ref Range: 39-117 U/L) Potassium 3.7 (Ref Range: 3.3-5.1 mmol/L) 3.5 (Ref Range: 3.3-5.1 mmol/L) Chloride 105 (Ref Range: 96-108 mmol/L) 104 (Ref Range: 96-108 mmol/L) Carbon Dioxide 28 (Ref Range: 22-29 mmol/L) 24 (Ref Range: 22-29 mmol/L) Anion Gap 11 L (Ref Range: 12-20) 16 (Ref Range: 12-20) Blood Urea Nitrogen 14 (Ref Range: 9-16 mg/dL) 17 H (Ref Range: 9-16 mg/dL) Creatinine 1.10 (Ref Range: 0.5-1.4 mg/dL) 1.43 H (Ref Range: 0.5-1.4 mg/dL) Estimated Glomerular Filt Rate > 60 55 Glucose Random 86 (Ref Range: 60-115 mg/dL) 92 (Ref Range: 60-115 mg/dL) Calcium 9.1 (Ref Range: 8.4-10.2 mg/dL) 9.6 (Ref Range: 8.4-10.2 mg/dL) Creatinine Clr Calc Pharmacy 133.2 NR * Lab:Complete Blood Count Aut o Diff * Collection Date 01/20/2025 01/17/2024 06/21/2021 Collection Time 06:12 AM 03:48 PM 10:00 AM Order Date 01/20/2025 01/17/2024 06/21/2021 White Blood Count 9.0 (Ref Range: 4.8-10.8 X10*3/uL) 12.3 H (Ref Range: 4.8-10.8 X10*3/uL) 7.4 (Ref Range: 4.8-10.8 X10*3/uL) Red Blood Count 4.80 (Ref Range: 4.60-5.80 X10*6/uL) 5.79 (Ref Range: 4.60-5.80 X10*6/uL) 5.31 (Ref Range: 4.60-5.80 X10*6/uL) Hemoglobin 14.4 (Ref Range: 14.0-18.0 g/dl) 17.1 (Ref Range: 14.0-18.0 g/dl) 15.4 (Ref Range: 14.0-18.0 g/dl) Hematocrit 42.1 (Ref Range: 42.0-52.0 %) 48.9 (Ref Range: 42.0-52.0 %) 46.0 (Ref Range: 42.0-52.0 %) Mean Corpuscular Volume 87.7 (Ref Range: 80.0-98.0 fL) 84.5 (Ref Range: 80.0-98.0 fL) 86.6 (Ref Range: 80.0-98.0 fL) Mean Corpuscular Hemoglobin 30.0 (Ref Range: 27.0-33.0 pg) 29.5 (Ref Range: 27.0-33.0 pg) 29.0 (Ref Range: 27.0-33.0 pg) Mean Corpuscular HGB Conc 34.2 (Ref Range: 31.0-36.0 g/dl) 35.0 (Ref Range: 31.0-36.0 g/dl) 33.5 (Ref Range: 31.0-36.0 g/dl) Red Cell Distribution Width 12.6 (Ref Range: 11.0-16.0 %) 14.2 (Ref Range: 11.0-16.0 %) 12.7 (Ref Range: 11.0-16.0 %) Platelet Count 214 (Ref Range: 160-400 X10*3/uL) 285 (Ref Range: 160-400 X10*3/uL) 244 (Ref Range: 160-400 X10*3/uL) Mean Platelet Volume 9.5 (Ref Range: 9.4-12.4 fL) 9.4 (Ref Range: 9.4-12.4 fL) 10.2 (Ref Range: 9.4-12.4 fL) Neutrophils Percent Auto 62.9 (Ref Range: 45-73 %) 66.2 (Ref Range: 45-73 %) 57.6 (Ref Range: 45-73 %) Imm Gran Pct Auto 0.4 (Ref Range: 0.0-0.4 %) 0.6 H (Ref Range: 0.0-0.4 %) 0.4 (Ref Range: 0.0-0.4 %) Lymphocytes Percent Auto 24.6 (Ref Range: 20-40 %) 21.9 (Ref Range: 20-40 %) 31.9 (Ref Range: 20-40 %) Monocytes Percent Auto 8.8 (Ref Range: 2-11 %) 8.8 (Ref Range: 2-11 %) 5.4 (Ref Range: 2-11 %) Eosinophils Percent Auto 2.7 (Ref Range: 0-4 %) 2.0 (Ref Range: 0-4 %) 4.2 H (Ref Range: 0-4 %) Basophils Percent Auto 0.6 (Ref Range: 0-2 %) 0.5 (Ref Range: 0-2 %) 0.5 (Ref Range: 0-2 %) NRBC Pct Auto 0.0 (Ref Range: 0.0-0.2 /100WBC) 0.0 (Ref Range: 0.0-0.2 /100WBC) 0.0 (Ref Range: 0.0-0.2 /100WBC) Neutrophils Absolute Auto 5.7 (Ref Range: 2.0-8.3 x10*3/uL) 8.2 (Ref Range: 2.0-8.3 x10*3/uL) 4.3 (Ref Range: 2.0-8.3 x10*3/uL) Imm Gran Abs Auto 0.04 H (Ref Range: 0.00-0.03 X10*3/uL) 0.07 H (Ref Range: 0.00-0.03 X10*3/uL) 0.03 (Ref Range: 0.00-0.03 X10*3/uL) Lymphocytes Absolute Auto 2.2 (Ref Range: 1.2-4.9 X10*3/uL) 2.7 (Ref Range: 1.2-4.9 X10*3/uL) 2.4 (Ref Range: 1.2-4.9 X10*3/uL) Monocytes Absolute Auto 0.8 (Ref Range: 0.1-1.2 X10*3/uL) 1.1 (Ref Range: 0.1-1.2 X10*3/uL) 0.4 (Ref Range: 0.1-1.2 X10*3/uL) Eosinophils Absolute Auto 0.2 (Ref Range: 0.0-0.4 X10*3/uL) 0.3 (Ref Range: 0.0-0.4 X10*3/uL) 0.3 (Ref Range: 0.0-0.4 X10*3/uL) Basophils Absolute Auto 0.1 (Ref Range: 0.0-0.2 X10*3/uL) 0.1 (Ref Range: 0.0-0.2 X10*3/uL) 0.0 (Ref Range: 0.0-0.2 X10*3/uL) NRBC Abs Auto 0.000 (Ref Range: 0.0-0.012 X10*3/uL) 0.000 (Ref Range: 0.0-0.012 X10*3/uL) 0.000 (Ref Range: 0.0-0.012 X10*3/uL) ???Lab:Immunoglobulin G Subclasses (Order Date - 01/20/2025) (Collection Date & Time - 01/20/2025 11:04 AM)?ValueReference Range?Immunoglobulin G Subclass [id number] - mg/dL?Immunoglobulin G Subclass [id number] - mg/dL?Immunoglobulin G Subclass [id number] - mg/dL?Immunoglobulin G Subclass 412.74-86 - mg/dL?Immunoglobulin G [id number] - mg/dL * Lab:Lipase * Collection Date 01/23/2025 01/20/2025 Collection Time 05:44 AM 06:12 AM Order Date 01/23/2025 01/20/2025 Lipase 357 H (Ref Range: 8-78 U/L) 469 H (Ref Range: 8-78 U/L) ???Lab:UA CC w/rflx Micro + Cult (Order Date - 01/19/2025) (Collection Date & Time - 01/19/2025 12:19 PM)?ValueReference Range?Color UrineYellow -?Appearance UrineClear-?PH8.55.0-9.0 -?Glucose Urine UA100 ANegative - mg/dL?Urine BloodNegativeNegative -?Specific [place] - Urine>= 1.030H1.005-1.025 -?Urine ProteinTraceNeg-Trace - mg/dL ?Urine KetonesNegativeNegative - mg/dL?Nitrite UrineNegative Negative -?Leukocyte Esterase UrineNegativeNegative - ???Lab:Drug Screen Urine (Order Date - 01/19/2025) (Collection Date & Time - 01/19/2025 12:49 PM)?ValueReference Range?Opiate Screen UrineNot DetectedNot Detect -?Barbiturates, UrineNot DetectedNot Detect - ?Phencyclidine Screen UrineNot DetectedNot Detect -?Amphetamine Screen UrineNot DetectedNot Detect -?Benzodiazepines Screen UrineNot DetectedNot Detect -?Cocaine Screen UrineNot DetectedNot Detect - ?Cannabinoid Screen UrinePOSITIVEANot Detect -?Fentanyl, urineNot DetectedNot Detect -?Methadone Screen, UrineNot DetectedNot Detect - ng/mL?Oxycodone Screen UrineNot DetectedNot Detect - ng/mL ?Buprenorphine ScrNot DetectedNot Detect - ng/mL ???Lab:Liver Panel (Order Date - 01/23/2025) (Collection Date & Time - 01/23/2025 05:44 AM)?ValueReference Range?Bilirubin Total0.50.0- 1.0 - mg/dL?Bilirubin Direct0.20.0-0.5 - mg/dL?Aspartate Amino Ahnqpzfwpkp492-25 - U/L?Alanine Rmhwmhwvrpltbydc542-04 - U/L?Total Protein7.06.5-8.0 - g/dL?Albumin Level4.43.5-5.0 - g/dL?Alkaline Izqunjdjroj6525-864 - U/L ???Lab:HIV Ab/Ag (Order Date - 01/23/2025) (Collection Date & Time - 01/23/2025 05:44 AM)?ValueReference Range?HIV AB/AGNonreactiveNonreactive - ???Lab:Hold Lav - Possible Hematology (Order Date - 01/23/2025) (Collection Date & Time - 01/23/2025 05:44 AM)?ValueReference Range?Hold Lav - Possible HematologySEE NOTE- * Examination: G eneral Examination: GENERAL APPEARANCE: p leasant, well nourished, well developed, in no acute distress, calm and relaxed, obese, man. HEAD: a traumatic, normocephalic. EYES: e amie, [...] sounds normal, no ascites, no organomegaly, no mass, Obese, pain to palpation of her left abdomen and just to the left of the umbilicus, no mass palpable, soft, no hernias. RECTAL EXAM: n ot examined. MUSCULOSKELETAL: e xtremities unremarkable, no clubbing, cyanosis or edema. PERIPHERAL PULSES: n ormal. NEUROLOGIC: a lert and oriented, cranial nerves 2-12 grossly intact, deep tendon reflexes 2+ symmetrical, motor strength normal upper and lower extremities, sensory exam intact. PSYCH: a lert, oriented. Assessment: * Assessment: 1. I diopathic acute pancreatitis without infection or necrosis - K85.00 (Primary) ?Notes :We are arranging a follow-up with gastroenterology. His pain is continuing to diminish. He is able to eat and drink without difficulty. Comprehensive blood work was ordered forJuly 2024. Follow-up visit will be arranged in 14 days. 2 . E ssential hypertension - I10 N otes :His blood pressure has been slightly above normal. I recommended aggressive weight loss and sodium restriction. He was given an appointment to come to the office. 3 . M orbid (severe) obesity due to excess calories - E66.01 N otes :He has lost substantial weight since his last visit. Body mass index is now 30 in the obese range. We reviewed his diet and his nutrition. We made a plan to lose weight at a rate of 1 pound per week 4 . E rectile dysfunction, unspecified erectile dysfunction type - N52.9 ? N otes :This problem has been treated by the provision of testosterone. 5 . E levated CPK - R74.8 6 . T obacco dependence - F17.200 N otes :I strongly recommend that he consider smoking cessation. This will be pursued along with weight reduction and reduction in his narcotic doses. 7 . L umbosacral radiculopathy due to degenerative joint disease of spine - M47.27 N otes :He reports the pain is somewhat better. He was able to walk with more ease today. His reflexes are symmetrical. No paravertebral muscle spasm was noted. He will use nonnarcotic medication at this point. I recommended he and rest and massage and ibuprofen. 8 . I nsomnia due to medical condition - G47.01 N otes :He complains that he has difficulty sleeping because of his pain. I gave him a trial of trazodone. I am trying to avoid using habit-forming controlled substances in this patient. 9 . H ypogonadism in male - E29.1 N otes :His testosterone level has been elevated and his injected daily dose was decreased to 75 mg. Plan: * Treatment: 2. M orbid (severe) obesity due to excess calories L AB: PROFILE, FASTING (COMPREHENSIVE METABOLIC) L AB: PSA, TOTAL L AB: CBC w DIFF L AB: Lipid Panel L AB: Amylase L AB: Lipase L AB: Testosterone, Total 3. E rectile dysfunction, unspecified erectile dysfunction type L AB: PROFILE, FASTING (COMPREHENSIVE METABOLIC) L AB: PSA, TOTAL L AB: CBC w DIFF L AB: Lipid Panel L AB: Amylase L AB: Lipase L AB: Testosterone, Total 4. E levated CPK L AB: PROFILE, FASTING (COMPREHENSIVE METABOLIC) L AB: PSA, TOTAL L AB: CBC w DIFF L AB: Lipid Panel L AB: Amylase L AB: Lipase L AB: Testosterone, Total * Procedure Codes: 9 9496 TRANS CARE MGMT 7 DAY DISCH * Preventive Medicine: Counseling: C are goal [...] tobacco use and urged to quit. 0 01/28/2025 Patient Lifestyle Goals P atient wants to quit Treatment Goals S et a quit date, Cut down by 1 cigarette a week Barriers S tress, Social smoker Self-Management Plan M fransisco a plan to cut down number of cigarettes over time and set a date to work towards quitting * Follow Up: 2 Weeks (Reason: OV) * Images: * Sign off status: Completed true * Provider: Jaqueline Bailey MD Date: 0 01/28/2025 Generated for Rizwani vale/Praneeth/eTransmitting on: 1 08/01/2024 11:10 PM EST History and Physical Notes * HPI (History of Present Illness) Category Sub-Category Detail Notes COVID-19 Screening Questions Have you had any new onset fever, chills, cough, congestion, sore throat, shortness of breath, muscle aches?: No Examination Category Sub-Category Detail Notes General Examination GENERAL APPEARANCE: pleasant , well nourished, well developed, in no acute distress, calm and relaxed, obese, man HEAD: atraumatic, normocep halic EYES: eomi, perrla, anicte philomena, conjugate EARS: normal NOSE: septum intact NECK/THYROID: no jugular venous di stention, no carotid bruit, thyroid normal HEART: no clicks, gallops, murmurs, or rubs, regular rhythm, S1, S2 normal, no s3, or vascular bruits LUNGS: clear to auscultatio n ABDOMEN: bowel sounds normal, no ascites, no organomegaly, no mass, Obese, pain to palpation of her left abdomen and just to the left of the umbilicus, no mass palpable, soft, no hernias NEUROLOGIC: alert and oriented, cranial nerves 2-12 [...]
--- OUTSIDE RECORDS SUMMARY | 2025-02-12 09:00 | XMS_ITS ---
Author Organization Pranav Bailey III, MD Address [address] [place] [address] [address] [place] [address] Care Team Providers Care Nephrologist Name Role Phone Dr. Pranav Bailey III Primary Care Provider Allergies Allergen (clinical drug ingredient) Drug/Non Drug Allergy documented on EMR Reaction Allergy Type Onset Date Status Bee Sting Unknown Allergy Active codeine Codeine Sulfate Unknown Drug Allergy A ctive REASON FOR VISIT Idiopathic pancreatitis, Hypertension, obesity, Tobacco dependence, Lumbar radiculopathy, Hypogonadism Medications Medication SIG (Take, Route, Frequency, Duration) Notes Start Date End Date Status amLODIPine Besylate 10 MG 1 tablet Orally Once a day Active Carvedilol 3.125 MG 1 tablet with food O rally Twice a day Active Losartan Potassium 50 MG 1 tablet Orally Once a day Active Testosterone Cypionate 200 MG/ML Intramuscular Active Social History Tobacco Use: Social History [...] Problem Status W/U Status Risk Notes Problem [id number] Moderate obesity (E66.9) Active confirmed His body mass index is now 37 and he has lost several pounds. We reviewed his weight loss strategy and made a plan to lose weight at a rate of 1 pound per week. Vital Signs Temperature 97.7 degrees Fahrenheit 02/13/20 25 Blood pressure systolic 138 mm Hg 02/13/20 25 Blood pressure diastolic 78 mm Hg 025 Heart Rate 79 /min 02/12/2025 Height 74 in 02/12/2025 Weight 292 lbs 02/12/2025 BMI 37.49 kg/m2 02/12/2025 Encounters Encounter Location Date Provider Diagnosis Pranav Bailey III, MD [address] [place] [address] [address], [place] [address] 02/12/2025 Pranav Bailey Essential hypertensi on I10 ; Idiopathic acute pancreatitis without infection or necrosis K85.00 ; Tobacco dependence F17.200 ; Lumbosacral radiculopathy due to degenerative joint disease of spine M47.27 ; Hypogonadism in male E29.1 ; Environmental allergies Z91.09 and Moderate obesity E66.9 Assessments Encounter Date Diagnosis (ICD Code) Assessment Notes Treat ment Notes Treatment Clinical Notes 02/12/2025 Essential hypertension (ICD-10 - I10) His blood pressure has been normal. I recommended aggressive weight loss and sodium restriction. He was given an appointment to come to the office. 02/12/2025 Idiopathic acute pancreatitis without infection or necrosis (ICD-10 - K85.00) We are arranging a follow-up with gastroenterology. His pain is continuing to diminish. He is able to eat and drink without difficulty. Comprehensive blood work was ordered forJuly 2024. Follow-up visit will be arranged in 14 days. 02/12/2025 Tobacco dependence (ICD-10 - F17.200) I strongly recommend that he consider smoking cessation. This will be pursued along with weight reduction and reduction in his narcotic doses. 02/12/2025 Lumbosacral radiculopathy due to degenerative joint disease of spine (ICD-10 - M47.27) He reports the pain is somewhat better. He was able to walk with more ease today. His reflexes are symmetrical. No paravertebral muscle spasm was noted. He will use nonnarcotic medication at this point. I recommended he and rest and massage and ibuprofen. 02/12/2025 Hypogonadism in male (ICD-10 - E29.1) His testosterone level has been elevated and his injected daily dose was decreased to 75 mg. 02/12/2025 Environmental allergies (ICD-10 - Z91.09) He is experiencing difficulty with the current pollen season. He has had no wheezing but is very congested. He will use Flonase and loratadine with a short course of prednisone. 02/12/2025 Moderate obesity (ICD-10 - E66.9) His body mass index is now 37 and he has lost several pounds. We reviewed his weight loss strategy and made a plan to lose weight at a rate of 1 pound per week. Plan Of Treatment Medication Medication Name Sig Start Date Stop Date Notes amLODIPine Besylate 10 MG 1 tablet Orally Once a day Carvedilol 3.125 MG 1 tablet with food O rally Twice a day Losartan Potassium 50 MG 1 tablet Orally Once a day Testosterone Cypionate 200 MG/ML Intramuscular Pending Test Test Name Order Date PROFILE, FASTING (COMPREHENSIVE METABOLI C) 02/12/2025 CBC w DIFF 02/12/2025 Lipid Panel 02/12/2025 Amylase 02/12/2025 Lipase 02/12/2025 Testosterone, Total 02/12/2025 Hemoglobin A1c 02/12/2025 Next Appt Details Follow Up: 3 Weeks, Reason: ov no tests Provider Name:Pranav Bailey , 06/03/2025 02:00:00 PM, [address] [place] [address], [id number], Progress Notes * GEORGETTE MOORE RDOB:1985 (39 yo M)Acc No.[id number]:02/12/2025 Progress Notes Patient: Rolanda RODRIGUEZTONY GEORGETTE Parsons Provider: Jaqueline Bailey MD :1985 A ge:39 Y S ex:Male Date:02/12/2025 Address:[address] [place], [place] [id number] Subjective: * Chief Complaints: * I diopathic pancreatitisHypertensionObesityTobacco dependenceLumbar radiculopathyHypogonadism * HPI: C OVID-19 Screening: down 9, gi appt way out may. He returns for ongoing follow-up after a recent hospitalization for idiopathic pancreatitis. He has an appointment with gastroenterology but it is not until May. He has lost 9 pounds and feels well. He is eating and drinking normally. He has had no abdominal pain. He denies any nausea or vomiting. He does not ddrink alcohol. He is trying to consume a heallthy diet and lose weight. He has been compliant with all of his medications. Questions H ave you had any new [...] have been noted. G enitourinary: Frequent urination t wice a night. M usculoskeletal: Muscle aches d [...] 1985left knee chondroplasty, partial meniscectomy, Dr. Boyd, [facility] 2013left third finger tendon laceration repair, Dr. 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 He is single with no children. * Medications: T akingamLODIPine Besylate 10 MG Tablet 1 tablet Orally Once a day Carvedilol 3.125 MG Tablet 1 tablet with food Orally Twice a day Losartan Potassium 50 MG Tablet 1 tablet Orally Once a day Taking amLODIPine Besylate 10 MG Tablet 1 tablet Orally Once a day Taking Carvedilol 3.125 MG Tablet 1 tablet with food Orally Twice a day Taking Losartan Potassium 50 MG Tablet 1 tablet Orally Once a day DiscontinuedTestosterone Cypionate 200 MG/ML Solution Intramuscular Medication List reviewed and reconciled with the patientDiscontinued Testosterone Cypionate 200 MG/ML Solution Intramuscular Medication List reviewed and reconciled with the patient * Allergies: C yungeindemi Lopez[Allergies Verified] Objective: * Vitals: H t: 74, Wt: 292, BMI:37.49, BP: 138/78, HR: 79, Temp: 97.7, Ht-cm: 187.96, Wt-k.45. * P ast Orders: Lab:Complete Blood Count Aut o Diff * Collection Date 01/31/2025 01/20/2025 01/17/2024 Collection Time 07:25 AM 06:12 AM 03:48 PM Order Date 01/31/2025 01/20/2025 01/17/2024 White Blood Count 9.0 (Ref Range: 4.8-10.8 X10*3/uL) 9.0 (Ref Range: 4.8-10.8 X10*3/uL) 12.3 H (Ref Range: 4.8-10.8 X10*3/uL) Red Blood Count 5.34 (Ref Range: 4.60-5.80 X10*6/uL) 4.80 (Ref Range: 4.60-5.80 X10*6/uL) 5.79 (Ref Range: 4.60-5.80 X10*6/uL) Hemoglobin 16.2 (Ref Range: 14.0-18.0 g/dl) 14.4 (Ref Range: 14.0-18.0 g/dl) 17.1 (Ref Range: 14.0-18.0 g/dl) Hematocrit 45.8 (Ref Range: 42.0-52.0 %) 42.1 (Ref Range: 42.0-52.0 %) 48.9 (Ref Range: 42.0-52.0 %) Mean Corpuscular Volume 85.8 (Ref Range: 80.0-98.0 fL) 87.7 (Ref Range: 80.0-98.0 fL) 84.5 (Ref Range: 80.0-98.0 fL) Mean Corpuscular Hemoglobin 30.3 (Ref Range: 27.0-33.0 pg) 30.0 (Ref Range: 27.0-33.0 pg) 29.5 (Ref Range: 27.0-33.0 pg) Mean Corpuscular HGB Conc 35.4 (Ref Range: 31.0-36.0 g/dl) 34.2 (Ref Range: 31.0-36.0 g/dl) 35.0 (Ref Range: 31.0-36.0 g/dl) Red Cell Distribution Width 12.1 (Ref Range: 11.0-16.0 %) 12.6 (Ref Range: 11.0-16.0 %) 14.2 (Ref Range: 11.0-16.0 %) Platelet Count 295 (Ref Range: 160-400 X10*3/uL) 214 (Ref Range: 160-400 X10*3/uL) 285 (Ref Range: 160-400 X10*3/uL) Mean Platelet Volume 9.6 (Ref Range: 9.4-12.4 fL) 9.5 (Ref Range: 9.4-12.4 fL) 9.4 (Ref Range: 9.4-12.4 fL) Neutrophils Percent Auto 62.5 (Ref Range: 45-73 %) 62.9 (Ref Range: 45-73 %) 66.2 (Ref Range: 45-73 %) Imm Gran Pct Auto 0.3 (Ref Range: 0.0-0.4 %) 0.4 (Ref Range: 0.0-0.4 %) 0.6 H (Ref Range: 0.0-0.4 %) Lymphocytes Percent Auto 26.1 (Ref Range: 20-40 %) 24.6 (Ref Range: 20-40 %) 21.9 (Ref Range: 20-40 %) Monocytes Percent Auto 7.6 (Ref Range: 2-11 %) 8.8 (Ref Range: 2-11 %) 8.8 (Ref Range: 2-11 %) Eosinophils Percent Auto 2.8 (Ref Range: 0-4 %) 2.7 (Ref Range: 0-4 %) 2.0 (Ref Range: 0-4 %) Basophils Percent Auto 0.7 (Ref Range: 0-2 %) 0.6 (Ref Range: 0-2 %) 0.5 (Ref Range: 0-2 %) NRBC Pct Auto 0.0 (Ref Range: 0.0-0.2 /100WBC) 0.0 (Ref Range: 0.0-0.2 /100WBC) 0.0 (Ref Range: 0.0-0.2 /100WBC) Neutrophils Absolute Auto 5.6 (Ref Range: 2.0-8.3 x10*3/uL) 5.7 (Ref Range: 2.0-8.3 x10*3/uL) 8.2 (Ref Range: 2.0-8.3 x10*3/uL) Imm Gran Abs Auto 0.03 (Ref Range: 0.00-0.03 X10*3/uL) 0.04 H (Ref Range: 0.00-0.03 X10*3/uL) 0.07 H (Ref Range: 0.00-0.03 X10*3/uL) Lymphocytes Absolute Auto 2.4 (Ref Range: 1.2-4.9 X10*3/uL) 2.2 (Ref Range: 1.2-4.9 X10*3/uL) 2.7 (Ref Range: 1.2-4.9 X10*3/uL) Monocytes Absolute Auto 0.7 (Ref Range: 0.1-1.2 X10*3/uL) 0.8 (Ref Range: 0.1-1.2 X10*3/uL) 1.1 (Ref Range: 0.1-1.2 X10*3/uL) Eosinophils Absolute Auto 0.3 (Ref Range: 0.0-0.4 X10*3/uL) 0.2 (Ref Range: 0.0-0.4 X10*3/uL) 0.3 (Ref Range: 0.0-0.4 X10*3/uL) Basophils Absolute Auto 0.1 (Ref Range: 0.0-0.2 X10*3/uL) 0.1 (Ref Range: 0.0-0.2 X10*3/uL) 0.1 (Ref Range: 0.0-0.2 X10*3/uL) NRBC Abs Auto 0.000 (Ref Range: 0.0-0.012 X10*3/uL) 0.000 (Ref Range: 0.0-0.012 X10*3/uL) 0.000 (Ref Range: 0.0-0.012 X10*3/uL) * Lab:Kailee Pedroza. Frances l Fast * Collection Date 01/31/2025 06/21/2021 Collection Time 07:25 AM 10:00 AM Order Date 01/31/2025 06/21/2021 Sodium 140 (Ref Range: 135-145 mmol/L) 140 (Ref Range: 135-145 mmol/L) Bilirubin Total 0.5 (Ref Range: 0.0-1.0 mg/dL) 0.4 (Ref Range: 0.0-1.0 mg/dL) Aspartate Amino Transferase 27 (Ref Range: 5-37 U/L) 41 H (Ref Range: 5-37 U/L) Alanine Aminotransferase 38 (Ref Range: 0-40 U/L) 75 H (Ref Range: 0-40 U/L) Total Protein 7.9 (Ref Range: 6.5-8.0 g/dL) 7.4 (Ref Range: 6.5-8.0 g/dL) Albumin Level 5.0 (Ref Range: 3.5-5.0 g/dL) 4.4 (Ref Range: 3.5-5.0 g/dL) Alkaline Phosphatase 71 (Ref Range: 39-117 U/L) 78 (Ref Range: 39-117 U/L) Potassium 3.7 (Ref Range: 3.3-5.1 mmol/L) 4.2 (Ref Range: 3.3-5.1 mmol/L) Chloride 108 (Ref Range: 96-108 mmol/L) 103 (Ref Range: 96-108 mmol/L) Carbon Dioxide 21 L (Ref Range: 22-29 mmol/L) 27 (Ref Range: 22-29 mmol/L) Anion Gap 15 (Ref Range: 12-20) 14 (Ref Range: 12-20) Blood Urea Nitrogen 25 H (Ref Range: 9-16 mg/dL) 13 (Ref Range: 9-16 mg/dL) Creatinine 1.07 (Ref Range: 0.5-1.4 mg/dL) 0.91 (Ref Range: 0.5-1.4 mg/dL) Estimated Glomerular Filt Rate > 60 > 60 Glucose Fasting 127 H (Ref Range: 60-99 mg/dL) 103 H (Ref Range: 60-99 mg/dL) Calcium 9.4 (Ref Range: 8.4-10.2 mg/dL) 9.6 (Ref Range: 8.4-10.2 mg/dL) * Lab:Prostate Specific Antige n * Collection Date 01/31/2025 06/21/2021 Collection Time 07:25 AM 10:00 AM Order Date 01/31/2025 06/21/2021 Prostate Specific Antigen 0.26 (Ref Range: <0.05-4.0 ng/mL) 0.06 (Ref Range: <0.05-4.0 ng/mL) * Lab:Lipase * Collection Date 01/31/2025 01/23/2025 01/20/2025 Collection Time 07:25 AM 05:44 AM 06:12 AM Order Date 01/28/2025 01/23/2025 01/20/2025 Lipase 493 H (Ref Range: 8-78 U/L) 357 H (Ref Range: 8-78 U/L) 469 H (Ref Range: 8-78 U/L) Clinical Info: Please fast for 12-1 4 hours prior to having this labwork done. You may have black coffee or tea with no milk or sugar. May have water,Please have this testing 1 week prior to your next appointment,PLEASE FAX COMPLETED RESULTS TO [phone] ???Lab:C Reactive Protein (Order Date - 01/20/2025) (Collection Date & Time - 01/20/2025 06:12 AM)?ValueReference Range?C Reactive Protein2.54H< or = 0.50 - mg/dL ???Lab:Drug Screen Urine (Order Date - 01/19/2025) [...] ng/mL ?Buprenorphine ScrNot DetectedNot Detect - ng/mL ???Lab:Magnesium (Order Date - 01/20/2025) (Collection Date & Time - 01/20/2025 06:12 AM)?ValueReference Range?Magnesium1.91.6-2.6 - mg/dL ???Lab:UA CC w/rflx Micro + Cult (Order Date - 01/19/2025) (Collection Date & Time - 01/19/2025 12:19 PM)?ValueReference Range?Color UrineYellow -?Appearance UrineClear-?PH8.55.0-9.0 -?Glucose Urine UA100 ANegative - mg/dL?Urine BloodNegativeNegative -?Specific [place] - Urine>= 1.030H1.005-1.025 -?Urine ProteinTraceNeg-Trace - mg/dL ?Urine KetonesNegativeNegative - mg/dL?Nitrite UrineNegative Negative -?Leukocyte Esterase UrineNegativeNegative - ???Lab:Immunoglobulin G Subclasses (Order Date - 01/20/2025) (Collection Date & Time - 01/20/2025 11:04 AM)?ValueReference Range?Immunoglobulin G Subclass [id number] - mg/dL?Immunoglobulin G Subclass [id number] - mg/dL?Immunoglobulin G Subclass 98421-578 - mg/dL?Immunoglobulin G Subclass 412.74-86 - mg/dL?Immunoglobulin G Fidtc942832-5635 - mg/dL * Lab:Comprehensive Met. Panel * Collection Date 01/20/2025 [...] mg/dL) Creatinine Clr Calc Pharmacy 133.2 NR ???Lab:HIV Ab/Ag (Order Date - 01/23/2025) (Collection Date & Time - 01/23/2025 05:44 AM)?ValueReference Range?HIV AB/AGNonreactiveNonreactive - ???Lab:Hold Lav - Possible Hematology (Order Date - 01/23/2025) (Collection Date & Time - 01/23/2025 05:44 AM)?ValueReference Range?Hold Lav - Possible HematologySEE NOTE- ???Lab:Amylase (Order Date - 01/28/2025) (Collection Date & Time - 01/31/2025 07:25 AM)?ValueReference Range?Spskewv637E24-490 - U/L ?Clinical Info: Please fast for 12-14 hours prior tohaving this labwork done. You may have black coffee or tea with no milk or sugar. May have water,Ple ase have this testing 1 week prior to your next appointment,PLEASE FAX COMPLETED RESULTS TO [phone] ???Lab:Liver Panel (Order Date - 01/23/2025) (Collection Date & Time - 01/23/2025 05:44 AM)?ValueReference Range?Bilirubin Total0.50.0- 1.0 - mg/dL?Bilirubin Direct0.20.0-0.5 - mg/dL?Aspartate Amino Lbaxtrwcrjh932-51 - U/L?Alanine Shlqvycbysjnrgnu143-48 - U/L?Total Protein7.06.5-8.0 - g/dL?Albumin Level4.43.5-5.0 - g/dL?Alkaline Uyprqkcknea8583-873 - U/L ???Lab:Basic Metabolic Panel (Order Date - 01/23/2025) (Collection Date & Time - 01/23/2025 05:44 AM)?ValueReference Range?Wszmgw432065-527 - mmol/L?Blood Urea Dobddnuk48L7-88 - mg/dL?Creatinine1.020.5-1.4 - mg/dL?Glucose Atpzbh0322-771 - mg/dL?Calcium9.18.4-10.2 - mg/dL ?Potassium3.53.3-5.1 - mmol/L?Bvzztayc18584-101 - mmol/L ?Carbon Oscstfp3852-20 - mmol/L?Anion Sqs67H99-29 - ?Estimated Glomerular Filt Rate> 60-?Creatinine Clr Calc Pharmacy 143.6- * Lab:Testosterone, Total * Collection Date 01/31/2025 12/11/2021 06/21/2021 Collection Time 07:25 AM 08:21 AM 10:00 AM Order Date 01/28/2025 12/11/2021 06/21/2021 Testosterone, Total 279 (Ref Range: 250-1100 ng/dL) 19 A (Ref Range: 250-1100 ng/dL) 23 A (Ref Range: 250-1100 ng/dL) Clinical Info: Please fast for 12-1 4 hours prior to having this labwork done. You may have black coffee or tea with no milk or sugar. May have water,Please have this testing 1 week prior to your next appointment,PLEASE FAX COMPLETED RESULTS TO [phone] * Lab:Lipid Panel * Collection Date 01/31/2025 06/21/2021 Collection Time 07:25 AM 10:00 AM Order Date 01/28/2025 06/21/2021 Triglycerides 152 H (Ref Range: <150 mg/dL) 181 (Ref Range: mg/dL) Cholesterol 129 (Ref Range: <200 mg/dL) 157 (Ref Range: mg/dL) LDL Cholesterol Calculated 64 (Ref Range: <100 mg/dL) 82 (Ref Range: mg/dl) HDL Cholesterol 35 L (Ref Range: >40 mg/dL) 39 (Ref Range: mg/dL) Clinical Info: Please fast for 12-1 4 hours prior to having this labwork done. You may have black coffee or tea with no milk or sugar. May have water,Please have this testing 1 week prior to your next appointment,PLEASE FAX COMPLETED RESULTS TO [phone] ???Imaging:US abdomen limited (Order Date - 01/20/2025) (Performed Date - 01/20/2025) ???Imaging:XR chest 2V (Order Date - 01/19/2025) (Performed Date - 01/19/2025) ???Imaging:CT angio chest (Order Date - 01/19/2025) (Performed Date - 01/19/2025) ???Imaging:CT angio abdomen pelvis (Order Date - 01/19/2025) (Performed Date - 01/19/2025) * Examination: G eneral Examination: GENERAL APPEARANCE: p leasant, well nourished, well developed, in no acute distress, calm and relaxed: obese: man. HEAD: a traumatic, normocephalic. EYES: e [...] normal, no s3, or vascular bruits. LUNGS: : diminished breath sounds throughout: no wheezes, rales, rhonchi. BREASTS: no masses palpable bilaterally. ABDOMEN: b owel sounds normal, no ascites, no organomegaly, no mass: no guarding or rigidity: no hernias present: no rebound tenderness: soft, nontender, nondistended. RECTAL EXAM: n ot examined. MUSCULOSKELETAL: e [...] to come to the office. 3 . T obacco dependence - F17.200 N otes :I strongly recommend that he consider smoking cessation. This will be pursued along with weight reduction and reduction in his narcotic doses. 4 . L umbosacral radiculopathy due to degenerative joint disease of spine - M47.27 N otes :He reports the pain is somewhat better. He was able to walk with more ease today. His reflexes are symmetrical. No paravertebral muscle spasm was noted. He will use nonnarcotic medication at this point. I recommended he and rest and massage and ibuprofen. 5 . H ypogonadism in male - E29.1 N otes :His testosterone level has been elevated and his injected daily dose was decreased to 75 mg. 6 . E nvironmental allergies - Z91.09 N otes :He is experiencing difficulty with the current pollen season. He has had no wheezing but is very congested. He will use Flonase and loratadine with a short course of prednisone. 7 . M oderate obesity - E66.9 N otes :His body mass index is now 37 and he has lost several pounds. We reviewed his weight loss strategy and made a plan to lose weight at a rate of 1 pound per week. Plan: * Treatment: * Procedure Codes: * Preventive Medicine: Counseling: C are goal [...] tobacco use and urged to quit. 0 02/12/2025 Patient Lifestyle Goals P atient wants to quit Treatment Goals C ut down by 1 cigarette a week, Set a quit date Barriers S pouse or family smoke, Social smoker Self-Management Plan M fransisco a plan to cut down number of cigarettes over time and set a date to work towards quitting * Follow Up: 3 Weeks (Reason: ov no tests) * Images: * Sign off status: Completed true * Provider: Jaqueline Bailey MD Date: 0 02/12/2025 Generated for Hima collazo/Praneeth/eTransmitting on: 08/01/2024 11:10 PM EST History and Physical Notes * HPI (History of Present Illness) Category Sub-Category Detail Notes COVID-19 Screening Questions Have you had any new onset fever, chills, cough, congestion, sore throat, shortness of breath, muscle aches?: No Examination Category Sub-Category Detail Notes General Examination GENERAL APPEARANCE: pleasant , well nourished, well developed, in no acute distress, calm and relaxed: obese: man HEAD: atraumatic, normocep halic EYES: eomi, perrla, anicte philomena, conjugate EARS: normal NOSE: septum intact NECK/THYROID: no jugular venous di stention, no carotid bruit, thyroid normal HEART: no clicks, gallops, murmurs, or rubs, regular rhythm, S1, S2 normal, no s3, or vascular bruits LUNGS: : diminished breath sounds throughout: no wheezes, rales, rhonchi ABDOMEN: bowel sounds normal, no ascites, no organomegaly, no mass: no guarding or rigidity: no hernias present: no rebound tenderness: soft, nontender, nondistended NEUROLOGIC: alert and oriented, cranial nerves 2-12 [...]
--- OUTSIDE RECORDS SUMMARY | 2025-03-05 09:30 | XMS_ITS ---
Author Organization Pranav Bailey III, MD Address [address] [place] [address] [place] [address] Care Team Providers Care Sustainable Agriculture Specialist Name Role Phone Dr. Pranav Bailey [...] food O rally Twice a day Active amLODIPine Besylate 10 MG 1 tablet [...] Provider Diagnosis Pranav Bailey III, MD [address] [place] [address] [place] [address] 03/05/2025 Pranav Bailey Essential hypertensi on I10 Assessments Encounter Date Diagnosis (ICD Code) Assessment Notes Treat ment Notes Treatment Clinical Notes 03/05/2025 Essential hypertension (ICD-10 - I10) His blood pressure has been normal. I recommended aggressive weight loss and sodium restriction. He was given an appointment to come to the office. Plan Of Treatment Medication Medication Name Sig Start Date Stop Date Notes Losartan Potassium 50 MG 1 tablet Orally Once a day Carvedilol 3.125 MG 1 tablet with food O rally Twice a day amLODIPine Besylate 10 MG 1 tablet Orally Once a day Testosterone Cypionate 200 MG/ML Intramuscular Next Appt Details Provider Name:Pranav Gonzalez Bailey , 06/03/2025 02:00:00 PM, [address] [place] [address], [place] [address], [place], [address], Progress Notes * GEORGETTE MOORE RDOB:1985 (39 yo M)Acc No.[id number]:03/05/2025 Progress Notes Patient: GEORGETTE SNEED Provider: Jaqueline Bailey MD :1985 A ge:39 Y S ex:Male Date:03/05/2025 Address:[address] [place] [address] Subjective: * Chief Complaints: * 1 . [...] elevated CPK, 2011. 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 * Surgical History: r epair of floor of right orbit. After traumatic injury 2008, pilonidal cystectomy 2007, bilateral myringotomy 1984, left knee chondroplasty, partial meniscectomy, Dr. Boyd, [facility] 2012, left third finger tendon laceration repair, Dr. Boyd, [facility] 12/2014, Disectomy 01/2019. 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 He is single with no children. * Medications: T aking amLODIPine Besylate 10 MG Tablet 1 tablet Orally Once a day , Taking Carvedilol 3.125 MG Tablet 1 tablet with food Orally Twice a day , Taking Losartan Potassium 50 MG Tablet 1 tablet Orally Once a day , Taking Testosterone Cypionate 200 MG/ML Solution Intramuscular , Medication List reviewed and reconciled with [...] come to the office. Plan: * Treatment: * Images: * The named appointment provid er may or may not be the originator of this progress note, and it is not deemed complete until electronically signed by the appointment provider. Sign off status: Pending * Provider: Jaqueline Bailey MD Date: 0 03/05/2025 Generated for Hima collazo/Praneeth/Rudolph on: 08/01/2024 11:09 PM EST History and Physical [...]
--- OUTSIDE RECORDS SUMMARY | 2025-05-13 09:40 | XMS_ITS ---
Author Organization [facility] Address [address] [place] [address] Care Team Providers Care Secretary Name Role Phone Leo PANCHAL, Pranav Primary Care Provider Unavailab Pranav Galindo Unavailable [phone] REASON FOR VISIT Patient presents today for hosp f/u, pancreatitis Medications Medication SIG (Take, Route, Frequency, Duration) Notes Start Date End Date Status Diphenoxylate-Atropin e 2.5-0.025 MG Tablet 1 or 2 tablets Orally Every 6 hours as needed for diarrhea; Duration: 30 days Please tell him to stop his Imodium(Loperami de) when he starts this new prescription. Thanks 06/27/2024 Active Encounters Encounter Location Date Provider Diagnosis [facility] [address] [address] 05/13/2025 Pranav Galo Plan Of Treatment No Information Progress Notes * GEORGETTE MOOREDOB:1985 ( 39 yo M)Acc No.[id number]:05/13/2025 Progress Notes Patient: GEORGETTE SNEED Provider: Jaqueline Galo MD :1985 A ge:39 Y S ex:Male Date:05/13/2025 Address[address] [id number] Pcp:Pranav Bailey MD Subjective: * Chief Complaints: * P atient presents today for hosp f/u, pancreatitis * Medications: T akingDiphenoxylate-Atropine 2.5-0.025 MG Tablet 1 or 2 tablets Orally Every 6 hours as needed for diarrhea , Notes to Pharmacist: Please tell him to stop his Imodium(Loperamide) when he starts this new prescription. ThanksTaking Diphenoxylate-Atropine 2.5-0.025 MG Tablet 1 or 2 tablets Orally Every 6 hours as needed for diarrhea , Notes to Pharmacist: Please tell him to stop his Imodium(Loperamide) when he starts this new prescription. Thanks Billing Information: * Procedure Codes: * The named appointment provid er may or may not be the originator of this progress note, and it is not deemed complete until electronically signed by the appointment provider. Sign off status: Pending * Provider: Jaqueline Galo MD Date: 07/13/2024 Generated for Hima collazo/Praneeth/Albinoitting on: 08/01/2024 03:53 AM EST
--- NOTE | ~2025-06-01 | XR_ITS ---
CLINICAL HISTORY: epigastric pain, HTN 1 view chest x-ray Comparison: CR - XR CHEST 2V - 01/19/25 08:42 EDT Findings: No consolidation or pleural effusion. Heart size is normal. No acute fracture. IMPRESSION: 1. No acute findings. This document has been electronically signed by: Ashli Fernandes MD on 06/02/2025 00:39:39
--- NOTE | ~2025-06-01 | CT_ITS ---
CLINICAL HISTORY: abd pain, hx pancreatitis CT abdomen and pelvis with contrast Comparison: CT/SR - VASCULAR CTA_CHEST_ABD_PEL (ADULT) - 01/19/2025 09:10 AM EDT Findings: LIMITED CHEST: Lung bases are clear. LIVER: No focal liver lesion. BILIARY: No gallbladder wall thickening, radiopaque stone, or ductal dilatation. PANCREAS: No mass or ductal dilatation. Moderate peripancreatic inflammatory stranding. No fluid collection. Normal enhancement. SPLEEN: No splenomegaly. KIDNEYS: No hydronephrosis or radiopaque stone. ADRENALS: No nodule. VASCULAR: No aneurysm. RETROPERITONEUM: No lymphadenopathy or mass. BOWEL/MESENTERY: No evidence of obstruction. No free fluid or air. ABDOMINAL WALL: No mass or significant abnormality. URINARY BLADDER: No focal wall thickening. PELVIC NODES: No pelvic lymphadenopathy. PELVIC ORGANS: Normal for age. BONES: No acute fracture. OTHER: Negative. IMPRESSION: Acute pancreatitis. No fluid collection or abscess. This document has been electronically signed by: Ashli Fernandes MD on 06/02/2025 01:10:34
[2025-06-01 22:39] VITALS: BP 199/115; PULSE 96; RESP 20; TEMP 36.6; O2SAT 97; BMI 35.5
--- NOTE | 2025-06-01 22:59 | ED_ITS ---
HPI - Abdominal Pain General Chief Complaint: Abdominal Pain Stated Complaint: Stomach Pain Time Seen by Provider: 06/01/25 22:59 Source: patient Mode of arrival: ambulatory Limitations: no limitations History of Present Illness HPI narrative: 39-year-old male with untreated hypertension, prior episodes of pancreatitis, who presents with sudden-onset epigastric abdominal pain that began last night while he was awake. The pain is mid-epigastric and radiates to his low back and sides. He states the quality and location feel similar to previous bouts of pancreatitis. He reports mild nausea earlier with one small episode of emesis. He denies fever, cough, upper-respiratory symptoms, dysuria, or abnormal bowel movements; this morning?s stool was normal in appearance without visible blood. He notes mild, non-radiating discomfort in the mid-chest but denies radiation to jaw or arms. He also mentions chronic shoulder pain that he feels is unrelated. He has no history of abdominal surgeries. Related Data Home Medications ?Medication ?Instructions ?Recorded ?Confirmed testosterone cypionate 200 mg/mL 75 mg IM MO 01/19/25 01/19/25 intramuscular oil Previous Rx's ?Medication ?Instructions ?Recorded syringe with needle 3 mL 21 gauge #20 ea 12/06/23 x 1 /2 (BD Luer-Hyacinth Syringe) amlodipine 10 mg tablet 10 mg PO DAILY #30 tabs 01/07 01/31 carvedilol 3.125 mg tablet 3.125 mg PO BID #60 tabs losartan 50 mg tablet 50 mg PO DAILY #30 tabs 01/07 01/31 nicotine (polacrilex) 2 mg gum 2 mg buccal Q2H PRN Anderson otine 01/23/25 Cravings #100 ea nicotine 14 mg/24 hr daily 14 mg transdermal DAILY #30 ea 01/23/25 transdermal patch oxycodone 5 mg tablet See Rx Instructions .Route 0 01/24/25 .COMPLEX PRN severe pain #18 tabs amoxicillin 500 mg tablet 500 mg PO BID 9 days #18 tab s 05/05/25 Allergies Allergy/AdvReac Type Severity Reaction Status Date / Time bee pollen (BEE STINGS) Allergy Severe THROAT Verified 06/01/25 22:42 SWELLING codeine (CODEINE) Allergy Mild STOMACH Verified 06/01/25 22:42 UPSET, nausea and vomiting Review of Systems Review of Systems as per HPI, full review of systems performed and negative but for the above mentioned pertinent positives and negatives. [facility] Past Medical History Medical History Hypertension Hypogonadism, testicular Surgical History H/O discectomy S/P tendon repair History of meniscectomy of left knee H/O myringotomy History of surgery Family History Family History Father No problems noted. Mother Hypertension Maternal Grandfather Coronary artery disease Maternal Grandmother Hypertension Diabetes Social History Social History Household Members: None Housing: House Are you a primary resident care director to a significant other at home: No Do you presently have visiting nurse or other home services: No Alcohol intake: current Alcohol intake frequency: holidays/special occasions only Patient Tobacco Use Status: Current everyday Tobacco user Tobacco use type: Cigarette Cigarette Packs Per Day: 1.5 Smoked in Last 30 Days: Yes Use of substances other than those prescribed or required for medical reasons: Yes Substance Use Type: Crack/Cocaine and Marijuana Substance Use Type Other:: mushrooms Substance Use Frequency: Occasionally Last Used Substance: Days (ago) Advance Directives: No Advance Directives Information Provided: No service: No Physical Exam ED Exam Exam: GENERAL: Ill-Appearing, appears uncomfortable. SKIN: Normal skin color for ethnicity, warm, dry, no rashes noted. HEENT:? Normocephalic, atraumatic, no stridor, dry mucous membranes, dentition intact, EOMI. NECK: Soft, supple, full ROM, midline structures nontender, no step-offs, no deformities, no lymphadenopathy. CHEST: Heart regular rhythm, no murmurs, symmetric chest rise and fall. PULMONARY: Clear to auscultation bilaterally, diminished at the bases, no labored breathing, no wheezes/rhales/rhonchi. ABDOMINAL: Soft, nondistended, diffusely tender to palpation with voluntary guarding, positive bowel sounds in all quadrants. : Deferred. MUSCULOSKELETAL: Normal tone, full range of motion, no deformities, no peripheral edema. NEURO: Alert and oriented x3, CN II through XII intact, equal strength and sensation bilateral upper and lower extremities, no focal neurologic deficits.? PSYCHIATRIC: Flat affect, fluid speech, good eye contact and appropriate demeanor. Vital Signs: Vital Signs - 24 hr 06/01/25 22:39 06/01/25 23:41 06/02/25 02:01 Temperature 97.9 F Pulse Rate 96 Respiratory Rate 20 20 20 Blood Pressure 199/115 H Pulse Oximetry 97 Oxygen Delivery Method Room Air BMI result Body Mass Index 35.5 Medical Decision Making Medical Decision Making MDM Narrative: 39-year-old male with uncontrolled hypertension, recent cocaine use, and history of pancreatitis presenting with epigastric pain radiating to back and mild mid- chest discomfort. Differential includes recurrent pancreatitis versus life- threatening etiologies such as acute coronary syndrome or aortic dissection. No focal neuro findings on exam. Problem #1: Epigastric pain / Concern for recurrent pancreatitis Assessment: Pain pattern and prior history suggest pancreatitis; requires laboratory confirmation and symptomatic control. Plan: * Obtain laboratory panel including lipase, CBC, CMP, and additional studies per ED protocol. * Administer antiemetic for nausea. * Provide narcotic analgesia ? patient tolerates hydromorphone; avoid codeine. * NPO and reassess response to therapy. Problem #2: Severe hypertension with chest discomfort ? rule out aortic pathology / ACS Assessment: Markedly elevated BP (190/124 mmHg) in setting of mid-chest pain radiating to back and recent cocaine use raises concern for aortic dissection or ACS. Plan: * Continue diagnostic evaluation (blood work as above; chest X-ray already obtained and normal). * Monitor blood pressure and symptoms; consider further imaging (e.g., CT angiography) based on ED course, ADD-RS (1 due to pain and clinical judgment. * Avoid stimulants; senior counsel commercial on cocaine cessation. Problem #3: Substance use (cocaine, tobacco, marijuana) Assessment: Ongoing stimulant and tobacco use contributes to hypertension and cardiovascular risk. Plan: * Brief counseling provided regarding risks of cocaine and nicotine on blood pressure and vascular health. Follow-up: Will reassess patient?s pain control, vital signs, and initial lab results in the ED; disposition to be determined based on diagnostic findings and clinical stability. 12:00 AM 06/02/2025 (Dr. Elizabet Ragland, D.O.) D-dimer is low, aortic dissection detection score is 1, making him low risk for aortic dissection. CXR does not show widened mediastinum. No neuro deficits. Holding off on CTA imaging of the chest abdomen and pelvis at this time. We will add on a CT with contrast of the abdomen and pelvis to evaluate for pancreatitis. Patient did improving after Dilaudid and Zofran. 2:51 AM 06/02/2025 (Dr. Elizabet Ragland, D.O.) CT shows evidence of acute pancreatitis. Patient continues to have nausea but has improved significantly after medications. We will admit to hospitalist for further care and evaluation. Of note, his UDS is positive for amphetamines and cocaine. Patient was counseled on cessation of use. Admitted in guarded condition. Differential Diagnosis Differential Diagnoses: The differential diagnosis associated with the presentation includes (as above) Admission/Observation Consideration of admission/observation: Escalation of care including admission/observation considered Consult Healthcare Provider Management of the patient was discussed with: Hospitalist Lab Data MDM Lab Attestation statement: I reviewed the patient's lab results. 06/01/25 23:03 06/01/25 23:03 Labs: Lab Results 06/01/25 06/01/25 Range/Units 23:03 23:06 WBC 10.4 (4.8-10.8) X10*3/uL RBC 5.28 (4.60-5.80) X10*6/uL Hgb 15.6 (14.0-18.0) g/dl Hct 45.0 (42.0-52.0) % MCV 85.2 (80.0-98.0) fL MCH 29.5 (27.0-33.0) pg MCHC 34.7 (31.0-36.0) g/dl RDW 12.0 (11.0-16.0) % Plt Count 259 (160-400) X10*3/uL MPV 9.0 L (9.4-12.4) fL Immature Gran % (Auto) 0.2 (0.0-0.4) % Neut % (Auto) 61.9 (45-73) % Lymph % (Auto) 24.4 (20-40) % Garrett % (Auto) 8.0 (2-11) % Eos % (Auto) 4.8 H (0-4) % Baso % (Auto) 0.7 (0-2) % Lymph # (Auto) 2.5 (1.2-4.9) X10*3/uL Garrett # (Auto) 0.8 (0.1-1.2) X10*3/uL Eos # (Auto) 0.5 H (0.0-0.4) X10*3/uL Baso # (Auto) 0.1 (0.0-0.2) X10*3/uL Abs Immat Gran (auto) 0.02 (0.00-0.03) X10*3/uL Absolute Neuts (auto) 6.4 (2.0-8.3) x10*3/uL Absolute Nucleated RBC 0.000 (0.0-0.012) X10*3/uL Nucleated RBC % (auto) 0.0 (0.0-0.2) /100WBC D-Dimer High Sensitivty < 150 NG/ML Sodium 137 (135-145) mmol/L Potassium 3.6 (3.3-5.1) mmol/L Chloride 104 (96-108) mmol/L Carbon Dioxide 24 (22-29) mmol/L Anion Gap 13 (12-20) BUN 17 H (9-16) mg/dL Creatinine 1.01 (0.5-1.4) mg/dL Estim Creat Clear Calc 142.8 Estimated GFR > 60 Random Glucose 109 (60-115) mg/dL Calcium 9.3 (8.4-10.2) mg/dL Total Bilirubin 0.2 (0.0-1.0) mg/dL Direct Bilirubin 0.2 (0.0-0.5) mg/dL AST 24 (5-37) U/L ALT 26 (0-40) U/L Alkaline Phosphatase 80 (39-117) U/L Troponin I High Sens 18.6 (<3.5-35.0) ng/L Total Protein 7.4 (6.5-8.0) g/dL Albumin 4.6 (3.5-5.0) g/dL Lipase 234 H (8-78) U/L Urine Color Yellow Urine Appearance Clear Urine pH 6.0 (5.0-9.0) Ur Specific [place] 1.020 (1.005-1.025) Urine Protein 100 (2+) H (Neg-Trace) mg/dL Urine Glucose (UA) 500 H (Negative) mg/dL Urine Ketones Negative (Negative) mg/dL Urine Blood Small (1+) H (Negative) Urine Nitrite Negative (Negative) Ur Leukocyte Esterase Negative (Negative) Urine RBC 3-5 H (0-2) /HPF Urine WBC 0-5 (0-5) /HPF Ur Squamous Epith Cells 0-2 (0-2) /HPF Urine Bacteria None Seen (None Seen) Hyaline Casts 3-5 (0-2) /LPF Urine Opiates Screen Not Detected (Not Detect) Ur Buprenorphine Scrn Not Detected (Not Detect) ng/mL Ur Oxycodone Screen Not Detected (Not Detect) ng/mL Urine Methadone Screen Not Detected (Not Detect) ng/mL Urine Fentanyl Screen Not Detected (Not Detect) Ur Barbiturates Screen Not Detected (Not Detect) Ur Phencyclidine Scrn Not Detected (Not Detect) Ur Amphetamines Screen POSITIVE H (Not Detect) U Benzodiazepines Scrn Not Detected (Not Detect) Urine Cocaine Screen POSITIVE H (Not Detect) U Marijuana (THC) Screen POSITIVE H (Not Detect) Independent Interpretation I performed an independent interpretation of an: EKG Interpretation: My independent interpretation of the ECG reveals normal sinus rhythm with rate of 79, LVH, leftward axis, normal intervals, no ST elevations or depressions to suggest ischemic changes, relatively unchanged from previous on 01/19/2025 My independent interpretation of the chest x-ray reveals no consolidations, pulmonary edema, pleural effusion, pneumothorax, obvious bony abnormalities.. Radiology Impression Discussion of test interpretation with radiology: I have reviewed the radiologist's reading. Radiologist Impression: CT abdomen and pelvis with contrast Findings: LIMITED CHEST: Lung bases are clear. LIVER: No focal liver lesion. BILIARY: No gallbladder wall thickening, radiopaque stone, or ductal dilatation. PANCREAS: No mass or ductal dilatation. Moderate peripancreatic inflammatory stranding. No fluid collection. Normal enhancement. SPLEEN: No splenomegaly. KIDNEYS: No hydronephrosis or radiopaque stone. ADRENALS: No nodule. VASCULAR: No aneurysm. RETROPERITONEUM: No lymphadenopathy or mass. BOWEL/MESENTERY: No evidence of obstruction. No free fluid or air. ABDOMINAL WALL: No mass or significant abnormality. URINARY BLADDER: No focal wall thickening. PELVIC NODES: No pelvic lymphadenopathy. PELVIC ORGANS: Normal for age. BONES: No acute fracture. OTHER: Negative. IMPRESSION: Acute pancreatitis. No fluid collection or abscess. Chronic Conditions Patient?s care impacted by: Hypertension and Other (Substance use disorder) Social Determinants Patient?s care significantly limited by Social Determinants of Health including: Other Social Determinant of Health Medications Administered Generic Name Dose Route Start Last Admin Trade Name Freq PRN Reason Stop Dose Admin Lactated Ringer's 1,000 mls @ 999 mls/hr 06/02/25 01:49 06/02/25 02:01 Lr IV 06/02/25 02:49 999 mls/hr .Q1H1M ONE Administration Discontinued Medications Generic Name Dose Route Start Last Admin Trade Name Freq PRN Reason Stop Dose Admin Hydromorphone HCl 1 mg 06/01/25 23:31 06/01/25 23:41 Hydromorphone Hcl 1 Mg/Ml Syringe IVPUSH 06/01/25 23:32 1 mg ONCE ONE Administration Protocol Hydromorphone HCl 1 mg 06/02/25 01:49 06/02/25 02:01 Hydromorphone Hcl 1 Mg/Ml Syringe IVPUSH 06/02/25 01:50 1 mg ONCE ONE Administration Protocol Lactated Ringer's 1,000 mls @ 999 mls/hr 06/01/25 23:31 06/02/25 01:30 Lr IV 06/02/25 00:31 Infused .Q1H1M ONE Infusion Iohexol 100 ml 06/02/25 00:14 06/02/25 00:14 Iohexol 350 Mg/Ml 100 Ml Infus..Btl IV 06/02/25 00:15 100 ml ONCE ONE Administration Ondansetron HCl 4 mg 06/01/25 23:31 06/01/25 23:41 Ondansetron Hcl 4 Mg/2 Ml Vial IVPUSH 06/01/25 23:32 4 mg ONCE ONE Administration Discharge Plan Discharge Clinical Impression: Acute on chronic pancreatitis, Polysubstance abuse, Acute abdominal pain, Poorly-controlled hypertension Patient Disposition: Admitted As Inpatient Print Language: Palestinian
--- NOTE | 2025-06-01 23:02 | ECG_ITS ---
Test Reason : CHEST PAIN Blood Pressure : */* mmHG Vent. Rate : 79 BPM Atrial Rate : 79 BPM P-R Int : 152 ms QRS Dur : 108 ms QT Int : 408 ms P-R-T Axes : 12 -38 47 degrees QTcB Int : 467 ms Normal sinus rhythm Left axis deviation Moderate voltage criteria for LVH, may be normal variant ( R in aVL , [place] product ) Septal infarct (cited on or before 19-Jan-2025) Abnormal ECG When compared with ECG of 19-Jan-2025 08:27, Premature atrial complexes are no longer Present Questionable change in initial forces of Septal leads Referred By: Elizabet Ragland Electronically Signed By: Chris Isaac
[2025-06-01 23:09] LABS: MANUAL DIFF FLAG NO
--- OUTSIDE RECORDS SUMMARY | 2025-06-01 23:09 | XMS_ITS | Clinical Summary ---
Author Organization [facility] Address [address] [address] Phone Care Team Providers Care Environmental Health And Safety Intern Name Role Phone Pranav Bailey MD Primary Care Provider [phone] Allergies Active Allergy Reactions Criticality Noted Date [...] topic Medical Devices Not on file Insurance [facility] Bill.com O [facility]op[facility] O [facility]exAirbot[facility] [place]DesignMedix O [facility]ix O Care Teams Environmental Health And Safety Intern Relationship Specialty Start Date End Date Pranav Bailey MD [address] [place] [address] [place] [address] PCP - General Medical Oncology 03/15/22 Additional Source Comments The information contained in this document represents components of the legal health record. It is not the complete legal health record.[facility]
--- OUTSIDE RECORDS SUMMARY | 2025-06-01 23:09 | XMS_ITS | Data Portability ---
Author Organization [place] - [facility], [address] Address [address] [place] [address] Assessment No assessment recorded. Plan of Treatment Reminders Order Date Submit Date Provider Last Modified By Organization Details Last Modified Time Details Appointments None recorded. Lab rapid strep group A, throat [id number] [place] [address], [address] [place] [address], [phone], 3 10:56:50 Referral None recorded. Procedures None recorded. Surgeries None recorded. Imaging XR, ribs, unilateral, w/ PA chest 2022 023 [facility], [address] [place], [address], 14:40:47 Medication Orders cephalexin 500 mg capsule [address] [facility] [address], [address] [place], [address], 3 12:56:17 cyclobenzap rine 10 mg tablet 2022 023 [email or web address] [facility] [address], [address] [place], [address], 3 10:19:01 Patient TargetsNo targets recorded. Patient Instructions Encounter Date Encounter Id Patient Instructions Last Modified By Organization Details Last Modified Time 10/02/2022 [id number] bruised rib: car e instructions [email or web address] Not available 10/02/2022 14:03:19 12/27/2022 [id number] folliculitis: care instructions Not available 12/27/2022 10:59:07 sore throat: car e instructions Not available 12/27/2022 10:56:50 Reason for Referral None Reported. Results Created Date Observation Date Name Description Value Unit Range Abnormal Flag Note LastModifiedBy Organization Detail LastModifiedTime 12/28/1912/27/2022 rapid strep group A, throa t Unknown Analyte Normal = Negati ve Not Available [address] [place], [address], 12/27/2022 10:19:45 12/28/1912/27/2022 rapid strep group A, throa t Unknown Analyte negati ve Not Available [address] [place] [address], [address], 12/27/2022 10:19:45 10/03/19 23 10/02/2022 XR, ribs, unila teral , w/ PA chest No observ ation record ed. [email or web address] [facility] [address] [place] [address], [place], [address], 10/02/2022 14:54:26 Result Notes None recorded. Problems Name Problem SNOMED Code Status Onset Date Resolution Date Notes Provider Name and Address Organization Details Recorded Time Migraine 24428882 Active 2022 MANSOOR kirk, [place] - [facility] 3 13:08:28 Hidradenitis suppurativa 86816476 Active 2022 MANSOOR kirk, [place] - [facility] 3 13:08:47 Kidney disease 10416076 Active 2022 has had kidney failure a few times in past few years MANSOOR kirk, [place] - [facility] 3 13:09:43 Problem Notes None recorded. Medical Equipment None Reported. Allergies Allergen ID Allergen Name Allergen Category Reaction Reaction Severity Criticality Documentation Date Start Date Code Code System Note Provider Name and Address Organization Details Recorded Time 954722 codeine medicatio n nausea Not available Not available 10/02/2022 2670 RxNorm NALDO Stuart [facility] 3 13:07:42 Medications Name Sig [...] (BMI) Body weight Body temperature Oxygen saturation Heart rate Respiratory rate Systolic And Diastolic Provider Name and Address Organization Details Last Updated DateTime 3 193.04 cm 42.6 kg/m2 643966. 33 g 98.1 [degF] 96 % 79 /min 18 /min 147/101 mm[Hg] MANSOOR HITCHCOCK - [facility] 3 13:13:17 Date Recorded Systolic And Diastolic Provider Name and Address Organization Details Last Updated DateTime 12/27/2022 180/115 mm[Hg] Pradip Michelle MD [address] [place], [address], [place] - [facility] 12/27/2022 10:55:46 Date Recorded Body height Body mass index (BMI) Body weight Pain severity Mcfarlane-Arredondo FACES pain rating scale Respiratory rate Oxygen saturation Heart rate Body temperature Systolic And Diastolic Systolic And Diastolic Provider Name and Address Organization Details Last Updated DateTime 3 193.04 cm 42.6 kg/m2 100693. 33 g 4 20 /min 98 % 78 /min 98.1 [degF] 187/122 mm[Hg] 174/116 mm[Hg] Madeleine Eldridgebe [place] - [facility] 3 10:30:03 Social History Question Answer Notes LastModified by [employer] Details LastModified Time Tobacco Smoking Status Current Every Day Smoker MANSOOR FABIANA kirk, [place] - [facility] 10/02/2022 13:11:14 Which Illicit Or Recreational Drugs Have You Used? Marijuana [email or web address] Information not available 10/02/2022 Have You Had Direct Contact, Or Contact During Intimacy, With Monkeypox Rash, Scabs, Or Body Fluids From A Person With Monkeypox? No [email or web address] Information not available 12/27/2022 How Much Tobacco Do You Smoke? 1 PPD Information not available 10/02/2022 Have You Recently Traveled Abroad? No Information not available 10/02/2022 Sex: Unknown Functional Status Question Answer Note LastModified by [employer] Details LastModified Time Do you use any illicit or recreational drugs? Yes [email or web address] Information not available 10/02/2022 Do you or have you ever used any other forms of tobacco or nicotine? No [email or web address] Information not available 10/02/2022 What is your level of alcohol consumption? None [email or web address] Information not available 10/02/2022 Mental Status None recorded. Family History Relationship Description Onset Age of this Age Resolved Age Notes LastModified by Organization Details LastModified Time Father No current problems or disability [email or web address] Not available 10/02 13:10:42 Mother No current problems or disability [email or web address] Not available 10/02 13:10:42 Medical History No medical history recorded. Immunizations Vaccine Type Date Status Note Provider Nam e and Address Organization Details Recorded Time Td (adult), 5 Lf tetanus toxoid, preservative free, adsorbed 5 completed Madeleine Olympia null, [place] - [facility] 12/27/2022 10:18:41 Td (adult), 5 Lf tetanus toxoid, preservative free, adsorbed 9 completed Madeleine Olympia null, [place] - [facility] 12/27/2022 10:18:41 Past Encounters Encounter ID Performer Location Encounter Start Date Encounter Closed Date Diagnosis/Indication Diagnosis SNOMED-CT Code Diagnosis ICD10 Code Diagnosis IMO Codes Diagnosis Note [id number] [address] [place] [address] 10/17/2020 11:28:09 10/17/2020 13:38:29 [id number] [address] [place] [address] 11/30/2020 09:25:29 11/30/2020 10:47:09 [id number] [address] [place] [address] 10/06/2018 14:41:16 10/06/2018 15:20:38 [id number] [address] [place] [address] 03/24/2018 19:42:48 03/24/2018 20:23:07 [id number] [address] [place] [address] 03/26/2019 14:36:28 03/26/2019 15:15:50 [id number] Trevor Oakes DO [address] [place] [address] 10/02/2022 12:37:55 10/02/2022 14:11:36 Rib pain 625042454 R07.81 recommend strappingr estice/hea t prntopical analgesiam uscle relaxerRev iewed with patient potential adverse side effects of the medication . He should avoid NSIDS because of his history of kidney diseasePat ient advised to follow up as needed for worsening symptoms or no improvemen Ariane juarez concerning red flags with patient and reasons to follow up in the Emergency Department urgently. [id number] Pradip Michelle MD [address] [place] [address] 12/27/2022 10:04:26 12/27/2022 11:02:01 Acute pharyngitis 865736793 J02.9 Staphyloco ccal infection of skin 956762537 B95.8 This appears to be a bacterial skin infection, most commonly caused by Staphyloco ccus.Start and complete antiboitic s Hypertensive urgency [phone] [id number] I16.0 Patient advised to go to ER.He [...] Member ID Guarantor Name 12/27/[address] [facility] NET PLAN (MEDICAID HMO) [id number] Raúl Mayen [id number] Raúl Mayen Notes Date Note Type [...] Trevor Oakes, [address] [place], [address], [place] - [facility] 10/02/2022 14:10:28 [...] Flonase and antihistamine Pradip Michelle MD [address] [place] [address] [place], [address], [place] - [facility] 12/27/2022 12:58:47
--- OUTSIDE RECORDS SUMMARY | 2025-06-01 23:09 | XMS_ITS | Data Portability ---
Author Organization [facility] Address [address] [facility],[address] [place] [address] Care Team Providers Care Planner Chief Name Role Phone CACHORRO FIORE Referring Provider [phone] Assessment Encounter Date Assessment Date Assessment LastModified [...] booked for the same. He needs a ems driver on the day of the procedure. [...] By Organization Details Last Modified Time 06/19/2017 [id number] He was advised against bed rest lasting longer than four days and to continue activities as tolerated. Benefits of smoking cessation were discussed with him. [email or web address] Not available 06/19/2017 15:19:58 08/08/2017 [id number] He was advised against bed rest lasting longer than four days and to continue activities as tolerated. Benefits of smoking cessation were discussed with him. [email or web address] Not available 08/11/2017 11:25:19 Reason for Referral None Reported. Problems Name Problem SNOMED Code Status Onset Date Resolution Date Notes Provider Name and Address Organization Details Recorded Time Degeneration of lumbar intervertebral disc 70834737 Active Tommy montemayor MD [address] [facility] , [address], [place], [address], [place] [facility] 7 15:12:07 Lumbar radiculopathy 583990255 Active Tommy montemayor MD [address] [facility] , [address], [place], [address], [place] [facility] 7 15:12:25 Problem Notes None recorded. Procedures Surgical History Date Name Laterality Status Provider Name and Address Organization Details Recorded Time 08/08/19 18 Lumbar Epidural steroid injection under fluoroscopic guidance completed Tommy Motta MD [address] [facility] , [address], [place], [address], [place] [facility] 08/11/2017 [...] Management 06/19/2017 13:36:19 Other completed Marcy Clarke [place] - [facility] 06/19/2017 13:37:13 Imaging Results None recorded. Procedure Notes None recorded. Medical Equipment None Reported. Allergies Allergen ID Allergen Name Allergen Category Reaction Reaction Severity Criticality Documentation Date Start Date Code Code System Note Provider Name and Address Organization Details Recorded Time 90448 codeine medicatio n nausea Not available Not available 06/19/2017 2670 RxNorm Marcy kirk [place] - [facility] 7 13:29:25 Medications Name Sig Start Date Stop Date Status Note LastModified by Organization Details LastModified Time oxycodone 10 mg tablet Take 1 tablet 4 times a day by oral route. active Not Available Not Available No t Available Vitals Date Recorded Body height Heart rate Oxygen saturation Systolic And Diastolic Provider Name and Address Organization Details Last Updated DateTime 08/08/2017 193.04 cm 68 /min 98 % 161/92 mm[Hg] Marcy Clarke [place] [facility] 08/08/2017 13:58:04 Date Recorded Heart rate Oxygen saturation Body height Body mass index (BMI) Body weight Systolic And Diastolic Provider Name and Address Organization Details Last Updated DateTime 7 75 /min 97 % 193.04 cm 36.5 kg/m2 436776. 71 g 136/95 mm[Hg] Marcy Clarke MA - [facility] 7 13:28:45 Social History Question Answer Notes LastModified by Organizat ion Details LastModified Time Tobacco Smoking Status Current Every Day Smoker Not Available [facility] 04/24/2020 03:16:10 Which Illicit Or Recreational Drugs Have You Used? Ocassional [id number] Information not available 04/24/2020 Education 12 Information no t available 06/19/2017 Live Alone Or With Others? Alone Information not available 06/19/2017 Marital Status Single Informatio n not available 06/19/2017 What Was The Date Of Your Most Recent Tobacco Screening? 08/11/2017 [id number] Information not available 04/24/2020 How Much Tobacco Do You Smoke? 1 PPD [id number] Information not available 04/24/2020 How Many Years Have You Smoked Tobacco? 15 [id number] Information not available 04/24/2020 Sex: Unknown Functional Status Question Answer Note LastModified by Organizat ion Details LastModified Time What is your level of alcohol consumption? Occasional [id number] Information not available 04/24/2020 Are you currently employed? 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 Family History Nothing Reported Notes:Mutiple family members = Back problems/ surgeries. Medical History Condition Response Headache Y Migrane Y Arthritis Y Past Encounters Encounter ID Performer Location Encounter Start Date Encounter Closed Date Diagnosis/Indication Diagnosis SNOMED-CT Code Diagnosis ICD10 Code Diagnosis IMO Codes Diagnosis Note [id number] Tommy Motta MD PAIN OFFICE [address] [place] [address] 06/19/2017 13:04:57 06/19/2017 15:27:26 Lumbar radiculopathy 138378438 M54.16 Degenerati on of lumbar intervertebral disc 70261675 M51.36 [id number] Tommy Motta MD PAIN OFFICE [address] [place] [address] 08/08/2017 13:35:16 08/11/2017 11:30:41 Lumbar radiculopathy 279588272 M54.16 Degenerati on of lumbar intervertebral disc 13577556 M51.36 Health Concerns Section Related Observation LastModified by Organization Detai ls LastModified Time None Recorded Concern Status LastModified by Organization Details LastModified Time None Recorded Advance Directives Directive None Recorded Payers Insurance Date Sequence Insurance Name Policy Number Policy Ortiz Covered Member ID Ortiz Member ID Guarantor Name 08/11/2017 1 [place] [facility] Lois Rosa [id number] Lois Rosa Notes Date Note Type Note [...] patient reportsdid not helpandaggravated symptoms. For previous housekeeper caregiver, patient reportsdid not help. For location, (lois [...] helped a little. Tommy Motta MD [address] [facility] , [address], [place], [address], [facility] 06/22/2017 15:47:47 08/08/2017 text/html He is here today for a lumbar epidural steroid injection under fluroscopic guidance. Tommy Motta MD [address] , [address], [place], [address], [facility] 08/14/2017 15:12:21
--- OUTSIDE RECORDS SUMMARY | 2025-06-01 23:09 | XMS_ITS | Patient Health Record ---
Author Organization [facility] Address [address] [place] [address] Care Team Providers Care Care Center Manager Name Role Phone Leo PANCHAL, Pranav Primary Care Provider Unavailab Pranav Galindo Unavailable [phone] Brian Dodd Jr Unavailable Allergies Allergen (clinical drug ingredient) Drug/Non Drug Allergy documented on EMR Reaction Allergy Type Onset Date Status 12 Hour Nasal [place] Unknown Drug Allergy Active bee pollen Bee Pollen Unknown Drug Allergy Activ e codeine Codeine upsets stomach Drug Allergy Ac tive Results Component Value Reference Range Flag Notes GI PANEL Reviewed date:06/22/2024 09:30:50 AM Interpretation: Performing Lab:[facility], [address] [place] [phone] Notes/Report: Campylobacter Not Detected Not Detect. Plesiomonas [...] is performed by Multiplexed PCR, utilizing the Immy Array. Complete Blood Count Auto Di ff Reviewed date:06/19/2024 06:50:13 PM Interpretation: Performing Lab:[facility], [address] [place] [phone] Notes/Report: White Blood Count 9.3 4.8-10.8 X10*3/uL N Red Blood Count 5.49 4.60-5.80 X10*6/uL N Hemoglobin 16.7 14.0-18.0 g/dl N Hematocrit 47.7 42.0-52.0 % N Mean Corpuscular Volume 86.9 80.0-98.0 fL N Mean Corpuscular Hemoglobin 30.4 27.0-33.0 pg N Mean Corpuscular HGB Conc 35.0 31.0-36.0 g/dl N Red Cell Distribution Width 12.5 11.0-16.0 % N Platelet Count 262 160-400 X10*3/uL N Mean Platelet Volume 9.5 9.4-12.4 fL N Neutrophils Percent Auto 69.0 45-73 % N Imm Gran Pct Auto 0.3 0.0-0.4 % N Lymphocytes Percent Auto 18.9 20-40 % L Monocytes Percent Auto 8.4 2-11 % N Eosinophils Percent Auto 2.8 0-4 % N Basophils Percent Auto 0.6 0-2 % N NRBC Pct Auto 0.0 0.0-0.2 /100WBC N Neutrophils Absolute Auto 6.4 2.0-8.3 x10*3/uL N Imm Gran Abs Auto 0.03 0.00-0.03 X10*3/uL N Lymphocytes Absolute Auto 1.8 1.2-4.9 X10*3/uL N Monocytes Absolute Auto 0.8 0.1-1.2 X10*3/uL N Eosinophils Absolute Auto 0.3 0.0-0.4 X10*3/uL N Basophils Absolute Auto 0.1 0.0-0.2 X10*3/uL N NRBC Abs Auto 0.000 0.0-0.012 X10*3/uL N Erythrocyte Sedimentation Ra te Reviewed date:06/19/2024 06:51:12 PM Interpretation: Performing Lab:[facility], [address] [place] [phone] Notes/Report: Erythrocyte Sedimentation Rate 3 0-15 MM/HR N Patients with polycythemia and many hemoglobin abnormalities may have depressed sed rates whereas patients with anemia may have elevated sed rates. Liver Panel Reviewed date:06/19/2024 06:50:28 PM Interpretation: Performing Lab:[address] [address] Notes/Report: Bilirubin Total 0.5 0.0-1.0 mg/dL N Bilirubin Direct 0.1 0.0-0.5 mg/dL N Aspartate Amino Transferase 26 5-37 U/L N Alanine Aminotransferase 26 0-40 U/L N Total Protein 7.6 6.5-8.0 g/dL N Albumin Level 4.5 3.5-5.0 g/dL N Alkaline Phosphatase 63 39-117 U/L N Basic Metabolic Panel Reviewed date:06/19/2024 06:51:00 PM Interpretation: Performing Lab:[address] [address] Notes/Report: Sodium 139 135-145 mmol/L N Potassium 3.6 3.3-5.1 mmol/L N Chloride 108 96-108 mmol/L N Carbon Dioxide 23 22-29 mmol/L N Anion Gap 12 12-20 N Blood Urea Nitrogen 18 9-16 mg/dL H Creatinine 0.96 0.5-1.4 mg/dL N Estimated Glomerular Filt Rate > 60 Chronic Kidney Disease: Estimated GFR < 60 mL/min/1.73m2 Severe Kidney Disease: Estimated GFR < 15 mL/min/1.73m2 Glucose Random 83 60-115 mg/dL N Calcium 9.6 8.4-10.2 mg/dL N C Reactive Protein Reviewed date:06/19/2024 06:51:06 PM Interpretation: Performing Lab:[facility], [address] [place] [phone] Notes/Report: C Reactive Protein 0.53 < or = 0.50 mg/dL H Immunoglobulin A Reviewed date:06/24/2024 10:29:27 PM Interpretation: Performing Lab:[facility], [address] [place] [phone] Notes/Report: Immunoglobulin A 269 47-310 mg/dL N THIS TEST WAS PERFORMED AT: [facility] [address] [place] [phone] CHRISTINA LI MD Transglutaminase Ab IgG Reviewed date:06/24/2024 10:29:47 PM Interpretation: Performing Lab:[facility], [address] [place] [phone] Notes/Report: Transglutaminase Ab IgG <1.0 N Value Interpretation ----- <15.0 Antibody not detected > or = 15.0 Antibody detected THIS TEST WAS PERFORMED AT: [facility] [address] [place] [phone] CHRISTINA LI MD Transglutaminase IgA Reviewed date:06/24/2024 10:29:57 PM Interpretation: Performing Lab:[facility], [address] [place] [phone] Notes/Report: Transglutaminase IgA <1.0 N Value Interpretation ----- <15.0 Antibody not detected > or = 15.0 Antibody detected THIS TEST WAS PERFORMED AT: [facility] [address] [place] [phone] CHRISTINA LI MD Gliadin Ab Panel Reviewed date:06/24/2024 10:30:49 PM Interpretation: Performing Lab:[facility], [address] [place] [phone] Notes/Report: Gliadin Deamidated IgA Ab <1.0 N Value Interpretation ----- <15.0 Antibody not detected > or = 15.0 Antibody detected Gliadin Deamidated IgG Ab <1.0 N Value Interpretation ----- <15.0 Antibody not detected > or = 15.0 Antibody detected THIS TEST WAS PERFORMED AT: [facility] [address] [place] [phone] CHRISTINA LI MD Endomysial IgA rflx Titer Reviewed date:06/24/2024 10:33:15 PM Interpretation: Performing Lab:[facility], [address] [place] [phone] Notes/Report: Endomysial IgA Antibody Negative Negative THIS TEST WAS PERFORMED AT: [facility]/[address] [phone] VIDYA CAMACHO MD,PHD Endomysial Titer TNP Pathology Reviewed date:07/06/2024 09:12:50 PM Interpretation: Performing Lab:[facility], [address] [place] [phone] Notes/Report: Reason For Referral No Information Medications [...] stop date) Current Smoker NA - NA Social History Drugs/Alcohol: Social Info Question Answer Notes Alcohol Screen Did you have a drink containing alcohol in the past year? Yes How often did you have a drink containing alcohol in the past year? Never (0 point) How many drinks did you have on a typical day when you were drinking in the past year? 1 or 2 drinks (0 point) Points 0 Interpretation Negative Tobacco Use: Social Info Question Answer Notes Tobacco Use/Smoking Patient is a current smoker How often do you smoke cigarettes? every day How many cigarettes a day do you smoke? 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[employer] Section Notes: Smoker 1 ppd; no sig alcohol Problems Problem Type SNOMED Code ICD Code Onset Dates Problem Status W/U Status Risk Notes Problem Abnormal weight loss (205777711) Abnormal weight loss (R63.4) Active confirmed Problem Chronic diarrhea (990821243) Chronic diarrhea (K52.9) Active confirmed Vital Signs Blood pressure diastolic 00 mm Hg 06/19/2024 Height 6 ft 4 in in 06/19/2024 Blood pressure systolic 00 mm Hg 06/19/2024 Weight 303 lbs 06/19/2024 BMI 36.88 kg/m2 06/19/2024 Encounters Encounter Location Date Provider Diagnosis [facility] [address] [place] [id number] 06/27/2024 Pranav Galo Chronic diarrhea K52.9 and Weight loss R63.4 [facility] [address] [place] [phone] 06/19/2024 Pranav Galo Chronic diarrhea K52.9 and Abnormal weight loss R63.4 [facility] [address] [place] [phone] 06/05/2024 Brian Dodd Jr [facility] [address] [place] [address] 06/27/2024 Pranav Galo Chronic diarrhea K52.9 and Abnormal weight loss R63.4 [facility] [address] [place] [phone] 08/27/2024 Pranav Galo [facility] [address] [place] [phone] 01/27/2025 Pranav Galo Assessments Encounter Date Diagnosis [...] 06/27/2024 Cryptosporidium Ag DFA 06/27/2024 Calprotectin, Fecal 06/27/2024 Calprotectin, Fecal 06/19/2024 Ova and Parasite 06/27/2024 Future Test Test Name Order Date Colonoscopy 06/19/2024 COLONOSCOPY 06/19/2024 Insurance Providers Payer Name Payer Address Payer Phone Subscriber Number Group Number Insured Name Patient Relationship to Insured Coverage Start Date Coverage End Date [facility] [address] [address] [place], [place] [id number] RAÚL MOORE Self - patient is the insured MEDICAID OF [facility] [address] [place] [address] [id number] RAÚL MOORE Self - patient is the insured Medical (General) History Medical History History ICD Code HTN, but currently not on any medication Renal insufficiency Denies CO,DM,CVA,Lung disease Surgical History Surgery Date(Month/Year) Right side of face-trauma Left hand Right elbow Bilateral knees Back surgeries x 3 Left ankle
[2025-06-01 23:10] LABS: Hematocrit 45.0 % (42.0-52.0); Hemoglobin 15.6 g/dl (14.0-18.0); Imm Gran Abs Auto 0.02 X10*3/uL (0.00-0.03); Imm Gran Pct Auto 0.2 % (0.0-0.4); Lymphocytes Absolute Auto 2.5 X10*3/uL (1.2-4.9); Mean Corpuscular HGB Conc 34.7 g/dl (31.0-36.0); Mean Corpuscular Hemoglobin 29.5 pg (27.0-33.0); Mean Corpuscular Volume 85.2 fL (80.0-98.0); NRBC Abs Auto 0.000 X10*3/uL (0.0-0.012); NRBC Pct Auto 0.0 /100WBC (0.0-0.2); Platelet Count 259 X10*3/uL (160-400); Red Blood Count 5.28 X10*6/uL (4.60-5.80); White Blood Count 10.4 X10*3/uL (4.8-10.8)
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
[2025-06-01 23:24] LABS: Alanine Aminotransferase 26 U/L (0-40); Albumin Level 4.6 g/dL (3.5-5.0); Alkaline Phosphatase 80 U/L (39-117); Anion Gap 13 (12-20); Aspartate Amino Transferase 24 U/L (5-37); Blood Urea Nitrogen 17 mg/dL (9-16); Calcium 9.3 mg/dL (8.4-10.2); Carbon Dioxide 24 mmol/L (22-29); Chloride 104 mmol/L (96-108); Creatinine Clr Calc Pharmacy 142.8; Estimated Glomerular Filt Rate > 60; Lipase 234 U/L (8-78); Potassium 3.6 mmol/L (3.3-5.1); Sodium 137 mmol/L (135-145); Total Protein 7.4 g/dL (6.5-8.0)
[2025-06-01 23:25] LABS: Appearance Urine Clear; Glucose Urine UA 500 mg/dL (Negative); PH 6.0 (5.0-9.0); Specific Gravity - Urine 1.020 (1.005-1.025); UMIC TRIGGER UACC YES
[2025-06-01 23:34] LABS: Cannabinoid Screen Urine POSITIVE (Not Detect)
[2025-06-01 23:41] VITALS: RESP 20
[2025-06-01] MEDS: Lactated Ringers 1,000 ML 999 ML IV (23:41)
[2025-06-01 23:42] LABS: Troponin-I High Sensitivity 18.6 ng/L (<3.5-35.0)
[2025-06-01 23:44] LABS: D Dimer High Sensitivity < 150 NG/ML
[2025-06-02] VITALS (10 sets, daily range): BP systolic 158–216; BP diastolic 103–126; PULSE 64–86; RESP 17–20; TEMP 36.3–36.8; O2SAT 96–97
[2025-06-02] MEDS: iohexoL 350 MG/ML 100 ML INFUS..BTL IV (00:14)
[2025-06-02] MEDS: Lactated Ringers 1,000 ML 999 ML IV (02:01)
[2025-06-02] MEDS: NIFEdipine ER 60 MG TAB.ER.24 PO (03:13)
[2025-06-02] MEDS: diazePAM 10 MG/2 ML CARTRIDGE 5 MG IVPUSH (03:14)
[2025-06-02] MEDS: Dextrose 5 % and 0.45 % NaCl 1,000 ML 100 ML IVCONT ×2 (04:37→14:37)
--- NOTE | 2025-06-02 04:42 | PC.NURSE ---
pt pending bed assignment, D5 in 0.45 NS hung per MAR, pt is A+OX4, appears to be in no apparent distress at this time, respiration are even and unlabored. Pt states All those meds you gave me are starting to kick in when reassessing pt pain level, pt responds 5/10 on pain scale. Pt refused to be changed over into hospital gown stating I will change when I get up there . Pt has call light within reach for safety, and conneted to monitor w/ BP running approximately Q15 min d/t HTN pending medication effectivness
[2025-06-02 05:19] LABS: MANUAL DIFF FLAG NO
[2025-06-02 05:20] LABS: Hematocrit 41.3 % (42.0-52.0); Hemoglobin 14.4 g/dl (14.0-18.0); Imm Gran Abs Auto 0.02 X10*3/uL (0.00-0.03); Imm Gran Pct Auto 0.2 % (0.0-0.4); Lymphocytes Absolute Auto 2.6 X10*3/uL (1.2-4.9); Mean Corpuscular HGB Conc 34.9 g/dl (31.0-36.0); Mean Corpuscular Hemoglobin 30.3 pg (27.0-33.0); Mean Corpuscular Volume 86.8 fL (80.0-98.0); NRBC Abs Auto 0.000 X10*3/uL (0.0-0.012); NRBC Pct Auto 0.0 /100WBC (0.0-0.2); Platelet Count 204 X10*3/uL (160-400); Red Blood Count 4.76 X10*6/uL (4.60-5.80); White Blood Count 8.9 X10*3/uL (4.8-10.8)
[2025-06-02 05:34] LABS: Alanine Aminotransferase 22 U/L (0-40); Albumin Level 4.2 g/dL (3.5-5.0); Alkaline Phosphatase 64 U/L (39-117); Anion Gap 11 (12-20); Aspartate Amino Transferase 24 U/L (5-37); Blood Urea Nitrogen 14 mg/dL (9-16); Calcium 8.7 mg/dL (8.4-10.2); Carbon Dioxide 25 mmol/L (22-29); Chloride 104 mmol/L (96-108); Creatinine Clr Calc Pharmacy 164.0; Estimated Glomerular Filt Rate > 60; Potassium 3.3 mmol/L (3.3-5.1); Sodium 137 mmol/L (135-145); Total Protein 6.7 g/dL (6.5-8.0)
--- NOTE | 2025-06-02 05:48 | P.HPHOSP_ITS ---
History of Present Illness Date of Service: 06/02/25 Chief Complaint: Abdominal pain 39-year-old male with a past medical history of hypertension, elevated BMI, polysubstance use disorder, tobacco dependence, history of pancreatitis in January 2025; presented to the hospital today with a chief complaint of abdominal pain. Patient reports that he has been having abdominal pain, located in the epigastrium, has some nausea and vomiting; nonradiating tingling; similar to the prior episode of pancreatitis; hence presented to the ER for further evaluation. Patient denies any fever chills cough or sputum production. Denies any urinary symptoms. Review of all other systems is negative except mentioned above ER course: Per ER team, patient noted to have epigastric tenderness; CT abdomen pelvis showed finding consistent with acute pancreatitis; patient blood pressure was elevated-presumed to be in the setting of drug use; patient was given Valium + nifedipine. [facility] Medical History Hypertension Hypogonadism, testicular Family History Father No problems noted. Mother Hypertension Maternal Grandfather Coronary artery disease Maternal Grandmother Hypertension Diabetes Surgical History H/O discectomy S/P tendon repair History of meniscectomy of left knee H/O myringotomy History of surgery Social History Household Members: None Housing: House Are you a primary career and guidance counselor to a significant other at home: No Do you presently have visiting nurse or other home services: No Alcohol intake: current Alcohol intake frequency: holidays/special occasions only Patient Tobacco Use Status: Current everyday Tobacco user Tobacco use type: Cigarette Cigarette Packs Per Day: 1.5 Smoked in Last 30 Days: Yes Use of substances other than those prescribed or required for medical reasons: Yes Substance Use Type: Crack/Cocaine and Marijuana Substance Use Type Other:: mushrooms Substance Use Frequency: Occasionally Last Used Substance: Days (ago) Advance Directives: No Advance Directives Information Provided: No Nutrition Risks: No Nutritional Risk service: No Meds Allergies Allergy/AdvReac Type Severity Reaction Status Date / Time bee pollen (BEE STINGS) Allergy Severe THROAT Verified 06/01/25 22:42 SWELLING codeine (CODEINE) Allergy Mild STOMACH Verified 06/01/25 22:42 UPSET, nausea and vomiting Active Medications: Current Medications Acetaminophen (Acetaminophen 325 Mg Tablet) 650 mg PO Q6H PRN PRN Reason: Pain, Mild 1-3,fever,headache Calcium Carbonate (Calcium Carbonate 750 Mg Tab.Chew) 750 mg PO Q4H PRN PRN Reason: Heartburn Docusate Sodium (Docusate Sodium 100 Mg Capsule) 100 mg PO BID ERIC Heparin Sodium (Porcine) (Heparin Sodium,Porcine 5,000 Unit/Ml Vial) 5,000 unit SUBCUT Q8H ERIC Hydromorphone HCl (Hydromorphone Hcl 1 Mg/Ml Syringe) 0.5 mg IVPUSH Q4H PRN; Protocol PRN Reason: Breakthrough Pain Dextrose/Sodium Chloride (D51/2ns) 1,000 mls @ 100 mls/hr IVCONT .Q10H [facility] [place] Last Admin: 06/02/25 04:37 Dose: 100 mls/hr Magnesium Hydroxide (Milk Of Magnesia 30 Ml Oral.Susp) 30 ml PO DAILY PRN PRN Reason: Constipation Melatonin (Melatonin 3 Mg Tablet) 6 mg PO BEDTIME PRN PRN Reason: Insomnia Sodium Chloride (0.9 % Sodium Chloride Flush 3 Ml Syringe) 3 ml IVFLUSH QSHIFT [facility] Home Medications ?Medication ?Instructions ?Recorded ?Confirmed ?Last Taken ?Type testosterone cypionate 200 mg/mL 75 mg IM MO 01/19/25 01/19/25 01/13/25 History intramuscular oil Physical Exam 2 Vital Signs and Narrative: Vital Signs: Last Vital Signs Temp 98.2 F 06/02/25 02:56 Pulse 70 06/02/25 03:56 Resp 18 06/02/25 03:56 BP 185/109 H 06/02/25 03:56 Pulse Ox 96 06/02/25 02:56 O2 Del Method Room Air 06/02/25 02:56 BMI result Body Mass Index 35.5 Gen: Appears be in no acute distress HEENT: NCAT, Moist mucosa. Pulmonary: Vesicular breath sounds, fair air entry CVS: Normal S1-S2 Abdomen: BS+, Soft, tender in the epigastrium; no guarding no rigidity Extremities: Warm well perfused Neuro: Alert and awake. Results Labs 06/02/25 05:14 06/02/25 05:14 Labs: Laboratory Results - last 24 hr 06/01/25 06/01/25 06/02/25 23:03 23:06 05:14 MCV 85.2 86.8 MCH 29.5 30.3 MCHC 34.7 34.9 RDW 12.0 12.0 Plt Count 259 204 MPV 9.0 L 9.0 L Immature Gran % (Auto) 0.2 0.2 Neut % (Auto) 61.9 58.2 Lymph % (Auto) 24.4 28.9 [place] % (Auto) 8.0 7.6 Eos % (Auto) 4.8 H 4.6 H Baso % (Auto) 0.7 0.5 Lymph # (Auto) 2.5 2.6 [place] # (Auto) 0.8 0.7 Eos # (Auto) 0.5 H 0.4 Baso # (Auto) 0.1 0.0 Abs Immat Gran (auto) 0.02 0.02 Absolute Neuts (auto) 6.4 5.2 Absolute Nucleated RBC 0.000 0.000 Nucleated RBC % (auto) 0.0 0.0 D-Dimer High Sensitivty < 150 Anion Gap 13 11 L Estim Creat Clear Calc 142.8 164.0 Estimated GFR > 60 > 60 Random Glucose 109 107 Calcium 9.3 8.7 D Total Bilirubin 0.2 0.4 Direct Bilirubin 0.2 AST 24 24 ALT 26 22 Alkaline Phosphatase 80 64 Troponin I High Sens 18.6 Total Protein 7.4 6.7 Albumin 4.6 4.2 Lipase 234 H Urine Color Yellow Urine Appearance Clear Urine pH 6.0 Ur Specific [place] 1.020 Urine Protein 100 (2+) H Urine Glucose (UA) 500 H Urine Ketones Negative Urine Blood Small (1+) H Urine Nitrite Negative Ur Leukocyte Esterase Negative Urine RBC 3-5 H Urine WBC 0-5 Ur Squamous Epith Cells 0-2 Urine Bacteria None Seen Hyaline Casts 3-5 Urine Opiates Screen Not Detected Ur Buprenorphine Scrn Not Detected Ur Oxycodone Screen Not Detected Urine Methadone Screen Not Detected Urine Fentanyl Screen Not Detected Ur Barbiturates Screen Not Detected Ur Phencyclidine Scrn Not Detected Ur Amphetamines Screen POSITIVE H U Benzodiazepines Scrn Not Detected Urine Cocaine Screen POSITIVE H U Marijuana (THC) Screen POSITIVE H Assessment and Plan (1) Pancreatitis: Qualifiers: Chronicity: acute Pancreatitis type: other Acute pancreatitis complication: no infection or necrosis Qualified Code(s): K85.80 - Other acute pancreatitis without necrosis or infection Status: Acute Plan 39-year-old male with a past medical history of hypertension, elevated BMI, polysubstance use disorder, tobacco dependence, history of pancreatitis in January 2025; presented to the hospital today with a chief complaint of abdominal pain. Noted to have pancreatitis. Acute pancreatitis: Patient had similar episode in January of 2025. At that time presumed to be secondary to the drug use. Patient reports using drugs intermittently-currently denies recent use to me at the time of my interview. CT and pelvis showed acute pancreatitis Will consult Gastroenterology given recurrent episodes Pain control NPO Gentle IV fluids Advanced diet as tolerated Hypertensive urgency: Patient mentioned that he is not taking any medications at home Patient was given nifedipine in the ER Resume home medications once med rec is completed by pharmacy in a.m. Hydralazine p.r.n. Polysubstance use disorder: care worker follow-up DVT prophylaxis: Lovenox Code status: Full code Quality Stroke Does the patient have a stroke diagnosis?: No VTE Prior VTE?: No VTE Risk Level:: Medical - moderate - high VTE Device Contraindication: Treatment Not Indicated VTE Drug Contraindication: N/A - Med Ordered
--- NOTE | 2025-06-02 06:04 | HO.NURTONUR ---
Pt is a 39yr old male, full code, allergies to bee pollen and codeine, currently NPO, presented to the ED d/t upper abdominal pain and lower back pain since last night(05/31/25) w/ nausea, denies issues with moving bowels. reports hx of pancreatitis and states this feels similar HTN noted in triage, patient reports hx HTN but does not take meds PMHx: HTN, elevated BMI, polysubstance use (cocaine, mushrooms, marijuana (stated)) BP noted to be 200's/100's was give Procardia 60mg PO w/ good effects Toxicology: + for marijuana, cocaine, amphetamines Imaging: Abd. CT showed: Acute pancreatitis. No fluid collection or abscess. CXR: showed: No acute findings. EKG showed: NSR Access: 20g IV placed to the R.AC w/ D5 in 0.45 NS running @100mL/hr Plan: Will consult Gastroenterology given recurrent episodes Pain control Gentle IV fluids Advanced diet as tolerated Hydralazine p.r.n. cut and cover line worker follow-up
--- NOTE | 2025-06-02 08:02 | PC.NURSE ---
patient a&ox3, ambulatory with steady gait, rr equal/non labored, vss, cardiac rehabilitation specialist intact- sinus aly 60s, pt c/o abd pain 02/16- medicated for pain per order, ivf running per order, pt refusing to wear hospital attire, call schuler within reach, plan of care ongoing
--- NOTE | 2025-06-02 08:30 | PHA.MEDREC ---
Addendum entered by Citlali Foley RPh 06/02/25 08:34: MED REC REVIEWED BY [facility] Original Note: Pharmacy Consult ? Medication Reconciliation Pharmacy has completed the medication reconciliation. Spoke with pt and he confirmed he is not taking any medications at this time.
--- NOTE | 2025-06-02 09:39 | PC.NURSE ---
tylenol pt request tylenol for 5/10 headache, hospitalist notified via tiger text due to pain of 5/10 being outside tylenol perimeter.
--- NOTE | 2025-06-02 11:43 | MHC.CM.PN ---
CM met with Patient at bedside, in the ED. Patient lives in a house with his Grandmother and he is functionally independent. Home/self care is Patient's goal and CM has initiated and will follow for dc planning. PCP is Dr. Pranav Hickey and Patient's car is here for transport at id.
--- NOTE | 2025-06-02 12:47 | PC.NURSE ---
pt c/o 9/10 abd pain and states he has a 10/10 headache as well, will notify provider as he previously had tylenol for headache.
--- NOTE | 2025-06-02 14:25 | PC.NURSE ---
pt continues to complain of 10/10 headache, hospitalist was notified, pt additionally requested this nurse to shut off the anders light which he was told wasn't an option, this nurse asked patient experience if they could try to find some eye masks for the patient and this nurse was told that the hospital was out of them. this nurse offered the patient a towel to cover his eyes with to prevent the light from going through, pt requested to go to his vehicle in the parking lot to obtain his sunglasses- pt was told that was not allowed because of having IV in place.
--- NOTE | 2025-06-02 14:53 | PC.NURSE ---
pt took off tele monitoring, also continuing to complain of headache- provider has been notified of headache
--- NOTE | 2025-06-02 16:20 | PC.NURSE ---
pt states he would like to leave and go home. he says nothing is happening for him, he has a headache that is worsened by the tylenol, and he needs his sunglasses from his car that no one will let him go get This RN told pt he is admitted to hospital, waiting for bed assignment upstairs and that i will reach out to provider to see if there is more we can do for headache/notifying provider that pt wants to leave. This RN notified admitting MD Danial Vaughn via tiger text at 16:15 , no response from provider.
--- NOTE | 2025-06-02 16:41 | PC.NURSE ---
this nurse returned from break and was told by covering RN that the patient was threatening to leave over continued headache. Shoshana had notified hospitalist who was in the ED in another patients room. Matthew RN told this nurse that the patient was at the door trying to open it, this nurse went to double check the patients room, bathroom next to his room and all doors, additionally charge, triage and security were notified to see if they saw him leave. Upon looking at footage security noted that he left the facility through the doors at 1627. Pt was noted to have an IV and it was not found in the room or garbage- his phone was called without him picking up, his mothers number was called and a message was left,additionally the police department was notified by the charge nurse, the clinical coordinators and Kelly were notified as well.
--- NOTE | 2025-06-02 16:46 | PC.NURSE ---
This RN was alerted as charge that there was concern that the pt eloped from the ED. This RN attempted to call the pt cell number in the chart however the number was blocked, this RN then called pt mom who was listed but she did not answer. This RN was notified by security that he walked out the main foor
--- NOTE | 2025-06-02 16:46 | PM.DS ---
DS: Providers Provider Date of Service: 06/02/25 Date of admission: 06/02/25 04:02 Date of discharge: 06/02/25 Primary care physician: Pranav Bailey MD Consults: 06/02/25 16:10 Consult to Gastroenterology Routine Consulting Provider: Pioneer Rylan Olea Reason for consultation: pancreatitis acute interstitial Has provider been notified: No DS: Diagnosis Discharge Diagnosis (1) Pancreatitis: Status: Acute DS: Summary Hospital Course Hospital Course: Chief Complaint: Abdominal pain 39-year-old male with a past medical history of hypertension, elevated BMI, polysubstance use disorder, tobacco dependence, history of pancreatitis in January 2025; presented to the hospital today with a chief complaint of abdominal pain. Patient reports that he has been having abdominal pain, located in the epigastrium, has some nausea and vomiting; nonradiating tingling; similar to the prior episode of pancreatitis; hence presented to the ER for further evaluation. Patient denies any fever chills cough or sputum production. Denies any urinary symptoms. Review of all other systems is negative except mentioned above ER course: Per ER team, patient noted to have epigastric tenderness; CT abdomen pelvis showed finding consistent with acute pancreatitis; patient blood pressure was elevated-presumed to be in the setting of drug use; patient was given Valium + nifedipine. Problem list Acute pancreatitis: Patient had similar episode in January of 2025. At that time presumed to be secondary to the drug use. Patient reports using drugs intermittently-currently denies recent use to me at the time of my interview. CT and pelvis showed acute pancreatitis Will consult Gastroenterology given recurrent episodes Pain control NPO Gentle IV fluids Advanced diet as tolerated Hypertensive urgency: Patient mentioned that he is not taking any medications at home Patient was given nifedipine in the ER Resume home medications once med rec is completed by pharmacy in a.m. Hydralazine p.r.n. Discharge Against Medical Advice The patient left hospital against medical advice and eloped. Patient was assessed and determined to have decision-making capacity during time of evaluation. I explained the patient?s current condition, the recommended evaluation/treatment during evaluation today. The patient verbalized understanding of his medical conditions. The patient has been able to articulate her needs of his care. Unfortunately, the patient eloped without discussing his decision to leave AMA to anyone. As such, the patient did not sign an AMA form At the time of departure, the patient?s condition was stable. Status at Discharge Cognitive/behavioral status at discharge: Alert and oriented to person place time and situation Overall status at discharge: other (Eloped from hospital) Time Attestation Total time managing care of this patient today: 45 mintues. Discharge Coordination Time (in mins): 35 Quality: Safe Use of Opioids Does Pt have an Active Cancer Diagnosis on the Problem List?: No Quality: Stroke Does the patient have a stroke diagnosis?: No Physical Exam Exam: Exam: Gen: Appears be in no acute distress HEENT: NCAT, Moist mucosa. Pulmonary: Vesicular breath sounds, fair air entry CVS: Normal S1-S2 Abdomen: BS+, Soft, tender in the epigastrium; no guarding no rigidity Extremities: Warm well perfused Neuro: Alert and awake. Vital Signs: Vital Signs: Last Vital Signs Temp 97.4 F 06/02/25 14:53 Pulse 86 06/02/25 14:53 Resp 18 06/02/25 14:53 BP 158/103 H 06/02/25 14:53 Pulse Ox 96 06/02/25 14:53 O2 Del Method Room Air 06/02/25 14:53 BMI result Body Mass Index 35.5 DS: Data Data Completed and Pending Labs on day of discharge: Laboratory Results - last 24 hr 06/01/25 06/01/25 06/02/25 23:03 23:06 05:14 WBC 10.4 8.9 RBC 5.28 4.76 Hgb 15.6 14.4 Hct 45.0 41.3 L MCV 85.2 86.8 MCH 29.5 30.3 MCHC 34.7 34.9 RDW 12.0 12.0 Plt Count 259 204 MPV 9.0 L 9.0 L Immature Gran % (Auto) 0.2 0.2 Neut % (Auto) 61.9 58.2 Lymph % (Auto) 24.4 28.9 [place] % (Auto) 8.0 7.6 Eos % (Auto) 4.8 H 4.6 H Baso % (Auto) 0.7 0.5 Lymph # (Auto) 2.5 2.6 [place] # (Auto) 0.8 0.7 Eos # (Auto) 0.5 H 0.4 Baso # (Auto) 0.1 0.0 Abs Immat Gran (auto) 0.02 0.02 Absolute Neuts (auto) 6.4 5.2 Absolute Nucleated RBC 0.000 0.000 Nucleated RBC % (auto) 0.0 0.0 D-Dimer High Sensitivty < 150 Sodium 137 137 Potassium 3.6 3.3 Chloride 104 104 Carbon Dioxide 24 25 Anion Gap 13 11 L BUN 17 H 14 Creatinine 1.01 0.88 Estim Creat Clear Calc 142.8 164.0 Estimated GFR > 60 > 60 Random Glucose 109 107 Calcium 9.3 8.7 D Total Bilirubin 0.2 0.4 Direct Bilirubin 0.2 AST 24 24 ALT 26 22 Alkaline Phosphatase 80 64 Troponin I High Sens 18.6 Total Protein 7.4 6.7 Albumin 4.6 4.2 Lipase 234 H Urine Color Yellow Urine Appearance Clear Urine pH 6.0 Ur Specific [place] 1.020 Urine Protein 100 (2+) H Urine Glucose (UA) 500 H Urine Ketones Negative Urine Blood Small (1+) H Urine Nitrite Negative Ur Leukocyte Esterase Negative Urine RBC 3-5 H Urine WBC 0-5 Ur Squamous Epith Cells 0-2 Urine Bacteria None Seen Hyaline Casts 3-5 Urine Opiates Screen Not Detected Ur Buprenorphine Scrn Not Detected Ur Oxycodone Screen Not Detected Urine Methadone Screen Not Detected Urine Fentanyl Screen Not Detected Ur Barbiturates Screen Not Detected Ur Phencyclidine Scrn Not Detected Ur Amphetamines Screen POSITIVE H U Benzodiazepines Scrn Not Detected Urine Cocaine Screen POSITIVE H U Marijuana (THC) Screen POSITIVE H Discharge Plan Discharge Anticipated Discharge Date/Time: 06/02/25 16:49 Patient Disposition: Left Against Medical Advice Discharge Diagnosis: Acute pancreatitis and hypertensive urgency in the setting of polysubstance abuse Referrals: Pranav Bailey MD [Primary Care Provider, Internal Medicine] Discharge Medications: Continued No Known Home Meds Discharge Orders: Discharge Order (Routine); Ordered 06/02/25 Ordered By: Danial Vaughn Diet: Advance to usual diet Activity on Discharge: As tolerated Print Language: [place]ijani Care Plan Goals: Left against medical advice Health Concerns: Left against medical advice Plan of Treatment: Should return to emergency department and hospital to continue his care Assessment: Patient who was admitted with acute interstitial pancreatitis without necrosis or infection, of unknown etiology, with hypertensive urgency and polysubstance abuse, elected to elope hospital against medical advice - therefore has not completed his medical care
--- NOTE | 2025-06-02 16:48 | PC.NURSE ---
This RN was notified as charge that the patient had potentially eloped from the ED, concerns the IV was still in place. Pt noted to leave through the main door at 1627, this RN called the pts cell number which blocked this number, this RN also called pt mom who was listed in his chart, but had to leave a message for a call back. This RN called PD at 1645, pt name and address given, at this time alerted they would try and make contact with pt.
--- NOTE | 2025-06-02 16:54 | PC.NURSE ---
Hospitalist was notified face to face that the patient eloped.
--- NOTE | 2025-06-02 18:48 | PM.EVENT ---
Event Note Date of Service: 06/02/25 Event Note: GI-Chart reviewed and course noted-Patient eloped and left AMA before I had a chance to see him. Time Spent With Patient Time: Total time managing care of this patient today ____ minutes.
--- NOTE | 2025-06-02 19:18 | PC.NURSE ---
PD made contact w pt, per pt IV removed prior to leaving, no IV found per PD.
== END 2025-06-02 17:03 | disposition left against medical advice (07) | DRG 282 ==
LOC: HO.ED 06-02 03:43 → HO.EDOVER 06-02 04:07
PROVIDERS: Admitting Provider Hospitalist; Emergency Provider Emergency Medicine; PCP Internal Medicine Medical Oncology; Visit Provider Hospitalist
DX: K85.90 Acute pancreatitis without necrosis or infection, unspecified (principal); F17.210 Nicotine dependence, cigarettes, uncomplicated; F19.10 Other psychoactive substance abuse, uncomplicated; I10 Essential (primary) hypertension; Z71.6 Tobacco abuse counseling; I16.0 Hypertensive urgency
CPT/HCPCS: 36415; 71045; 74177; 80048; 80053; 80076; 80307; 81001; 83690; 84484; 85025; 85379; 93005; 99285; J1171; J1630; J1644; J2405; J3360; J7120; Q9967

== ENCOUNTER → 2025-06-01 23:02 | Outpatient (BNV) | payer OTHER, SELFPAY | PROVIDERS: Admitting Provider Hospitalist; Emergency Provider Emergency Medicine; PCP Internal Medicine Medical Oncology; Visit Provider Internal Medicine Cardiovascular Disease | DX: I25.2 Old myocardial infarction (principal) | CPT/HCPCS: 93010 ==

== ENCOUNTER 2025-06-17 02:27 | Observation (INO) | payer OTHER, SELFPAY ==
[2025-06-17] VITALS (10 sets, daily range): BP systolic 139–199; BP diastolic 89–127; PULSE 67–80; RESP 18–20; TEMP 36.3–36.8; O2SAT 95–100; BMI 34.1; BMI 34.0
--- NOTE | 2025-06-17 | ECG_ITS ---
Test Reason : ABD PAIN Blood Pressure : */* mmHG Vent. Rate : 74 BPM Atrial Rate : 74 BPM P-R Int : 158 ms QRS Dur : 114 ms QT Int : 446 ms P-R-T Axes : 44 -37 56 degrees QTcB Int : 495 ms Sinus rhythm with marked sinus arrhythmia Left axis deviation Incomplete right bundle branch block Moderate voltage criteria for LVH, may be normal variant ( R in aVL , Esteban product ) Cannot rule out Anterior infarct (cited on or before 19-Jan-2025) Abnormal ECG When compared with ECG of 01-Jun-2025 23:10, Questionable change in initial forces of Anteroseptal leads Referred By: Cori Basurto Electronically Signed By: CISCO HORN MD
--- NOTE | ~2025-06-17 | CT_ITS ---
EXAMINATION: CT ABDOMEN PELVIS WITH IV CONTRAST HISTORY: pancreatitis COMPARISON: Comparison is made with the prior examinations dated 06/02/2025 and 01/19/2025. TECHNIQUE: CT scan of the abdomen and pelvis was performed following administration of 85 mL Omnipaque 350 using standard departmental protocol. Coronal and sagittal reformatted images were generated and reviewed. Oral contrast material was not administered at the request of the referring physician. This CT exam was performed with one or more of the following dose reduction techniques: automated exposure control, adjustment of the mA and/or kV according to patient size, use of iterative reconstruction technique. DLP: 909 mGy-cm FINDINGS: LOWER CHEST: The visualized lung bases are clear. There is no pleural effusion. CARDIOVASCULATURE: The heart is normal in size. There is no pericardial effusion. LIVER: The liver is normal in size and contour. No liver mass is identified. The hepatic and portal veins are patent. GALLBLADDER / BILE DUCTS: The gallbladder is mildly distended. There are no calcified gallstones.. There is no intra or extrahepatic biliary ductal dilatation. SPLEEN: The spleen is normal in size. No focal splenic lesion is identified. PANCREAS: There is a 1.7 cm hypoattenuating mass of the pancreatic head/neck. There is dilatation of the pancreatic duct in the body and tail no definite peripancreatic inflammatory stranding or fluid is seen to suggest acute pancreatitis. ADRENAL GLANDS: Within normal limits. KIDNEYS/RETROPERITONEUM: No renal calculi are identified. There is no hydronephrosis. No renal masses are identified. LYMPH NODES: There are subcentimeter celiac axis lymph nodes which are not enlarged by CT criteria. VASCULATURE: The abdominal aorta is normal in caliber. MESENTERY/PERITONEUM: No free fluid. No masses. There is no free intraperitoneal gas. STOMACH: The stomach is collapsed, limiting evaluation. SMALL BOWEL: The small bowel is normal in caliber. COLON: The colon is unremarkable. APPENDIX: Normal. URINARY BLADDER/PELVIC ORGANS: The urinary bladder is collapsed, limiting evaluation. The prostate is normal in size. BONES / SOFT TISSUES: No suspicious bony or soft tissue abnormalities. CT/CT abdomen pelvis w IV con IMPRESSION: 1.7 cm hypoattenuating mass of the pancreatic head/neck with dilatation of the pancreatic duct in the body and tail. Findings are highly suspicious for pancreatic carcinoma. No definite evidence of acute pancreatitis. Endoscopic ultrasound and biopsy should be considered. Findings were discussed with Cori Basurto by secure text message on 06/17/2025 at 12:34 PM. Electronically signed by: Pranav Perry MD 06/17/2025 12:39 PM [facility]
--- NOTE | ~2025-06-17 | MR_ITS ---
EXAMINATION: MR ABDOMEN WITHOUT AND WITH CONTRAST CLINICAL INFORMATION: Pancreatitis and pancreatic lesion on CT COMPARISON: Correlated to CT dated June 27, 2025. TECHNIQUE: MR abdomen was performed without and with use of 10.0 mL intravenous gadolinium based contrast. Postcontrast images are performed in multiphase dynamic sequences. Imaging was performed in 3 planes. No reported immediate complications. FINDINGS: LUNG BASES: No enhancing mass. LIVER, GALLBLADDER, AND BILIARY TREE: Liver measures 19 cm. No enhancing mass. No intrahepatic biliary ductal dilatation. Main portal veins, hepatic veins and intrahepatic portion of the IVC are patent. Gallbladder is fluid-filled. No pericholecystic fluid collection or gallbladder wall thickening. Common bile duct measures 2 mm. PANCREAS: There is a 23 x 27 x 21 mm peripheral enhancing fluid capsulated and thin septated slightly hypointense T1 hyperintense T2 lesion centered in the head of the pancreas. The main pancreatic duct measures 5 m in maximum caliber. No peripancreatic fluid collection. Irregular morphology of the main pancreatic duct. SPLEEN: 11 cm. No solid or cystic lesion. ADRENAL GLANDS: No nodular lesions. KIDNEYS AND URETERS: Normal enhancement pattern of the renal parenchyma. No enhancing mass. No hydronephrosis. No dilatations of the ureters. GASTROINTESTINAL TRACT: Abundant stool. No intestinal obstruction pattern. No ascites. ABDOMINAL WALL: Small fat-containing umbilical and supraumbilical hernia. LYMPH NODES: Nonspecific mildly prominent mesenteric and retroperitoneal lymph nodes. VASCULAR: No aneurysm or dissection, abdominal aorta. OSSEOUS STRUCTURES: Multilevel thoracolumbar spondylosis without acute fracture or gross listhesis. MR/MR abdomen wo/w con IMPRESSION: 23 x 27 x 21 mm peripheral thick enhancing thin septated mass, pancreatic head resulting in main pancreatic ductal dilatation. Concerning for malignancy. Electronically signed by: Kahlil Mcrae MD 06/18/2025 11:08 AM [facility]
--- NOTE | ~2025-06-17 | CT_ITS ---
EXAMINATION: CT HEAD WITHOUT CONTRAST CLINICAL INFORMATION: Hypertensive urgency. COMPARISON: 02/18/2015 TECHNIQUE: Contiguous axial imaging was performed from the skull base to vertex without intravenous administration of contrast. This CT examination was performed using dose optimization techniques as appropriate, variously including the following: *Automated exposure control *Adjustment of mA and/or kV according to patient size (this includes techniques or standardized protocols for targeted exams where dose is matched to indication/reason for exam; i.e. extremities or head) *Use of iterative reconstruction technique FINDINGS: There is no evidence of intracranial hemorrhage or extra-axial fluid collection. There is no mass effect, or edema. No CT evidence of acute territorial infarct. Ventricles, sulci, and cisterns are normal in size and configuration for patient age. No hydrocephalus. No midline shift. Negative hyperdense MCA sign. Negative insular ribbon sign. There are no significant white matter attenuation abnormalities. Normal pituitary. There has been a prior right orbital floor repair with mesh. Globes and orbital contents otherwise image normally. No extracranial soft tissue abnormalities. The paranasal sinuses, mastoid air cells, and tympanic cavities are normally aerated. No suspicious bony abnormalities. There are no acute fractures evident. CT/CT head/brain wo IV con IMPRESSION: No acute intracranial abnormality. Electronically signed by: Rc Stout MD 06/17/2025 04:37 PM [facility]
--- OUTSIDE RECORDS SUMMARY | 2025-06-17 02:40 | XMS_ITS | Data Portability ---
Author Organization [place] - [facility], [address] Address [address] [place] [address] Assessment No assessment recorded. Plan of Treatment Reminders Order Date Submit Date Provider Last Modified By Organization Details Last Modified Time Details Appointments None recorded. Lab rapid strep group A, throat 2022 023 [facility], [address] [place] [address], [address], 3 10:56:50 Referral None recorded. Procedures None recorded. Surgeries None recorded. Imaging XR, ribs, unilateral, w/ PA chest 2022 023 [facility], [address] [place], [address], 3 14:40:47 Medication Orders cephalexin 500 mg capsule [address] [facility] [address], [address] [place], [address], 3 12:56:17 cyclobenzap rine 10 mg tablet 2022 023 [email or web address] [facility], [address] [place], [address], 3 10:19:01 Patient TargetsNo targets recorded. Patient Instructions Encounter Date Encounter Id Patient Instructions Last Modified By Organization Details Last Modified Time 10/02/2022 [id number] bruised rib: car e instructions [email or web address] Not available 10/02/2022 14:03:19 12/27/2022 [id number] folliculitis: care instructions Not available 12/27/2022 10:59:07 sore throat: car e instructions Not available 12/27/2022 10:56:50 Reason for Referral None Reported. Results Created Date Observation Date Name Description Value Unit Range Abnormal Flag Note LastModifiedBy Organization Detail LastModifiedTime 12/28/1912/27/2022 rapid strep group A, throa t Unknown Analyte Normal = Negati ve Not Available [address] [place], [address], 12/27/2022 10:19:45 12/28/1912/27/2022 rapid strep group A, throa t Unknown Analyte negati ve Not Available [address] [place] [address], [address], 12/27/2022 10:19:45 10/03/19 23 10/02/2022 XR, ribs, unila teral , w/ PA chest No observ ation record ed. [email or web address] [facility] [address] [place] [address], [place], [address], 10/02/2022 14:54:26 Result Notes None recorded. Problems Name Problem SNOMED Code Status Onset Date Resolution Date Notes Provider Name and Address Organization Details Recorded Time Migraine 22976008 Active 2022 MANSOOR kirk, [place] - [facility] 3 13:08:28 Hidradenitis suppurativa 36658875 Active 2022 MANSOOR kirk, [place] - [facility] 3 13:08:47 Kidney disease 48165797 Active 2022 has had kidney failure a few times in past few years MANSOOR kirk, [place] - [facility] 3 13:09:43 Problem Notes None recorded. Medical Equipment None Reported. Allergies Allergen ID Allergen Name Allergen Category Reaction Reaction Severity Criticality Documentation Date Start Date Code Code System Note Provider Name and Address Organization Details Recorded Time 003715 codeine medicatio n nausea Not available Not [...] Updated DateTime 3 193.04 cm 42.6 kg/m2 836284. 33 g 98.1 [degF] 96 % 79 /min 18 /min 147/101 mm[Hg] MANSOOR HITCHCOCK - [facility] 3 13:13:17 Date Recorded Systolic And Diastolic Provider Name and Address Organization Details Last Updated DateTime 12/27/2022 180/115 mm[Hg] Pradip Michelle MD [address] [place], [address], [place] - [facility] 12/27/2022 10:55:46 Date Recorded Body height Body mass index (BMI) Body weight Pain severity Mcfarlane-Arredondo FACES pain rating scale Respiratory rate Oxygen saturation Heart rate Body temperature Systolic And Diastolic Systolic And Diastolic Provider Name and Address Organization Details Last Updated DateTime 3 193.04 cm 42.6 kg/m2 169987. 33 g 4 20 /min 98 % 78 /min 98.1 [degF] 187/122 mm[Hg] 174/116 mm[Hg] Madeleine Eldridgebe [place] - [facility] 3 10:30:03 Social History Question Answer Notes LastModified by [employer] Details LastModified Time Tobacco Smoking Status Current Every Day Smoker MANSOOR FABIANA kirk, [place] - [facility] 10/02/2022 13:11:14 Which Illicit Or Recreational Drugs Have You Used? Marijuana [email or web address] Information not available 10/02/2022 Have You Had Direct Contact, Or Contact During Intimacy, With Monkeypox Rash, Scabs, Or Body Fluids From A Person With Monkeypox? No [email or web address] Information not available 12/27/2022 How Much Tobacco Do You Smoke? 1 PPD Information not available 10/02/2022 Have You Recently Traveled Abroad? No Information not available 10/02/2022 Sex: Unknown Functional Status Question Answer Note LastModified by [employer] Details LastModified Time Do you use any illicit or recreational drugs? Yes Information not available 10/02/2022 Do you or have you ever used any other forms of tobacco or nicotine? No [email or web address] Information not available 10/02/2022 What is your level of alcohol consumption? None [email or web address] Information not available 10/02/2022 Mental Status None recorded. Family History Relationship Description Onset Age of this Age Resolved Age Notes LastModified by Organization Details LastModified Time Father No current problems or disability Not available 10/02 13:10:42 Mother No current problems or disability [email or web address] Not available 10/02 13:10:42 Medical History No medical history recorded. Immunizations Vaccine Type Date Status Note Provider Nam e and Address Organization Details Recorded Time Td (adult), 5 Lf tetanus toxoid, preservative free, adsorbed 5 completed Madeleine Forman null, [place] - [facility] 12/27/2022 10:18:41 Td (adult), 5 Lf tetanus toxoid, preservative free, adsorbed 9 completed Madeleine Daniel null, [place] - [facility] 12/27/2022 10:18:41 Past Encounters Encounter ID Performer Location Encounter Start Date Encounter Closed Date Diagnosis/Indication Diagnosis SNOMED-CT Code Diagnosis ICD10 Code Diagnosis IMO Codes Diagnosis Note [id number] [address] [place] [address] 10/17/2020 11:28:09 10/17/2020 13:38:29 [id number] [address] [place] [address] 11/30/2020 09:25:29 11/30/2020 10:47:09 [id number] [address] [place] [address] 10/06/2018 14:41:16 10/06/2018 15:20:38 [id number] [address] [place] [address] 03/24/2018 19:42:48 03/24/2018 20:23:07 [id number] [address] [place] [address] 03/26/2019 14:36:28 03/26/2019 15:15:50 [id number] Trevor Oakes DO [address] [place] [address] 10/02/2022 12:37:55 10/02/2022 14:11:36 Rib pain 180596126 R07.81 recommend strappingr estice/hea t prntopical analgesiam uscle relaxerRev iewed with patient potential adverse side effects of the medication . He should avoid NSIDS because of his history of kidney diseasePat ient advised to follow up as needed for worsening symptoms or no improvemen Ariane juarez concerning red flags with patient and reasons to follow up in the Emergency Department urgently. [id number] Pradip Michelle MD [address] [place] [address] 12/27/2022 10:04:26 12/27/2022 11:02:01 Acute pharyngitis 846633365 J02.9 Staphyloco ccal infection of skin 472790550 B95.8 This appears to be a bacterial skin infection, most commonly caused by Staphyloco ccus.Start and complete antiboitic s Hypertensive urgency [id number] I16.0 Patient advised to go to ER.He [...] Ortiz Member ID Guarantor Name 12/27/2022 1 [facility] - HEALTH NET PLAN (MEDICAID HMO) [id number] Raúl Mayen [id number] Raúl Mayen Notes Date Note Type [...] Trevor Oakes, [address] [place], [address], [place] - [facility] 10/02/2022 14:10:28 [...] tried Flonase and antihistamine Pradip Michelle MD [address] [place] [address] [place], [address], [place] - [facility] 12/27/2022 12:58:47
--- OUTSIDE RECORDS SUMMARY | 2025-06-17 02:40 | XMS_ITS | Data Portability ---
Author Organization [facility] Address [address] [facility],[address] [place] [address] Care Team Providers Care Solid Plasterer Name Role Phone CACHORRO FIORE Referring Provider [phone] Assessment Encounter Date Assessment Date Assessment LastModified [...] booked for the same. He needs a rolloff driver on the day of the procedure. [...] By Organization Details Last Modified Time 06/19/2017 [id number] He was advised against bed rest lasting longer than four days and to continue activities as tolerated. Benefits of smoking cessation were discussed with him. [email or web address] Not available 06/19/2017 15:19:58 08/08/2017 [id number] He was advised against bed rest lasting longer than four days and to continue activities as tolerated. Benefits of smoking cessation were discussed with him. [email or web address] Not available 08/11/2017 11:25:19 Reason for Referral None Reported. Problems Name Problem SNOMED Code Status Onset Date Resolution Date Notes Provider Name and Address Organization Details Recorded Time Degeneration of lumbar intervertebral disc 87915657 Active Tommy [facility]emayor MD [address] [facility] , [address], [place], [address], [place] - [facility] 7 15:12:07 Lumbar radiculopathy 524694747 Active Tommy montemayor MD [address] [facility] , [address], [place], [address], [place] - [facility] 7 15:12:25 Problem Notes None recorded. Procedures Surgical History Date Name Laterality Status Provider Name and Address Organization Details Recorded Time 08/08/19 18 Lumbar Epidural steroid injection under fluoroscopic guidance completed Tommy Motta MD [address] [facility] , [address], [place], [address], [place] [facility] 08/11/2017 [...] Name and Address Organization Details Recorded Time 04070 codeine medicatio n nausea Not available Not [...] /min 97 % 193.04 cm 36.5 kg/m2 295300. 71 g 136/95 mm[Hg] Marcy Clarke [place] - [facility] 7 13:28:45 Social History Question Answer Notes LastModified by Organizat ion Details LastModified Time Tobacco Smoking Status Current Every Day Smoker Not Available [facility] 04/24/2020 03:16:10 Which Illicit Or Recreational Drugs Have You Used? Ocassional [id number] Information not available 04/24/2020 Education 12 Information no t available 06/19/2017 Live Alone Or With Others? Alone Information not available 06/19/2017 Marital Status Single Informatio n not available 06/19/2017 What Was The Date Of Your Most Recent Tobacco Screening? 08/11/2017 [id number] Information not available 04/24/2020 How Much Tobacco Do You Smoke? 1 PPD [id number] Information not available 04/24/2020 How Many Years Have You Smoked Tobacco? 15 [id number] Information not available 04/24/2020 Sex: Unknown Functional Status Question Answer Note LastModified by Organizat ion Details LastModified Time What is your level of alcohol consumption? Occasional [id number] Information not available 04/24/2020 Are you currently employed? Yes [id number] Information not available 04/24/2020 What is your [...] ICD10 Code Diagnosis IMO Codes Diagnosis Note [id number] Tommy Motta MD PAIN OFFICE [address] [place] [address] 06/19/2017 13:04:57 06/19/2017 15:27:26 Lumbar radiculopathy 989790576 M54.16 Degenerati on of lumbar intervertebral disc 74078857 M51.36 [id number] Tommy Motta MD PAIN OFFICE [address] [facility] [address] [place] [address] 08/08/2017 13:35:16 08/11/2017 11:30:41 Lumbar radiculopathy 566201805 M54.16 Degenerati on of lumbar intervertebral disc 87849412 M51.36 Health Concerns Section Related Observation LastModified by Organization Detai ls LastModified Time None Recorded Concern Status LastModified by Organization Details LastModified Time None Recorded Advance Directives Directive None Recorded Payers Insurance Date Sequence Insurance Name Policy Number Policy Ortiz Covered Member ID Ortiz Member ID Guarantor Name 08/11/2017 1 [place] [facility] [address] Lois Rosa [id number] Lois Rosa Notes Date Note Type Note [...] patient reportsdid not helpandaggravated symptoms. 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 For location, (lois [...] a little. Tommy Motta MD [address] [facility] , [address], [place], [address], [facility] 06/22/2017 15:47:47 08/08/2017 text/html He is here today for a lumbar epidural steroid injection under fluroscopic guidance. Tommy Motta MD [address] , [address], [place], [address], [facility] 08/14/2017 15:12:21
--- OUTSIDE RECORDS SUMMARY | 2025-06-17 02:40 | XMS_ITS | Clinical Summary ---
Author Organization [facility] Address [address] [address] Phone Care Team Providers Care Resident Program Specialist Name Role Phone Pranav Bailey MD Primary Care Provider [phone] Allergies Active Allergy Reactions Criticality Noted Date [...] topic Medical Devices Not on file Insurance [facility] C4 Imaging O [place] [facility] [place] [facility] [place] CK1[facility] O ORONOCOSaleMoveCAPITAL DISTRICT PS[facility]IC CENT[facility] [place] CK1[facility] MCO ORONOCOChelaile O ORONOCOChelaile O Care Teams Resident Program Specialist Relationship Specialty Start Date End Date Pranav Bailey MD [address] [place] [address] [place] [address] PCP - General Medical Oncology 03/15/22 Additional Source Comments The information contained in this document represents components of the legal health record. It is not the complete legal health record.[facility]
[2025-06-17 02:45] LABS: Red Blood Count 4.99 X10*6/uL (4.60-5.80); White Blood Count 10.2 X10*3/uL (4.8-10.8)
[2025-06-17 02:46] LABS: MANUAL DIFF FLAG NO
[2025-06-17 02:54] LABS: Hematocrit 42.4 % (42.0-52.0); Hemoglobin 14.8 g/dl (14.0-18.0); Imm Gran Abs Auto 0.03 X10*3/uL (0.00-0.03); Imm Gran Pct Auto 0.3 % (0.0-0.4); Lymphocytes Absolute Auto 2.3 X10*3/uL (1.2-4.9); Mean Corpuscular HGB Conc 34.9 g/dl (31.0-36.0); Mean Corpuscular Hemoglobin 29.7 pg (27.0-33.0); Mean Corpuscular Volume 85.0 fL (80.0-98.0); NRBC Abs Auto 0.000 X10*3/uL (0.0-0.012); NRBC Pct Auto 0.0 /100WBC (0.0-0.2); Platelet Count 245 X10*3/uL (160-400)
--- NOTE | 2025-06-17 02:58 | PC.NURSE ---
pt reports strong abdominal pain for 1 week, hx of pancreatitis, loss of appetite, unsure of weight loss. respirations even and unlabored.
[2025-06-17 03:00] LABS: Alanine Aminotransferase 39 U/L (0-40); Albumin Level 4.6 g/dL (3.5-5.0); Alkaline Phosphatase 86 U/L (39-117); Anion Gap 13 (12-20); Aspartate Amino Transferase 24 U/L (5-37); Blood Urea Nitrogen 23 mg/dL (9-16); Calcium 9.1 mg/dL (8.4-10.2); Carbon Dioxide 23 mmol/L (22-29); Chloride 107 mmol/L (96-108); Creatinine Clr Calc Pharmacy 142.8; Estimated Glomerular Filt Rate > 60; Potassium 3.5 mmol/L (3.3-5.1); Sodium 139 mmol/L (135-145); Total Protein 7.1 g/dL (6.5-8.0)
[2025-06-17 03:09] LABS: Lipase 389 U/L (8-78)
[2025-06-17] MEDS: Lactated Ringers 1,000 ML 999 ML IV (03:37)
[2025-06-17] MEDS: diazePAM 10 MG/2 ML CARTRIDGE 5 MG IVPUSH (03:37)
--- NOTE | 2025-06-17 03:43 | PC.NURSE ---
pt medicated per MAR, awaiting Nifedipine, house sup advised.
[2025-06-17 03:50] LABS: Troponin-I High Sensitivity 15.0 ng/L (<3.5-35.0)
--- NOTE | 2025-06-17 04:58 | ED.ABDPAIN ---
HPI - Abdominal Pain General Chief Complaint: Abdominal Pain Stated Complaint: Pancreatitis Time Seen by Provider: 06/17/25 02:46 Source: patient Mode of arrival: ambulatory Limitations: no limitations History of Present Illness ED Provider: Dr. Elizabet Ragland HPI narrative: 22-year-old man with a known history of recurrent pancreatitis, uncontrolled hypertension, substance use (prior cocaine/amphetamine), and chronic kidney disease presents to the ED for recurrent abdominal pain. Pain began earlier today and is described as severe, located in the epigastric area and radiating to the lower back?similar to prior pancreatitis flares. Associated symptoms include nausea, vomiting with brown-colored material (not angel blood), constipation, and inability to sleep due to pain. He denies heavy alcohol use and last used cocaine/amphetamines prior to his previous admission on 06/01/25. He reports no current fever or true chills. Patient left his last hospitalization against medical advice after experiencing a panic attack and states he did not receive discharge instructions regarding pancreatitis care. He reports leaving without paperwork or prescriptions. He is not taking any pain medication (including acetaminophen) or antihypertensives. Allergies: codeine and bee stings. Related Data Home Medications ?Medication ?Instructions ?Recorded ?Confirmed No Known Home Meds 06/02/25 06/02/25 Allergies Allergy/AdvReac Type Severity Reaction Status Date / Time bee pollen (BEE STINGS) Allergy Severe THROAT Verified 06/17/25 02:31 SWELLING codeine (CODEINE) Allergy Mild STOMACH Verified 06/17/25 02:31 UPSET, nausea and vomiting Review of Systems Review of Systems as per HPI, full review of systems performed and negative but for the above mentioned pertinent positives and negatives. [facility] Past Medical History Medical History Hypertension Hypogonadism, testicular Surgical History H/O discectomy S/P tendon repair History of meniscectomy of left knee H/O myringotomy History of surgery Family History Family History Father No problems noted. Mother Hypertension Maternal Grandfather Coronary artery disease Maternal Grandmother Hypertension Diabetes Social History Social History Household Members: None Housing: House Are you a primary healthcare advisory services manager to a significant other at home: No Do you presently have visiting nurse or other home services: No Alcohol intake: current Alcohol intake frequency: holidays/special occasions only Patient Tobacco Use Status: Current everyday Tobacco user Tobacco use type: Cigarette Cigarette Packs Per Day: 1.5 Substance Use Type: Crack/Cocaine and Marijuana Advance Directives: No Advance Directives Information Provided: Yes service: No Physical Exam ED Exam Exam: GENERAL: Unkempt, no acute distress. SKIN: Normal skin color for ethnicity, warm, dry, no rashes noted. HEENT:? Normocephalic, atraumatic, no stridor, posterior oropharynx nonerythematous, dentition intact, EOMI. NECK: Soft, supple, full ROM, midline structures nontender, no step-offs, no deformities, no lymphadenopathy. CHEST: Heart regular rate and rhythm, no murmurs, symmetric chest rise and fall. PULMONARY: Clear to auscultation bilaterally, no labored breathing, no wheezes/rhales/rhonchi. ABDOMINAL: Soft, nondistended, diffusely tender to palpation with voluntary guarding, quiet bowel sounds in all quadrants. : Deferred. MUSCULOSKELETAL: Normal tone, full range of motion, no deformities, no peripheral edema. NEURO: Alert and oriented x3, CN II through XII intact, equal strength and sensation bilateral upper and lower extremities, no focal neurologic deficits.? PSYCHIATRIC: Flat affect, poor eye contact, withdrawn Vital Signs: Vital Signs - 24 hr 06/17/25 02:28 06/17/25 04:35 Temperature 97.3 F Pulse Rate 76 Respiratory Rate 20 Blood Pressure 199/127 H 169/102 H Pulse Oximetry 100 Oxygen Delivery Method Room Air BMI result Body Mass Index 34.1 Medical Decision Making Medical Decision Making MDM Narrative: 22-year-old male with recurrent pancreatitis presents with classic abdominal pain, nausea, and vomiting. Lab lipase elevated above prior level. Hypertension remains uncontrolled with documented elevation (exact value not available). History of kidney disease and substance use complicate management. Problem #1: Acute exacerbation of pancreatitis Assessment: Recurrent flare evidenced by characteristic epigastric pain radiating to back, nausea/vomiting, and elevated lipase. No imaging obtained today as clinical/lab criteria sufficient. Plan: NPO for pancreatic rest. Initiate IV fluid resuscitation. Admit to hospitalist service for continued management, gradual re-introduction of PO intake, and monitoring. Provide anxiolytics as needed to help patient remain hospitalized and complete treatment. Problem #2: Uncontrolled essential hypertension Assessment: Persistently elevated blood pressure noted today; patient not on medication. Plan: Re-evaluate BP on the floor; resume/adjust antihypertensive therapy as clinically indicated. Problem #3: Kidney problems (patient-reported) Assessment: History of kidney issues per patient report; interaction with uncontrolled hypertension emphasized. Plan: Trend renal function labs with admission work-up. Avoid nephrotoxic agents; use acetaminophen rather than NSAIDs for pain if oral meds needed later. Differential Diagnosis Differential Diagnoses: The differential diagnosis associated with the presentation includes (as above) Admission/Observation Consideration of admission/observation: Escalation of care including admission/observation considered Consult Healthcare Provider Management of the patient was discussed with: Hospitalist Lab Data MDM Lab Attestation statement: I reviewed the patient's lab results. 06/17/25 02:40 06/17/25 02:40 Labs: Lab Results 06/17/25 Range/Units 02:40 WBC 10.2 (4.8-10.8) X10*3/uL RBC 4.99 (4.60-5.80) X10*6/uL Hgb 14.8 (14.0-18.0) g/dl Hct 42.4 (42.0-52.0) % MCV 85.0 (80.0-98.0) fL MCH 29.7 (27.0-33.0) pg MCHC 34.9 (31.0-36.0) g/dl RDW 12.1 (11.0-16.0) % Plt Count 245 (160-400) X10*3/uL MPV 9.1 L (9.4-12.4) fL Immature Gran % (Auto) 0.3 (0.0-0.4) % Neut % (Auto) 64.3 (45-73) % Lymph % (Auto) 23.0 (20-40) % [place] % (Auto) 8.5 (2-11) % Eos % (Auto) 3.2 (0-4) % Baso % (Auto) 0.7 (0-2) % Lymph # (Auto) 2.3 (1.2-4.9) X10*3/uL [place] # (Auto) 0.9 (0.1-1.2) X10*3/uL Eos # (Auto) 0.3 (0.0-0.4) X10*3/uL Baso # (Auto) 0.1 (0.0-0.2) X10*3/uL Abs Immat Gran (auto) 0.03 (0.00-0.03) X10*3/uL Absolute Neuts (auto) 6.5 (2.0-8.3) x10*3/uL Absolute Nucleated RBC 0.000 (0.0-0.012) X10*3/uL Nucleated RBC % (auto) 0.0 (0.0-0.2) /100WBC Sodium 139 (135-145) mmol/L Potassium 3.5 (3.3-5.1) mmol/L Chloride 107 (96-108) mmol/L Carbon Dioxide 23 (22-29) mmol/L Anion Gap 13 (12-20) BUN 23 H (9-16) mg/dL Creatinine 0.99 (0.5-1.4) mg/dL Estim Creat Clear Calc 142.8 Estimated GFR > 60 Random Glucose 102 (60-115) mg/dL Calcium 9.1 (8.4-10.2) mg/dL Total Bilirubin 0.3 (0.0-1.0) mg/dL AST 24 (5-37) U/L ALT 39 (0-40) U/L Alkaline Phosphatase 86 (39-117) U/L Troponin I High Sens 15.0 (<3.5-35.0) ng/L Total Protein 7.1 (6.5-8.0) g/dL Albumin 4.6 (3.5-5.0) g/dL Lipase 389 H (8-78) U/L Ethyl Alcohol < 10 mg/dL External Record Review External record reviewed: Inpatient record Prescription Management I considered prescription management with: Pain Medication Chronic Conditions Patient?s care impacted by: Hypertension and Other (Housing insecurity) Social Determinants Patient?s care significantly limited by Social Determinants of Health including: Inadequate housing and Other Social Determinant of Health Medications Administered Discontinued Medications Generic Name Dose Route Start Last Admin Trade Name Freq PRN Reason Stop Dose Admin Diazepam 5 mg 06/17/25 03:24 06/17/25 03:37 Diazepam 10 Mg/2 Ml Cartridge IVPUSH 06/17/25 03:25 5 mg STAT STA Administration Hydromorphone HCl 1 mg 06/17/25 03:24 06/17/25 03:37 Hydromorphone Hcl 1 Mg/Ml Syringe IVPUSH 06/17/25 03:25 1 mg ONCE ONE Administration Protocol Lactated Ringer's 1,000 mls @ 999 mls/hr 06/17/25 03:24 06/17/25 03:37 Lr IV 06/17/25 04:24 999 mls/hr .Q1H1M ONE Administration Nifedipine 90 mg 06/17/25 03:24 06/17/25 04:35 Nifedipine Er 90 Mg Tab.Er.24 PO 06/17/25 03:25 90 mg ONCE ONE Administration Protocol Ondansetron HCl 4 mg 06/17/25 03:24 06/17/25 03:37 Ondansetron Hcl 4 Mg/2 Ml Vial IVPUSH 06/17/25 03:25 4 mg ONCE ONE Administration Discharge Plan Discharge Clinical Impression: Acute on chronic pancreatitis, History of substance use, Poorly-controlled hypertension Patient Disposition: Admitted As Inpatient Print Language: Niuean
[2025-06-17 05:36] LABS: Triglycerides 64 mg/dL (<150)
--- NOTE | 2025-06-17 05:48 | P.HPHOSP_ITS ---
History of Present Illness Date of Service: 06/17/25 Chief Complaint: abd pain 39M PMH HTN non compliant with meds, recurrent pancreatitis, cocaine abuse, presented with abdominal pain. Patient was admitted in January of 2025 with pancreatitis, at that time workup was negative for gallstones, IgG 4, triglycerides, history not consistent with alcohol, presumed etiology was cocaine. On 06/02/2025 patient was admitted again for acute pancreatitis and left against medical advice. He reports that since then he has had continuing epigastric pain difficulty tolerating food, occasional nausea and vomiting. On day prior to presentation had 1 beer and a venison burger and had worsening pain so he came to the ED. In ED lipase noted to be 389. Otherwise labs unremarkable. Review of Systems 2 Review of Systems: Yes all other systems are reviewed and are negative [facility] Medical History Hypertension Hypogonadism, testicular Family History Father No problems noted. Mother Hypertension Maternal Grandfather Coronary artery disease Maternal Grandmother Hypertension Diabetes Surgical History H/O discectomy S/P tendon repair History of meniscectomy of left knee H/O myringotomy History of surgery Social History Household Members: None Housing: House Are you a primary care administrative tech to a significant other at home: No Do you presently have visiting nurse or other home services: No Alcohol intake: current Alcohol intake frequency: holidays/special occasions only Patient Tobacco Use Status: Current everyday Tobacco user Tobacco use type: Cigarette Cigarette Packs Per Day: 1.5 Substance Use Type: Crack/Cocaine and Marijuana Advance Directives: No Advance Directives Information Provided: Yes service: No Meds Allergies Allergy/AdvReac Type Severity Reaction Status Date / Time bee pollen (BEE STINGS) Allergy Severe THROAT Verified 06/17/25 02:31 SWELLING codeine (CODEINE) Allergy Mild STOMACH Verified 06/17/25 02:31 UPSET, nausea and vomiting Home Medications ?Medication ?Instructions ?Recorded ?Confirmed ?Last Taken ?Type No Known Home Meds 06/02/25 06/02/25 Un known History Physical Exam 2 Vital Signs and Narrative: Vital Signs: Last Vital Signs Temp 97.3 F 06/17/25 02:28 Pulse 76 06/17/25 02:28 Resp 20 06/17/25 02:28 BP 169/102 H 06/17/25 04:35 Pulse Ox 100 06/17/25 02:28 O2 Del Method Room Air 06/17/25 02:28 BMI result Body Mass Index 34.1 General: AO X 3, no acute distress Resp: CTA bilateral, no accessory muscles used CVS: S1,S2,RRR GI: soft, epigatstic tender, non distended Neuro: motor grossly intact, alert Psych: appropriate affect, appropriate insight Results Labs 06/17/25 02:40 06/17/25 02:40 Labs: Laboratory Results - last 24 hr 06/17/25 02:40 MCV 85.0 MCH 29.7 MCHC 34.9 RDW 12.1 Plt Count 245 MPV 9.1 L Immature Gran % (Auto) 0.3 Neut % (Auto) 64.3 Lymph % (Auto) 23.0 [place] % (Auto) 8.5 Eos % (Auto) 3.2 Baso % (Auto) 0.7 Lymph # (Auto) 2.3 [place] # (Auto) 0.9 Eos # (Auto) 0.3 Baso # (Auto) 0.1 Abs Immat Gran (auto) 0.03 Absolute Neuts (auto) 6.5 Absolute Nucleated RBC 0.000 Nucleated RBC % (auto) 0.0 Anion Gap 13 Estim Creat Clear Calc 142.8 Estimated GFR > 60 Random Glucose 102 Calcium 9.1 Total Bilirubin 0.3 AST 24 ALT 39 Alkaline Phosphatase 86 Troponin I High Sens 15.0 Total Protein 7.1 Albumin 4.6 Triglycerides 64 Lipase 389 H Ethyl Alcohol < 10 Assessment and Plan (1) Polysubstance abuse: Status: Acute Plan 39M PMH HTN non compliant with meds, recurrent pancreatitis, cocaine abuse, presented with abdominal pain. Acute recurrent pancreatitis Etiology unclear but presumed to be due to cocaine, likely alcoholic contributing to current flare Clear liquids, IV fluids, IV Dilaudid, GI eval Advance diet as tolerated Hypertension Uncontrolled due to noncompliance and pain Pain control, restart amlodipine Obesity Weight loss recommended DVT prophylaxis with Lovenox Focal Quality Stroke Does the patient have a stroke diagnosis?: No VTE Prior VTE?: No VTE Risk Level:: Medical - moderate - high VTE Device Contraindication: Treatment Not Indicated VTE Drug Contraindication: N/A - Med Ordered
[2025-06-17] MEDS: Lactated Ringers 1,000 ML 100 ML IVCONT ×2 (06:21→15:24)
--- NOTE | 2025-06-17 07:50 | PC.NURSE ---
provider notified via tiger text of pts BP.
--- NOTE | 2025-06-17 08:11 | PHA.MEDREC ---
Addendum entered by Lroraine Fields RPh 06/17/25 08:24: Reviewed by [facility] Original Note: Pharmacy Consult ? Medication Reconciliation Pharmacy has completed the medication reconciliation. Spoke with pt and he is not taking any medications at this time.
--- NOTE | 2025-06-17 09:14 | PC.NURSE ---
patient a&ox3, ambulatory with steady gait, rr equal/non labored, pt c/o 03/19 pain ivf running per order, pt refusing lovenox injection. urine obtained medicated for 03/19 pain, pt requesting nicotine patch which provider was notified about, call schuler within reach, plan of care ongoing
[2025-06-17] MEDS: Nicotine 21 MG PATCH.TD24 TRANSDERMA (09:25)
[2025-06-17] MEDS: Nicotine Polacrilex Lozenge 2 MG LOZENGE BUCCAL (09:25)
[2025-06-17 09:32] LABS: Cannabinoid Screen Urine POSITIVE (Not Detect)
--- NOTE | 2025-06-17 10:59 | PC.NURSE ---
pt medicated for headache per order
[2025-06-17] MEDS: iohexoL 350 MG/ML 100 ML INFUS..BTL IV (11:20)
--- NOTE | 2025-06-17 11:24 | PC.NURSE ---
pt is in street clothes, refuses to wear hospital attire since his arrival.
--- NOTE | 2025-06-17 12:20 | PC.NURSE ---
patient medicated for blood pressure as well as 10/10 pain.
--- NOTE | 2025-06-17 15:31 | PC.NURSE ---
pts mother pts mother stopped by and was wanting information about her son after stating she was his mother and HCP. this nurse explained to the mother that his HCP has not been invoked so unless he gives permission I am unable to release information to her. She stated I am his HCP and his mother, you can give me information this nurse explained that since the patient was over the age of 18, he would have to give permission or she could ask him herself. The mother was upset with this nurse, swore and left the facility. This nurse told TARUN Carter what occurred. Additionally this nurse spoke with the patient when he woke up asking if he would like us to give her any information if/when she called or stopped by and the patient stated NO she doesnt need my medical information, she can speak to me.
--- NOTE | 2025-06-17 16:05 | HO.PM.IMPN ---
Subjective Subjective Date of Service: 06/17/25 Interval History: Patient had a pancreatic mass suspicious of malignancy GI consulted Pain being optimized Hypertensive urgency Review of Systems Review of Systems: Yes all other systems are reviewed and are negative Physical Exam Exam: Exam: Gen: A&O x3, appears to be mildly somnolent, agitated Pulmonary: Vesicular breath sounds, fair air entry CVS: Normal S1-S2 Abdomen: BS+, Soft, tender in the epigastrium; no guarding no rigidity Vital Signs: Vital Signs: Last Vital Signs Temp 98.2 F 06/17/25 15:54 Pulse 73 06/17/25 15:54 Resp 20 06/17/25 15:54 BP 139/95 H 06/17/25 16:00 Pulse Ox 95 06/17/25 15:54 O2 Del Method Room Air 06/17/25 15:54 BMI result Body Mass Index 34.1 Objective Data Active Medications Acetaminophen (Acetaminophen 325 Mg Tablet) 975 mg PO Q6H [facility] Amlodipine Besylate (Amlodipine Besylate 10 Mg Tablet) 10 mg PO DAILY [facility]; Protocol Last Admin: 06/17/25 12:11 Dose: 10 mg Documented By: JOSE CRUZ Calcium Carbonate (Calcium Carbonate 750 Mg Tab.Chew) 750 mg PO Q4H PRN PRN Reason: Heartburn Enoxaparin Sodium (Enoxaparin Sodium 40 Mg/0.4 Ml Syringe) 40 mg SUBCUT Q24H [facility] Last Admin: 06/17/25 09:02 Dose: Not Given Documented By: JOSE CRUZ Non-Admin Reason: Patient Refused Hydralazine HCl (Hydralazine Hcl 50 Mg Tablet) 50 mg PO TID [facility]; Protocol Last Admin: 06/17/25 16:00 Dose: 50 mg Documented By: JOSE CRUZ Hydralazine HCl (Hydralazine Hcl 20 Mg/Ml Vial) 5 mg IVPUSH Q6H PRN; Protocol PRN Reason: SBP > 160 Hydromorphone HCl (Hydromorphone Hcl 1 Mg/Ml Syringe) 1 mg IVPUSH Q3H PRN; Protocol PRN Reason: Pain, Severe (Pain Scale 7-10) Last Admin: 06/17/25 16:01 Dose: 1 mg Documented By: JOSE CRUZ Lactated Ringer's (Lr) 1,000 mls @ 100 mls/hr IVCONT .Q10H [facility] Last Admin: 06/17/25 15:24 Dose: 100 mls/hr Documented By: JOSE CRUZ Magnesium Hydroxide (Milk Of Magnesia 30 Ml Oral.Susp) 30 ml PO DAILY PRN PRN Reason: Constipation Melatonin (Melatonin 3 Mg Tablet) 6 mg PO BEDTIME PRN PRN Reason: Insomnia Nicotine (Nicotine 21 Mg Patch.Td24) 21 mg TRANSDERMA DAILY [facility] Last Admin: 06/17/25 09:25 Dose: 21 mg Documented By: JOSE CRUZ Nicotine Polacrilex (Nicotine Polacrilex Lozenge 2 Mg Lozenge) 2 mg BUCCAL Q1H PRN PRN Reason: Nicotine Cravings Last Admin: 06/17/25 09:25 Dose: 2 mg Documented By: JOSE CRUZ Ondansetron HCl (Ondansetron Hcl 4 Mg/2 Ml Vial) 4 mg IVPUSH Q6H PRN PRN Reason: Nausea and Vomiting Oxycodone HCl (Oxycodone Hcl Er 10 Mg Tab.Er.12h) 20 mg PO BID [facility] Sodium Chloride (0.9 % Sodium Chloride Flush 3 Ml Syringe) 3 ml IVFLUSH QSHIFT [facility] Last Admin: 06/17/25 13:01 Dose: Not Given Documented By: JOSE CRUZ Non-Admin Reason: IV Running Labs 06/17/25 02:40 06/17/25 02:40 Labs: Laboratory Results - last 24 hr 06/17/25 06/17/25 02:40 09:09 MCV 85.0 MCH 29.7 MCHC 34.9 RDW 12.1 Plt Count 245 MPV 9.1 L Immature Gran % (Auto) 0.3 Neut % (Auto) 64.3 Lymph % (Auto) 23.0 [place] % (Auto) 8.5 Eos % (Auto) 3.2 Baso % (Auto) 0.7 Lymph # (Auto) 2.3 [place] # (Auto) 0.9 Eos # (Auto) 0.3 Baso # (Auto) 0.1 Abs Immat Gran (auto) 0.03 Absolute Neuts (auto) 6.5 Absolute Nucleated RBC 0.000 Nucleated RBC % (auto) 0.0 Anion Gap 13 Estim Creat Clear Calc 142.8 Estimated GFR > 60 Random Glucose 102 Calcium 9.1 Total Bilirubin 0.3 AST 24 ALT 39 Alkaline Phosphatase 86 Troponin I High Sens 15.0 Total Protein 7.1 Albumin 4.6 Triglycerides 64 Lipase 389 H Urine Opiates Screen Not Detected Ur Buprenorphine Scrn Not Detected Ur Oxycodone Screen Not Detected Urine Methadone Screen Not Detected Urine Fentanyl Screen Not Detected Ur Barbiturates Screen Not Detected Ur Phencyclidine Scrn Not Detected Ur Amphetamines Screen Not Detected U Benzodiazepines Scrn Not Detected Urine Cocaine Screen Not Detected U Marijuana (THC) Screen POSITIVE H Ethyl Alcohol < 10 Assessment and Plan (1) Mass of head of pancreas: Status: Acute Plan Patient is a 39-year-old male with PMH notable for HTN not on home meds, noncompliance with meds, recurrent pancreatitis, S UD (cocaine and alcohol), prior AMA 2 weeks ago, who presented with gradually progressive epigastric pain and was noted to have pancreatitis and imaging suggestive of pancreatic mass suspicious for malignancy #Pancreatitis #Intractable pain #Pancreatic mass of the head and neck with pancreatic duct dilation suspicious for malignancy Patient epigastric pain with elevated lipase (389) without any obvious known medical common etiologies like alcohol (reports drinking 1 beer the night prior), was positive for cocaine 2 weeks ago on tox screen, marijuana, current smoker, and imaging notable for 1.7 cm hypoattenuating mass of the pancreatic head or neck we dilatation of the pancreatic duct in the body and tail. Suggestive of pancreatic carcinoma. GI consulted -likely we will need EUS Intractable pain is being addressed with OxyContin, Dilaudid, Tylenol, lidocaine. CA 19 [address] being tested We will likely place him NPO from midnight for possible EUS PPI #Hypertensive urgency Head CT unremarkable for acute pathology Patient's blood pressure appears to be in the 180s to 190s likely put to be in the setting of pain versus noncompliance to meds. He appears to be having high blood pressure, was prescribed medication, however patient not compliant Started him on amlodipine and hydralazine p.o. Hydralazine IV p.r.n. for SBP greater than 160 # current cigarette smoker Nicotine replacement therapy Might benefit from PTOT prior to discharge Full code DVT prophylaxis with the SCD boots in the anticipation of procedure tomorrow Given that the patient has required multiple doses of IV Dilaudid, hypertensive urgency, and has new pancreatic mass suggestive of malignancy which needs further workup and procedure, I anticipate at least 1-2 days of further hospitalization. Quality Stroke Does the patient have a stroke diagnosis?: No VTE Prior VTE?: No VTE Risk Level:: Medical - moderate - high VTE Device Contraindication: Treatment Not Indicated VTE Drug Contraindication: N/A - Med Ordered
--- NOTE | 2025-06-17 16:24 | HO.NURTONUR ---
pt comes from home, he is a&ox3, ambulatory with steady gait. pt came in with upper abd pain x1 week n/v, hx pancreatitis. Pt has had uncontrolled pain and hypertension, the provider has added some medications to help with pain control and his blood pressure. He also just vomited and was medicated with zofran. Pt has 20G to Lt AC, LR @ 100 running. Vitals are currently stable. Pt had CT scan of abd pelvis: 1.7 cm hypoattenuating mass of the pancreatic head/neck with dilatation of the pancreatic duct in the body and tail. Findings are highly suspicious for pancreatic carcinoma. With these results he was put in for a GI consult to review findings. I am unsure if the provider has spoken to him about the finding or if she is awaiting for GI as they have not seen him as of yet. Pt also just had a brain CT scan- that has not been resulted as of yet.
[2025-06-17] MEDS: oxyCODONE HCl ER 10 MG TAB.ER.12H 20 MG PO ×2 (16:43→21:24)
[2025-06-17 18:18] LABS: Erythrocyte Sedimentation Rate 13 MM/HR (0-15)
--- NOTE | 2025-06-17 18:58 | P.EN_ITS ---
Event Note Date of Service: 06/17/25 Event Note: GI Consult-Full note dictated-History from patient and EMR. Imp: 39 yo male with recurrent episodes of abdominal pain with associated elevated lipase levels and abnormalities of the pancreas including the suspicion of a pancreatic lesion on this admission. He denies any significant EtOH use currently,but does describe some heavy drinking up until about 5 years ago. He did have one beer yesterday. He has lost about 100#, but reports that this was intentional. Denies any family hx of pancreatic disease. Previous w/u with IgG subtypes and Triglyceride levels has been negative. He does not use any specific medication associated with pancreatitis. He presently appears quite stable and comfortable. Diff dx: The main concern is that of a pancreatic neoplasm. Rec: Supportive care, bowel rest, F/U labs, and advance diet as tolerated. CA 19-9 is already pending. MRI/MRCP of pancreas for 06/18. I advised him that he most likely will need an EUS and biopsy of the pancreas lesion as well--I advised bobbi that is done with [facility] and will be arranged for him as an outpatient. D/W him in detail and he is comfortable with this plan. Thanks Time Spent With Patient Time: Total time managing care of this patient today ____ minutes.
[2025-06-18] MEDS: Lactated Ringers 1,000 ML 100 ML IVCONT ×2 (01:26→14:52)
--- NOTE | 2025-06-18 02:05 | PM.EVENT ---
Event Note Date of Service: 06/18/25 Event Note: Received report from nursing that patient is complaining of severe pain and that the Dilaudid currently ordered is not covering his pain long enough. Dilaudid changed to 1.5 mg q.3 PRN. Patient diagnosed with pancreatic cancer this admission. Patient also requesting assistance with sleeve in ordered Remeron 7.5 mg x 1. Time Spent With Patient Time: Total time managing care of this patient today ____ minutes.
[2025-06-18 04:00] VITALS: BP 131/90; PULSE 55; RESP 18; TEMP 36.4; O2SAT 98
--- NOTE | 2025-06-18 04:22 | CONS_ITS ---
DATE OF SERVICE: 06/17/2025 REASON FOR CONSULTATION: Abdominal pain, pancreatitis, and abnormal CT scan of pancreas. HISTORY OF PRESENT ILLNESS: This has been obtained from the patient and the medical record. The patient is a 39-year-old male, I actually met in the office at the end of 2023 when he came in with persistent and problematic diarrhea and significant weight loss. He underwent a colonoscopy at that time, which was completely negative including biopsies that were negative for any type of colitis. Blood work for celiac disease was negative. Due to the negative colonoscopy and celiac disease testing, I did recommend he undergo a CT scan and further outpatient testing including stool specimens to look for any source of pancreatic insufficiency. However, he never came back to have those done despite our speaking with him on the phone. I have not seen him since his colonoscopy in June 2024. He was admitted here in January 2025, was what appeared to be a mild case of pancreatitis with abdominal pain, elevated LFTs, and a lipase of over 1000. His symptoms improved with supportive care. He was subsequently discharged, but did not come back to the office for followup again. The patient was back in the ER in April, hospitalized for 2 days in May, and then presented again with abdominal pain that awakened him from sleep overnight. He describes that basically over the past 6 months or so, he has been having frequent episodes of abdominal pain, some of which are worse than others. The more severe episodes prompt his ER visits. Since admission here, he has been feeling better. He has been having some liquids but is not particularly hungry. He denies any signs of jaundice at home. Aside from the epigastric pain, he denies any ongoing symptoms at the present time. He describes that his previous significant diarrhea has basically resolved spontaneously, and he is not taking any chronic medication for that. He denies any hematochezia nor melena. He denies any significant heartburn or dysphagia. He does describe a history of heavy drinking up until 5 years ago. since then, he describes drinking only very occasionally. He did have 1 beer on the day before this admission. Previous workups have included a normal triglyceride level, normal IgG subtypes, and no evidence of any autoimmune pancreatitis based on those, and abdominal ultrasound in January that was negative for gallstones. He reports he is not taking any medications at home. His medications here in the hospital include acetaminophen, amlodipine, diazepam p.r.n., Lovenox, hydralazine p.r.n., Dilaudid p.r.n. melatonin p.r.n., milk of magnesia p.r.n., nicotine patch, Zofran p.r.n., oxycodone, and IV pantoprazole 40 mg daily. PAST MEDICAL HISTORY: Previous diarrhea and normal colonoscopy as described above. He describes multiple orthopedic fractures and surgeries. He has had back surgery. He has had previous substance abuse. Pancreatitis as above. Hypertension. He denies any history of HI, diabetes, stroke, or lung disease. SOCIAL HISTORY: He does smoke. He presently denies any significant alcohol use. 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 FAMILY HISTORY: Noncontributory. REVIEW OF SYSTEMS: CONSTITUTIONAL: In general, he has been feeling well but has been bothered by these episodes of abdominal pain. He is usually able to eat fairly well. SKIN: No rash, no pruritus. CARDIAC: No chest pain. PULMONARY: No coughing or hemoptysis. GI: As above. URINARY: No dysuria, no hematuria. NEUROLOGIC: No headache or seizures. PHYSICAL EXAMINATION: GENERAL: The patient is a pleasant, alert, comfortable-appearing male. SKIN: Warm and dry. HEENT: Anicteric sclerae. NECK: Supple without lymphadenopathy. CARDIAC: Normal S1, S2. ABDOMEN: Soft with some epigastric tenderness to palpation. There is no mass or rebound. LABORATORY DATA: He did have a CT scan of his abdomen and pelvis today. This describes a 1.7 cm hypoattenuating mass in the pancreatic head and neck area. There was some dilatation of the pancreatic duct in the body and tail but no evidence of any surrounding inflammatory changes to suggest the pancreatitis. No other significant abnormalities were noted. Laboratories revealed normal CBC, normal electrolytes, BUN 23, creatinine 1.0. Completely normal LFTs. C-reactive protein of 0.7, and lipase level of 389. IMPRESSION: The patient is a 39-year-old male with recent problems of abdominal pain with associated elevated lipase levels and now presenting with similar problems, but his CT scan describes a lesion in the pancreas suspicious for carcinoma. At this point, he appears comfortable, and I would continue supportive care with followup of his laboratories in the morning. He has a CA 19-9 level already pending. I would follow up laboratories in the morning and advance his diet as tolerated. I have ordered an MRI with MRCP of the pancreas for tomorrow. I think this would be helpful information to obtain better visualization of the lesion to see if there is any invasion of surrounding structures. I did advise him that he most likely will need an endoscopic ultrasound of the pancreas both for further diagnostic purposes and to obtain biopsies from the suspected lesion. Depending upon the results of his workup with endoscopic ultrasound, biopsies, and CA 19-9 level, he may very well need referral to Oncology. Thank you for the consultation. MD JOSE Higginbotham/OLIVIA / [id number] MTDD
[2025-06-18 06:52] LABS: MANUAL DIFF FLAG NO
[2025-06-18 07:01] LABS: Hematocrit 44.8 % (42.0-52.0); Hematocrit 45.8 % (42.0-52.0); Hemoglobin 15.1 g/dl (14.0-18.0); Hemoglobin 15.3 g/dl (14.0-18.0); Imm Gran Abs Auto 0.03 X10*3/uL (0.00-0.03); Imm Gran Pct Auto 0.4 % (0.0-0.4); Lymphocytes Absolute Auto 2.8 X10*3/uL (1.2-4.9); Mean Corpuscular HGB Conc 33.4 g/dl (31.0-36.0); Mean Corpuscular HGB Conc 33.7 g/dl (31.0-36.0); Mean Corpuscular Hemoglobin 29.4 pg (27.0-33.0); Mean Corpuscular Hemoglobin 29.5 pg (27.0-33.0); Mean Corpuscular Volume 87.2 fL (80.0-98.0); Mean Corpuscular Volume 88.4 fL (80.0-98.0); NRBC Abs Auto 0.000 X10*3/uL (0.0-0.012); NRBC Pct Auto 0.0 /100WBC (0.0-0.2); Platelet Count 263 X10*3/uL (160-400); Platelet Count 279 X10*3/uL (160-400); Red Blood Count 5.14 X10*6/uL (4.60-5.80); Red Blood Count 5.18 X10*6/uL (4.60-5.80); White Blood Count 7.5 X10*3/uL (4.8-10.8)
--- NOTE | 2025-06-18 07:36 | P.PNIM_ITS ---
Subjective Subjective Date of Service: 06/18/25 Interval History: MRCP - 23 x 27 x 21 mm peripheral thick enhancing thin septated mass, pancreatic head resulting in main pancreatic ductal dilatation. Concerning for malignancy. CA 19-9 pending Review of Systems Review of Systems: Yes all other systems are reviewed and are negative Physical Exam 2 Exam: Exam: Gen: A&O x3, appears agitated about pain meds Pulmonary: Vesicular breath sounds, fair air entry CVS: Normal S1-S2 Abdomen: BS+, Soft, tender in the epigastrium; no guarding no rigidity Vital Signs: Vital Signs: Last Vital Signs Temp 97.6 F 06/18/25 04:00 Pulse 55 06/18/25 04:00 Resp 18 06/18/25 04:00 BP 131/90 H 06/18/25 04:00 Pulse Ox 98 06/18/25 04:00 O2 Del Method Room Air 06/18/25 04:00 BMI result Body Mass Index 34.0 Objective Data Active Medications Acetaminophen (Acetaminophen 325 Mg Tablet) 975 mg PO Q6H [facility] Last Admin: 06/18/25 05:23 Dose: Not Given Documented By: GENA Non-Admin Reason: Patient Refused Amlodipine Besylate (Amlodipine Besylate 10 Mg Tablet) 10 mg PO DAILY [facility]; Protocol Last Admin: 06/17/25 12:11 Dose: 10 mg Documented By: JOSE CRUZ Calcium Carbonate (Calcium Carbonate 750 Mg Tab.Chew) 750 mg PO Q4H PRN PRN Reason: Heartburn Enoxaparin Sodium (Enoxaparin Sodium 40 Mg/0.4 Ml Syringe) 40 mg SUBCUT Q24H [facility] Last Admin: 06/17/25 09:02 Dose: Not Given Documented By: JOSE CRUZ Non-Admin Reason: Patient Refused Hydralazine HCl (Hydralazine Hcl 50 Mg Tablet) 50 mg PO TID ERIC; Protocol Last Admin: 06/17/25 21:24 Dose: 50 mg Documented By: GENA Hydralazine HCl (Hydralazine Hcl 20 Mg/Ml Vial) 5 mg IVPUSH Q6H PRN; Protocol PRN Reason: SBP > 160 Hydromorphone HCl (Hydromorphone Hcl 2 Mg/Ml Vial) 1.5 mg IVPUSH Q3H PRN; Protocol PRN Reason: Pain, Severe (Pain Scale 7-10) Last Admin: 06/18/25 06:09 Dose: 1.5 mg Documented By: GENA Lactated Ringer's (Lr) 1,000 mls @ 100 mls/hr IVCONT .Q10H [facility] Last Admin: 06/18/25 01:26 Dose: 100 mls/hr Documented By: GENA Magnesium Hydroxide (Milk Of Magnesia 30 Ml Oral.Susp) 30 ml PO DAILY PRN PRN Reason: Constipation Melatonin (Melatonin 3 Mg Tablet) 6 mg PO BEDTIME PRN PRN Reason: Insomnia Nicotine (Nicotine 21 Mg Patch.Td24) 21 mg TRANSDERMA DAILY [facility] Last Admin: 06/17/25 09:25 Dose: 21 mg Documented By: JOSE CRUZ Nicotine Polacrilex (Nicotine Polacrilex Lozenge 2 Mg Lozenge) 2 mg BUCCAL Q1H PRN PRN Reason: Nicotine Cravings Last Admin: 06/17/25 09:25 Dose: 2 mg Documented By: JOSE CRUZ Ondansetron HCl (Ondansetron Hcl 4 Mg/2 Ml Vial) 4 mg IVPUSH Q6H PRN PRN Reason: Nausea and Vomiting Last Admin: 06/17/25 16:09 Dose: 4 mg Documented By: JOSE CRUZ Oxycodone HCl (Oxycodone Hcl Er 10 Mg Tab.Er.12h) 20 mg PO BID [facility] Last Admin: 06/17/25 21:24 Dose: 20 mg Documented By: GENA Pantoprazole Sodium (Pantoprazole Sodium 40 Mg/10 Ml Vial) 40 mg IVPUSH DAILY@0630 [facility] Last Admin: 06/18/25 06:32 Dose: 40 mg Documented By: GENA Sodium Chloride (0.9 % Sodium Chloride Flush 3 Ml Syringe) 3 ml IVFLUSH QSHIFT [facility] Last Admin: 06/17/25 22:48 Dose: Not Given Documented By: GENA Non-Admin Reason: IV Running Labs 06/18/25 06:27 06/18/25 06:27 Labs: Laboratory Results - last 24 hr 06/17/25 06/17/25 06/18/25 09:09 17:15 06:27 MCV 88.4 MCH MCHC RDW Plt Count MPV Immature Gran % (Auto) Neut % (Auto) Lymph % (Auto) Iron % (Auto) Eos % (Auto) Baso % (Auto) Lymph # (Auto) Iron # (Auto) Eos # (Auto) Baso # (Auto) Abs Immat Gran (auto) Absolute Neuts (auto) Absolute Nucleated RBC Nucleated RBC % (auto) ESR 13 C-Reactive Protein 0.67 H Urine Opiates Screen Not Detected Ur Buprenorphine Scrn Not Detected Ur Oxycodone Screen Not Detected Urine Methadone Screen Not Detected Urine Fentanyl Screen Not Detected Ur Barbiturates Screen Not Detected Ur Phencyclidine Scrn Not Detected Ur Amphetamines Screen Not Detected U Benzodiazepines Scrn Not Detected Urine Cocaine Screen Not Detected U Marijuana (THC) Screen POSITIVE H 06/18/25 06/18/25 06/18/25 06:27 06:27 06:27 MCV 87.2 MCH 29.5 29.4 MCHC 33.4 33.7 RDW 12.0 Plt Count MPV Immature Gran % (Auto) Neut % (Auto) Lymph % (Auto) Iron % (Auto) Eos % (Auto) Baso % (Auto) Lymph # (Auto) Iron # (Auto) Eos # (Auto) Baso # (Auto) Abs Immat Gran (auto) Absolute Neuts (auto) Absolute Nucleated RBC Nucleated RBC % (auto) ESR C-Reactive Protein Urine Opiates Screen Ur Buprenorphine Scrn Ur Oxycodone Screen Urine Methadone Screen Urine Fentanyl Screen Ur Barbiturates Screen Ur Phencyclidine Scrn Ur Amphetamines Screen U Benzodiazepines Scrn Urine Cocaine Screen U Marijuana (THC) Screen 06/18/25 06/18/25 06/18/25 06:27 06:27 06:27 MCV MCH MCHC RDW 12.2 Plt Count 279 263 MPV 9.0 L 9.1 L Immature Gran % (Auto) 0.4 Neut % (Auto) 48.8 Lymph % (Auto) 37.5 Iron % (Auto) 7.9 Eos % (Auto) 4.6 H Baso % (Auto) 0.8 Lymph # (Auto) 2.8 Iron # (Auto) 0.6 Eos # (Auto) 0.3 Baso # (Auto) 0.1 Abs Immat Gran (auto) 0.03 Absolute Neuts (auto) 3.6 Absolute Nucleated RBC 0.000 Nucleated RBC % (auto) ESR C-Reactive Protein Urine Opiates Screen Ur Buprenorphine Scrn Ur Oxycodone Screen Urine Methadone Screen Urine Fentanyl Screen Ur Barbiturates Screen Ur Phencyclidine Scrn Ur Amphetamines Screen U Benzodiazepines Scrn Urine Cocaine Screen U Marijuana (THC) Screen 06/18/25 06/18/25 06:27 06:27 MCV MCH MCHC RDW Plt Count MPV Immature Gran % (Auto) Neut % (Auto) Lymph % (Auto) Iron % (Auto) Eos % (Auto) Baso % (Auto) Lymph # (Auto) Iron # (Auto) Eos # (Auto) Baso # (Auto) Abs Immat Gran (auto) Absolute Neuts (auto) Absolute Nucleated RBC 0.000 Nucleated RBC % (auto) 0.0 0.0 ESR C-Reactive Protein Urine Opiates Screen Ur Buprenorphine Scrn Ur Oxycodone Screen Urine Methadone Screen Urine Fentanyl Screen Ur Barbiturates Screen Ur Phencyclidine Scrn Ur Amphetamines Screen U Benzodiazepines Scrn Urine Cocaine Screen U Marijuana (THC) Screen Assessment and Plan (1) Mass of head of pancreas: Status: Acute Plan Patient is a 39-year-old male with PMH notable for HTN not on home meds, noncompliance with meds, recurrent pancreatitis, S UD (cocaine and alcohol), prior AMA 2 weeks ago, who presented with gradually progressive epigastric pain and was noted to have pancreatitis and imaging suggestive of pancreatic mass suspicious for malignancy #Pancreatitis #Intractable pain #Pancreatic mass of the head and neck with pancreatic duct dilation suspicious for malignancy Patient epigastric pain with elevated lipase (389) imaging notable for 1.7 cm hypoattenuating mass of the pancreatic head or neck we dilatation of the pancreatic duct in the body and tail. MRCP : 23 x 27 x 21 mm peripheral thick enhancing thin septated mass, pancreatic head resulting in main pancreatic ductal dilatation. GI consulted -likely we will need EUS Intractable pain is being addressed with OxyContin, Dilaudid, Tylenol, lidocaine. Pt likely needs intermediate pain mx - limited resources in hosp CA 19 [address] likely [address] him NPO from midnight for possible EUS PPI #Hypertensive urgency Head CT unremarkable for acute pathology Patient's blood pressure appears to be in the 180s to 190s likely put to be in the setting of pain versus noncompliance to meds. He appears to be having high blood pressure, was prescribed medication, however patient not compliant Started him on amlodipine and hydralazine p.o.- better controlled Hydralazine IV p.r.n. for SBP greater than 160 # current cigarette smoker Nicotine replacement therapy Might benefit from PTOT prior to discharge Full code DVT prophylaxis with the SCD boots in the anticipation of procedure tomorrow Pt likely needs intermediate pain mx - limited resources in hosp Given that the patient has required multiple doses of IV Dilaudid, hypertensive urgency, and has new pancreatic mass suggestive of malignancy which needs further workup and procedure, I anticipate at least 1-2 days of further hospitalization. Quality Stroke Does the patient have a stroke diagnosis?: No VTE Prior VTE?: No VTE Risk Level:: Medical - moderate - high VTE Device Contraindication: Treatment Not Indicated VTE Drug Contraindication: N/A - Med Ordered
[2025-06-18 07:39] VITALS: BP 128/82; PULSE 50; RESP 16; TEMP 36.2; O2SAT 97
[2025-06-18 07:51] LABS: Alanine Aminotransferase 33 U/L (0-40); Albumin Level 4.5 g/dL (3.5-5.0); Alkaline Phosphatase 78 U/L (39-117); Aspartate Amino Transferase 22 U/L (5-37); Blood Urea Nitrogen 13 mg/dL (9-16); Calcium 9.2 mg/dL (8.4-10.2); Creatinine Clr Calc Pharmacy 139.8; Estimated Glomerular Filt Rate > 60; Lipase 40 U/L (8-78); Magnesium 2.3 mg/dL (1.6-2.6); Total Protein 7.1 g/dL (6.5-8.0)
[2025-06-18 07:56] LABS: Anion Gap 11 (12-20); Carbon Dioxide 30 mmol/L (22-29); Chloride 102 mmol/L (96-108); Potassium 3.5 mmol/L (3.3-5.1); Sodium 139 mmol/L (135-145)
[2025-06-18] MEDS: oxyCODONE HCl ER 10 MG TAB.ER.12H 20 MG PO ×2 (08:28→20:18)
[2025-06-18] MEDS: Nicotine 21 MG PATCH.TD24 TRANSDERMA ×2 (09:17→14:48)
--- NOTE | 2025-06-18 13:37 | MHC.CM.PN ---
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 NO SERVICES OR DME. PT DECLINES COMPLETION OF HCP. PCP DR. SOTO. DP: HOME, NO SERVICES ANTICIPATED. PT HAS CAR IN LOT. CM WILL CONTINUE TO FOLLOW FOR ANY CHANGE TO DC PLAN/NEEDS.
[2025-06-18 14:56] VITALS: BP 146/76; PULSE 83; RESP 18; TEMP 36.4; O2SAT 96
[2025-06-18 19:34] VITALS: BP 146/81; PULSE 75; RESP 19; TEMP 36.2; O2SAT 95
[2025-06-18 21:09] VITALS: RESP 20
[2025-06-18] MEDS: Nicotine Polacrilex Lozenge 2 MG LOZENGE BUCCAL (21:15)
[2025-06-19] VITALS: BP 147/83; PULSE 63; RESP 20; TEMP 36.1; O2SAT 96
[2025-06-19] MEDS: Lactated Ringers 1,000 ML 100 ML IVCONT (00:09)
[2025-06-19] MEDS: 0.9 % Sodium Chloride Flush 3 ML SYRINGE IVFLUSH ×2 (00:37→08:35)
[2025-06-19 03:24] VITALS: BP 118/65; PULSE 68; RESP 19; TEMP 36.2; O2SAT 97
[2025-06-19 06:04] LABS: MANUAL DIFF FLAG NO
[2025-06-19 06:22] LABS: Alanine Aminotransferase 28 U/L (0-40); Albumin Level 4.0 g/dL (3.5-5.0); Alkaline Phosphatase 69 U/L (39-117); Anion Gap 9 (12-20); Aspartate Amino Transferase 23 U/L (5-37); Blood Urea Nitrogen 15 mg/dL (9-16); Calcium 8.8 mg/dL (8.4-10.2); Carbon Dioxide 30 mmol/L (22-29); Chloride 105 mmol/L (96-108); Creatinine Clr Calc Pharmacy 137.1; Estimated Glomerular Filt Rate > 60; Potassium 4.1 mmol/L (3.3-5.1); Sodium 140 mmol/L (135-145); Total Protein 6.3 g/dL (6.5-8.0)
[2025-06-19 06:25] LABS: Hematocrit 42.2 % (42.0-52.0); Hemoglobin 14.2 g/dl (14.0-18.0); Imm Gran Abs Auto 0.01 X10*3/uL (0.00-0.03); Imm Gran Pct Auto 0.2 % (0.0-0.4); Lymphocytes Absolute Auto 2.3 X10*3/uL (1.2-4.9); Mean Corpuscular HGB Conc 33.6 g/dl (31.0-36.0); Mean Corpuscular Hemoglobin 29.5 pg (27.0-33.0); Mean Corpuscular Volume 87.6 fL (80.0-98.0); NRBC Abs Auto 0.000 X10*3/uL (0.0-0.012); NRBC Pct Auto 0.0 /100WBC (0.0-0.2); Platelet Count 222 X10*3/uL (160-400); Red Blood Count 4.82 X10*6/uL (4.60-5.80); White Blood Count 5.9 X10*3/uL (4.8-10.8)
[2025-06-19 06:59] VITALS: BP 137/90; PULSE 68; RESP 16; TEMP 36.6; O2SAT 97
--- NOTE | 2025-06-19 07:23 | HO.PM.IMPN ---
Subjective Subjective Date of Service: 06/19/25 Physical Exam Vital Signs: Vital Signs: Last Vital Signs Temp 97.8 F 06/19/25 06:59 Pulse 68 06/19/25 06:59 Resp 16 06/19/25 06:59 BP 137/90 H 06/19/25 06:59 Pulse Ox 97 06/19/25 06:59 O2 Del Method Room Air 06/19/25 06:59 BMI result Body Mass Index 34.0 Objective Data Active Medications Acetaminophen (Acetaminophen 325 Mg Tablet) 975 mg PO Q6H [facility] Last Admin: 06/19/25 04:52 Dose: Not Given Documented By: HARPREET Non-Admin Reason: Patient Refused Amlodipine Besylate (Amlodipine Besylate 10 Mg Tablet) 10 mg PO DAILY [facility]; Protocol Last Admin: 06/18/25 08:28 Dose: 10 mg Documented By: ANANT Calcium Carbonate (Calcium Carbonate 750 Mg Tab.Chew) 750 mg PO Q4H PRN PRN Reason: Heartburn Last Admin: 06/18/25 21:15 Dose: 750 mg Documented By: HARPREET Comments: reports of epigastric burning Enoxaparin Sodium (Enoxaparin Sodium 40 Mg/0.4 Ml Syringe) 40 mg SUBCUT Q24H [facility] Last Admin: 06/18/25 10:12 Dose: Not Given Documented By: ANANT Non-Admin Reason: Patient Refused Hydralazine HCl (Hydralazine Hcl 50 Mg Tablet) 50 mg PO TID [facility]; Protocol Last Admin: 06/18/25 20:18 Dose: 50 mg Documented By: JOSE MANUEL Hydralazine HCl (Hydralazine Hcl 20 Mg/Ml Vial) 5 mg IVPUSH Q6H PRN; Protocol PRN Reason: SBP > 160 Hydromorphone HCl (Hydromorphone Hcl 2 Mg/Ml Vial) 1.5 mg IVPUSH Q3H PRN; Protocol PRN Reason: Pain, Severe (Pain Scale 7-10) Last Admin: 06/19/25 04:51 Dose: 1.5 mg Documented By: HARPREET Ketorolac Tromethamine (Ketorolac Tromethamine 15 Mg/Ml Vial) 15 mg IVPUSH Q6H PRN PRN Reason: Pain, Moderate(Pain Scale 4-6) Stop: 06/21/25 00:25 Last Admin: 06/19/25 02:16 Dose: 15 mg Documented By: HARPREET Magnesium Hydroxide (Milk Of Magnesia 30 Ml Oral.Susp) 30 ml PO DAILY PRN PRN Reason: Constipation Melatonin (Melatonin 3 Mg Tablet) 6 mg PO BEDTIME PRN PRN Reason: Insomnia Last Admin: 06/18/25 21:15 Dose: 6 mg Documented By: HARPREET Comments: requested for sleep Nicotine (Nicotine 21 Mg Patch.Td24) 21 mg TRANSDERMA DAILY [facility] Last Admin: 06/18/25 14:48 Dose: 21 mg Documented By: BROAnna Marie Nicotine Polacrilex (Nicotine Polacrilex Lozenge 2 Mg Lozenge) 2 mg BUCCAL Q1H PRN PRN Reason: Nicotine Cravings Last Admin: 06/18/25 21:15 Dose: 2 mg Documented By: HARPREET Comments: Nicotine craving Ondansetron HCl (Ondansetron Hcl 4 Mg/2 Ml Vial) 4 mg IVPUSH Q6H PRN PRN Reason: Nausea and Vomiting Last Admin: 06/17/25 16:09 Dose: 4 mg Documented By: JOSE CRUZ Oxycodone HCl (Oxycodone Hcl Er 10 Mg Tab.Er.12h) 20 mg PO BID [facility] Last Admin: 06/18/25 20:18 Dose: 20 mg Documented By: JOSE MANUEL Pantoprazole Sodium (Pantoprazole Sodium 40 Mg/10 Ml Vial) 40 mg IVPUSH DAILY@0630 [facility] Last Admin: 06/19/25 04:51 Dose: 40 mg Documented By: HARPREET Sodium Chloride (0.9 % Sodium Chloride Flush 3 Ml Syringe) 3 ml IVFLUSH QSHIFT [facility] Last Admin: 06/19/25 00:37 Dose: 3 ml Documented By: HARPREET Labs 06/19/25 05:47 06/19/25 05:47 Labs: Laboratory Results - last 24 hr 06/18/25 06/19/25 06:27 05:47 MCV 87.6 MCH 29.5 MCHC 33.6 RDW 12.2 Plt Count 222 MPV 9.1 L Immature Gran % (Auto) 0.2 Neut % (Auto) 45.8 Lymph % (Auto) 38.8 [place] % (Auto) 10.5 Eos % (Auto) 3.9 Baso % (Auto) 0.8 Lymph # (Auto) 2.3 [place] # (Auto) 0.6 Eos # (Auto) 0.2 Baso # (Auto) 0.1 Abs Immat Gran (auto) 0.01 Absolute Neuts (auto) 2.7 Absolute Nucleated RBC 0.000 Nucleated RBC % (auto) 0.0 Anion Gap 11 L 9 L Estim Creat Clear Calc 139.8 137.1 Estimated GFR > 60 > 60 Random Glucose 89 100 Calcium 9.2 8.8 Magnesium 2.3 Total Bilirubin 0.5 0.5 Direct Bilirubin 0.2 AST 22 23 ALT 33 28 Alkaline Phosphatase 78 69 Total Protein 7.1 6.3 L Albumin 4.5 4.0 Lipase 40 Quality Stroke Does the patient have a stroke diagnosis?: No VTE Prior VTE?: No VTE Risk Level:: Medical - moderate - high VTE Device Contraindication: Treatment Not Indicated VTE Drug Contraindication: N/A - Med Ordered
[2025-06-19] MEDS: oxyCODONE HCl ER 10 MG TAB.ER.12H 20 MG PO (08:36)
[2025-06-19] MEDS: Nicotine 21 MG PATCH.TD24 TRANSDERMA (08:36)
--- NOTE | 2025-06-19 12:30 | MHC.CM.PN ---
DP: PT HAS BEEN MEDICALLY CLEARED FOR DC HOME, NO SERVICES. PT IS AWARE HE WILL NEED TO F/U WITH PCP/[facility] ON DC . PT HAS OWN RIDE HOME.
--- NOTE | 2025-06-19 14:00 | PM.DS ---
DS: Providers Provider Date of admission: 06/17/25 05:46 Date of discharge: 06/19/25 Primary care physician: Pranav Bailey MD Consults: 06/17/25 05:46 Consult to Gastroenterology Routine Consulting Provider: [facility] Reason for consultation: recurrent pancreatitis, ?etiology DS: Diagnosis Discharge Diagnosis (1) Mass of head of pancreas: Status: Acute DS: Summary Hospital Course Hospital Course: Chief Complaint: abd pain 39M PMH HTN non compliant with meds, recurrent pancreatitis, cocaine abuse, presented with abdominal pain. Patient was admitted in January of 2025 with pancreatitis, at that time workup was negative for gallstones, IgG 4, triglycerides, history not consistent with alcohol, presumed etiology was cocaine. On 06/02/2025 patient was admitted again for acute pancreatitis and left against medical advice. He reports that since then he has had continuing epigastric pain difficulty tolerating food, occasional nausea and vomiting. On day prior to presentation had 1 beer and a venison burger and had worsening pain so he came to the ED. In ED lipase noted to be 389. Otherwise labs unremarkable. Hospital course: Time spent discussing smoking cessation with patient: more than 10 minutes Physical Exam Vital Signs: Vital Signs: Last Vital Signs Temp 97.8 F 06/19/25 06:59 Pulse 68 06/19/25 06:59 Resp 16 06/19/25 06:59 BP 137/90 H 06/19/25 06:59 Pulse Ox 97 06/19/25 06:59 O2 Del Method Room Air 06/19/25 06:59 BMI result Body Mass Index 34.0 DS: Data Data Completed and Pending Labs on day of discharge: Laboratory Results - last 24 hr 06/17/25 06/19/25 17:15 05:47 WBC 5.9 RBC 4.82 Hgb 14.2 Hct 42.2 MCV 87.6 MCH 29.5 MCHC 33.6 RDW 12.2 Plt Count 222 MPV 9.1 L Immature Gran % (Auto) 0.2 Neut % (Auto) 45.8 Lymph % (Auto) 38.8 [place] % (Auto) 10.5 Eos % (Auto) 3.9 Baso % (Auto) 0.8 Lymph # (Auto) 2.3 [place] # (Auto) 0.6 Eos # (Auto) 0.2 Baso # (Auto) 0.1 Abs Immat Gran (auto) 0.01 Absolute Neuts (auto) 2.7 Absolute Nucleated RBC 0.000 Nucleated RBC % (auto) 0.0 Sodium 140 Potassium 4.1 Chloride 105 Carbon Dioxide 30 H Anion Gap 9 L BUN 15 Creatinine 1.03 Estim Creat Clear Calc 137.1 Estimated GFR > 60 Random Glucose 100 Calcium 8.8 Total Bilirubin 0.5 AST 23 ALT 28 Alkaline Phosphatase 69 Total Protein 6.3 L Albumin 4.0 CA 19-9 Antigen 64 H Discharge Plan Discharge Referrals: [facility] [Other] - 1 Week Referral Note: PLEASE CALL TO SET UP FIRST APPOINTMENT Pranav Bailey MD [Primary Care Provider, [facility]] - 1 Week Discharge Medications: No Action No Known Home Meds Discharge Orders: Discharge Order (Routine); Ordered 06/19/25 Ordered By: Cori Basurto Print Language: Norwegian
[2025-06-19 15:48] VITALS: BP 164/98
[2025-06-19 15:53] VITALS: BP 171/98; PULSE 63; RESP 18; TEMP 36.7; O2SAT 98
--- NOTE | 2025-06-19 16:39 | PM.DS ---
DS: Providers Provider Date of admission: 06/17/25 05:46 Date of discharge: 06/19/25 Primary care physician: Pranav Bailey MD Consults: 06/17/25 05:46 Consult to Gastroenterology Routine Consulting Provider: [facility] Reason for consultation: recurrent pancreatitis, ?etiology DS: Diagnosis Discharge Diagnosis (1) Mass of head of pancreas: Status: Acute DS: Summary Hospital Course Hospital Course: Chief Complaint: abd pain 39M PMH HTN non compliant with meds, recurrent pancreatitis, cocaine abuse, presented with abdominal pain. Patient was admitted in January of 2025 with pancreatitis, at that time workup was negative for gallstones, IgG 4, triglycerides, history not consistent with alcohol, presumed etiology was cocaine. On 06/02/2025 patient was admitted again for acute pancreatitis and left against medical advice. He reports that since then he has had continuing epigastric pain difficulty tolerating food, occasional nausea and vomiting. On day prior to presentation had 1 beer and a venison burger and had worsening pain so he came to the ED. In ED lipase noted to be 389. Otherwise labs unremarkable. Hospital course: 39-year-old male with PMH notable for HTN not on home meds, medication noncompliance, recurrent pancreatitis, substance use disorder with cocaine and EtOH, presents with progressive epigastric pain, admitted with acute pancreatitis with imaging of new pancreatic mass suggestive of malignancy. Pancreatitis Intractable pain Pancreatic mass of the head and neck with pancreatic duct dilation suspicious for malignancy Patient epigastric pain with elevated lipase (389) imaging notable for 1.7 cm hypoattenuating mass of the pancreatic head or neck we dilatation of the pancreatic duct in the body and tail. Imaging was performed with a MRCP, which revealed: 23 x 27 x 21 mm peripheral thick enhancing thin septated mass, pancreatic head resulting in main pancreatic ductal dilatation. Patient is suffering with intractable abdominal pain; being addressed with OxyContin, Tylenol, lidocaine. Able to ingest > 25% of meals t.i.d. GI was consulted-recommendations greatly appreciated Plan is for EUS in the outpatient setting Requires hematology oncology evaluation CA 19 9 currently pending Receiving PPI Hypertensive urgency Head CT unremarkable for acute pathology Patient's blood pressure appears to be in the 180s to 190s likely put to be in the setting of pain versus noncompliance to meds. He appears to be having high blood pressure, was prescribed medication, however patient not compliant Started him on amlodipine and hydralazine p.o.- better controlled Status at Discharge Functional status at discharge: independent ambulation Overall status at discharge: patient is back to baseline Time Attestation Total time managing care of this patient today: 45 mintues. Discharge Coordination Time (in mins): 35 Quality: Safe Use of Opioids Does Pt have an Active Cancer Diagnosis on the Problem List?: No Quality: Stroke Does the patient have a stroke diagnosis?: No Physical Exam Exam: Exam: General: A&O x3, oriented to time place person and situation, comfortable, no pain Cardiac: S1, S2 auscultated with no S3/4, no MRG. Well perfused. Respiratory: Normal breath sounds auscultated throughout all lung zones, without wheezing, rales. Normal rate. GI/ : No abdominal pain on palpation, no masses or distentions. MSK: Normal ambulation without pain at bony prominences or musculature Neurological: Normal neurological examination on overview, without obvious CN II-XII abnormalities. Vital Signs: Vital Signs: Last Vital Signs Temp 98.1 F 06/19/25 15:53 Pulse 63 06/19/25 15:53 Resp 18 06/19/25 15:53 BP 171/98 H 06/19/25 15:53 Pulse Ox 98 06/19/25 15:53 O2 Del Method Room Air 06/19/25 15:53 BMI result Body Mass Index 34.0 DS: Data Data Completed and Pending Labs on day of discharge: Laboratory Results - last 24 hr 06/17/25 06/19/25 17:15 05:47 WBC 5.9 RBC 4.82 Hgb 14.2 Hct 42.2 MCV 87.6 MCH 29.5 MCHC 33.6 RDW 12.2 Plt Count 222 MPV 9.1 L Immature Gran % (Auto) 0.2 Neut % (Auto) 45.8 Lymph % (Auto) 38.8 Bates % (Auto) 10.5 Eos % (Auto) 3.9 Baso % (Auto) 0.8 Lymph # (Auto) 2.3 Bates # (Auto) 0.6 Eos # (Auto) 0.2 Baso # (Auto) 0.1 Abs Immat Gran (auto) 0.01 Absolute Neuts (auto) 2.7 Absolute Nucleated RBC 0.000 Nucleated RBC % (auto) 0.0 Sodium 140 Potassium 4.1 Chloride 105 Carbon Dioxide 30 H Anion Gap 9 L BUN 15 Creatinine 1.03 Estim Creat Clear Calc 137.1 Estimated GFR > 60 Random Glucose 100 Calcium 8.8 Total Bilirubin 0.5 AST 23 ALT 28 Alkaline Phosphatase 69 Total Protein 6.3 L Albumin 4.0 CA 19-9 Antigen 64 H Discharge Plan Discharge Anticipated Discharge Date/Time: 06/19/25 16:49 Patient Disposition: Home, Self-Care Discharge Diagnosis: pancreatitis & new pancreatic mass Referrals: [facility] [place] [facility] [Other] - 1 Week Referral Note: PLEASE CALL TO SET UP FIRST APPOINTMENT Pranav Bailey MD [Primary Care Provider, Nursing Home Facility] - 1 Week Discharge Medications: New amlodipine 10 mg Tablet 10 mg PO DAILY 30 Days Qty: 30 0RF Protocol: Hold for SBP< HOLD for SBP < : 90 hydralazine 50 mg Tablet 50 mg PO TID 30 Days Qty: 90 0RF Protocol: Hold for SBP< HOLD for SBP < : 90 oxycodone [OxyContin] 10 mg Tablet,Oral Only,Ext.Rel.12 Hr 20 mg PO BID 2 Days Qty: 8 0RF Rx Instructions: Partial Fill upon patient request. pantoprazole [Protonix] 40 mg tablet,delayed release (DR/EC) 40 mg PO DAILY 30 Days Qty: 30 0RF Discharge Orders: Discharge Order (Routine); Ordered 06/19/25 Ordered By: Cori Basurto Diet: Advance to usual diet Activity on Discharge: As tolerated Stand Alone Forms: Patient Portal Discharge page Print Language: [place] Care Plan Goals: As above Health Concerns: As above Plan of Treatment: Follow up with PCP within 1 week of discharge Follow up with outpatient Gastroenterology Follow up with outpatient Hematology/Oncology Will require EUS Assessment: Hemodynamically stable for discharge
--- NOTE | 2025-06-19 17:44 | PC.NURSE ---
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
== END 2025-06-19 17:46 | disposition home or self-care (01) ==
LOC: HO.ED 05:07 → HO.EDOVER 05:59 → HO.S3 06-18 10:48
PROVIDERS: Admitting Provider Internal Medicine; Emergency Provider Emergency Medicine; PCP Internal Medicine Medical Oncology; Visit Provider Student in an Organized Health Care Education/Training Program
DX: K86.89 Other specified diseases of pancreas (principal); K85.90 Acute pancreatitis without necrosis or infection, unspecified; F19.10 Other psychoactive substance abuse, uncomplicated; R10.13 Epigastric pain; I10 Essential (primary) hypertension; I45.10 Unspecified right bundle-branch block; R11.2 Nausea with vomiting, unspecified; F17.200 Nicotine dependence, unspecified, uncomplicated; Z71.6 Tobacco abuse counseling
CPT/HCPCS: 36415; 70450; 74177; 74183; 80053; 80076; 80307; 83690; 83735; 84478; 84484; 85025; 85027; 85652; 86140; 86301; 93005; 96361; 96372; 96374; 96375; 96376; 99221; 99285; A9585; J1171; J1650; J1885; J2405; J2470; J3360; J7120; Q9967

== ENCOUNTER → 2025-06-17 02:31 | Outpatient (BNV) | payer OTHER, SELFPAY | PROVIDERS: Emergency Provider Emergency Medicine; PCP Internal Medicine Medical Oncology; Visit Provider Internal Medicine | DX: K86.89 Other specified diseases of pancreas (principal) | CPT/HCPCS: 99233; 99499 ==

== ENCOUNTER 2025-06-17 05:46 | Outpatient (BNV) | payer OTHER, SELFPAY | END 2025-06-18 07:00 | PROVIDERS: Admitting Provider Internal Medicine; Emergency Provider Emergency Medicine; PCP Internal Medicine Medical Oncology; Visit Provider Radiology Diagnostic Radiology | DX: K85.90 Acute pancreatitis without necrosis or infection, unspecified (principal); K86.89 Other specified diseases of pancreas | CPT/HCPCS: 74183 ==

== ENCOUNTER 2025-06-17 05:46 | Outpatient (BNV) | payer OTHER, SELFPAY | END 2025-06-17 11:15 | PROVIDERS: Admitting Provider Internal Medicine; Emergency Provider Emergency Medicine; PCP Internal Medicine Medical Oncology; Visit Provider Radiology Diagnostic Radiology | DX: K85.90 Acute pancreatitis without necrosis or infection, unspecified (principal); I16.0 Hypertensive urgency | CPT/HCPCS: 70450; 74177 ==

== ENCOUNTER → 2025-06-17 11:52 | Outpatient (BNV) | payer OTHER, SELFPAY | PROVIDERS: Admitting Provider Internal Medicine; Emergency Provider Emergency Medicine; PCP Internal Medicine Medical Oncology; Visit Provider Internal Medicine Cardiovascular Disease | DX: I45.10 Unspecified right bundle-branch block (principal); I49.9 Cardiac arrhythmia, unspecified | CPT/HCPCS: 93010 ==